=== PATIENT | male | born 1945 ===

== ENCOUNTER 2016-12-17 10:25 | Inpatient (IN) | payer MEDICARE, OTHER ==
[2016-12-17 11:08] VITALS: BMI 26.7
--- NOTE | 2016-12-17 11:17 | C.PDOC ---
History Of Present Illness 71 y/o male with PMH of HTN and COPD, presents to the ED with complains of SOB worsening over the past week despite usual treatments at home. Patient reports having cough and congestion for 10 days, and also reports subjective fever last night, and chest discomfort with coughing. Denies headache, vomiting, diarrhea, dizziness, or any other complaints. Time Seen by Provider: 12/17/16 10:51 History Per: Patient, Family History/Exam Limitations: no limitations Onset/Duration Of Symptoms: Days Current Symptoms Are (Timing): Worse Severity: Moderate Associated Symptoms: Fever. denies: Chest Pain Recent travel outside of the [place]: No Past Medical History Reviewed: Historical Data, Nursing Documentation, Vital Signs Vital Signs: Last Vital Signs Temp Pulse 87 12/17/16 12:25 Resp 20 12/17/16 12:31 BP 122/79 12/17/16 12:25 Pulse Ox 94 L 12/17/16 12:31 - Medical History PMH: COPD, HTN Family History: States: Unknown Family Hx Review Of Systems Except As Marked, All Systems Reviewed And Found Negative. Constitutional: Positive for: Fever Cardiovascular: Positive for: Other (chest discomfort) Respiratory: Positive for: Cough, Shortness of Breath Gastrointestinal: Negative for: Vomiting, Diarrhea Neurological: Negative for: Headache, Dizziness Physical Exam - Physical Exam Appears: Non-toxic Skin: Warm, Dry, No Rash Head: Atraumatic, Normacephalic Ear(s): Bilateral: Normal Nose: Normal Oral Mucosa: Moist Throat: Normal Chest: Symmetrical, No Tenderness Cardiovascular: Rhythm Regular (tachycardic), No Murmur Respiratory: No Rales, Rhonchi (at bilateral bases), Wheezing (diffuse wheezing bilaterally), Other (mild respiratory distress) Gastrointestinal/Abdominal: Soft Extremity: No Pedal Edema Extremity: Bilateral: Atraumatic Neurological/Psych: Oriented x3, Normal Speech ED Course And Treatment - Laboratory Results Result Diagrams: 12/17/16 11:31 12/17/16 11:31 Progress Note: Patient is resting comfortably with no wheezing, chest pain, or retractions. Oxygen saturation has improved. Patient is alert and oriented x 3. Patient was advised to follow up with physician in 1-2 days. Medical Decision Making Medical Decision Making: Plan: * EKG, CXR * labs, UA * Nebulizer treatment with duoneb and solumedrol * nasal cannula * peak flow Progress: EKG is NS at 84 bpm with normal axis and nonspecific ST-T changes. No prior available for comparison Labs reviewed and WNL CXR shows no infiltrate, effusion or consolidation as interpreted by me Upon reevaluation, patient resting and in no acute distress. He reports mild improvement of symptoms. Lung sounds minimally changed and patient desaturates to low 90% when off oxygen. Will call hospitalist for observation admission. Patient agrees with plan. Disposition - Disposition Disposition: HOSPITALIZED Disposition Time: 12:37 Condition: STABLE - POA Present On Arrival: None - Clinical Impression Clinical Impression: COPD exacerbation - PA / [employer] / Resident Statement MD/DO has reviewed & agrees with the documentation as recorded. - Scribe Statement The provider has reviewed the documentation as recorded by the Scribe Ric Russell All medical record entries made by the Scribe were at my direction and personally dictated by me. I have reviewed the chart and agree that the record accurately reflects my personal performance of the history, physical exam, medical decision making, and the department course for this patient. I have also personally directed, reviewed, and agree with the discharge instructions and disposition. Decision To Admit - Pt Status Changed To: Hospital Disposition Of: Observation - . Bed Request Type: Regular Admitting Physician: Tristan Arriaza Patient Diagnosis: COPD exacerbation
[2016-12-17] MEDS: Albuterol-Ipratrop 3 mg / 0.5 (3 ml) UD IH SCH ×2 (11:35→11:58)
[2016-12-17] MEDS ORDERED: Albuterol-Ipratrop 3 mg / 0.5 (3 ml) UD ONE ×2 (11:37→11:45)
[2016-12-17 11:43] LABS: BASO # 0.1 K/uL (0.0-0.2); EOS # 0.2 K/uL (0.0-0.7); MONO # 1.5 K/uL (0.0-0.8); WHITE BLOOD COUNT 11.1 K/uL (4.8-10.8)
[2016-12-17 11:48] LABS: BASO % 0.9 % (0.0-2.0); EOS % 1.6 % (0.0-4.0); HEMATOCRIT 45.1 % (35.0-51.0); LYMPH # 1.3 K/uL (1.0-4.3); LYMPH % 12.2 % (20.0-40.0); MEAN CELL VOLUME 88.7 fL (80.0-94.0); MEAN CORPUSCULAR HEMOGLOBIN 30.6 pg (27.0-31.0); MEAN CORPUSCULAR HGB CONC 34.5 g/dL (33.0-37.0); MEAN PLATELET VOLUME 9.6 fL (7.2-11.7); MONO % 13.5 % (0.0-10.0); NRBC % 0.1 % (0.0-2.0); RED CELL DISTRIBUTION WIDTH 13.2 % (11.5-14.5)
[2016-12-17 11:50] LABS: CHLORIDE 95 mmol/L (98-107)
[2016-12-17 11:51] LABS: POTASSIUM 3.6 mmol/L (3.6-5.2); SODIUM 134 mmol/L (132-148)
[2016-12-17 11:53] LABS: ALB/GLOB RATIO 1.2 (1.0-2.1); ALKALINE PHOSPHATASE 68 U/L (38-126); AST/SGOT 30 U/L (17-59); BILIRUBIN,TOTAL 0.5 mg/dL (0.2-1.3); CARBON DIOXIDE 27 mmol/L (22-30); GFR AFRICAN-AMERICAN > 60; TOTAL PROTEIN 7.7 g/dL (6.3-8.3)
[2016-12-17 11:54] LABS: ALT/SGPT 56 U/L (21-72); BLOOD UREA NITROGEN 11 mg/dL (9-20); CALCIUM 9.3 mg/dl (8.6-10.4); GLUCOSE,RANDOM 74 mg/dL (75-110)
[2016-12-17 12:34] LABS: RBC URINE < 1 /hpf (0-3); URINE BILIRUBIN NEGATIVE (NEGATIVE); URINE BLOOD NEGATIVE (NEGATIVE); URINE COLOR Yellow (YELLOW); URINE GLUCOSE (UA) NORMAL (Normal); URINE KETONE NEGATIVE (NEGATIVE); URINE LEUKOCYTE ESTERASE NEG Leu/uL (Negative); URINE PROTEIN NEGATIVE (NEGATIVE); URINE UROBILINOGEN NORMAL mg/dL (0.2-1.0); WBC URINE 1 /hpf (0-5)
--- NOTE | 2016-12-17 12:51 | CP.PCM.HP ---
<Denzel Vences - Last Filed: 12/17/16 19:44> History of Present Illness - History of Present Illness History of Present Illness: CC: SOB + cough x 2weeks HPI: 71 y/o male with PMH of COPD, HTN, and Arthritis - presents c/o SOB worsening and cough for the past 2 weeks. He reports being sick with bronchitis on 12/05/16, as diagnosed by his PMD, and completed his tx with promethazine/ codeine, Azithromycin 250mg, and prednisone taper. He reports completing his medication 3 days ago, but feels no resolution of his symptoms. His last Tmax was last week in the 's. Patient reports having cough and congestion for 10 days (non-productive), subjective fever last night, and chest discomfort with coughing. Denies dizziness, chills, headache, abdominal pain, n/v, d/c, LE swelling, or any additional acute complaints. ED course: Solumedrol 125mg IVP; Duoneb 3mL INH; Lung sounds minimally changed and patient desaturated to low 90% when off oxygen. PMHx: COPD, HTN, arthritis PSHx: Left foot injury (internal fixation) Meds: Allergies: NKDA FamHx: Mother - [place] SocHx: 1-3 PPD x 50yrs; recently 1-5 cigarets/day; Recently 1-5 cigarets/day; Denies Alcohol or illicit drug use. Lives in apt. 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 Matta Present on Admission - Present on Admission Any Indicators Present on Admission: No Review of Systems - Constitutional Constitutional: As Per HPI, Fever. absent: Chills, Weakness - EENT Eyes: absent: Blind Spots, Blurred Vision, Change in Vision Ears: absent: Decreased Hearing, Ear Discharge, Dizziness Nose/Mouth/Throat: absent: Epistaxis, Nasal Congestion, Nasal Discharge - Cardiovascular Cardiovascular: Dyspnea. absent: Chest Pain at Rest, Chest Pain with Activity, Edema, Leg Edema - Respiratory Respiratory: Cough, Dyspnea, Pain with Coughing (right sided chest pain with cough). absent: Hemoptysis, Chest Congestion - Gastrointestinal Gastrointestinal: absent: Abdominal Pain, Constipation, Diarrhea, Nausea, Vomiting - Genitourinary Genitourinary: absent: Change in Urinary Stream, Difficulty Urinating, Dysuria - Musculoskeletal Musculoskeletal: absent: Atrophy, Back Pain, Numbness, Tingling - Integumentary Integumentary: absent: Bleeding Lesions, Unusual Bruising - Neurological Neurological: absent: Abnormal Hearing, Dizziness, Tingling, Weakness - Psychiatric Psychiatric: absent: Abnormal Sleep Pattern, Anhedonia, Anxiety - Hematologic/Lymphatic Hematologic: absent: Easy Bleeding, Easy Bruising, Lymphadenopathy Past Patient History - Infectious Disease Hx of Infectious Diseases: None - Past Social History Smoking Status: Former Smoker - CARDIAC Hx Hypertension: Yes - PULMONARY Hx Chronic Obstructive Pulmonary Disease (COPD): Yes - PSYCHIATRIC Hx Substance Use: No - SURGICAL HISTORY Hx Surgeries: Yes Hx Orthopedic Surgery: Yes Meds Allergies/Adverse Reactions: Allergies Allergy/AdvReac Type Severity Reaction Status Date / Time No Known Allergies Allergy Verified 12/17/16 11:01 Physical Exam - Constitutional Appears: Non-toxic, No Acute Distress - Head Exam Head Exam: ATRAUMATIC, NORMAL INSPECTION - Eye Exam Eye Exam: EOMI, Normal appearance - ENT Exam ENT Exam: Mucous Membranes Moist - Neck Exam Neck exam: Negative for: Lymphadenopathy, Tenderness - Respiratory Exam Respiratory Exam: Wheezes (diffuse), NORMAL BREATHING PATTERN. absent: Rhonchi Additional comments: patient desaturates to low 90% without oxygen - Cardiovascular Exam Cardiovascular Exam: REGULAR RHYTHM, +S1, +S2. absent: RRR - GI/Abdominal Exam GI & Abdominal Exam: Normal Bowel Sounds, Soft. absent: Tenderness - Extremities Exam Extremities exam: Positive for: normal inspection. Negative for: pedal edema, tenderness - Back Exam Back exam: NORMAL INSPECTION. absent: tenderness - Neurological Exam Neurological exam: Alert, CN II-XII Intact, Oriented x3 - Psychiatric Exam Psychiatric exam: Normal Affect, Normal Mood - Skin Skin Exam: Dry, Intact, Normal Color, Warm Results - Vital Signs Recent Vital Signs: Last Vital Signs Temp Pulse 87 12/17/16 12:25 Resp 20 12/17/16 12:31 BP 122/79 12/17/16 12:25 Pulse Ox 94 L 12/17/16 12:31 - Labs Result Diagrams: 12/17/16 11:31 12/17/16 11:31 Labs: Laboratory Results - last 24 hr 12/17/16 12/17/16 11:31 12:27 WBC 11.1 H RBC 5.08 Hgb 15.5 Hct 45.1 MCV 88.7 MCH 30.6 MCHC 34.5 RDW 13.2 Plt Count 347 MPV 9.6 Neut % (Auto) 71.8 Lymph % (Auto) 12.2 L [place] % (Auto) 13.5 H Eos % (Auto) 1.6 Baso % (Auto) 0.9 Neut # 8.0 H Lymph # 1.3 [place] # 1.5 H Eos # 0.2 Baso # 0.1 Sodium 134 Potassium 3.6 Chloride 95 L Carbon Dioxide 27 Anion Gap 16 BUN 11 Creatinine 0.7 L Est GFR ( Amer) > 60 Est GFR (Non-Af Amer) > 60 Random Glucose 74 L Calcium 9.3 Total Bilirubin 0.5 AST 30 ALT 56 Alkaline Phosphatase 68 NT-Pro-B Natriuret Pep 22.3 Total Protein 7.7 Albumin 4.2 Globulin 3.4 Albumin/Globulin Ratio 1.2 Urine Color Yellow Urine Clarity Clear Urine pH 7.0 Ur Specific [place] 1.015 Urine Protein Negative Urine Glucose (UA) Normal Urine Ketones Negative Urine Blood Negative Urine Nitrate Negative Urine Bilirubin Negative Urine Urobilinogen Normal Ur Leukocyte Esterase Neg Urine WBC (Auto) 1 Urine RBC (Auto) < 1 Ur Squamous Epith Cells < 1 Assessment & Plan - Assessment and Plan (Free Text) Assessment: COPD exacerbation -EKG is NS at 84 bpm with normal axis and nonspecific ST-T changes. No prior available for comparison -CXR- minor atelectasis/scarring of left lung base; no infiltrate, effusion or consolidation. -Incentive spirometer -desaturated to low 90% when off oxygen. -O2 via NC -Duonebs 3mL INH RQ6 [facility] -Solumedrol 40mg IVP Q8H -Spiriva 18mcg INH RQ24 [facility] Leukocytosis, mild WBC 11.1 -> f/u am labs -f/u AM Labs -f/u Blood cult Hx Bronchitis -diagnosed 12/05; completed tx 12/14 -is not feeling better -completed his tx with promethazine/codeine, Azithromycin 250mg, and prednisone taper HTN BP 122/79 in ED Home med: Hydrochlorothiazide 25 mg PO DAILY Home med: Losartan 100 mg PO DAILY [facility] Arthritis Home med: Motrin 800mg PO BID PRN Prophylaxis Home med: ASA 81mg PO daily Protonix 40mg PO daily Hep 5k units SC Q8 Incentive spirometer Heart healthy diet - Date & Time Date: 12/17/16 Time: 12:55 <Tristan Arriaza - Last Filed: 12/17/16 21:08> Results - Vital Signs Recent Vital Signs: Last Vital Signs Temp 98.1 F 12/17/16 18:31 Pulse 95 H 12/17/16 18:31 Resp 21 12/17/16 18:31 BP 135/77 12/17/16 18:31 Pulse Ox 92 L 12/17/16 18:31 - Labs Result Diagrams: 12/17/16 11:31 12/17/16 11:31 Labs: Laboratory Results - last 24 hr 12/17/16 12/17/16 14:42 17:15 POC Glucose (mg/dL) 151 H 164 H Attending/Attestation - Attestation I have personally seen and examined this patient.: Yes I have fully participated in the care of the patient.: Yes I have reviewed all pertinent clinical information: Yes Notes (Text): 12/17/16 21:07 patient is seen and examined at bedside with the resident at the time of admission Patient is being admitted for COPD exacerbation I discussed the plan of care with the resident and agree with the above history and physical and assessment/plan but the resident
--- NOTE | 2016-12-17 13:30 | RAD ---
PROCEDURE: CHEST RADIOGRAPH, 1 VIEW HISTORY: SOB COMPARISON: None available. FINDINGS: LUNGS: Minor atelectasis or scarring left lung base PLEURA: No pneumothorax or pleural fluid seen. CARDIOVASCULAR: Normal. OSSEOUS STRUCTURES: Minor degenerative changes both shoulder girdles. . VISUALIZED UPPER ABDOMEN: Normal. OTHER FINDINGS: None. IMPRESSION: Minor atelectasis and or scarring left lung base.
[2016-12-17] MEDS ORDERED: Albuterol 0.083% Inhal Sol (2.5 mg/3 mL) UD INH PRN (13:47)
[2016-12-17] MEDS ORDERED: Albuterol 0.083% Inhal Sol (2.5 mg/3 mL) UD INH SCH (14:01)
[2016-12-17] MEDS: Pantoprazole 40 mg EC Tab PO SCH (14:59)
[2016-12-17] MEDS: MethylPREDNISolone 40 mg Vial IVP SCH (21:20)
[2016-12-18] MEDS: Albuterol-Ipratrop 3 mg / 0.5 (3 ml) UD INH SCH ×4 (01:02→19:24)
[2016-12-18] MEDS: MethylPREDNISolone 40 mg Vial IVP SCH ×3 (05:50→21:45)
[2016-12-18 07:10] LABS: CHLORIDE 92 mmol/L (98-107); POTASSIUM 3.8 mmol/L (3.6-5.2); SODIUM 135 mmol/L (132-148)
[2016-12-18 07:12] LABS: BILIRUBIN,TOTAL 0.4 mg/dL (0.2-1.3); CARBON DIOXIDE 27 mmol/L (22-30); GFR AFRICAN-AMERICAN > 60
[2016-12-18 07:13] LABS: ALB/GLOB RATIO 1.4 (1.0-2.1); ALKALINE PHOSPHATASE 69 U/L (38-126); ALT/SGPT 46 U/L (21-72); AST/SGOT 22 U/L (17-59); BLOOD UREA NITROGEN 18 mg/dL (9-20); CALCIUM 9.2 mg/dl (8.6-10.4); GLUCOSE,RANDOM 125 mg/dL (75-110); PHOSPHOROUS 3.8 mg/dL (2.5-4.5); TOTAL PROTEIN 7.2 g/dL (6.3-8.3)
[2016-12-18 07:15] LABS: BASO % 0.4 % (0.0-2.0); LYMPH # 0.7 K/uL (1.0-4.3); LYMPH % 6.5 % (20.0-40.0); MEAN CELL VOLUME 89.1 fL (80.0-94.0); MEAN CORPUSCULAR HEMOGLOBIN 30.2 pg (27.0-31.0); MEAN CORPUSCULAR HGB CONC 33.9 g/dL (33.0-37.0); MEAN PLATELET VOLUME 9.5 fL (7.2-11.7); MONO # 0.7 K/uL (0.0-0.8); MONO % 5.9 % (0.0-10.0); PLATELET COUNT 328 K/uL (130-400); RED CELL DISTRIBUTION WIDTH 13.2 % (11.5-14.5); WHITE BLOOD COUNT 11.5 K/uL (4.8-10.8)
[2016-12-18] MEDS: Tiotropium 18 mcg Cap For Inhalation INH SCH (08:30)
[2016-12-18] MEDS: Pantoprazole 40 mg EC Tab PO SCH (10:22)
[2016-12-18 10:52] LABS: LARGE PLATELETS PRESENT; NEUTROPHIL 80 % (50-75); REACTIVE LYMPHOCYTES 1 % (0-0); TOTAL CELLS COUNTED 100
--- NOTE | 2016-12-18 12:34 | CP.PCM.PN ---
<Yohana Soto - Last Filed: 12/18/16 12:49> Subjective - Date & Time of Evaluation Date of Evaluation: 12/18/16 Time of Evaluation: 07:15 - Subjective Subjective: PGY [address] Arriaza: Patient seen and examined at bedside this morning. He states that his breathing had improved from yesterday but that he is still SOB and needs the NC. He stated he is coughing a lot but without phlegm production. He denies fever/ chills or chest pain. He denies all other com[plaints such as abd pain, N/V, diarrhea constipation, swelling or weakness in the extremities, headache, changes in vision. Objective - Vital Signs/Intake and Output Vital Signs (last 24 hours): Temp Pulse Resp BP Pulse Ox 98.2 F 94 H 20 142/80 95 12/18/16 08:00 12/18/16 08:00 12/18/16 08:00 12/18/16 08:00 12/18/16 08:00 Intake and Output: 12/18/16 12/18/16 06:59 18:59 Intake Total 320 Balance 320 - Medications Medications: Current Medications Albuterol/Ipratropium (Duoneb 3 Mg/0.5 Mg (3 Ml) Ud) 3 ml INH RQ6 [facility] Last Admin: 12/18/16 08:30 Dose: 3 ml Aspirin (Ecotrin) 81 mg PO DAILY [facility] Last Admin: 12/18/16 10:22 Dose: 81 mg Heparin Sodium (Porcine) (Heparin) 5,000 units SC Q8 [facility] Last Admin: 12/18/16 05:50 Dose: 5,000 units Hydrochlorothiazide (Hydrodiuril) 25 mg PO DAILY [facility] Last Admin: 12/18/16 10:22 Dose: 25 mg Ibuprofen (Motrin Tab) 800 mg PO BID PRN PRN Reason: Pain, moderate (4-7) Influenza Virus Vaccine (Afluria) 45 mcg IM .ONCE ONE Stop: 12/20/16 10:01 Losartan Potassium (Cozaar) 100 mg PO DAILY [facility] Last Admin: 12/18/16 10:22 Dose: 100 mg Methylprednisolone (Solu-Medrol) 40 mg IVP Q8 [facility] Last Admin: 12/18/16 05:50 Dose: 40 mg Pantoprazole Sodium (Protonix Ec Tab) 40 mg PO DAILY [facility] Last Admin: 12/18/16 10:22 Dose: 40 mg Pneumococcal Polyvalent Vaccine (Pneumovax 23 Vaccine) 0.5 ml IM .ONCE ONE Stop: 12/20/16 10:01 Tiotropium [place] (Spiriva) 18 mcg INH RQ24 [facility] Last Admin: 12/18/16 08:30 Dose: 18 mcg - Labs Labs: 12/18/16 06:51 12/18/16 06:51 - Constitutional Appears: Non-toxic, No Acute Distress - Head Exam Head Exam: ATRAUMATIC, NORMAL INSPECTION - Eye Exam Eye Exam: EOMI, Normal appearance, PERRL Pupil Exam: NORMAL ACCOMODATION - ENT Exam ENT Exam: Mucous Membranes Moist - Respiratory Exam Respiratory Exam: Decreased Breath Sounds, Wheezes. absent: Accessory Muscle Use, Chest Wall Tenderness, Respiratory Distress - Cardiovascular Exam Cardiovascular Exam: REGULAR RHYTHM, +S1, +S2. absent: Murmur - GI/Abdominal Exam GI & Abdominal Exam: Soft, Normal Bowel Sounds. absent: Distended, Firm, Guarding, Tenderness - Extremities Exam Extremities Exam: Normal Inspection. absent: Calf Tenderness, Pedal Edema - Back Exam Back Exam: NORMAL INSPECTION. absent: CVA tenderness (L), CVA tenderness (R), paraspinal tenderness - Neurological Exam Neurological Exam: Alert, Awake, Oriented x3 Neuro motor strength exam: Left Upper Extremity: 5, Right Upper Extremity: 5, Left Lower Extremity: 5, Right Lower Extremity: 5 - Psychiatric Exam Psychiatric exam: Normal Affect, Normal Mood - Skin Skin Exam: Dry, Intact, Normal Color, Warm. absent: Cyanosis Assessment and Plan - Assessment and Plan (Free Text) Assessment: COPD exacerbation - Patient wheezing this AM - EKG is NS at 84 bpm with normal axis and nonspecific ST-T changes. No prior available for comparison -CXR- minor atelectasis/scarring of left lung base; no infiltrate, effusion or consolidation. -Incentive spirometer -desaturated to low 90% when off oxygen. -O2 via NC -Duonebs 3mL INH RQ6 [facility] -Solumedrol 40mg IVP Q8H - consider tapering tomorrow -Spiriva 18mcg INH RQ24 [facility] Leukocytosis, mild WBC 11.5 -> f/u am labs - Afebrile, denies f/c, no phelgm production - UA - negative Hx Bronchitis -diagnosed 12/05; completed tx 12/14 -is not feeling better -completed his tx with promethazine/codeine, Azithromycin 250mg, and prednisone taper HTN BP 122/79 in ED Home med: Hydrochlorothiazide 25 mg PO DAILY Home med: Losartan 100 mg PO DAILY [facility] Arthritis Home med: Motrin 800mg PO BID PRN Prophylaxis Home med: ASA 81mg PO daily Protonix 40mg PO daily Hep 5k units SC Q8 Incentive spirometer Heart healthy diet <Tristan Arriaza - Last Filed: 12/18/16 14:17> Objective - Vital Signs/Intake and Output Vital Signs (last 24 hours): Temp Pulse Resp BP Pulse Ox 98.2 F 94 H 20 142/80 95 12/18/16 08:00 12/18/16 08:00 12/18/16 08:00 12/18/16 08:00 12/18/16 08:00 Intake and Output: 12/18/16 12/18/16 06:59 18:59 Intake Total 320 Balance 320 - Medications Medications: Current Medications Albuterol/Ipratropium (Duoneb 3 Mg/0.5 Mg (3 Ml) Ud) 3 ml INH RQ6 [facility] Last Admin: 12/18/16 13:55 Dose: 3 ml Aspirin (Ecotrin) 81 mg PO DAILY [facility] Last Admin: 12/18/16 10:22 Dose: 81 mg Heparin Sodium (Porcine) (Heparin) 5,000 units SC Q8 [facility] Last Admin: 12/18/16 14:04 Dose: 5,000 units Hydrochlorothiazide (Hydrodiuril) 25 mg PO DAILY [facility] Last Admin: 12/18/16 10:22 Dose: 25 mg Ibuprofen (Motrin Tab) 800 mg PO BID PRN PRN Reason: Pain, moderate (4-7) Influenza Virus Vaccine (Afluria) 45 mcg IM .ONCE ONE Stop: 12/20/16 10:01 Losartan Potassium (Cozaar) 100 mg PO DAILY [facility] Last Admin: 12/18/16 10:22 Dose: 100 mg Methylprednisolone (Solu-Medrol) 40 mg IVP Q8 [facility] Last Admin: 12/18/16 14:04 Dose: 40 mg Pantoprazole Sodium (Protonix Ec Tab) 40 mg PO DAILY [facility] Last Admin: 12/18/16 10:22 Dose: 40 mg Pneumococcal Polyvalent Vaccine (Pneumovax 23 Vaccine) 0.5 ml IM .ONCE ONE Stop: 12/20/16 10:01 Tiotropium [place] (Spiriva) 18 mcg INH RQ24 [facility] Last Admin: 12/18/16 08:30 Dose: 18 mcg - Labs Labs: 12/18/16 06:51 12/18/16 06:51 Attending/Attestation - Attestation I have personally seen and examined this patient.: Yes I have fully participated in the care of the patient.: Yes I have reviewed all pertinent clinical information, including history, physical exam and plan: Yes Notes (Text): 12/18/16 14:16 Patient was seen and examined at bedside with the resident Patient reports mild improvement in breathing today We will continue nebulizing treatment and steroids Discussed with the patient and the family at bedside and answered all questions Discussed the plan of care with the resident and agree with the above assessment and plan by the resident
[2016-12-19] MEDS: Albuterol-Ipratrop 3 mg / 0.5 (3 ml) UD INH SCH ×4 (01:19→21:45)
[2016-12-19] MEDS: MethylPREDNISolone 40 mg Vial IVP SCH ×2 (05:20→12:45)
[2016-12-19 07:33] LABS: BASO # 0.1 K/uL (0.0-0.2); BASO % 0.5 % (0.0-2.0); HEMATOCRIT 42.1 % (35.0-51.0); LYMPH # 0.4 K/uL (1.0-4.3); LYMPH % 2.8 % (20.0-40.0); MEAN CELL VOLUME 90.4 fL (80.0-94.0); MEAN CORPUSCULAR HEMOGLOBIN 29.8 pg (27.0-31.0); MEAN PLATELET VOLUME 9.4 fL (7.2-11.7); MONO # 0.6 K/uL (0.0-0.8); MONO % 4.2 % (0.0-10.0); NRBC % 0.8 % (0.0-2.0); PLATELET COUNT 324 K/uL (130-400); RED CELL DISTRIBUTION WIDTH 13.4 % (11.5-14.5); WHITE BLOOD COUNT 15.2 K/uL (4.8-10.8)
[2016-12-19 07:52] LABS: CHLORIDE 90 mmol/L (98-107)
[2016-12-19 07:53] LABS: POTASSIUM 3.5 mmol/L (3.6-5.2); SODIUM 133 mmol/L (132-148)
[2016-12-19 07:56] LABS: ALB/GLOB RATIO 1.4 (1.0-2.1); ALKALINE PHOSPHATASE 63 U/L (38-126); ALT/SGPT 52 U/L (21-72); AST/SGOT 25 U/L (17-59); BILIRUBIN,TOTAL 0.5 mg/dL (0.2-1.3); BLOOD UREA NITROGEN 13 mg/dL (9-20); CARBON DIOXIDE 27 mmol/L (22-30); GFR AFRICAN-AMERICAN > 60; GLUCOSE,RANDOM 123 mg/dL (75-110); PHOSPHOROUS 3.9 mg/dL (2.5-4.5)
[2016-12-19 07:57] LABS: CALCIUM 8.5 mg/dl (8.6-10.4)
[2016-12-19] MEDS: Tiotropium 18 mcg Cap For Inhalation INH SCH (08:38)
[2016-12-19 09:48] LABS: LARGE PLATELETS PRESENT; NEUTROPHIL 90 % (50-75); TOTAL CELLS COUNTED 100
[2016-12-19 09:49] LABS: GIANT PLATELETS PRESENT
[2016-12-19] MEDS ORDERED: Potassium Chloride 20 mEq ER Tab PO ONE (10:00)
[2016-12-19] MEDS: Pantoprazole 40 mg EC Tab PO SCH (10:51)
--- NOTE | 2016-12-19 14:52 | CARD ---
APPROVED REPORT EKG Measurement Heart [id number] <Conclusion> Normal sinus rhythm Nonspecific ST and T wave abnormality Abnormal ECG
--- NOTE | 2016-12-19 17:45 | CP.PCM.PN ---
<Jean Pierre Drake - Last Filed: 12/19/16 17:39> Subjective - Date & Time of Evaluation Date of Evaluation: 12/19/16 Time of Evaluation: 17:39 - Subjective Subjective: PGY-1 note for medicine service Pt seen and examined at bedside. Pt reports feeling much better today. He says his breathing is almost back to normal. Has a cough, but non-productive. Denies fevers, chills, chest pain, palpitations, nausea or vomiting. Objective - Vital Signs/Intake and Output Vital Signs (last 24 hours): Temp Pulse Resp BP Pulse Ox 98.1 F 91 H 20 133/65 93 L 12/19/16 17:21 12/19/16 17:21 12/19/16 17:21 12/19/16 17:21 12/19/16 17:21 Intake and Output: 12/19/16 12/19/16 06:59 18:59 Intake Total 740 480 Balance 740 480 - Medications Medications: Current Medications Albuterol/Ipratropium (Duoneb 3 Mg/0.5 Mg (3 Ml) Ud) 3 ml INH RQ6 [facility] Last Admin: 12/19/16 13:37 Dose: 3 ml Aspirin (Ecotrin) 81 mg PO DAILY [facility] Last Admin: 12/19/16 10:51 Dose: 81 mg Heparin Sodium (Porcine) (Heparin) 5,000 units SC Q8 [facility] Last Admin: 12/19/16 15:00 Dose: 5,000 units Hydrochlorothiazide (Hydrodiuril) 25 mg PO DAILY [facility] Last Admin: 12/19/16 10:52 Dose: 25 mg Ibuprofen (Motrin Tab) 800 mg PO BID PRN PRN Reason: Pain, moderate (4-7) Influenza Virus Vaccine (Afluria) 45 mcg IM .ONCE ONE Stop: 12/20/16 10:01 Losartan Potassium (Cozaar) 100 mg PO DAILY [facility] Last Admin: 12/19/16 10:52 Dose: 100 mg Methylprednisolone (Solu-Medrol) 40 mg IVP Q12H [facility] Last Admin: 12/19/16 12:45 Dose: 40 mg Pantoprazole Sodium (Protonix Ec Tab) 40 mg PO DAILY [facility] Last Admin: 12/19/16 10:51 Dose: 40 mg Pneumococcal Polyvalent Vaccine (Pneumovax 23 Vaccine) 0.5 ml IM .ONCE ONE Stop: 12/20/16 10:01 Tiotropium [place] (Spiriva) 18 mcg INH RQ24 [facility] Last Admin: 12/19/16 08:38 Dose: 18 mcg - Labs Labs: 12/19/16 07:21 12/19/16 07:21 - Constitutional Appears: Non-toxic, No Acute Distress - Head Exam Head Exam: ATRAUMATIC, NORMOCEPHALIC - Eye Exam Eye Exam: Normal appearance Pupil Exam: PERRL - ENT Exam ENT Exam: Mucous Membranes Moist - Respiratory Exam Respiratory Exam: Decreased Breath Sounds, Wheezes (end of expiratory phase), NORMAL BREATHING PATTERN - Cardiovascular Exam Cardiovascular Exam: +S1, +S2 - GI/Abdominal Exam GI & Abdominal Exam: Soft, Normal Bowel Sounds - Neurological Exam Neurological Exam: Alert, Awake - Skin Skin Exam: Dry, Warm Assessment and Plan - Assessment and Plan (Free Text) Assessment: COPD exacerbation - Patient has decreased breath sounds with a mild end expiratory wheeze this morning. Reports feeling almost back to baseline - EKG is NS at 84 bpm with normal axis and nonspecific ST-T changes. No prior available for comparison - CXR- minor atelectasis/scarring of left lung base; no infiltrate, effusion or consolidation. -Incentive spirometer - desaturated to low 90% when off oxygen. -O2 via NC - Duonebs 3mL INH RQ6 [facility] - Solumedrol tapered to 40mg Q12 - Spiriva 18mcg INH RQ24 [facility] Leukocytosis, mild - WBC elevated - likely due to steroids. Continue to monitor - Afebrile - UA - negative Hx Bronchitis - diagnosed 12/05; completed tx 12/14 - completed his tx with promethazine/codeine, Azithromycin 250mg, and prednisone taper - feels better today HTN - Home med: Hydrochlorothiazide 25 mg PO DAILY - Home med: Losartan 100 mg PO DAILY [facility] - Monitor and adjust as needed Hx of Arthritis - Home med: Motrin 800mg PO BID PRN Prophylaxis - Home med: ASA 81mg PO daily - Protonix 40mg PO daily - Hep 5k units SC Q8 - Incentive spirometer - Heart healthy diet <Hero Pollard - Last Filed: 12/20/16 11:31> Objective - Vital Signs/Intake and Output Vital Signs (last 24 hours): Temp Pulse Resp BP Pulse Ox 98.4 F 89 20 151/84 H 96 12/20/16 00:00 12/20/16 00:00 12/20/16 00:00 12/20/16 00:00 12/20/16 00:00 - Medications Medications: Current Medications Albuterol/Ipratropium (Duoneb 3 Mg/0.5 Mg (3 Ml) Ud) 3 ml INH RQ6 [facility] Last Admin: 12/20/16 08:05 Dose: 3 ml Aspirin (Ecotrin) 81 mg PO DAILY [facility] Last Admin: 12/19/16 10:51 Dose: 81 mg Heparin Sodium (Porcine) (Heparin) 5,000 units SC Q8 [facility] Last Admin: 12/20/16 05:20 Dose: 5,000 units Hydrochlorothiazide (Hydrodiuril) 25 mg PO DAILY [facility] Last Admin: 12/19/16 10:52 Dose: 25 mg Ibuprofen (Motrin Tab) 800 mg PO BID PRN PRN Reason: Pain, moderate (4-7) Influenza Virus Vaccine (Afluria) 45 mcg IM .ONCE ONE Stop: 12/20/16 10:01 Losartan Potassium (Cozaar) 100 mg PO DAILY [facility] Last Admin: 12/19/16 10:52 Dose: 100 mg Methylprednisolone (Solu-Medrol) 40 mg IVP Q12H [facility] Last Admin: 12/20/16 00:10 Dose: 40 mg Pantoprazole Sodium (Protonix Ec Tab) 40 mg PO DAILY [facility] Last Admin: 12/19/16 10:51 Dose: 40 mg Pneumococcal Polyvalent Vaccine (Pneumovax 23 Vaccine) 0.5 ml IM .ONCE ONE Stop: 12/20/16 10:01 Tiotropium [place] (Spiriva) 18 mcg INH RQ24 [facility] Last Admin: 12/20/16 08:05 Dose: 18 mcg Attending/Attestation - Attestation I have personally seen and examined this patient.: Yes I have fully participated in the care of the patient.: Yes I have reviewed all pertinent clinical information, including history, physical exam and plan: Yes
[2016-12-20] MEDS: MethylPREDNISolone 40 mg Vial IVP SCH ×3 (00:10→23:59)
[2016-12-20] MEDS: Albuterol-Ipratrop 3 mg / 0.5 (3 ml) UD INH SCH ×4 (01:18→20:02)
[2016-12-20 06:20] LABS: BASO % 0.1 % (0.0-2.0); LYMPH # 0.4 K/uL (1.0-4.3)
[2016-12-20 06:29] LABS: CHLORIDE 87 mmol/L (98-107); SODIUM 134 mmol/L (132-148)
[2016-12-20 06:30] LABS: POTASSIUM 3.8 mmol/L (3.6-5.2)
[2016-12-20 06:31] LABS: GFR AFRICAN-AMERICAN > 60
[2016-12-20 06:32] LABS: ALB/GLOB RATIO 1.4 (1.0-2.1); ALKALINE PHOSPHATASE 63 U/L (38-126); ALT/SGPT 68 U/L (21-72); AST/SGOT 34 U/L (17-59); BILIRUBIN,TOTAL 0.6 mg/dL (0.2-1.3); BLOOD UREA NITROGEN 13 mg/dL (9-20); CARBON DIOXIDE 31 mmol/L (22-30); GLUCOSE,RANDOM 123 mg/dL (75-110); PHOSPHOROUS 3.9 mg/dL (2.5-4.5); TOTAL PROTEIN 7.3 g/dL (6.3-8.3)
[2016-12-20 06:33] LABS: CALCIUM 8.8 mg/dl (8.6-10.4); MAGNESIUM 2.2 mg/dL (1.6-2.3)
[2016-12-20 06:35] LABS: HEMATOCRIT 41.7 % (35.0-51.0); MEAN CELL VOLUME 90.1 fL (80.0-94.0); MEAN CORPUSCULAR HEMOGLOBIN 30.4 pg (27.0-31.0); MEAN CORPUSCULAR HGB CONC 33.7 g/dL (33.0-37.0); MEAN PLATELET VOLUME 9.5 fL (7.2-11.7); MONO # 0.5 K/uL (0.0-0.8); MONO % 4.1 % (0.0-10.0); PLATELET COUNT 322 K/uL (130-400); RED CELL DISTRIBUTION WIDTH 13.1 % (11.5-14.5); WHITE BLOOD COUNT 13.3 K/uL (4.8-10.8)
[2016-12-20] MEDS: Tiotropium 18 mcg Cap For Inhalation INH SCH (08:05)
[2016-12-20 08:40] LABS: NEUTROPHIL 93 % (50-75); REACTIVE LYMPHOCYTES 1 % (0-0); TOTAL CELLS COUNTED 100
[2016-12-20 08:41] LABS: GIANT PLATELETS PRESENT; LARGE PLATELETS PRESENT
[2016-12-20] MEDS ORDERED: Pneumococcal 23-Valent Vaccine IM ONE (10:00)
[2016-12-20] MEDS ORDERED: Influenza Virus Vaccine 45 mcg/0.5 ml Syr IM ONE (10:00)
[2016-12-20] MEDS: Pantoprazole 40 mg EC Tab PO SCH (11:00)
--- NOTE | 2016-12-20 16:59 | CP.PCM.PN ---
<Jean Pierre Drake - Last Filed: 12/20/16 16:55> Subjective - Date & Time of Evaluation Date of Evaluation: 12/20/16 Time of Evaluation: 16:55 - Subjective Subjective: PGY-1 note for medicine service Pt seen and examined at bedside. Reports feeling worse today than yesterday. He states that he gets sob with attempting to get up to go to the bathroom a few steps away. Denies fevers, chills, chest pain, palpitations, nausea, vomiting Objective - Vital Signs/Intake and Output Vital Signs (last 24 hours): Temp Pulse Resp BP Pulse Ox 98.6 F 102 H 20 165/99 H 94 L 12/20/16 08:00 12/20/16 08:00 12/20/16 08:00 12/20/16 08:00 12/20/16 08:00 - Medications Medications: Current Medications Albuterol/Ipratropium (Duoneb 3 Mg/0.5 Mg (3 Ml) Ud) 3 ml INH RQ6 [facility] Last Admin: 12/20/16 14:17 Dose: 3 ml Aspirin (Ecotrin) 81 mg PO DAILY [facility] Last Admin: 12/20/16 11:00 Dose: 81 mg Budesonide (Pulmicort Respules) 0.5 mg INH RQ12 [facility] Heparin Sodium (Porcine) (Heparin) 5,000 units SC Q8 [facility] Last Admin: 12/20/16 15:00 Dose: 5,000 units Hydrochlorothiazide (Hydrodiuril) 25 mg PO DAILY [facility] Last Admin: 12/20/16 11:00 Dose: 25 mg Ibuprofen (Motrin Tab) 800 mg PO BID PRN PRN Reason: Pain, moderate (4-7) Losartan Potassium (Cozaar) 100 mg PO DAILY [facility] Last Admin: 12/20/16 11:00 Dose: 100 mg Methylprednisolone (Solu-Medrol) 40 mg IVP Q12H [facility] Last Admin: 12/20/16 13:00 Dose: 40 mg Pantoprazole Sodium (Protonix Ec Tab) 40 mg PO DAILY [facility] Last Admin: 12/20/16 11:00 Dose: 40 mg Tiotropium [place] (Spiriva) 18 mcg INH RQ24 [facility] Last Admin: 12/20/16 08:05 Dose: 18 mcg - Constitutional Appears: Non-toxic, No Acute Distress - Head Exam Head Exam: ATRAUMATIC, NORMOCEPHALIC - Eye Exam Eye Exam: Normal appearance Pupil Exam: PERRL - ENT Exam ENT Exam: Mucous Membranes Moist - Respiratory Exam Respiratory Exam: Decreased Breath Sounds, Clear to Ausculation Bilateral, NORMAL BREATHING PATTERN - Cardiovascular Exam Cardiovascular Exam: +S1, +S2 - GI/Abdominal Exam GI & Abdominal Exam: Soft, Normal Bowel Sounds - Neurological Exam Neurological Exam: Alert, Awake - Skin Skin Exam: Dry, Warm Assessment and Plan - Assessment and Plan (Free Text) Assessment: COPD exacerbation - Patient has decreased breath sounds with a mild end expiratory wheeze this morning. Feels worse again today - EKG is NS at 84 bpm with normal axis and nonspecific ST-T changes. No prior available for comparison - CXR- minor atelectasis/scarring of left lung base; no infiltrate, effusion or consolidation. -Incentive spirometer - desaturated to low 90% when off oxygen. -f/u with nursing staff to get update - Duonebs 3mL INH RQ6 [facility] - Solumedrol tapered to 40mg Q12 - Spiriva 18mcg INH RQ24 [facility] - Started Pulmicort (12/20) Leukocytosis, mild - WBC elevated - likely due to steroids. Continue to monitor - Afebrile - UA - negative Hx Bronchitis - diagnosed 12/05; completed tx 12/14 - completed his tx with promethazine/codeine, Azithromycin 250mg, and prednisone taper - feels better today HTN - Home med: Hydrochlorothiazide 25 mg PO DAILY - Home med: Losartan 100 mg PO DAILY [facility] - Monitor and adjust as needed Hx of Arthritis - Home med: Motrin 800mg PO BID PRN Prophylaxis - Home med: ASA 81mg PO daily - Protonix 40mg PO daily - Hep 5k units SC Q8 - Incentive spirometer - Heart healthy diet <Hero Pollard - Last Filed: 12/21/16 10:18> Objective - Vital Signs/Intake and Output Vital Signs (last 24 hours): Temp Pulse Resp BP Pulse Ox 98.4 F 85 20 152/85 H 96 12/21/16 07:48 12/21/16 07:48 12/21/16 07:48 12/21/16 07:48 12/21/16 07:48 - Medications Medications: Current Medications Albuterol/Ipratropium (Duoneb 3 Mg/0.5 Mg (3 Ml) Ud) 3 ml INH RQ6 [facility] Last Admin: 12/21/16 08:53 Dose: 3 ml Aspirin (Ecotrin) 81 mg PO DAILY [facility] Last Admin: 12/20/16 11:00 Dose: 81 mg Budesonide (Pulmicort Respules) 0.5 mg INH RQ12 [facility] Last Admin: 12/21/16 08:53 Dose: 0.5 mg Heparin Sodium (Porcine) (Heparin) 5,000 units SC Q8 [facility] Last Admin: 12/21/16 05:30 Dose: 5,000 units Hydrochlorothiazide (Hydrodiuril) 25 mg PO DAILY [facility] Last Admin: 12/20/16 11:00 Dose: 25 mg Ibuprofen (Motrin Tab) 800 mg PO BID PRN PRN Reason: Pain, moderate (4-7) Losartan Potassium (Cozaar) 100 mg PO DAILY [facility] Last Admin: 12/20/16 11:00 Dose: 100 mg Methylprednisolone (Solu-Medrol) 40 mg IVP Q12H [facility] Last Admin: 12/20/16 23:59 Dose: 40 mg Pantoprazole Sodium (Protonix Ec Tab) 40 mg PO DAILY [facility] Last Admin: 12/20/16 11:00 Dose: 40 mg Tiotropium [place] (Spiriva) 18 mcg INH RQ24 [facility] Last Admin: 12/21/16 08:53 Dose: 18 mcg - Labs Labs: 12/21/16 06:56 12/21/16 06:56 Attending/Attestation - Attestation I have personally seen and examined this patient.: Yes I have fully participated in the care of the patient.: Yes I have reviewed all pertinent clinical information, including history, physical exam and plan: Yes Notes (Text): Patient admitted with COPD exacerbation; Shortness of breath worse today, particularly with exertion; solumedrol decreased yesterday from 40 mg q8h to q12h; O2 sat 90% on RA at rest, need to assess on exertion, may need home O2; starting inhaled steroids; HTN uncontrolled but likely worsened by steroids; continue hctz and losartan; Heparin subcu for DVT prophylaxis.
[2016-12-20] MEDS: Budesonide 0.5 mg/2 ml Inhal Susp UD INH SCH (20:02)
[2016-12-21] MEDS: Albuterol-Ipratrop 3 mg / 0.5 (3 ml) UD INH SCH ×4 (01:07→19:10)
[2016-12-21 07:12] LABS: CHLORIDE 86 mmol/L (98-107); POTASSIUM 4.3 mmol/L (3.6-5.2); SODIUM 130 mmol/L (132-148)
[2016-12-21 07:14] LABS: BILIRUBIN,TOTAL 0.4 mg/dL (0.2-1.3); GFR AFRICAN-AMERICAN > 60
[2016-12-21 07:15] LABS: ALB/GLOB RATIO 1.5 (1.0-2.1); ALKALINE PHOSPHATASE 57 U/L (38-126); ALT/SGPT 67 U/L (21-72); AST/SGOT 29 U/L (17-59); BLOOD UREA NITROGEN 15 mg/dL (9-20); CALCIUM 9.1 mg/dl (8.6-10.4); CARBON DIOXIDE 32 mmol/L (22-30); GLUCOSE,RANDOM 126 mg/dL (75-110); PHOSPHOROUS 3.9 mg/dL (2.5-4.5); TOTAL PROTEIN 6.7 g/dL (6.3-8.3)
[2016-12-21 07:16] LABS: MAGNESIUM 2.2 mg/dL (1.6-2.3)
[2016-12-21 07:21] LABS: BASO % 0.1 % (0.0-2.0); HEMATOCRIT 42.5 % (35.0-51.0); LYMPH # 0.4 K/uL (1.0-4.3); LYMPH % 4.4 % (20.0-40.0); MEAN CELL VOLUME 89.4 fL (80.0-94.0); MEAN CORPUSCULAR HEMOGLOBIN 30.7 pg (27.0-31.0); MEAN CORPUSCULAR HGB CONC 34.4 g/dL (33.0-37.0); MEAN PLATELET VOLUME 9.3 fL (7.2-11.7); MONO # 0.5 K/uL (0.0-0.8); MONO % 5.3 % (0.0-10.0); PLATELET COUNT 281 K/uL (130-400); RED CELL DISTRIBUTION WIDTH 13.1 % (11.5-14.5); WHITE BLOOD COUNT 10.1 K/uL (4.8-10.8)
[2016-12-21] MEDS: Tiotropium 18 mcg Cap For Inhalation INH SCH (08:53)
[2016-12-21] MEDS: Budesonide 0.5 mg/2 ml Inhal Susp UD INH SCH ×2 (08:53→19:09)
[2016-12-21 09:34] LABS: NEUTROPHIL 91 % (50-75); TOTAL CELLS COUNTED 100
--- NOTE | 2016-12-21 10:28 | CP.PCM.PN ---
<Yohana Soto - Last Filed: 12/21/16 10:23> Subjective - Date & Time of Evaluation Date of Evaluation: 12/21/16 Time of Evaluation: 07:40 - Subjective Subjective: PGY-[address] Arriaza: Patient seen and examined at bedside. Reports feeling slightly improved from yesterday. He states that he gets sob with attempting to get up to go to the bathroom a few steps away. Denies headache, changes in vision, fevers, chills, chest pain, palpitations, nausea, vomiting, diarrhea/constipation, swelling or pain in the extremities. Objective - Vital Signs/Intake and Output Vital Signs (last 24 hours): Temp Pulse Resp BP Pulse Ox 98.4 F 85 20 152/85 H 96 12/21/16 07:48 12/21/16 07:48 12/21/16 07:48 12/21/16 07:48 12/21/16 07:48 - Medications Medications: Current Medications Albuterol/Ipratropium (Duoneb 3 Mg/0.5 Mg (3 Ml) Ud) 3 ml INH RQ6 [facility] Last Admin: 12/21/16 08:53 Dose: 3 ml Aspirin (Ecotrin) 81 mg PO DAILY [facility] Last Admin: 12/20/16 11:00 Dose: 81 mg Budesonide (Pulmicort Respules) 0.5 mg INH RQ12 [facility] Last Admin: 12/21/16 08:53 Dose: 0.5 mg Heparin Sodium (Porcine) (Heparin) 5,000 units SC Q8 [facility] Last Admin: 12/21/16 05:30 Dose: 5,000 units Hydrochlorothiazide (Hydrodiuril) 25 mg PO DAILY [facility] Last Admin: 12/20/16 11:00 Dose: 25 mg Ibuprofen (Motrin Tab) 800 mg PO BID PRN PRN Reason: Pain, moderate (4-7) Losartan Potassium (Cozaar) 100 mg PO DAILY [facility] Last Admin: 12/20/16 11:00 Dose: 100 mg Methylprednisolone (Solu-Medrol) 40 mg IVP Q12H [facility] Last Admin: 12/20/16 23:59 Dose: 40 mg Pantoprazole Sodium (Protonix Ec Tab) 40 mg PO DAILY [facility] Last Admin: 12/20/16 11:00 Dose: 40 mg Tiotropium [place] (Spiriva) 18 mcg INH RQ24 [facility] Last Admin: 12/21/16 08:53 Dose: 18 mcg - Labs Labs: 12/21/16 06:56 12/21/16 06:56 - Constitutional Appears: Non-toxic, No Acute Distress - Head Exam Head Exam: ATRAUMATIC, NORMAL INSPECTION - Eye Exam Eye Exam: EOMI, Normal appearance, PERRL Pupil Exam: NORMAL ACCOMODATION - Respiratory Exam Respiratory Exam: Clear to Ausculation Bilateral, Wheezes, NORMAL BREATHING PATTERN. absent: Accessory Muscle Use, Chest Wall Tenderness, Respiratory Distress - Cardiovascular Exam Cardiovascular Exam: REGULAR RHYTHM, +S1, +S2 - GI/Abdominal Exam GI & Abdominal Exam: Soft, Normal Bowel Sounds. absent: Distended, Firm, Guarding, Tenderness - Extremities Exam Extremities Exam: Normal Inspection. absent: Calf Tenderness, Pedal Edema - Back Exam Back Exam: NORMAL INSPECTION. absent: CVA tenderness (L), CVA tenderness (R), paraspinal tenderness - Neurological Exam Neurological Exam: Alert, Awake, CN II-XII Intact, Oriented x3 Neuro motor strength exam: Left Upper Extremity: 5, Right Upper Extremity: 5, Left Lower Extremity: 5, Right Lower Extremity: 5 - Psychiatric Exam Psychiatric exam: Normal Affect, Normal Mood - Skin Skin Exam: Dry, Intact, Normal Color, Warm Assessment and Plan - Assessment and Plan (Free Text) Assessment: COPD exacerbation - Patient has decreased breath sounds with a mild end expiratory wheeze this morning. - Dr. Day, consulted, help appreciated - Will likely need home 02 - Duonebs 3mL INH RQ6 [facility] - Solumedrol tapered to 40mg Q12 hours IV - Spiriva 18mcg INH RQ24 [facility] - Pulmicort 0.5 INH R Q12 hours - EKG is NS at 84 bpm with normal axis and nonspecific ST-T changes. No prior available for comparison - CXR- minor atelectasis/scarring of left lung base; no infiltrate, effusion or consolidation. -Incentive spirometer - desaturated to low 90% when off oxygen. -f/u with nursing staff to get update Leukocytosis, mild - WBC elevated - likely due to steroids. Continue to monitor - Afebrile - UA - negative Hx Bronchitis - diagnosed 12/05; completed tx 12/14 - completed his tx with promethazine/codeine, Azithromycin 250mg, and prednisone taper - feels better today HTN - Home med: Hydrochlorothiazide 25 mg PO DAILY - Home med: Losartan 100 mg PO DAILY [facility] - Monitor and adjust as needed Hx of Arthritis - Home med: Motrin 800mg PO BID PRN Prophylaxis - Home med: ASA 81mg PO daily - Protonix 40mg PO daily - Hep 5k units SC Q8 - Incentive spirometer - Heart healthy diet <Tristan Arriaza - Last Filed: 12/22/16 13:46> Objective - Vital Signs/Intake and Output Vital Signs (last 24 hours): Temp Pulse Resp BP Pulse Ox 98.3 F 83 20 130/83 98 12/22/16 07:17 12/22/16 07:17 12/22/16 07:17 12/22/16 07:17 12/22/16 07:17 Intake and Output: 12/22/16 12/22/16 06:59 18:59 Intake Total 320 Balance 320 - Medications Medications: Current Medications Albuterol/Ipratropium (Duoneb 3 Mg/0.5 Mg (3 Ml) Ud) 3 ml INH RQ6 [facility] Last Admin: 12/22/16 08:32 Dose: 3 ml Aspirin (Ecotrin) 81 mg PO DAILY [facility] Last Admin: 12/22/16 10:59 Dose: 81 mg Budesonide (Pulmicort Respules) 0.5 mg INH RQ12 [facility] Last Admin: 12/22/16 08:32 Dose: 0.5 mg Heparin Sodium (Porcine) (Heparin) 5,000 units SC Q8 [facility] Last Admin: 12/22/16 13:26 Dose: 5,000 units Hydrochlorothiazide (Hydrodiuril) 25 mg PO DAILY [facility] Last Admin: 12/22/16 10:59 Dose: 25 mg Ibuprofen (Motrin Tab) 800 mg PO BID PRN PRN Reason: Pain, moderate (4-7) Losartan Potassium (Cozaar) 100 mg PO DAILY [facility] Last Admin: 12/22/16 10:59 Dose: 100 mg Methylprednisolone (Solu-Medrol) 40 mg IVP Q12H [facility] Last Admin: 12/22/16 13:00 Dose: 40 mg Pantoprazole Sodium (Protonix Ec Tab) 40 mg PO DAILY [facility] Last Admin: 12/22/16 10:59 Dose: 40 mg Tiotropium [place] (Spiriva) 18 mcg INH RQ24 [facility] Last Admin: 12/22/16 08:32 Dose: 18 mcg - Labs Labs: 12/22/16 06:56 12/22/16 06:56 Attending/Attestation - Attestation I have personally seen and examined this patient.: Yes I have fully participated in the care of the patient.: Yes I have reviewed all pertinent clinical information, including history, physical exam and plan: Yes Notes (Text): 12/22/16 13:46 Patient was seen and examined at bedside with the resident Patient still complaining of wheezing and shortness of breath We will request pulmonary evaluation for the patient Continue current management Agree with the above assessment and plan by the resident
[2016-12-21] MEDS: Pantoprazole 40 mg EC Tab PO SCH (10:56)
--- NOTE | 2016-12-21 11:25 | CP.PCM.CON ---
History of Present Illness - History of Present Illness History of Present Illness: 71 year old male with PMHx of COPD, HTN, and Arthritis who presented to [facility] with complaints of SOB and cough for 2 weeks, and congestion for 10 days. Pt states that he initially "got sick" 2 weeks ago and went to his primary care physician on 12/05/16. Pt was diagnosed with Bronchitis and was started on Promethazine/Codeine, Azithromycin 250mg, and Prednisone taper. Pt finished his medications 3 days prior to admission, but pt stated that his symptoms did not resolve. During ED admission, pt was found to desat to 90% when off oxygen. Pulmonary team was consulted for pt's respiratory symptoms. Pt seen and examined at bedside. Pt appeared to be resting comfortably, using his nasal cannula. Pt states that he is feeling better today with his nasal cannula as well as his nebulizer treatments. Pt however admits that he was using his nebulizer treatments at home at least 2-3 times a day prior to the past 2 weeks, After getting sick, his frequency of nebulizer use increased to 3- 4 times a day, in adjunct to the medications prescribed by his primary care physician. Pt continues that he did not have any boughts of cough last night. He does admit to some today, but states that it has decreased from yesterday. Pt describes the cough as a "dry cough" and denies any phlegm. Pt also denies SOB, subjective fever, chest pain, and states that his chest congestion has improved. Social History: 1-3 PPD for 5 years. Pt reported to pulmonary team that he has not smoked for the past 2 months. Review of Systems - Constitutional Constitutional: absent: Chills, Fever - Cardiovascular Cardiovascular: absent: Chest Pain, Chest Pain at Rest, Diaphoresis, Dyspnea, Edema - Respiratory Respiratory: Cough (dry, improving). absent: Dyspnea, Hemoptysis, Wheezing, Chest Congestion, Excessive Mucous Production, Change in Mucous Color, Pain with Coughing Past Patient History - Infectious Disease Hx of Infectious Diseases: None - Past Social History Smoking Status: Light Smoker < 10 Cigarettes Daily - CARDIAC Hx Cardiac Disorders: Yes Hx Hypertension: Yes - PULMONARY Hx Respiratory Disorders: Yes Hx Chronic Obstructive Pulmonary Disease (COPD): Yes - NEUROLOGICAL Hx Neurological Disorder: No - RENAL Hx Chronic Kidney Disease: No - ENDOCRINE/METABOLIC Hx Endocrine Disorders: Yes Hx Diabetes Mellitus Type 2: Yes - HEMATOLOGICAL/ONCOLOGICAL Hx Blood Disorders: No - INTEGUMENTARY Hx Dermatological Problems: No - MUSCULOSKELETAL/RHEUMATOLOGICAL Hx Musculoskeletal Disorders: No Hx Falls: No - GASTROINTESTINAL Hx Gastrointestinal Disorders: No - GENITOURINARY/GYNECOLOGICAL Hx Genitourinary Disorders: No - PSYCHIATRIC Hx Psychophysiologic Disorder: No Hx Substance Use: No - SURGICAL HISTORY Hx Surgeries: Yes Hx Orthopedic Surgery: Yes - ANESTHESIA Hx Anesthesia: Yes Hx Anesthesia Reactions: No Hx Malignant Hyperthermia: No Has any member of the family had a problem w/ anesthesia?: No Meds Allergies/Adverse Reactions: Allergies Allergy/AdvReac Type Severity Reaction Status Date / Time No Known Allergies Allergy Verified 12/17/16 11:01 - Medications Medications: Current Medications Albuterol/Ipratropium (Duoneb 3 Mg/0.5 Mg (3 Ml) Ud) 3 ml INH RQ6 [facility] Last Admin: 12/21/16 08:53 Dose: 3 ml Aspirin (Ecotrin) 81 mg PO DAILY [facility] Last Admin: 12/21/16 10:55 Dose: 81 mg Budesonide (Pulmicort Respules) 0.5 mg INH RQ12 [facility] Last Admin: 12/21/16 08:53 Dose: 0.5 mg Heparin Sodium (Porcine) (Heparin) 5,000 units SC Q8 [facility] Last Admin: 12/21/16 05:30 Dose: 5,000 units Hydrochlorothiazide (Hydrodiuril) 25 mg PO DAILY [facility] Last Admin: 12/21/16 10:55 Dose: 25 mg Ibuprofen (Motrin Tab) 800 mg PO BID PRN PRN Reason: Pain, moderate (4-7) Losartan Potassium (Cozaar) 100 mg PO DAILY [facility] Last Admin: 12/21/16 10:55 Dose: 100 mg Methylprednisolone (Solu-Medrol) 40 mg IVP Q12H [facility] Last Admin: 12/20/16 23:59 Dose: 40 mg Pantoprazole Sodium (Protonix Ec Tab) 40 mg PO DAILY [facility] Last Admin: 12/21/16 10:56 Dose: 40 mg Tiotropium [place] (Spiriva) 18 mcg INH RQ24 [facility] Last Admin: 12/21/16 08:53 Dose: 18 mcg Physical Exam - Constitutional Appears: Non-toxic, No Acute Distress - Head Exam Head Exam: ATRAUMATIC, NORMOCEPHALIC - Eye Exam Eye Exam: Normal appearance Pupil Exam: NORMAL ACCOMODATION - ENT Exam ENT Exam: Mucous Membranes Moist, Normal Exam - Respiratory Exam Respiratory Exam: Decreased Breath Sounds, Wheezes (Bilateral ). absent: Rales , Rhonchi - Cardiovascular Exam Cardiovascular Exam: REGULAR RHYTHM, +S1, +S2 - Neurological Exam Neurological exam: Alert, Oriented x3 - Psychiatric Exam Psychiatric exam: Normal Affect, Normal Mood - Skin Skin Exam: Dry, Intact, Normal Color, Warm Results - Vital Signs Recent Vital Signs: Last Vital Signs Temp 98.4 F 12/21/16 07:48 Pulse 85 12/21/16 07:48 Resp 20 12/21/16 07:48 BP 152/85 H 12/21/16 07:48 Pulse Ox 96 12/21/16 07:48 - Labs Result Diagrams: 12/21/16 06:56 12/21/16 06:56 Labs: Laboratory Results - last 24 hr 12/20/16 12/20/16 12/20/16 11:00 16:39 20:53 WBC RBC Hgb Hct MCV MCH MCHC RDW Plt Count MPV Neut % (Auto) Lymph % (Auto) [place] % (Auto) Eos % (Auto) Baso % (Auto) Neut # Lymph # [place] # Eos # Baso # Neutrophils % (Manual) Lymphocytes % (Manual) Monocytes % (Manual) Platelet Estimate RBC Morphology Sodium Potassium Chloride Carbon Dioxide Anion Gap BUN Creatinine Est GFR ( Amer) Est GFR (Non-Af Amer) POC Glucose (mg/dL) 143 H 119 H 173 H Random Glucose Calcium Phosphorus Magnesium Total Bilirubin AST ALT Alkaline Phosphatase Total Protein Albumin Globulin Albumin/Globulin Ratio 12/21/16 12/21/16 06:56 07:20 WBC 10.1 RBC 4.76 Hgb 14.6 Hct 42.5 MCV 89.4 MCH 30.7 MCHC 34.4 RDW 13.1 Plt Count 281 MPV 9.3 Neut % (Auto) 90.2 H Lymph % (Auto) 4.[address] [place] % (Auto) 5.3 Eos % (Auto) 0.0 Baso % (Auto) 0.1 Neut # 9.1 H Lymph # 0.[address] [place] # 0.5 Eos # 0.0 Baso # 0.0 Neutrophils % (Manual) 91 H Lymphocytes % (Manual) 5 L Monocytes % (Manual) 4 Platelet Estimate Normal RBC Morphology Normal Sodium 130 L Potassium 4.3 Chloride 86 L Carbon Dioxide 32 H Anion Gap 16 BUN 15 Creatinine 0.7 L Est GFR ( Amer) > 60 Est GFR (Non-Af Amer) > 60 POC Glucose (mg/dL) 125 H Random Glucose 126 H Calcium 9.1 Phosphorus 3.9 Magnesium 2.2 Total Bilirubin 0.4 AST 29 ALT 67 Alkaline Phosphatase 57 Total Protein 6.7 Albumin 4.0 Globulin 2.7 Albumin/Globulin Ratio 1.5 Assessment & Plan - Assessment and Plan (Free Text) Assessment: COPD Exacerbation Plan: COPD Exacerbation Chest X-ray on 12/17/16 showed minor atelectasis and some scarring in the left lung base, See report for full details. Pt may need home oxygen. ABG will be done later today to evaluate. Continue Duonebs, Pulmicort, Solu-Medrol, and Spiriva treatment. Continue Heparin. Monitor for SOB, dyspnea, productive cough, and fever
[2016-12-21] MEDS: MethylPREDNISolone 40 mg Vial IVP SCH (13:15)
[2016-12-22] MEDS: MethylPREDNISolone 40 mg Vial IVP SCH ×2 (00:40→13:00)
[2016-12-22] MEDS: Albuterol-Ipratrop 3 mg / 0.5 (3 ml) UD INH SCH ×4 (01:07→19:18)
[2016-12-22 07:19] VITALS: RESP 20
[2016-12-22 07:21] LABS: HEMATOCRIT 43.7 % (35.0-51.0); LYMPH # 0.5 K/uL (1.0-4.3); LYMPH % 4.3 % (20.0-40.0); MEAN CELL VOLUME 89.5 fL (80.0-94.0); MEAN CORPUSCULAR HEMOGLOBIN 30.3 pg (27.0-31.0); MEAN CORPUSCULAR HGB CONC 33.9 g/dL (33.0-37.0); MEAN PLATELET VOLUME 9.4 fL (7.2-11.7); MONO # 0.5 K/uL (0.0-0.8); MONO % 4.5 % (0.0-10.0); PLATELET COUNT 293 K/uL (130-400); RED CELL DISTRIBUTION WIDTH 12.9 % (11.5-14.5); WHITE BLOOD COUNT 11.3 K/uL (4.8-10.8)
[2016-12-22 07:39] LABS: CHLORIDE 85 mmol/L (98-107); POTASSIUM 4.4 mmol/L (3.6-5.2); SODIUM 129 mmol/L (132-148)
[2016-12-22 07:41] LABS: AST/SGOT 24 U/L (17-59); BILIRUBIN,TOTAL 0.4 mg/dL (0.2-1.3); CARBON DIOXIDE 31 mmol/L (22-30); GFR AFRICAN-AMERICAN > 60
[2016-12-22 07:42] LABS: ALB/GLOB RATIO 1.5 (1.0-2.1); ALKALINE PHOSPHATASE 61 U/L (38-126); ALT/SGPT 68 U/L (21-72); BLOOD UREA NITROGEN 18 mg/dL (9-20); CALCIUM 8.8 mg/dl (8.6-10.4); GLUCOSE,RANDOM 134 mg/dL (75-110); MAGNESIUM 2.4 mg/dL (1.6-2.3); PHOSPHOROUS 3.8 mg/dL (2.5-4.5); TOTAL PROTEIN 6.6 g/dL (6.3-8.3)
--- NOTE | 2016-12-22 07:52 | CP.PCM.PN ---
<Yohana Soto - Last Filed: 12/22/16 12:12> Subjective - Date & Time of Evaluation Date of Evaluation: 12/22/16 Time of Evaluation: 07:35 - Subjective Subjective: PGY-[address] Arriaza: Patient seen and examined at bedside. Reports feeling improved from yesterday. Denies headache, changes in vision, fevers, chills, chest pain, palpitations, nausea, vomiting, diarrhea/constipation, swelling or pain in the extremities. The patient thinks he needs to use the NC at all times Objective - Vital Signs/Intake and Output Vital Signs (last 24 hours): Temp Pulse Resp BP Pulse Ox 98.3 F 83 20 130/83 98 12/22/16 07:17 12/22/16 07:17 12/22/16 07:17 12/22/16 07:17 12/22/16 07:17 Intake and Output: 12/22/16 12/22/16 06:59 18:59 Intake Total 320 Balance 320 - Medications Medications: Current Medications Albuterol/Ipratropium (Duoneb 3 Mg/0.5 Mg (3 Ml) Ud) 3 ml INH RQ6 [facility] Last Admin: 12/22/16 01:07 Dose: 3 ml Aspirin (Ecotrin) 81 mg PO DAILY [facility] Last Admin: 12/21/16 10:55 Dose: 81 mg Budesonide (Pulmicort Respules) 0.5 mg INH RQ12 [facility] Last Admin: 12/21/16 19:09 Dose: Not Given Heparin Sodium (Porcine) (Heparin) 5,000 units SC Q8 [facility] Last Admin: 12/22/16 05:25 Dose: 5,000 units Hydrochlorothiazide (Hydrodiuril) 25 mg PO DAILY [facility] Last Admin: 12/21/16 10:55 Dose: 25 mg Ibuprofen (Motrin Tab) 800 mg PO BID PRN PRN Reason: Pain, moderate (4-7) Losartan Potassium (Cozaar) 100 mg PO DAILY [facility] Last Admin: 12/21/16 10:55 Dose: 100 mg Methylprednisolone (Solu-Medrol) 40 mg IVP Q12H [facility] Last Admin: 12/22/16 00:40 Dose: 40 mg Pantoprazole Sodium (Protonix Ec Tab) 40 mg PO DAILY [facility] Last Admin: 12/21/16 10:56 Dose: 40 mg Tiotropium [place] (Spiriva) 18 mcg INH RQ24 [facility] Last Admin: 12/21/16 08:53 Dose: 18 mcg - Labs Labs: 12/22/16 06:56 12/22/16 06:56 - Constitutional Appears: Non-toxic, No Acute Distress - Head Exam Head Exam: ATRAUMATIC, NORMAL INSPECTION - Eye Exam Eye Exam: EOMI, Normal appearance, PERRL Pupil Exam: NORMAL ACCOMODATION - ENT Exam ENT Exam: Mucous Membranes Moist - Respiratory Exam Respiratory Exam: Decreased Breath Sounds, Clear to Ausculation Bilateral, NORMAL BREATHING PATTERN. absent: Accessory Muscle Use, Chest Wall Tenderness, Wheezes, Respiratory Distress - Cardiovascular Exam Cardiovascular Exam: REGULAR RHYTHM. absent: +S1, +S2 - GI/Abdominal Exam GI & Abdominal Exam: Soft, Normal Bowel Sounds. absent: Distended, Firm, Guarding, Tenderness - Back Exam Back Exam: NORMAL INSPECTION. absent: CVA tenderness (L), CVA tenderness (R), paraspinal tenderness - Neurological Exam Neurological Exam: Alert, Awake, CN II-XII Intact, Oriented x3 Neuro motor strength exam: Left Upper Extremity: 5, Right Upper Extremity: 5, Left Lower Extremity: 5, Right Lower Extremity: 5 - Psychiatric Exam Psychiatric exam: Normal Affect, Normal Mood - Skin Skin Exam: Dry, Intact, Normal Color, Warm Assessment and Plan - Assessment and Plan (Free Text) Assessment: COPD exacerbation - Patient has decreased breath sounds with a mild end expiratory wheeze this morning. - f/u repeat chest Xray - ABG to asses need for home O2 - Dr. Day, consulted, help appreciated - Will likely need home 02 - Duonebs 3mL INH RQ6 [facility] - Solumedrol tapered to 40mg Q12 hours IV - Spiriva 18mcg INH RQ24 [facility] - Pulmicort 0.5 INH R Q12 hours - EKG is NS at 84 bpm with normal axis and nonspecific ST-T changes. No prior available for comparison - CXR- minor atelectasis/scarring of left lung base; no infiltrate, effusion or consolidation. -Incentive spirometer - desaturated to low 90% when off oxygen. -f/u with nursing staff to get update Leukocytosis, mild - WBC elevated - likely due to steroids. Continue to monitor - Afebrile - UA - negative Hx Bronchitis - diagnosed 12/05; completed tx 12/14 - completed his tx with promethazine/codeine, Azithromycin 250mg, and prednisone taper - feels better today HTN - Home med: Hydrochlorothiazide 25 mg PO DAILY - Home med: Losartan 100 mg PO DAILY [facility] - Monitor and adjust as needed Hx of Arthritis - Home med: Motrin 800mg PO BID PRN Prophylaxis - Home med: ASA 81mg PO daily - Protonix 40mg PO daily - Hep 5k units SC Q8 - Incentive spirometer - Heart healthy diet <ArsalanGerry kernreymundo Mccoy - Last Filed: 12/23/16 15:05> Objective - Vital Signs/Intake and Output Vital Signs (last 24 hours): Temp Pulse Resp BP Pulse Ox 97.8 F 83 20 133/87 98 12/23/16 07:42 12/23/16 13:25 12/23/16 07:42 12/23/16 13:25 12/23/16 13:25 Intake and Output: 12/23/16 12/23/16 06:59 18:59 Intake Total 580 Balance 580 - Medications Medications: Current Medications Albuterol/Ipratropium (Duoneb 3 Mg/0.5 Mg (3 Ml) Ud) 3 ml INH RQ6 [facility] Last Admin: 12/23/16 14:04 Dose: 3 ml Aspirin (Ecotrin) 81 mg PO DAILY [facility] Last Admin: 12/23/16 09:32 Dose: 81 mg Budesonide (Pulmicort Respules) 0.5 mg INH RQ12 [facility] Last Admin: 12/23/16 08:36 Dose: 0.5 mg Heparin Sodium (Porcine) (Heparin) 5,000 units SC Q8 [facility] Last Admin: 12/23/16 14:36 Dose: 5,000 units Hydrochlorothiazide (Hydrodiuril) 25 mg PO DAILY [facility] Last Admin: 12/23/16 09:33 Dose: 25 mg Ibuprofen (Motrin Tab) 800 mg PO BID PRN PRN Reason: Pain, moderate (4-7) Losartan Potassium (Cozaar) 100 mg PO DAILY [facility] Last Admin: 12/23/16 09:33 Dose: 100 mg Methylprednisolone (Solu-Medrol) 40 mg IVP Q12H [facility] Last Admin: 12/23/16 12:36 Dose: 40 mg Pantoprazole Sodium (Protonix Ec Tab) 40 mg PO DAILY [facility] Last Admin: 12/23/16 09:33 Dose: 40 mg Prednisone (Prednisone Tab) 40 mg PO DAILY [facility] Tiotropium [place] (Spiriva) 18 mcg INH RQ24 [facility] Last Admin: 12/23/16 08:36 Dose: 18 mcg - Labs Labs: 12/23/16 06:51 12/23/16 06:51 Attending/Attestation - Attestation I have personally seen and examined this patient.: Yes I have fully participated in the care of the patient.: Yes I have reviewed all pertinent clinical information, including history, physical exam and plan: Yes Notes (Text): 12/23/16 15:04 Patient was seen and examined at bedside Complains of mild shortness of breath We will continue oxygen by nasal cannula Pulmonary evaluation seen in appreciated We will evaluate for home oxygen. Continue current management
[2016-12-22] MEDS: Budesonide 0.5 mg/2 ml Inhal Susp UD INH SCH ×2 (08:32→19:18)
[2016-12-22] MEDS: Tiotropium 18 mcg Cap For Inhalation INH SCH (08:32)
[2016-12-22 08:58] LABS: NEUTROPHIL 93 % (50-75); TOTAL CELLS COUNTED 100
[2016-12-22] MEDS: Pantoprazole 40 mg EC Tab PO SCH (10:59)
--- NOTE | 2016-12-22 11:32 | CP.PCM.PN ---
Subjective - Date & Time of Evaluation Date of Evaluation: 12/22/16 Time of Evaluation: 10:20 - Subjective Subjective: Pt seen and examined at bedside. Pt resting comfortably, using his nasal cannula , no respiratory distress. Pt states that he is doing "good" today and continues to improve. Pt continues that he is feeling less SOB as compared to yesterday, has been coughing minimally, and denies CP, congestion, and subjective fever. Pt however does admit to pain at his bilateral ribs from excessive coughing the past 2 weeks. Pt also admits that he feels the need to be on his nasal cannula for respiratory support. Pt does state that he tried to breathe without the nassal cannula, but was only able to be off of it for 1 hour before coughing and having some trouble breathing. However, pt is stable once he is on the nasal cannula. Objective - Vital Signs/Intake and Output Vital Signs (last 24 hours): Temp Pulse Resp BP Pulse Ox 98.3 F 83 20 130/83 98 12/22/16 07:17 12/22/16 07:17 12/22/16 07:17 12/22/16 07:17 12/22/16 07:17 Intake and Output: 12/22/16 12/22/16 06:59 18:59 Intake Total 320 Balance 320 - Medications Medications: Current Medications Albuterol/Ipratropium (Duoneb 3 Mg/0.5 Mg (3 Ml) Ud) 3 ml INH RQ6 [facility] Last Admin: 12/22/16 08:32 Dose: 3 ml Aspirin (Ecotrin) 81 mg PO DAILY [facility] Last Admin: 12/22/16 10:59 Dose: 81 mg Budesonide (Pulmicort Respules) 0.5 mg INH RQ12 [facility] Last Admin: 12/22/16 08:32 Dose: 0.5 mg Heparin Sodium (Porcine) (Heparin) 5,000 units SC Q8 [facility] Last Admin: 12/22/16 05:25 Dose: 5,000 units Hydrochlorothiazide (Hydrodiuril) 25 mg PO DAILY [facility] Last Admin: 12/22/16 10:59 Dose: 25 mg Ibuprofen (Motrin Tab) 800 mg PO BID PRN PRN Reason: Pain, moderate (4-7) Losartan Potassium (Cozaar) 100 mg PO DAILY [facility] Last Admin: 12/22/16 10:59 Dose: 100 mg Methylprednisolone (Solu-Medrol) 40 mg IVP Q12H [facility] Last Admin: 12/22/16 00:40 Dose: 40 mg Pantoprazole Sodium (Protonix Ec Tab) 40 mg PO DAILY [facility] Last Admin: 12/22/16 10:59 Dose: 40 mg Tiotropium [place] (Spiriva) 18 mcg INH RQ24 [facility] Last Admin: 12/22/16 08:32 Dose: 18 mcg - Labs Labs: 12/22/16 06:56 12/22/16 06:56 - Constitutional Appears: Non-toxic, No Acute Distress - Head Exam Head Exam: ATRAUMATIC, NORMOCEPHALIC - Eye Exam Eye Exam: Normal appearance Pupil Exam: NORMAL ACCOMODATION - ENT Exam ENT Exam: Mucous Membranes Moist - Respiratory Exam Respiratory Exam: Decreased Breath Sounds, NORMAL BREATHING PATTERN. absent: Rales, Rhonchi, Wheezes, Respiratory Distress, Stridor - Cardiovascular Exam Cardiovascular Exam: REGULAR RHYTHM, +S1, +S2 - Neurological Exam Neurological Exam: Alert, Awake, Oriented x3 - Psychiatric Exam Psychiatric exam: Normal Affect, Normal Mood - Skin Skin Exam: Dry, Intact, Normal Color, Warm Assessment and Plan - Assessment and Plan (Free Text) Assessment: COPD exacerbation Plan: COPD exacerbation ABG will be done today to evaluate pt's need for home oxygen. Continue Nebulizer treatments, Solu-Medrol, and Spiriva treatment. Continue to monitor for SOB, dyspnea, productive cough, and fever Consider repeat x-ray
[2016-12-22 14:16] LABS: ABG ALLEN TEST POS; ARTERIAL BLOOD HGB O2 SAT 90.6 % (95.0-98.0); CARBOXYHEMOGLOBIN 2.1 % (0.5-1.5); DRAW SITE RR; HHB 5.8 % (0.0-5.0); METHEMOGLOBIN 1.5 % (0.0-3.0)
--- NOTE | 2016-12-22 14:26 | RAD ---
HISTORY: repeat for SOB COMPARISON: 12/17/2016 FINDINGS: LUNGS: Small nodular density at the lateral aspect of the right lung base likely represents confluence of shadows with ribs and vessels. No focal infiltrate or effusion. PLEURA: No significant pleural effusion identified, no pneumothorax apparent. CARDIOVASCULAR: Normal. OSSEOUS STRUCTURES: No significant abnormalities. VISUALIZED UPPER ABDOMEN: Normal. OTHER FINDINGS: None. IMPRESSION: No active disease.
[2016-12-23] MEDS: MethylPREDNISolone 40 mg Vial IVP SCH ×2 (00:32→12:36)
[2016-12-23 06:56] LABS: BASO % 0.1 % (0.0-2.0); LYMPH # 0.5 K/uL (1.0-4.3); LYMPH % 3.5 % (20.0-40.0); MEAN CELL VOLUME 89.5 fL (80.0-94.0); MEAN CORPUSCULAR HEMOGLOBIN 30.6 pg (27.0-31.0); MEAN CORPUSCULAR HGB CONC 34.2 g/dL (33.0-37.0); MEAN PLATELET VOLUME 9.2 fL (7.2-11.7); MONO # 0.7 K/uL (0.0-0.8); MONO % 4.8 % (0.0-10.0); PLATELET COUNT 283 K/uL (130-400); WHITE BLOOD COUNT 13.5 K/uL (4.8-10.8)
[2016-12-23 07:06] LABS: CHLORIDE 84 mmol/L (98-107); POTASSIUM 4.5 mmol/L (3.6-5.2); SODIUM 130 mmol/L (132-148)
[2016-12-23 07:08] LABS: ALB/GLOB RATIO 1.6 (1.0-2.1); ALKALINE PHOSPHATASE 57 U/L (38-126); AST/SGOT 21 U/L (17-59); BILIRUBIN,TOTAL 0.8 mg/dL (0.2-1.3); BLOOD UREA NITROGEN 17 mg/dL (9-20); CARBON DIOXIDE 32 mmol/L (22-30); GFR AFRICAN-AMERICAN > 60; TOTAL PROTEIN 6.5 g/dL (6.3-8.3)
[2016-12-23 07:09] LABS: ALT/SGPT 71 U/L (21-72); CALCIUM 8.6 mg/dl (8.6-10.4); GLUCOSE,RANDOM 128 mg/dL (75-110); MAGNESIUM 2.2 mg/dL (1.6-2.3)
[2016-12-23 08:20] LABS: NEUTROPHIL 92 % (50-75); TOTAL CELLS COUNTED 100
[2016-12-23] MEDS: Tiotropium 18 mcg Cap For Inhalation INH SCH (08:36)
[2016-12-23] MEDS: Budesonide 0.5 mg/2 ml Inhal Susp UD INH SCH ×2 (08:36→19:54)
[2016-12-23] MEDS: Pantoprazole 40 mg EC Tab PO SCH (09:33)
--- NOTE | 2016-12-23 10:02 | CP.PCM.PN ---
Subjective - Date & Time of Evaluation Date of Evaluation: 12/23/16 Time of Evaluation: 08:30 - Subjective Subjective: Pt seen and examined at bedside. Pt resting comfortably in bed, using his nasal cannula, no respiratory distress. Pt is pleasant. Pt states that he continues to "feel better day by day". Pt continues to deny SOB, coughing, subjective fever, congestion, and CP. Pt also states that he no longer feels the need to use his nasal cannula through the whole day, and is able to stay off of it for longer periods of time without experiencing an exacerbation of his respiratory symptoms. Objective - Vital Signs/Intake and Output Vital Signs (last 24 hours): Temp Pulse Resp BP Pulse Ox 97.8 F 84 20 131/81 96 12/23/16 07:42 12/23/16 08:18 12/23/16 07:42 12/23/16 07:42 12/23/16 07:42 Intake and Output: 12/23/16 12/23/16 06:59 18:59 Intake Total 580 Balance 580 - Medications Medications: Current Medications Albuterol/Ipratropium (Duoneb 3 Mg/0.5 Mg (3 Ml) Ud) 3 ml INH RQ6 [facility] Aspirin (Ecotrin) 81 mg PO DAILY [facility] Last Admin: 12/23/16 09:32 Dose: 81 mg Budesonide (Pulmicort Respules) 0.5 mg INH RQ12 [facility] Last Admin: 12/23/16 08:36 Dose: 0.5 mg Heparin Sodium (Porcine) (Heparin) 5,000 units SC Q8 [facility] Last Admin: 12/23/16 05:24 Dose: 5,000 units Hydrochlorothiazide (Hydrodiuril) 25 mg PO DAILY [facility] Last Admin: 12/23/16 09:33 Dose: 25 mg Ibuprofen (Motrin Tab) 800 mg PO BID PRN PRN Reason: Pain, moderate (4-7) Losartan Potassium (Cozaar) 100 mg PO DAILY [facility] Last Admin: 12/23/16 09:33 Dose: 100 mg Methylprednisolone (Solu-Medrol) 40 mg IVP Q12H [facility] Last Admin: 12/23/16 00:32 Dose: 40 mg Pantoprazole Sodium (Protonix Ec Tab) 40 mg PO DAILY [facility] Last Admin: 12/23/16 09:33 Dose: 40 mg Tiotropium [place] (Spiriva) 18 mcg INH RQ24 [facility] Last Admin: 12/23/16 08:36 Dose: 18 mcg - Labs Labs: 12/23/16 06:51 12/23/16 06:51 - Constitutional Appears: Non-toxic, No Acute Distress - Head Exam Head Exam: ATRAUMATIC, NORMOCEPHALIC - Eye Exam Eye Exam: Normal appearance Pupil Exam: NORMAL ACCOMODATION - ENT Exam ENT Exam: Mucous Membranes Moist - Respiratory Exam Respiratory Exam: Wheezes (Present but continue to decrease), NORMAL BREATHING PATTERN - Cardiovascular Exam Cardiovascular Exam: REGULAR RHYTHM, +S1, +S2 - Neurological Exam Neurological Exam: Alert, Awake, Oriented x3 - Psychiatric Exam Psychiatric exam: Normal Affect, Normal Mood - Skin Skin Exam: Dry, Intact, Normal Color Assessment and Plan - Assessment and Plan (Free Text) Assessment: COPD exacerbation Plan: COPD exacerbation Chest X-ray 12/22/16 showed no active disease. ABG on RA completed yesterday: pH 7.7, pCO3 48, pO2 59, HCO3 30.3. Results don' t meet guidelines for definitive home oxygen treatment. Consider 6 min walk test with pulse ox to assess for desaturation for possible mariela eoxygen. Continue Nebulizer treatments, Solu-Medrol, and Spiriva treatment. Continue to monitor for SOB, dyspnea, productive cough, and fever
[2016-12-23] MEDS: Albuterol-Ipratrop 3 mg / 0.5 (3 ml) UD INH SCH ×2 (14:04→19:54)
--- NOTE | 2016-12-23 14:58 | CP.PCM.PN ---
<Yohana Soto - Last Filed: 12/23/16 14:55> Subjective - Date & Time of Evaluation Date of Evaluation: 12/23/16 Time of Evaluation: 07:30 - Subjective Subjective: PGY-[address] Arriaza: Patient seen and examined at bedside. Reports feeling improved from yesterday. Denies headache, changes in vision, fevers, chills, chest pain, palpitations, nausea, vomiting, diarrhea/constipation, swelling or pain in the extremities. The patient thinks he needs to use the NC at all times. He was evaluated for home O2 today and while he was walking without the NC destaturated to 88%. Objective - Vital Signs/Intake and Output Vital Signs (last 24 hours): Temp Pulse Resp BP Pulse Ox 97.8 F 83 20 133/87 98 12/23/16 07:42 12/23/16 13:25 12/23/16 07:42 12/23/16 13:25 12/23/16 13:25 Intake and Output: 12/23/16 12/23/16 06:59 18:59 Intake Total 580 Balance 580 - Medications Medications: Current Medications Albuterol/Ipratropium (Duoneb 3 Mg/0.5 Mg (3 Ml) Ud) 3 ml INH RQ6 [facility] Last Admin: 12/23/16 14:04 Dose: 3 ml Aspirin (Ecotrin) 81 mg PO DAILY [facility] Last Admin: 12/23/16 09:32 Dose: 81 mg Budesonide (Pulmicort Respules) 0.5 mg INH RQ12 [facility] Last Admin: 12/23/16 08:36 Dose: 0.5 mg Heparin Sodium (Porcine) (Heparin) 5,000 units SC Q8 [facility] Last Admin: 12/23/16 14:36 Dose: 5,000 units Hydrochlorothiazide (Hydrodiuril) 25 mg PO DAILY [facility] Last Admin: 12/23/16 09:33 Dose: 25 mg Ibuprofen (Motrin Tab) 800 mg PO BID PRN PRN Reason: Pain, moderate (4-7) Losartan Potassium (Cozaar) 100 mg PO DAILY [facility] Last Admin: 12/23/16 09:33 Dose: 100 mg Methylprednisolone (Solu-Medrol) 40 mg IVP Q12H [facility] Last Admin: 12/23/16 12:36 Dose: 40 mg Pantoprazole Sodium (Protonix Ec Tab) 40 mg PO DAILY [facility] Last Admin: 12/23/16 09:33 Dose: 40 mg Tiotropium [place] (Spiriva) 18 mcg INH RQ24 [facility] Last Admin: 12/23/16 08:36 Dose: 18 mcg - Labs Labs: 12/23/16 06:51 12/23/16 06:51 - Constitutional Appears: Non-toxic, No Acute Distress - Head Exam Head Exam: ATRAUMATIC, NORMAL INSPECTION - Eye Exam Eye Exam: EOMI, Normal appearance, PERRL Pupil Exam: NORMAL ACCOMODATION - ENT Exam ENT Exam: Mucous Membranes Moist - Neck Exam Neck Exam: Full ROM, Normal Inspection - Respiratory Exam Respiratory Exam: Clear to Ausculation Bilateral, Wheezes, NORMAL BREATHING PATTERN. absent: Respiratory Distress Additional comments: mild on expiration - Cardiovascular Exam Cardiovascular Exam: REGULAR RHYTHM, +S1, +S2 - GI/Abdominal Exam GI & Abdominal Exam: Soft, Normal Bowel Sounds. absent: Distended, Firm, Guarding, Tenderness - Extremities Exam Extremities Exam: Normal Inspection, Pedal Edema. absent: Calf Tenderness - Back Exam Back Exam: NORMAL INSPECTION. absent: CVA tenderness (L), CVA tenderness (R), paraspinal tenderness - Neurological Exam Neurological Exam: Alert, Awake, CN II-XII Intact, Oriented x3 Neuro motor strength exam: Left Upper Extremity: 5, Right Upper Extremity: 5, Left Lower Extremity: 5, Right Lower Extremity: 5 - Psychiatric Exam Psychiatric exam: Normal Affect, Normal Mood - Skin Skin Exam: Dry, Intact, Normal Color, Warm Assessment and Plan - Assessment and Plan (Free Text) Assessment: COPD exacerbation - Patient has decreased breath sounds with a mild end expiratory wheeze this morning mildly b/l - O2 saturation at rest on room air: 98% - O2 saturation while ambulating on room air: 88% - O2 saturation ambulating with NC: 97% - Scripts given to case management for home O2 and home car/PT services at home - Dr. Day, consulted, help appreciated - Duonebs 3mL INH RQ6 [facility] - Solumedrol tapered to 40mg Q12 hours IV - will switch to oral prednisone tomorrow am - Spiriva 18mcg INH RQ24 [facility] - Pulmicort 0.5 INH R Q12 hours - EKG is NS at 84 bpm with normal axis and nonspecific ST-T changes. No prior available for comparison - CXR- minor atelectasis/scarring of left lung base; no infiltrate, effusion or consolidation. -Incentive spirometer - desaturated to low 90% when off oxygen. -f/u with nursing staff to get update Leukocytosis, mild - WBC elevated - likely due to steroids. Continue to monitor - Afebrile - UA - negative Hx Bronchitis - diagnosed 12/05; completed tx 12/14 - completed his tx with promethazine/codeine, Azithromycin 250mg, and prednisone taper - feels better today HTN - Home med: Hydrochlorothiazide 25 mg PO DAILY - Home med: Losartan 100 mg PO DAILY [facility] - Monitor and adjust as needed Hx of Arthritis - Home med: Motrin 800mg PO BID PRN Prophylaxis - Home med: ASA 81mg PO daily - Protonix 40mg PO daily - Hep 5k units SC Q8 - Incentive spirometer - Heart healthy diet Will discharge likely tomorrow when the patient gets approved for home Oxygen. Will DC with prednisone 40mg oral and taper. <Tristan Arriaza - Last Filed: 12/23/16 18:41> Objective - Vital Signs/Intake and Output Vital Signs (last 24 hours): Temp Pulse Resp BP Pulse Ox 97.8 F 83 20 133/85 95 12/23/16 15:00 12/23/16 16:34 12/23/16 15:00 12/23/16 15:00 12/23/16 15:00 Intake and Output: 12/23/16 12/23/16 06:59 18:59 Intake Total 580 Balance 580 - Medications Medications: Current Medications Albuterol/Ipratropium (Duoneb 3 Mg/0.5 Mg (3 Ml) Ud) 3 ml INH RQ6 [facility] Last Admin: 12/23/16 14:04 Dose: 3 ml Aspirin (Ecotrin) 81 mg PO DAILY [facility] Last Admin: 12/23/16 09:32 Dose: 81 mg Budesonide (Pulmicort Respules) 0.5 mg INH RQ12 [facility] Last Admin: 12/23/16 08:36 Dose: 0.5 mg Heparin Sodium (Porcine) (Heparin) 5,000 units SC Q8 [facility] Last Admin: 12/23/16 14:36 Dose: 5,000 units Hydrochlorothiazide (Hydrodiuril) 25 mg PO DAILY [facility] Last Admin: 12/23/16 09:33 Dose: 25 mg Ibuprofen (Motrin Tab) 800 mg PO BID PRN PRN Reason: Pain, moderate (4-7) Losartan Potassium (Cozaar) 100 mg PO DAILY [facility] Last Admin: 12/23/16 09:33 Dose: 100 mg Pantoprazole Sodium (Protonix Ec Tab) 40 mg PO DAILY [facility] Last Admin: 12/23/16 09:33 Dose: 40 mg Prednisone (Prednisone Tab) 40 mg PO DAILY [facility] Tiotropium [place] (Spiriva) 18 mcg INH RQ24 [facility] Last Admin: 12/23/16 08:36 Dose: 18 mcg - Labs Labs: 12/23/16 06:51 12/23/16 06:51 Attending/Attestation - Attestation Notes (Text): 12/23/16 18:40 Patient was seen and examined at bedside with the resident Patient states his breathing is improved slightly We will continue current treatment with steroids and nebulizing treatment Pulmonary follow-up seen and appreciated Patient will need home oxygen Charge planning when motion is available
[2016-12-24] MEDS: Albuterol-Ipratrop 3 mg / 0.5 (3 ml) UD INH SCH ×3 (01:22→13:50)
[2016-12-24 07:39] LABS: CHLORIDE 86 mmol/L (98-107); SODIUM 127 mmol/L (132-148)
[2016-12-24 07:41] LABS: GFR AFRICAN-AMERICAN > 60
[2016-12-24 07:42] LABS: ALB/GLOB RATIO 1.5 (1.0-2.1); ALKALINE PHOSPHATASE 58 U/L (38-126); ALT/SGPT 55 U/L (21-72); AST/SGOT 19 U/L (17-59); BILIRUBIN,TOTAL 0.4 mg/dL (0.2-1.3); BLOOD UREA NITROGEN 23 mg/dL (9-20); CARBON DIOXIDE 29 mmol/L (22-30); GLUCOSE,RANDOM 94 mg/dL (75-110); PHOSPHOROUS 3.8 mg/dL (2.5-4.5); TOTAL PROTEIN 6.1 g/dL (6.3-8.3)
[2016-12-24 07:43] LABS: BASO % 0.2 % (0.0-2.0); CALCIUM 8.6 mg/dl (8.6-10.4); EOS % 0.2 % (0.0-4.0); HEMATOCRIT 44.3 % (35.0-51.0); LYMPH # 1.3 K/uL (1.0-4.3); LYMPH % 8.6 % (20.0-40.0); MAGNESIUM 2.3 mg/dL (1.6-2.3); MEAN CELL VOLUME 90.4 fL (80.0-94.0); MEAN CORPUSCULAR HEMOGLOBIN 29.9 pg (27.0-31.0); MEAN CORPUSCULAR HGB CONC 33.1 g/dL (33.0-37.0); MEAN PLATELET VOLUME 9.3 fL (7.2-11.7); MONO # 1.4 K/uL (0.0-0.8); MONO % 9.4 % (0.0-10.0); PLATELET COUNT 291 K/uL (130-400); RED CELL DISTRIBUTION WIDTH 12.9 % (11.5-14.5); WHITE BLOOD COUNT 15.1 K/uL (4.8-10.8)
[2016-12-24] MEDS: Budesonide 0.5 mg/2 ml Inhal Susp UD INH SCH (08:13)
[2016-12-24] MEDS: Tiotropium 18 mcg Cap For Inhalation INH SCH (08:13)
--- NOTE | 2016-12-24 08:46 | CP.PCM.PN ---
Subjective - Date & Time of Evaluation Date of Evaluation: 12/24/16 Time of Evaluation: 08:40 - Subjective Subjective: patient seen and examined. Condition much improved. Desaturated on exertion to 88% Complaining of slight cough Objective - Vital Signs/Intake and Output Vital Signs (last 24 hours): Temp Pulse Resp BP Pulse Ox 97.9 F 89 20 148/89 97 12/24/16 07:27 12/24/16 07:27 12/24/16 07:27 12/24/16 07:27 12/24/16 07:27 Intake and Output: 12/24/16 12/24/16 06:59 18:59 Intake Total 240 Balance 240 - Medications Medications: Current Medications Albuterol/Ipratropium (Duoneb 3 Mg/0.5 Mg (3 Ml) Ud) 3 ml INH RQ6 [facility] Last Admin: 12/24/16 08:13 Dose: 3 ml Aspirin (Ecotrin) 81 mg PO DAILY [facility] Last Admin: 12/23/16 09:32 Dose: 81 mg Budesonide (Pulmicort Respules) 0.5 mg INH RQ12 [facility] Last Admin: 12/24/16 08:13 Dose: 0.5 mg Heparin Sodium (Porcine) (Heparin) 5,000 units SC Q8 [facility] Last Admin: 12/24/16 05:20 Dose: 5,000 units Hydrochlorothiazide (Hydrodiuril) 25 mg PO DAILY [facility] Last Admin: 12/23/16 09:33 Dose: 25 mg Ibuprofen (Motrin Tab) 800 mg PO BID PRN PRN Reason: Pain, moderate (4-7) Losartan Potassium (Cozaar) 100 mg PO DAILY [facility] Last Admin: 12/23/16 09:33 Dose: 100 mg Pantoprazole Sodium (Protonix Ec Tab) 40 mg PO DAILY [facility] Last Admin: 12/23/16 09:33 Dose: 40 mg Prednisone (Prednisone Tab) 40 mg PO DAILY [facility] Tiotropium [place] (Spiriva) 18 mcg INH RQ24 [facility] Last Admin: 12/24/16 08:13 Dose: 18 mcg - Labs Labs: 12/24/16 07:06 12/24/16 07:06 - Head Exam Head Exam: ATRAUMATIC, NORMOCEPHALIC - Eye Exam Eye Exam: Normal appearance - ENT Exam ENT Exam: Mucous Membranes Moist - Neck Exam Neck Exam: Normal Inspection - Respiratory Exam Respiratory Exam: Decreased Breath Sounds - Cardiovascular Exam Cardiovascular Exam: REGULAR RHYTHM - GI/Abdominal Exam GI & Abdominal Exam: Soft, Normal Bowel Sounds - Extremities Exam Extremities Exam: Normal Inspection - Neurological Exam Neurological Exam: Alert, Oriented x3 Assessment and Plan (1) COPD exacerbation Assessment & Plan: okay to discharge on home oxygen prednisone in tapering dose Continue bronchodilators and inhaled steroids Follow-up in the office for PFTs Status: Acute
[2016-12-24 09:01] LABS: NEUTROPHIL 79 % (50-75); TOTAL CELLS COUNTED 100
[2016-12-24] MEDS: Pantoprazole 40 mg EC Tab PO SCH (09:34)
[2016-12-24 16:44] VITALS: BP 132/86; PULSE 98; TEMP 97.8; O2SAT 94
--- NOTE | 2016-12-24 19:22 | CP.PCM.DIS ---
<Yoahna Soto - Last Filed: 12/24/16 19:39> Provider - Provider Date of Admission: 12/20/16 08:22 Attending physician: Tristan Arriaza MD Primary care physician: Dr. Matta Consults: Dr. Shay Delacruz pulbird Time Spent in preparation of Discharge (in minutes): 35 Diagnosis - Discharge Diagnosis (1) COPD (chronic obstructive pulmonary disease) Status: Acute Comment: f/u pulm and pcp. home oxygen. steroid taper. meds as prescribed Hospital Course - Lab Results Lab Results: Most Recent Lab Values WBC 15.1 K/uL (4.8-10.8) H 12/24/16 07:06 RBC 4.90 Mil/uL (4.40-5.90) 12/24/16 07:06 Hgb 14.7 g/dL (12.0-18.0) 12/24/16 07:06 Hct 44.3 % (35.0-51.0) 12/24/16 07:06 MCV 90.4 fL (80.0-94.0) 12/24/16 07:06 MCH 29.9 pg (27.0-31.0) 12/24/16 07:06 MCHC 33.1 g/dL (33.0-37.0) 12/24/16 07:06 RDW 12.9 % (11.5-14.5) 12/24/16 07:06 Plt Count 291 K/uL (130-400) 12/24/16 07:06 MPV 9.3 fL (7.2-11.7) 12/24/16 07:06 Neut % (Auto) 81.6 % (50.0-75.0) H 12/24/16 07:06 Lymph % (Auto) 8.6 % (20.0-40.0) L 12/24/16 07:06 Evans % (Auto) 9.4 % (0.0-10.0) 12/24/16 07:06 Eos % (Auto) 0.2 % (0.0-4.0) 12/24/16 07:06 Baso % (Auto) 0.2 % (0.0-2.0) 12/24/16 07:06 Neut # 12.3 K/uL (1.8-7.0) H 12/24/16 07:06 Lymph # 1.3 K/uL (1.0-4.3) 12/24/16 07:06 Evans # 1.4 K/uL (0.0-0.8) H 12/24/16 07:06 Eos # 0.0 K/uL (0.0-0.7) 12/24/16 07:06 Baso # 0.0 K/uL (0.0-0.2) 12/24/16 07:06 Neutrophils % (Manual) 79 % (50-75) H 12/24/16 07:06 Band Neutrophils % 2 % (0-2) 12/24/16 07:06 Lymphocytes % (Manual) 12 % (20-40) L 12/24/16 07:06 Reactive Lymphs % 1 % (0-0) H 12/20/16 06:08 Monocytes % (Manual) 7 % (0-10) 12/24/16 07:06 Toxic Granulation Present 12/20/16 06:08 Platelet Estimate Normal (NORMAL) 12/24/16 07:06 Large Platelets Present 12/20/16 06:08 Giant Platelets Present 12/20/16 06:08 RBC Morphology Normal 12/24/16 07:06 Poikilocytosis (manual Slight 12/20/16 06:08 Anisocytosis (manual) Slight 12/20/16 06:08 Ovalocytes Slight 12/20/16 06:08 Puncture Site Rr 12/22/16 14:13 pCO2 48 mm/Hg (35-45) H 12/22/16 14:13 pO2 59 mm/Hg (80-100) L 12/22/16 14:13 HCO3 30.3 mmol/L (21-28) H 12/22/16 14:13 ABG pH 7.44 (7.35-7.45) 12/22/16 14:13 ABG Total CO2 34.1 mmol/L (22-28) H 12/22/16 14:13 ABG O2 Saturation 94.0 % (95-98) L 12/22/16 14:13 ABG Base Excess 7.1 mmol/L (-2.0-3.0) H 12/22/16 14:13 ABG Hemoglobin 14.8 g/dL (11.7-17.4) 12/22/16 14:13 ABG Carboxyhemoglobin 2.1 % (0.5-1.5) H 12/22/16 14:13 POC ABG HHb (Measured) 5.8 % (0.0-5.0) H 12/22/16 14:13 ABG Methemoglobin 1.5 % (0.0-3.0) 12/22/16 14:13 Medardo Test Pos 12/22/16 14:13 A-a O2 Difference 31.0 mm/Hg 12/22/16 14:13 Respiratory Index 0.5 12/22/16 14:13 Hgb O2 Saturation 90.6 % (95.0-98.0) L 12/22/16 14:13 FiO2 21.0 % 12/22/16 14:13 Sodium 127 mmol/L (132-148) L 12/24/16 07:06 Potassium 4.0 mmol/L (3.6-5.2) 12/24/16 07:06 Chloride 86 mmol/L (98-107) L 12/24/16 07:06 Carbon Dioxide 29 mmol/L (22-30) 12/24/16 07:06 Anion Gap 16 (10-20) 12/24/16 07:06 BUN 23 mg/dL (9-20) H 12/24/16 07:06 Creatinine 0.8 MG/DL (0.8-1.5) 12/24/16 07:06 Est GFR ( Amer) > 60 12/24/16 07:06 Est GFR (Non-Af Amer) > 60 12/24/16 07:06 POC Glucose (mg/dL) 162 mg/dL (65-110) H 12/24/16 15:54 Random Glucose 94 mg/dL (75-110) 12/24/16 07:06 Calcium 8.6 mg/dl (8.6-10.4) 12/24/16 07:06 Phosphorus 3.8 mg/dL (2.5-4.5) 12/24/16 07:06 Magnesium 2.3 mg/dL (1.6-2.3) 12/24/16 07:06 Total Bilirubin 0.4 mg/dL (0.2-1.3) 12/24/16 07:06 AST 19 U/L (17-59) 12/24/16 07:06 ALT 55 U/L (21-72) 12/24/16 07:06 Alkaline Phosphatase 58 U/L (38-126) 12/24/16 07:06 NT-Pro-B Natriuret Pep 22.3 pg/mL (0-900) 12/17/16 11:31 Total Protein 6.1 g/dL (6.3-8.3) L 12/24/16 07:06 Albumin 3.6 g/dL (3.5-5.0) 12/24/16 07:06 Globulin 2.5 gm/dL (2.2-3.9) 12/24/16 07:06 Albumin/Globulin Ratio 1.5 (1.0-2.1) 12/24/16 07:06 Urine Color Yellow (YELLOW) 12/17/16 12:27 Urine Clarity Clear (Clear) 12/17/16 12:27 Urine pH 7.0 (5.0-8.0) 12/17/16 12:27 Ur Specific Crestline 1.015 (1.003-1.030) 12/17/16 12:27 Urine Protein Negative mg/dL (NEGATIVE) 12/17/16 12:27 Urine Glucose (UA) Normal mg/dL (Normal) 12/17/16 12:27 Urine Ketones Negative mg/dL (NEGATIVE) 12/17/16 12:27 Urine Blood Negative (NEGATIVE) 12/17/16 12:27 Urine Nitrate Negative (NEGATIVE) 12/17/16 12:27 Urine Bilirubin Negative (NEGATIVE) 12/17/16 12:27 Urine Urobilinogen Normal mg/dL (0.2-1.0) 12/17/16 12:27 Ur Leukocyte Esterase Neg Praveen/uL (Negative) 12/17/16 12:27 Urine WBC (Auto) 1 /hpf (0-5) 12/17/16 12:27 Urine RBC (Auto) < 1 /hpf (0-3) 12/17/16 12:27 Ur Squamous Epith Cells < 1 /hpf (0-5) 12/17/16 12:27 - Hospital Course Hospital Course: On admission: 71 y/o male with PMH of COPD, HTN, and Arthritis - presents c/o SOB worsening and cough for the past 2 weeks. He reports being sick with bronchitis on 3/11/17, as diagnosed by his PMD, and completed his tx with promethazine/codeine, Azithromycin 250mg, and prednisone taper. He reports completing his medication 3 days ago, but feels no resolution of his symptoms. His last Tmax was last week in the '. Patient reports having cough and congestion for 10 days (non-productive), subjective fever last night, and chest discomfort with coughing. Denies dizziness, chills, headache, abdominal pain, n/ v, d/c, LE swelling, or any additional acute complaints. During Hospital Stay: Patient has decreased breath sounds with a mild end expiratory wheezes. Pulm was consulted. Patient was noted to destauration while walking so home oxygen was ordered. - O2 saturation at rest on room air: 98% - O2 saturation while ambulating on room air: 88% - O2 saturation ambulating with NC: 97% Patient was given Duonebs 3mL INH RQ6 LUL, IV SoluMedrol, Spiriva 18mcg INH RQ24 LUL, and Pulmicort 0.5 INH R Q12 hours. EKG is NS at 84 bpm with normal axis and nonspecific ST-T changes. No prior available for comparison. CXR showed minor atelectasis/scarring of left lung base; no infiltrate, effusion or consolidation. Patient remained afebile and had a low white count likely due to the steroid use. Blood and urine were negative for infection. Patient was given medications for his blood pressure. Patient's HCTZ was discontinued due to lower sodium level. Patient was given losartan 100 mg PO daily and Amlodipine 5mg PO daily for BP control. Patient stable for discharge home today. Patient is to follow up with his primary car Dr. Matta within one week of discharge. Patient now has is home oxygen tank and is to use 1L of oxygen at all times. Patient is to follow up with Dr. Day, pulmonology within one week of discharge. Patient is to take the following medications: (starting 12/25/2016) 1. Aspirin 81 mg PO daily 2. Pulmicort 0.5mg inhaled every 12 hours (twice a day) 3. Amlodipine 5mg PO daily 4. Losartan 100 mg one by mouth daily 5. Sprirva 18mg inhaled once a day 6. Prednisone taper as instructed: 40 mg one by mouth daily for days #1 30 mg one by mouth for days #2 and #3 then, 20 mg one by mouth for day #4 and #5 then 10mg one by mouth for day #6 and #7 Patient is to discontinue his combo pill Losartan/HCTZ because of his decreased sodium levels. Patient is to have his bloodwork/ sodium level rechecked in one week by Dr. Matta. Patient is to return to the emergency room if symptoms worsen. All instructions explained to the patient and he agrees. Discharge Exam - Head Exam Head Exam: ATRAUMATIC, NORMOCEPHALIC - Eye Exam Eye Exam: EOMI, Normal appearance, PERRL Pupil Exam: NORMAL ACCOMODATION - ENT Exam ENT Exam: Mucous Membranes Moist - Respiratory Exam Respiratory Exam: Clear to PA & Lateral, NORMAL BREATHING PATTERN. absent: Accessory Muscle Use, Chest Wall Tenderness, Wheezes, Respiratory Distress - Cardiovascular Exam Cardiovascular Exam: REGULAR RHYTHM, +S1, +S2 - GI/Abdominal Exam GI & Abdominal Exam: Normal Bowel Sounds, Soft. absent: Distended, Firm, Guarding, Tenderness - Extremities Exam Extremities exam: normal inspection - Back Exam Back exam: NORMAL INSPECTION. absent: CVA tenderness (L), CVA tenderness (R), paraspinal tenderness - Neurological Exam Neurological exam: Alert, CN II-XII Intact, Normal Gait, Oriented x3 - Psychiatric Exam Psychiatric exam: Normal Affect, Normal Mood - Skin Skin Exam: Dry, Intact, Normal Color, Warm Discharge Plan - Discharge Medications Prescriptions: Losartan [Cozaar] 100 mg PO DAILY #30 tab Aspirin [Ecotrin] 81 mg PO DAILY #30 tablet. amLODIPine [Norvasc] 5 mg PO DAILY #30 tab Budesonide [Pulmicort Respules] 0.5 mg INH RQ12 #60 neb Tiotropium [Spiriva] 18 mcg INH RQ24 #30 cap predniSONE [Prednisone] 10 mg PO DAILY #16 tab - Follow Up Plan Condition: STABLE Disposition: HOME/ ROUTINE Instructions: Prednisone (By mouth), Aspirin (By mouth), Amlodipine (By mouth) , Losartan (By mouth), Budesonide (By breathing), Tiotropium (By breathing), Diabetic Foot Care (DC), COPD (Chronic Obstructive Pulmonary Disease) (DC), Meal Planning with Diabetes Exchanges (DC) Additional Instructions: Patient stable for discharge home. Patient is to follow up with his primary car Dr. Matta within one week of discharge. Patient now has is home oxygen tank and is to use 1L of oxygen at all times. Patient is to follow up with Dr. Day, pulmonology within one week of discharge. Patient is to take the following medications: (starting 12/25/2016) 1. Aspirin 81 mg PO daily 2. Pulmicort 0.5mg inhaled every 12 hours (twice a day) 3. Amlodipine 5mg PO daily 4. Losartan 100 mg one by mouth daily 5. Sprirva 18mg inhaled once a day 6. Prednisone taper as instructed: 40 mg one by mouth daily for days #1 30 mg one by mouth for days #2 and #3 then, 20 mg one by mouth for day #4 and #5 then 10mg one by mouth for day #6 and #7 Patient is to discontinue his combo pill Losartan/HCTZ because of his decreased sodium levels. Patient is to have his bloodwork/ sodium level rechecked in one week by Dr. Matta. Patient is to return to the emergency room if symptoms worsen. All instructions explained to the patient and he agrees. Referrals: Andre Day MD [Staff Provider] - Josué Matta MD [Staff Provider] - <Tristan Arriaza - Last Filed: 12/25/16 13:35> Provider - Provider Date of Admission: 12/20/16 08:22 Attending physician: Tristan Arriaza MD Hospital Course - Lab Results Lab Results: Most Recent Lab Values WBC 15.1 K/uL (4.8-10.8) H 12/24/16 07:06 RBC 4.90 Mil/uL (4.40-5.90) 12/24/16 07:06 Hgb 14.7 g/dL (12.0-18.0) 12/24/16 07:06 Hct 44.3 % (35.0-51.0) 12/24/16 07:06 MCV 90.4 fL (80.0-94.0) 12/24/16 07:06 MCH 29.9 pg (27.0-31.0) 12/24/16 07:06 MCHC 33.1 g/dL (33.0-37.0) 12/24/16 07:06 RDW 12.9 % (11.5-14.5) 12/24/16 07:06 Plt Count 291 K/uL (130-400) 12/24/16 07:06 MPV 9.3 fL (7.2-11.7) 12/24/16 07:06 Neut % (Auto) 81.6 % (50.0-75.0) H 12/24/16 07:06 Lymph % (Auto) 8.6 % (20.0-40.0) L 12/24/16 07:06 Evans % (Auto) 9.4 % (0.0-10.0) 12/24/16 07:06 Eos % (Auto) 0.2 % (0.0-4.0) 12/24/16 07:06 Baso % (Auto) 0.2 % (0.0-2.0) 12/24/16 07:06 Neut # 12.3 K/uL (1.8-7.0) H 12/24/16 07:06 Lymph # 1.3 K/uL (1.0-4.3) 12/24/16 07:06 Evans # 1.4 K/uL (0.0-0.8) H 12/24/16 07:06 Eos # 0.0 K/uL (0.0-0.7) 12/24/16 07:06 Baso # 0.0 K/uL (0.0-0.2) 12/24/16 07:06 Neutrophils % (Manual) 79 % (50-75) H 12/24/16 07:06 Band Neutrophils % 2 % (0-2) 12/24/16 07:06 Lymphocytes % (Manual) 12 % (20-40) L 12/24/16 07:06 Reactive Lymphs % 1 % (0-0) H 12/20/16 06:08 Monocytes % (Manual) 7 % (0-10) 12/24/16 07:06 Toxic Granulation Present 12/20/16 06:08 Platelet Estimate Normal (NORMAL) 12/24/16 07:06 Large Platelets Present 12/20/16 06:08 Giant Platelets Present 12/20/16 06:08 RBC Morphology Normal 12/24/16 07:06 Poikilocytosis (manual Slight 12/20/16 06:08 Anisocytosis (manual) Slight 12/20/16 06:08 Ovalocytes Slight 12/20/16 06:08 Puncture Site Rr 12/22/16 14:13 pCO2 48 mm/Hg (35-45) H 12/22/16 14:13 pO2 59 mm/Hg (80-100) L 12/22/16 14:13 HCO3 30.3 mmol/L (21-28) H 12/22/16 14:13 ABG pH 7.44 (7.35-7.45) 12/22/16 14:13 ABG Total CO2 34.1 mmol/L (22-28) H 12/22/16 14:13 ABG O2 Saturation 94.0 % (95-98) L 12/22/16 14:13 ABG Base Excess 7.1 mmol/L (-2.0-3.0) H 12/22/16 14:13 ABG Hemoglobin 14.8 g/dL (11.7-17.4) 12/22/16 14:13 ABG Carboxyhemoglobin 2.1 % (0.5-1.5) H 12/22/16 14:13 POC ABG HHb (Measured) 5.8 % (0.0-5.0) H 12/22/16 14:13 ABG Methemoglobin 1.5 % (0.0-3.0) 12/22/16 14:13 Medardo Test Pos 12/22/16 14:13 A-a O2 Difference 31.0 mm/Hg 12/22/16 14:13 Respiratory Index 0.5 12/22/16 14:13 Hgb O2 Saturation 90.6 % (95.0-98.0) L 12/22/16 14:13 FiO2 21.0 % 12/22/16 14:13 Sodium 127 mmol/L (132-148) L 12/24/16 07:06 Potassium 4.0 mmol/L (3.6-5.2) 12/24/16 07:06 Chloride 86 mmol/L (98-107) L 12/24/16 07:06 Carbon Dioxide 29 mmol/L (22-30) 12/24/16 07:06 Anion Gap 16 (10-20) 12/24/16 07:06 BUN 23 mg/dL (9-20) H 12/24/16 07:06 Creatinine 0.8 MG/DL (0.8-1.5) 12/24/16 07:06 Est GFR ( Amer) > 60 12/24/16 07:06 Est GFR (Non-Af Amer) > 60 12/24/16 07:06 POC Glucose (mg/dL) 162 mg/dL (65-110) H 12/24/16 15:54 Random Glucose 94 mg/dL (75-110) 12/24/16 07:06 Calcium 8.6 mg/dl (8.6-10.4) 12/24/16 07:06 Phosphorus 3.8 mg/dL (2.5-4.5) 12/24/16 07:06 Magnesium 2.3 mg/dL (1.6-2.3) 12/24/16 07:06 Total Bilirubin 0.4 mg/dL (0.2-1.3) 12/24/16 07:06 AST 19 U/L (17-59) 12/24/16 07:06 ALT 55 U/L (21-72) 12/24/16 07:06 Alkaline Phosphatase 58 U/L (38-126) 12/24/16 07:06 NT-Pro-B Natriuret Pep 22.3 pg/mL (0-900) 12/17/16 11:31 Total Protein 6.1 g/dL (6.3-8.3) L 12/24/16 07:06 Albumin 3.6 g/dL (3.5-5.0) 12/24/16 07:06 Globulin 2.5 gm/dL (2.2-3.9) 12/24/16 07:06 Albumin/Globulin Ratio 1.5 (1.0-2.1) 12/24/16 07:06 Urine Color Yellow (YELLOW) 12/17/16 12:27 Urine Clarity Clear (Clear) 12/17/16 12:27 Urine pH 7.0 (5.0-8.0) 12/17/16 12:27 Ur Specific Crestline 1.015 (1.003-1.030) 12/17/16 12:27 Urine Protein Negative mg/dL (NEGATIVE) 12/17/16 12:27 Urine Glucose (UA) Normal mg/dL (Normal) 12/17/16 12:27 Urine Ketones Negative mg/dL (NEGATIVE) 12/17/16 12:27 Urine Blood Negative (NEGATIVE) 12/17/16 12:27 Urine Nitrate Negative (NEGATIVE) 12/17/16 12:27 Urine Bilirubin Negative (NEGATIVE) 12/17/16 12:27 Urine Urobilinogen Normal mg/dL (0.2-1.0) 12/17/16 12:27 Ur Leukocyte Esterase Neg Praveen/uL (Negative) 12/17/16 12:27 Urine WBC (Auto) 1 /hpf (0-5) 12/17/16 12:27 Urine RBC (Auto) < 1 /hpf (0-3) 12/17/16 12:27 Ur Squamous Epith Cells < 1 /hpf (0-5) 12/17/16 12:27 Attending/Attestation - Attestation I have personally seen and examined this patient.: Yes I have fully participated in the care of the patient.: Yes I have reviewed all pertinent clinical information, including history, physical exam and plan: Yes Notes (Text): 12/25/16 13:35 Patient was seen and examined at bedside with the resident Shortness of breath is improving Arrangements made for home oxygen Patient clear for discharge by pulmonary We will discharge the patient to home on oral steroid taper I agree with the above discharge note by the resident
== END 2016-12-24 16:45 | disposition home or self-care (01) | DRG 192 ==
LOC: C.ER 10:25 → C.9E 12:45 → C.3T 17:06 → OBSVTOIN 12-20 08:22 → C.3T 12-23 00:41
PROVIDERS: ADMIT Internal Medicine; ATTEND Internal Medicine
DX: J44.1 Chronic obstructive pulmonary disease with (acute) exacerbation (principal); E11.9 Type 2 diabetes mellitus without complications; I10 Essential (primary) hypertension; T38.0X5A Adverse effect of glucocorticoids and synthetic analogues, initial encounter; M19.90 Unspecified osteoarthritis, unspecified site; F17.210 Nicotine dependence, cigarettes, uncomplicated; Z79.899 Other long term (current) drug therapy; Z79.82 Long term (current) use of aspirin; Z82.49 Family history of ischemic heart disease and other diseases of the circulatory system

== ENCOUNTER 2018-12-12 10:47 | Inpatient (IN) | payer OTHER, MEDICAID ==
[2018-12-12 10:58] VITALS: BMI 25.8
[2018-12-12] MEDS ORDERED: Albuterol-Ipratrop 3 mg / 0.5 (3 ml) UD ONE ×3 (10:58→16:20)
[2018-12-12] MEDS: Albuterol-Ipratrop 3 mg / 0.5 (3 ml) UD IH SCH ×3 (11:30→12:00)
[2018-12-12 12:10] LABS: BASO % 0.3 % (0.0-2.0); EOS % 0.5 % (0.0-4.0); HEMOGLOBIN 14.5 g/dL (12.0-18.0); LYMPH # 0.6 K/uL (1.0-4.3); LYMPH % 6.7 % (20.0-40.0); MEAN CORPUSCULAR HEMOGLOBIN 31.7 pg (27.0-31.0); MEAN CORPUSCULAR HGB CONC 34.2 g/dL (33.0-37.0); MEAN PLATELET VOLUME 9.9 fL (7.2-11.7); MONO # 0.9 K/uL (0.0-0.8); MONO % 11.2 % (0.0-10.0); NEUT # 6.9 K/uL (1.8-7.0); NEUT % 81.3 % (50.0-75.0); PLATELET COUNT 201 K/uL (130-400); RBC 4.58 Mil/uL (4.40-5.90); RED CELL DISTRIBUTION WIDTH 13.1 % (11.5-14.5); WHITE BLOOD COUNT 8.5 K/uL (4.8-10.8)
[2018-12-12 12:11] LABS: MEAN CELL VOLUME 92.8 fL (80.0-94.0)
[2018-12-12 12:14] LABS: BLOOD UREA NITROGEN 14 mg/dL (9-20); CALCIUM 9.4 mg/dl (8.6-10.4); GFR NON-AFRICAN AMERICAN > 60
[2018-12-12 12:15] LABS: ALB/GLOB RATIO 1.4 (1.0-2.1); ALBUMIN 4.8 g/dL (3.5-5.0); ALT/SGPT 30 U/L (21-72); AST/SGOT 51 U/L (17-59)
[2018-12-12 12:27] LABS: B-TYPE NATRIURETIC PEPTIDE 102 pg/mL (0-900)
[2018-12-12 12:30] LABS: BANDS 6 % (0-2); LARGE PLATELETS PRESENT; LYMPHOCYTE 6 % (20-40); MONOCYTE 9 % (0-10); NEUTROPHIL 78 % (50-75); PLATELET ESTIMATE NORMAL (NORMAL); REACTIVE LYMPHOCYTES 1 % (0-0); TOTAL CELLS COUNTED 100
--- NOTE | 2018-12-12 12:49 | C.PDOC ---
History Of Present Illness 73 y/o male,w/PMhx of COPD and asthma, presents to the ER complaining of shortness of breath and pain in "lungs" which has been present for the past 1 week. Patient states that he was not able to come to the hospital earlier because he did not have a ride. Patient reports that he has history of smoking and he stopped smoking 4 years ago. He notes that has some chest pain under his ribs. Denies having fever,chills, cough, nausea, and vomiting. Time Seen by Provider: 12/12/18 11:09 Chief Complaint (Nursing): Shortness Of Breath History Per: Patient History/Exam Limitations: no limitations Onset/Duration Of Symptoms: Days Current Symptoms Are (Timing): Still Present Severity: Moderate Past Medical History Reviewed: Historical Data, Nursing Documentation, Vital Signs Vital Signs: Last Vital Signs Temp Pulse 128 H 12/12/18 12:35 Resp 28 H 12/12/18 12:35 BP 162/83 H 12/12/18 12:35 Pulse Ox 92 L 12/12/18 12:35 - Medical History PMH: Bronchitis, COPD, Emphysema, HTN Denies: Chronic Kidney Disease Other Surgeries: Hx of surgeries Family History: States: No Known Family Hx - Social History Hx Alcohol Use: No Hx Substance Use: No Review Of Systems Except As Marked, All Systems Reviewed And Found Negative. Constitutional: Negative for: Fever, Chills Cardiovascular: Positive for: Chest Pain Respiratory: Positive for: Shortness of Breath. Negative for: Cough Gastrointestinal: Negative for: Nausea, Vomiting Physical Exam - Physical Exam Appears: Other (tripoid position) Skin: Normal Color, Warm, Dry Head: Atraumatic, Normacephalic Eye(s): bilateral: Normal Inspection Nose: Normal Oral Mucosa: Moist Neck: Supple Chest: Symmetrical Cardiovascular: Rhythm Regular Respiratory: No Rales, No Rhonchi, Wheezing (diffuse wheezing), Other (tachypneic) Gastrointestinal/Abdominal: Normal Exam, Soft, No Tenderness, No Guarding, No Rebound Extremity: Normal ROM, Other (no pitting edema) Neurological/Psych: Oriented x3, Normal Speech ED Course And Treatment - Laboratory Results Result Diagrams: 12/12/18 11:55 12/12/18 11:55 Lab Results: Troponin I < 0.0120 ng/mL (0.00-0.120) 12/12/18 11:55 NT-Pro-B Natriuret Pep 102 pg/mL (0-900) 12/12/18 11:55 Total Bilirubin 1.3 mg/dL (0.2-1.3) 12/12/18 11:55 AST 51 U/L (17-59) 12/12/18 11:55 ALT 30 U/L (21-72) 12/12/18 11:55 Alkaline Phosphatase 58 U/L (38-126) 12/12/18 11:55 Total Protein 8.3 g/dL (6.3-8.3) 12/12/18 11:55 Albumin 4.8 g/dL (3.5-5.0) 12/12/18 11:55 Globulin 3.5 gm/dL (2.2-3.9) 12/12/18 11:55 Albumin/Globulin Ratio 1.4 (1.0-2.1) 12/12/18 11:55 O2 Sat by Pulse Oximetry: 92 (RA) Pulse Ox Interpretation: Abnormal Medical Decision Making Medical Decision Making: Plan: --Labs --CXR --Duoneb IH --Solu-Medrol IV --Tamiflu PO --Rocephin IV Disposition Discussed With : Denzel Meeks - Disposition Disposition: HOSPITALIZED Disposition Time: 12:48 Condition: GUARDED Forms: [facility] (Guyanese) - POA Present On Arrival: None - Clinical Impression Clinical Impression: COPD exacerbation, Respiratory distress, Asthma attack, Influenza A - Scribe Statement The provider has reviewed the documentation as recorded by the Xavier Mackenzie Provider Attestation: All medical record entries made by the Xavier were at my direction and personally dictated by me. I have reviewed the chart and agree that the record a ccurately reflects my personal performance of the history, physical exam, medical decision making, and the department course for this patient. I have also personally directed, reviewed, and agree with the discharge instructions and disposition. Decision To Admit - Pt Status Changed To: Hospital Disposition Of: Inpatient - Admit Certification Admit to Inpatient:: After my assessment, the patient will require hospitalization for at least two midnights. This is because of the severity of symptoms shown, intensity of services needed, and/or the medical risk in this patient being treated as an outpatient. - InPatient: Physician Admission Certification: I certify that this patient requires 2 or more midnights of care for the following reason:: asthma, flu, COPD, respiratory distres - . Bed Request Type: Telemetry Admitting Physician: Denzel Meeks Patient Diagnosis: COPD exacerbation, Respiratory distress, Asthma attack, Influenza A
--- NOTE | 2018-12-12 13:23 | RAD ---
Chest x-ray single frontal view History: Shortness of breath. Comparison: 12/22/2016 Findings: Mild venous congestion. Patchy increased markings at the left lung base. Bilateral hilar prominence. Tortuous aorta. Heart size within normal limits. Degenerative changes in the spine and shoulders. Impression: Mild venous congestion. Patchy increased markings at the left lung base. Bilateral hilar prominence. Tortuous aorta.
[2018-12-12] MEDS ORDERED: cefTRIAXone IV 1 gm in Dextros 50 ML IVPB STA (14:18)
[2018-12-12] MEDS: Sodium Chloride 0.9% 1,000 ML IV SCH (16:00)
--- NOTE | 2018-12-12 16:02 | CP.PCM.HP ---
<Thao Jiménez - Last Filed: 12/12/18 17:06> History of Present Illness - History of Present Illness History of Present Illness: CC: "difficulty breathing" This is a 73 y/o male with a PMH of HTN, asthma, COPD, and arthritis that presents to the ED today with complaints of difficulty breathing. This started about two weeks ago but has been getting worse until this morning his girlfriend found him with severe shortness of breath. He tried using albuterol pump and nebulizer but didn't help him, and walking even two-three steps made the shortness of breath worse. He frequently travels from [place] to [facility] to visit family and has been in [place] for the past one month. He also states that he had a subjective fever a couple of days ago with night sweats and since his episodes of difficulty breathing started 2 weeks ago, he has been coughing frequently with yellow sputum production. He also complains of chest pain when he coughs which is described as a sharp pain. ED Course: Duonebs x5, Solumedrol 125 x1, CXR, EKG ROS: positive for SOB, cough with yellow sputum production, chest pain with cough, increased urinary frequency, weakness, sore throat, difficulty swal lowing, fever, night sweats Meds: Losartan 10mg PO daily, ASA 81mg PO daily, Amlodipine 5mg PO daily, Ventolin rescue pump, Albuterol neb PRN PMH: HTN, COPD, asthma, arthritis PSxH: L ankle ORIF FH: Asthma, CAD, COPD, HTN on both sides. 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 Has a 50 year 1-2 PPD smoking history, quit 3 years ago, drinks EtOH 2-3 beers socially on weekends, denies illicit drug use. PMD is Dr. Matta but hasn't seen him in years Full Code Present on Admission - Present on Admission Any Indicators Present on Admission: No History of Uncontrolled Diabetes: No Urinary Catheter: Yes Review of Systems - Constitutional Constitutional: Fever, Night Sweats, Weakness - EENT Eyes: absent: Blurred Vision, Change in Vision Ears: absent: Dizziness Nose/Mouth/Throat: Dysphagia. absent: Odynophagia - Cardiovascular Cardiovascular: absent: Palpitations, Syncope - Respiratory Respiratory: Dyspnea, Dyspnea on Exertion, Pain with Coughing - Gastrointestinal Gastrointestinal: absent: Abdominal Pain, Change in Bowel Habits, Constipation, Diarrhea, Hematochezia, Nausea, Vomiting - Genitourinary Genitourinary: Urinary Frequency. absent: Urinary Incontinence - Musculoskeletal Musculoskeletal: Muscle Weakness. absent: Myalgias, Numbness, Radiating Pain into Limb - Integumentary Integumentary: absent: Rash, Swelling - Neurological Neurological: absent: Confusion, Dizziness, Loss of Vision, Tingling Past Patient History - Infectious Disease Hx of Infectious Diseases: None - Past Social History Smoking Status: Former Smoker Alcohol: Social Drugs: Denies - CARDIAC Hx Hypertension: Yes - PULMONARY Hx Bronchitis: Yes Hx Chronic Obstructive Pulmonary Disease (COPD): Yes Hx Emphysema: Yes - NEUROLOGICAL Hx Neurological Disorder: No - RENAL Hx Chronic Kidney Disease: No - ENDOCRINE/METABOLIC Hx Endocrine Disorders: Yes Hx Diabetes Mellitus Type 2: Yes - HEMATOLOGICAL/ONCOLOGICAL Hx Blood Disorders: No - INTEGUMENTARY Hx Dermatological Problems: No - MUSCULOSKELETAL/RHEUMATOLOGICAL Hx Musculoskeletal Disorders: No Hx Falls: No - GASTROINTESTINAL Hx Gastrointestinal Disorders: No - GENITOURINARY/GYNECOLOGICAL Hx Genitourinary Disorders: No - PSYCHIATRIC Hx Substance Use: No - SURGICAL HISTORY Hx Surgeries: Yes Hx Orthopedic Surgery: Yes - ANESTHESIA Hx Anesthesia: Yes Hx Anesthesia Reactions: No Hx Malignant Hyperthermia: No Meds Allergies/Adverse Reactions: Allergies Allergy/AdvReac Type Severity Reaction Status Date / Time No Known Allergies Allergy Verified 12/12/18 10:58 Physical Exam - Constitutional Appears: Non-toxic - Head Exam Head Exam: ATRAUMATIC, NORMOCEPHALIC - Eye Exam Eye Exam: EOMI, Normal appearance, PERRL. absent: Scleral icterus - ENT Exam ENT Exam: Mucous Membranes Moist, TM's Normal Bilaterally - Neck Exam Neck exam: Positive for: Normal Inspection - Respiratory Exam Respiratory Exam: Decreased Breath Sounds, Wheezes (throughout). absent: Accessory Muscle Use Additional comments: 3L O2 via [place] - Cardiovascular Exam Cardiovascular Exam: REGULAR RHYTHM, +S1, +S2. absent: Systolic Murmur - GI/Abdominal Exam GI & Abdominal Exam: Distended, Firm, Normal Bowel Sounds. absent: Guarding, Tenderness - Extremities Exam Extremities exam: Positive for: normal inspection. Negative for: calf tenderness - Neurological Exam Neurological exam: Alert, CN II-XII Intact, Oriented x3, Reflexes Normal - Psychiatric Exam Psychiatric exam: Normal Affect, Normal Mood - Skin Skin Exam: Dry, Normal Color Results - Vital Signs Recent Vital Signs: Last Vital Signs Temp Pulse 116 H 12/12/18 14:59 Resp 28 H 12/12/18 14:59 BP 134/79 12/12/18 14:59 Pulse Ox 3 L 12/12/18 14:59 - Labs Result Diagrams: 12/12/18 11:55 12/12/18 11:55 Labs: Laboratory Results - last 24 hr 12/12/18 12/12/18 12/12/18 11:55 11:55 11:55 WBC 8.5 RBC 4.58 Hgb 14.5 Hct 42.5 MCV 92.8 D MCH 31.7 H MCHC 34.2 RDW 13.1 Plt Count 201 MPV 9.9 Neut % (Auto) 81.3 H Lymph % (Auto) 6.7 L [place] % (Auto) 11.2 H Eos % (Auto) 0.5 Baso % (Auto) 0.3 Neut # (Auto) 6.9 Lymph # (Auto) 0.6 L [place] # (Auto) 0.9 H Eos # (Auto) 0.0 Baso # (Auto) 0.0 Neutrophils % (Manual) 78 H Band Neutrophils % 6 H Lymphocytes % (Manual) 6 L Reactive Lymphs % 1 H Monocytes % (Manual) 9 Platelet Estimate Normal Large Platelets Present RBC Morphology Normal Sodium 137 Potassium 4.8 Chloride 93 L Carbon Dioxide 35 H Anion Gap 14 BUN 14 Creatinine 0.8 Est GFR ( Amer) > 60 Est GFR (Non-Af Amer) > 60 Random Glucose 193 H D Calcium 9.4 Total Bilirubin 1.3 AST 51 ALT 30 Alkaline Phosphatase 58 Troponin I < 0.0120 NT-Pro-B Natriuret Pep 102 Total Protein 8.3 Albumin 4.8 Globulin 3.5 Albumin/Globulin Ratio 1.4 Influenza Typ A,B (EIA) Pos for influenza a H - EKG Data EKG Interpreted by: ER Physician EKG shows normal: Sinus rhythm Rate: Tachycardia Assessment & Plan - Assessment and Plan (Free Text) Assessment: 73yo [place] Citizen M PMH emphysema, HTN, arthritis admitted for COPD exacerbation 2/2 influenza. Plan: COPD exacerbation 2/2 influenza - influenza +, droplet isolation - CXR: mild venous congestion. Patchy increased markings at L lung base. bilateral hilar prominence. - given Duoneb x5, Solumedrol 125 x1 in ED - Trop x1 neg, f/u x2 - f/u Blood Cx - f/u Sputum Cx - Duonebs 3mL INH rQ4 LUL - Pulmicort 0.5mg INH rQ12 - Solumedrol 40mg IVP q8 - Tamiflu 75 mg po BID - Azithro 500mg IVPB daily (started 12/12) - Ceftriaxone 1gm IVPB q12 Hypertension - ASA 81mg po daily - Losartan 100mg po daily PPx - DVT: Heparin 5000u SC q8, SCDs - Diet: HHD - IVF: NS@50 d/w Dr. Jeanna Jiménez PGY-1 - Date & Time Date: 12/12/18 Time: 15:30 <Denzel Meeks H - Last Filed: 12/12/18 19:17> Results - Vital Signs Recent Vital Signs: Last Vital Signs Temp Pulse 118 H 12/12/18 17:44 Resp 26 H 12/12/18 17:44 BP 158/84 H 12/12/18 17:44 Pulse Ox 92 L 12/12/18 19:03 - Labs Result Diagrams: 12/12/18 11:55 12/12/18 11:55 Labs: Laboratory Results - last 24 hr 12/12/18 12/12/18 12/12/18 11:55 11:55 11:55 WBC 8.5 RBC 4.58 Hgb 14.5 Hct 42.5 MCV 92.8 D MCH 31.7 H MCHC 34.2 RDW 13.1 Plt Count 201 MPV 9.9 Neut % (Auto) 81.3 H Lymph % (Auto) 6.7 L [place] % (Auto) 11.2 H Eos % (Auto) 0.5 Baso % (Auto) 0.3 Neut # (Auto) 6.9 Lymph # (Auto) 0.6 L [place] # (Auto) 0.9 H Eos # (Auto) 0.0 Baso # (Auto) 0.0 Neutrophils % (Manual) 78 H Band Neutrophils % 6 H Lymphocytes % (Manual) 6 L Reactive Lymphs % 1 H Monocytes % (Manual) 9 Platelet Estimate Normal Large Platelets Present RBC Morphology Normal Sodium 137 Potassium 4.8 Chloride 93 L Carbon Dioxide 35 H Anion Gap 14 BUN 14 Creatinine 0.8 Est GFR ( Amer) > 60 Est GFR (Non-Af Amer) > 60 Random Glucose 193 H D Calcium 9.4 Total Bilirubin 1.3 AST 51 ALT 30 Alkaline Phosphatase 58 Troponin I < 0.0120 NT-Pro-B Natriuret Pep 102 Total Protein 8.3 Albumin 4.8 Globulin 3.5 Albumin/Globulin Ratio 1.4 Influenza Typ A,B (EIA) Pos for influenza a H Attending/Attestation - Attestation I have personally seen and examined this patient.: Yes I have fully participated in the care of the patient.: Yes I have reviewed all pertinent clinical information: Yes Notes (Text): 12/12/18 19:07 Medical attending: Patient was seen and examined by me. Agree with the above note by the resident The patient was when we saw him in the Er reporting feeling somewhat better He tested positive for the Influenza For now cover with emperic antibiotics - also it has been several days since the start of the symptoms will add on also Tamiflu as well The patient will be on slow IVF, tyelnol as well. Patient will also need to be on medication for his COPD as well Denzel Meeks
[2018-12-12] MEDS: MethylPREDNISolone 40 mg Vial IVP SCH (16:15)
[2018-12-12] MEDS: Albuterol-Ipratrop 3 mg / 0.5 (3 ml) UD INH SCH ×2 (16:39→20:15)
[2018-12-12] MEDS: Azithromycin 500 MG in Sodium Chloride 0.9% 250 ML IVPB SCH (19:13)
[2018-12-12] MEDS: Budesonide 0.5 mg/2 ml Inhal Susp UD INH SCH (20:18)
[2018-12-12 20:33] LABS: CK-MB 10.8 ng/mL (0.0-3.38)
[2018-12-13] MEDS: Albuterol-Ipratrop 3 mg / 0.5 (3 ml) UD INH SCH ×7 (00:22→23:43)
[2018-12-13] MEDS: MethylPREDNISolone 40 mg Vial IVP SCH ×4 (01:00→23:52)
[2018-12-13 02:27] LABS: CK-MB 16.6 ng/mL (0.0-3.38); TROPONIN I 0.013 ng/mL (0.00-0.120)
[2018-12-13 07:15] LABS: BASO % 0.2 % (0.0-2.0); HEMOGLOBIN 13.2 g/dL (12.0-18.0); LYMPH # 0.6 K/uL (1.0-4.3); LYMPH % 8.5 % (20.0-40.0); MEAN CELL VOLUME 91.8 fL (80.0-94.0); MEAN CORPUSCULAR HEMOGLOBIN 31.6 pg (27.0-31.0); MEAN CORPUSCULAR HGB CONC 34.5 g/dL (33.0-37.0); MEAN PLATELET VOLUME 9.7 fL (7.2-11.7); MONO # 0.4 K/uL (0.0-0.8); NEUT # 6.3 K/uL (1.8-7.0); NEUT % 86.3 % (50.0-75.0); NRBC % 0.1 % (0.0-2.0); PLATELET COUNT 171 K/uL (130-400); RBC 4.18 Mil/uL (4.40-5.90); RED CELL DISTRIBUTION WIDTH 13.2 % (11.5-14.5); WHITE BLOOD COUNT 7.3 K/uL (4.8-10.8)
[2018-12-13 08:31] LABS: BLOOD UREA NITROGEN 13 mg/dL (9-20); CALCIUM 9.1 mg/dl (8.6-10.4); GFR NON-AFRICAN AMERICAN > 60
[2018-12-13] MEDS: Budesonide 0.5 mg/2 ml Inhal Susp UD INH SCH ×2 (09:46→19:30)
[2018-12-13 10:33] LABS: BANDS 7 % (0-2); LARGE PLATELETS PRESENT; LYMPHOCYTE 5 % (20-40); MONOCYTE 3 % (0-10); NEUTROPHIL 85 % (50-75); PLATELET ESTIMATE NORMAL (NORMAL); TOTAL CELLS COUNTED 100
--- NOTE | 2018-12-13 11:36 | CP.PCM.PN ---
<Thao Jiménez - Last Filed: 12/13/18 11:31> Subjective - Date & Time of Evaluation Date of Evaluation: 12/13/18 Time of Evaluation: 07:40 - Subjective Subjective: PGY-1 Medicine Progress note for Dr. Meeks Patient was seen and examined today at bedside in no acute distress. Nurse reports no overnight events. Patient has no new complaints. He still coughing, however his breathing and forcefulness of cough has greatly improved. He did not sleep well overnight because staff kept entering the room. He is eating fine and using the restroom his normal amount, without difficulty urinating or having BM. Denies chest pain, dysnpea at rest, abdominal pain, numbness, tingling, headache, nausea, vomiting. Objective - Vital Signs/Intake and Output Vital Signs (last 24 hours): Temp Pulse Resp BP Pulse Ox 98.1 F 89 18 152/82 H 93 L 12/13/18 07:00 12/13/18 07:00 12/13/18 07:00 12/13/18 07:00 12/13/18 07:00 Intake and Output: 12/13/18 12/13/18 06:59 18:59 Intake Total 450 Balance 450 - Medications Medications: Current Medications Albuterol/Ipratropium (Duoneb 3 Mg/0.5 Mg (3 Ml) Ud) 3 ml INH RQ4 [facility] Last Admin: 12/13/18 09:47 Dose: 3 ml Aspirin (Ecotrin) 81 mg PO DAILY [facility] Last Admin: 12/13/18 09:46 Dose: 81 mg Benzonatate (Tessalon Perles) 100 mg PO TID [facility] Budesonide (Pulmicort Respules) 0.5 mg INH RQ12 [facility] Last Admin: 12/13/18 09:46 Dose: 0.5 mg Guaifenesin (Mucinex La) 600 mg PO BID [facility] Heparin Sodium (Porcine) (Heparin) 5,000 units SC Q8 [facility] Last Admin: 12/13/18 05:40 Dose: 5,000 units Azithromycin 500 mg/ Sodium (Chloride) 250 mls @ 250 mls/hr IVPB DAILY@1800 [facility]; Protocol Last Admin: 12/12/18 19:13 Dose: 250 mls/hr Ceftriaxone Sodium 1 gm/ (Sodium Chloride) 100 mls @ 100 mls/hr IVPB Q12H [facility]; Protocol Last Admin: 12/13/18 01:20 Dose: 100 mls/hr Sodium Chloride (Sodium Chloride 0.9%) 1,000 mls @ 50 mls/hr IV .Q20H [facility] Last Admin: 12/12/18 16:00 Dose: 50 mls/hr Losartan Potassium (Cozaar) 100 mg PO DAILY [facility] Last Admin: 12/13/18 09:46 Dose: 100 mg Methylprednisolone (Solu-Medrol) 40 mg IVP Q8H [facility] Last Admin: 12/13/18 08:32 Dose: 40 mg Oseltamivir Phosphate (Tamiflu Cap) 75 mg PO BID [facility]; Protocol Stop: 12/16/18 18:01 Last Admin: 12/13/18 09:45 Dose: 75 mg - Labs Labs: 12/13/18 06:58 12/13/18 06:58 - Constitutional Appears: Non-toxic, No Acute Distress - Head Exam Head Exam: ATRAUMATIC, NORMOCEPHALIC - Eye Exam Eye Exam: EOMI, Normal appearance, PERRL Pupil Exam: NORMAL ACCOMODATION - ENT Exam ENT Exam: Mucous Membranes Moist - Respiratory Exam Respiratory Exam: Decreased Breath Sounds, Wheezes (generalized). absent: Accessory Muscle Use Additional comments: 3L O2 via [place] - Cardiovascular Exam Cardiovascular Exam: REGULAR RHYTHM, +S1, +S2. absent: Murmur - GI/Abdominal Exam GI & Abdominal Exam: Soft, Normal Bowel Sounds. absent: Guarding, Tenderness - Extremities Exam Extremities Exam: Normal Capillary Refill. absent: Calf Tenderness, Tenderness Additional comments: IV access in R UE - Neurological Exam Neurological Exam: Alert, Awake, Normal Gait, Oriented x3 - Psychiatric Exam Psychiatric exam: Normal Affect, Normal Mood - Skin Skin Exam: Normal Color, Warm Assessment and Plan - Assessment and Plan (Free Text) Assessment: 73yo [place] M PMH emphysema, HTN, arthritis admitted for COPD exacerbation 2/2 influenza. Plan: COPD exacerbation 2/2 influenza - influenza +, droplet isolation - CXR: mild venous congestion. Patchy increased markings at L lung base. bilateral hilar prominence. - given Duoneb x5, Solumedrol 125 x1 in ED - Trop x3 negative - f/u Blood Cx (12/13): received - f/u Sputum Cx - Duonebs 3mL INH rQ4 [facility] - Pulmicort 0.5mg INH rQ12 - Solumedrol 40mg IVP q8 - Tamiflu 75 mg po BID - Tessalon Perles 100mg po TID - Mucinex 600mg po BID - Azithro 500mg IVPB daily (started 12/12) - Ceftriaxone 1gm IVPB q12 (started 12/12) Hypertension - ASA 81mg po daily - Losartan 100mg po daily PPx - DVT: Heparin 5000u SC q8, SCDs - Diet: HHD - IVF: NS@50 d/w Dr. Jeanna Jiménez PGY-1 <Denzel Meeks H - Last Filed: 12/13/18 18:42> Objective - Vital Signs/Intake and Output Vital Signs (last 24 hours): Temp Pulse Resp BP Pulse Ox 98.5 F 97 H 22 143/83 96 12/13/18 16:04 12/13/18 16:04 12/13/18 16:04 12/13/18 16:04 12/13/18 16:04 Intake and Output: 12/13/18 12/13/18 06:59 18:59 Intake Total 450 700 Balance 450 700 - Medications Medications: Current Medications Albuterol/Ipratropium (Duoneb 3 Mg/0.5 Mg (3 Ml) Ud) 3 ml INH RQ4 [facility] Last Admin: 12/13/18 16:10 Dose: 3 ml Aspirin (Ecotrin) 81 mg PO DAILY [facility] Last Admin: 12/13/18 09:46 Dose: 81 mg Benzonatate (Tessalon Perles) 100 mg PO TID [facility] Last Admin: 12/13/18 18:22 Dose: 100 mg Budesonide (Pulmicort Respules) 0.5 mg INH RQ12 [facility] Last Admin: 12/13/18 09:46 Dose: 0.5 mg Guaifenesin (Mucinex La) 600 mg PO BID [facility] Last Admin: 12/13/18 18:22 Dose: 600 mg Heparin Sodium (Porcine) (Heparin) 5,000 units SC Q8 [facility] Last Admin: 12/13/18 13:46 Dose: 5,000 units Azithromycin 500 mg/ Sodium (Chloride) 250 mls @ 250 mls/hr IVPB DAILY@1800 [facility]; Protocol Last Admin: 12/13/18 18:22 Dose: 250 mls/hr Ceftriaxone Sodium 1 gm/ (Sodium Chloride) 100 mls @ 100 mls/hr IVPB Q12H [facility]; Protocol Last Admin: 12/13/18 13:47 Dose: 100 mls/hr Sodium Chloride (Sodium Chloride 0.9%) 1,000 mls @ 50 mls/hr IV .Q20H [facility] Last Admin: 12/13/18 13:47 Dose: Not Given Losartan Potassium (Cozaar) 100 mg PO DAILY [facility] Last Admin: 12/13/18 09:46 Dose: 100 mg Methylprednisolone (Solu-Medrol) 40 mg IVP Q8H [facility] Last Admin: 12/13/18 17:00 Dose: 40 mg Oseltamivir Phosphate (Tamiflu Cap) 75 mg PO BID [facility]; Protocol Stop: 12/16/18 18:01 Last Admin: 12/13/18 18:25 Dose: 75 mg - Labs Labs: 12/13/18 06:58 12/13/18 06:58 Attending/Attestation - Attestation I have personally seen and examined this patient.: Yes I have fully participated in the care of the patient.: Yes I have reviewed all pertinent clinical information, including history, physical exam and plan: Yes Notes (Text): 12/13/18 18:41 Medical attending: Patient was seen and examined by me. Reviewed the above note by the resident and agree with the above The patient was not in any acute distress when we came and saw him Remains on the IV rocephin and IV azithromycin There was ONE bottle of the cutlure showing some gram positive growth. The other was negative Denzel Meeks
[2018-12-13] MEDS: Sodium Chloride 0.9% 1,000 ML IV SCH ×2 (13:47→23:56)
[2018-12-13] MEDS: Azithromycin 500 MG in Sodium Chloride 0.9% 250 ML IVPB SCH (18:22)
[2018-12-13] MEDS: guaiFENesin 600 mg ER Tab PO SCH (18:22)
[2018-12-14] MEDS ORDERED: Labetalol 25mg/5ml Syringe IVP STA (01:08)
[2018-12-14] MEDS: Albuterol-Ipratrop 3 mg / 0.5 (3 ml) UD INH SCH ×6 (03:24→23:45)
--- NOTE | 2018-12-14 06:58 | CP.PCM.PN ---
<Thao Jiménez Y - Last Filed: 12/14/18 16:49> Subjective - Date & Time of Evaluation Date of Evaluation: 12/14/18 Time of Evaluation: 11:00 - Subjective Subjective: PGY-1 Medicine Progress note for Dr. Meeks Patient was seen and examined today at bedside in no acute distress. Nurse reports patient is confusing Duoneb treatments with being placed on supplemental oxygen with higher FiO2 (ie. NRB or Venturi mask) and taking it off before finishing the treatment. He also had an episode of hypertension overnight and was given Labetalol 20mg IVP which returned him to his baseline. He reported great improvement overnight. however, upon re-eval, he states that he has been coughing uncontrollably and having more dysnpea on exertion. Denies chest pain, dysnpea at rest, abdominal pain, numbness, tingling, headache, nausea, vomiting. Objective - Vital Signs/Intake and Output Vital Signs (last 24 hours): Temp Pulse Resp BP Pulse Ox 98 F 101 H 20 153/69 H 96 12/13/18 23:45 12/14/18 01:58 12/13/18 23:45 12/14/18 01:58 12/13/18 23:45 Intake and Output: 12/13/18 12/14/18 18:59 06:59 Intake Total 700 1410 Output Total 1050 Balance 700 360 - Medications Medications: Current Medications Albuterol/Ipratropium (Duoneb 3 Mg/0.5 Mg (3 Ml) Ud) 3 ml INH RQ4 [facility] Last Admin: 12/14/18 03:24 Dose: 3 ml Aspirin (Ecotrin) 81 mg PO DAILY [facility] Last Admin: 12/13/18 09:46 Dose: 81 mg Benzonatate (Tessalon Perles) 100 mg PO TID [facility] Last Admin: 12/13/18 18:22 Dose: 100 mg Budesonide (Pulmicort Respules) 0.5 mg INH RQ12 [facility] Last Admin: 12/13/18 19:30 Dose: 0.5 mg Guaifenesin (Mucinex La) 600 mg PO BID [facility] Last Admin: 12/13/18 18:22 Dose: 600 mg Heparin Sodium (Porcine) (Heparin) 5,000 units SC Q8 [facility] Last Admin: 12/14/18 05:45 Dose: 5,000 units Azithromycin 500 mg/ Sodium (Chloride) 250 mls @ 250 mls/hr IVPB DAILY@1800 [facility]; Protocol Last Admin: 12/13/18 18:22 Dose: 250 mls/hr Ceftriaxone Sodium 1 gm/ (Sodium Chloride) 100 mls @ 100 mls/hr IVPB Q12H [facility]; Protocol Last Admin: 12/14/18 01:44 Dose: 100 mls/hr Sodium Chloride (Sodium Chloride 0.9%) 1,000 mls @ 50 mls/hr IV .Q20H [facility] Last Admin: 12/13/18 23:56 Dose: 50 mls/hr Losartan Potassium (Cozaar) 100 mg PO DAILY [facility] Last Admin: 12/13/18 09:46 Dose: 100 mg Methylprednisolone (Solu-Medrol) 40 mg IVP Q8H [facility] Last Admin: 12/13/18 23:52 Dose: 40 mg Oseltamivir Phosphate (Tamiflu Cap) 75 mg PO BID [facility]; Protocol Stop: 12/16/18 18:01 Last Admin: 12/13/18 18:25 Dose: 75 mg - Labs Labs: 12/13/18 06:58 12/13/18 06:58 - Constitutional Appears: Non-toxic, No Acute Distress, Chronically Ill - Head Exam Head Exam: ATRAUMATIC, NORMAL INSPECTION, NORMOCEPHALIC - Eye Exam Eye Exam: EOMI, Normal appearance, PERRL Pupil Exam: NORMAL ACCOMODATION - ENT Exam ENT Exam: Mucous Membranes Moist - Respiratory Exam Respiratory Exam: Decreased Breath Sounds, Wheezes (generalized). absent: Accessory Muscle Use Additional comments: 3L O2 via [place] upgraded to BiPAP - Cardiovascular Exam Cardiovascular Exam: REGULAR RHYTHM, +S1, +S2. absent: Murmur - GI/Abdominal Exam GI & Abdominal Exam: Soft, Normal Bowel Sounds. absent: Tenderness - Extremities Exam Extremities Exam: Normal Capillary Refill. absent: Calf Tenderness, Tenderness - Neurological Exam Neurological Exam: Alert, Awake, CN II-XII Intact, Normal Gait, Oriented x3 - Psychiatric Exam Psychiatric exam: Normal Affect, Normal Mood - Skin Skin Exam: Normal Color, Warm Assessment and Plan - Assessment and Plan (Free Text) Assessment: 73yo [place] M PMH emphysema, HTN, arthritis admitted for COPD exacerbation 2/2 influenza. Plan: COPD exacerbation 2/2 influenza - influenza +, droplet isolation - CXR: mild venous congestion. Patchy increased markings at L lung base. bilateral hilar prominence. - given Duoneb x5, Solumedrol 125 x1 in ED - Trop x3 negative - f/u Blood Cx (12/13): negative at 48 hours x1, gram positive cocci x1 - pending sensitivities - f/u Sputum Cx - Duonebs 3mL INH rQ4 [facility] - Pulmicort 0.5mg INH rQ12 - Solumedrol 40mg IVP q8 - Tamiflu 75 mg po BID - Tessalon Perles 100mg po TID - Mucinex 600mg po BID - Azithro 500mg IVPB daily (started 12/12) - Ceftriaxone 1gm IVPB q12 (started 12/12) - 12/14: CXR showed no fluid overload. Lasix 40mg IVP given once. BiPAP prn Hypertension - ASA 81mg po daily - Losartan 100mg po daily - Norvasc 5mg po daily PPx - DVT: Heparin 5000u SC q8, SCDs - Diet: HHD - IVF: NS@50 d/w Dr. Jeanna Jiménez PGY-1 <Denzel Meeks H - Last Filed: 12/14/18 18:06> Objective - Vital Signs/Intake and Output Vital Signs (last 24 hours): Temp Pulse Resp BP Pulse Ox 98.4 F 92 H 20 149/93 H 96 12/14/18 15:30 12/14/18 17:23 12/14/18 17:23 12/14/18 17:23 12/14/18 17:23 Intake and Output: 12/14/18 12/14/18 06:59 18:59 Intake Total 1410 Output Total 1050 Balance 360 - Medications Medications: Current Medications Albuterol/Ipratropium (Duoneb 3 Mg/0.5 Mg (3 Ml) Ud) 3 ml INH RQ4 [facility] Last Admin: 12/14/18 15:55 Dose: 3 ml Amlodipine Besylate (Norvasc) 5 mg PO DAILY [facility] Last Admin: 12/14/18 11:23 Dose: 5 mg Aspirin (Ecotrin) 81 mg PO DAILY [facility] Last Admin: 12/14/18 09:22 Dose: 81 mg Benzonatate (Tessalon Perles) 100 mg PO TID [facility] Last Admin: 12/14/18 17:00 Dose: 100 mg Budesonide (Pulmicort Respules) 0.5 mg INH RQ12 [facility] Last Admin: 12/14/18 08:28 Dose: 0.5 mg Guaifenesin (Mucinex La) 600 mg PO BID [facility] Last Admin: 12/14/18 17:00 Dose: 600 mg Heparin Sodium (Porcine) (Heparin) 5,000 units SC Q8 [facility] Last Admin: 12/14/18 14:11 Dose: 5,000 units Azithromycin 500 mg/ Sodium (Chloride) 250 mls @ 250 mls/hr IVPB DAILY@1800 [facility]; Protocol Last Admin: 12/14/18 17:00 Dose: 250 mls/hr Ceftriaxone Sodium 1 gm/ (Sodium Chloride) 100 mls @ 100 mls/hr IVPB Q12H [facility]; Protocol Last Admin: 12/14/18 14:10 Dose: 100 mls/hr Losartan Potassium (Cozaar) 100 mg PO DAILY [facility] Last Admin: 12/14/18 09:22 Dose: 100 mg Methylprednisolone (Solu-Medrol) 40 mg IVP Q8H [facility] Last Admin: 12/14/18 17:00 Dose: 40 mg Oseltamivir Phosphate (Tamiflu Cap) 75 mg PO BID [facility]; Protocol Stop: 12/16/18 18:01 Last Admin: 12/14/18 17:00 Dose: 75 mg - Labs Labs: 12/14/18 08:05 12/14/18 08:05 Attending/Attestation - Attestation I have personally seen and examined this patient.: Yes I have fully participated in the care of the patient.: Yes I have reviewed all pertinent clinical information, including history, physical exam and plan: Yes Notes (Text): 12/14/18 18:04 Medical attending: Patient was seen and examined by me. Agree with the above note by the resident The patient earlier in the morning appeared very well - however by the time we rounded and saw the patient as a group he was then short of breath and reporting he was not feeling better. He still had wheezing. We got a CXRAY thinking he may have been fluid overload from the NSS but the CXRAY appears ok. We still gave lasix x 1 The patient remains on the Tamiflu as well as IV abx We started Bipap for the time being to see if this helps Denzel Meeks
[2018-12-14 08:16] LABS: BASO % 0.2 % (0.0-2.0); HEMOGLOBIN 13.4 g/dL (12.0-18.0); LYMPH # 0.8 K/uL (1.0-4.3); LYMPH % 7.2 % (20.0-40.0); MEAN CELL VOLUME 91.8 fL (80.0-94.0); MEAN CORPUSCULAR HEMOGLOBIN 31.7 pg (27.0-31.0); MEAN CORPUSCULAR HGB CONC 34.5 g/dL (33.0-37.0); MEAN PLATELET VOLUME 9.9 fL (7.2-11.7); MONO # 1.1 K/uL (0.0-0.8); MONO % 9.5 % (0.0-10.0); NEUT # 9.3 K/uL (1.8-7.0); NEUT % 83.1 % (50.0-75.0); NRBC % 0.1 % (0.0-2.0); PLATELET COUNT 229 K/uL (130-400); RBC 4.24 Mil/uL (4.40-5.90)
[2018-12-14 08:17] LABS: WHITE BLOOD COUNT 11.2 K/uL (4.8-10.8)
[2018-12-14 08:28] LABS: BLOOD UREA NITROGEN 16 mg/dL (9-20); CALCIUM 9.4 mg/dl (8.6-10.4); GFR NON-AFRICAN AMERICAN > 60
[2018-12-14] MEDS: Budesonide 0.5 mg/2 ml Inhal Susp UD INH SCH ×2 (08:28→19:32)
[2018-12-14] MEDS: MethylPREDNISolone 40 mg Vial IVP SCH ×2 (08:29→17:00)
[2018-12-14] MEDS: Sodium Chloride 0.9% 1,000 ML IV SCH (08:30)
[2018-12-14 09:04] LABS: LYMPHOCYTE 8 % (20-40); MONOCYTE 3 % (0-10); NEUTROPHIL 89 % (50-75); PLATELET ESTIMATE NORMAL (NORMAL); TOTAL CELLS COUNTED 100
[2018-12-14 09:08] LABS: GIANT PLATELETS PRESENT; LARGE PLATELETS PRESENT
[2018-12-14] MEDS: guaiFENesin 600 mg ER Tab PO SCH ×2 (09:22→17:00)
--- NOTE | 2018-12-14 14:16 | RAD ---
Date of service: 12/14/2018 HISTORY: SOB COMPARISON: 12/12/2018 FINDINGS: LUNGS: No active pulmonary disease. PLEURA: No significant pleural effusion identified, no pneumothorax apparent. CARDIOVASCULAR: No aortic atherosclerotic calcification present. Normal cardiac size. No pulmonary vascular congestion. OSSEOUS STRUCTURES: No significant abnormalities. VISUALIZED UPPER ABDOMEN: Normal. OTHER FINDINGS: None. IMPRESSION: No active disease. No interval pathology noted.
[2018-12-14] MEDS: Azithromycin 500 MG in Sodium Chloride 0.9% 250 ML IVPB SCH (17:00)
--- NOTE | 2018-12-14 19:04 | CARD ---
APPROVED REPORT Date of service: 12/13/2018 EKG Measurement Heart [id number] <Conclusion> Sinus tachycardia Otherwise normal ECG
--- NOTE | 2018-12-14 22:53 | CARD ---
APPROVED REPORT Date of service: 12/12/2018 EKG Measurement Heart [id number] <Conclusion> Sinus tachycardia Nonspecific ST abnormality Abnormal ECG
[2018-12-15] MEDS: MethylPREDNISolone 40 mg Vial IVP SCH ×4 (00:17→23:35)
[2018-12-15] MEDS: Albuterol-Ipratrop 3 mg / 0.5 (3 ml) UD INH SCH ×6 (03:15→23:55)
[2018-12-15] MEDS: Budesonide 0.5 mg/2 ml Inhal Susp UD INH SCH ×2 (07:55→19:55)
[2018-12-15 08:30] LABS: BASO % 0.1 % (0.0-2.0); HEMOGLOBIN 14.2 g/dL (12.0-18.0); LYMPH # 0.5 K/uL (1.0-4.3); LYMPH % 5.8 % (20.0-40.0); MEAN CELL VOLUME 92.7 fL (80.0-94.0); MEAN CORPUSCULAR HEMOGLOBIN 31.2 pg (27.0-31.0); MEAN CORPUSCULAR HGB CONC 33.7 g/dL (33.0-37.0); MEAN PLATELET VOLUME 9.8 fL (7.2-11.7); MONO # 0.8 K/uL (0.0-0.8); MONO % 8.3 % (0.0-10.0); NEUT # 8.1 K/uL (1.8-7.0); NEUT % 85.8 % (50.0-75.0); PLATELET COUNT 274 K/uL (130-400); RBC 4.56 Mil/uL (4.40-5.90); RED CELL DISTRIBUTION WIDTH 13.2 % (11.5-14.5); WHITE BLOOD COUNT 9.4 K/uL (4.8-10.8)
[2018-12-15 09:27] LABS: BLOOD UREA NITROGEN 23 mg/dL (9-20); CALCIUM 8.5 mg/dl (8.6-10.4); GFR NON-AFRICAN AMERICAN > 60
[2018-12-15 10:16] LABS: BANDS 2 % (0-2); LYMPHOCYTE 5 % (20-40); MONOCYTE 9 % (0-10); NEUTROPHIL 84 % (50-75); PLATELET ESTIMATE NORMAL (NORMAL); TOTAL CELLS COUNTED 100
[2018-12-15] MEDS: guaiFENesin 600 mg ER Tab PO SCH ×2 (10:32→17:51)
--- NOTE | 2018-12-15 10:50 | CP.PCM.PN ---
<Elias Mcallister - Last Filed: 12/15/18 16:27> Subjective - Date & Time of Evaluation Date of Evaluation: 12/15/18 Time of Evaluation: 08:00 - Subjective Subjective: PGY-[address] Denzel Meeks service Patient is seen and examined at bedside. Patient reports his shortness of breath has improved, but states he still experiences it. Patient is currently on BIPAP. State his cough has improved, but continues to have productive cough, notes that sob is not allowing him to eat well, and states he experiences it when walking. Denies fever, chills, chest pain, palpitations, headaches, weakness, dizziness, abd pain, n/v/d/c or urinary complaints. Objective - Vital Signs/Intake and Output Vital Signs (last 24 hours): Temp Pulse Resp BP Pulse Ox 98.1 F 100 H 20 160/82 H 97 12/15/18 08:26 12/15/18 09:00 12/15/18 08:26 12/15/18 08:26 12/15/18 08:26 Intake and Output: 12/15/18 12/15/18 06:59 18:59 Output Total 250 Balance -250 - Medications Medications: Current Medications Albuterol/Ipratropium (Duoneb 3 Mg/0.5 Mg (3 Ml) Ud) 3 ml INH RQ4 LUL Last Admin: 12/15/18 07:55 Dose: 3 ml Amlodipine Besylate (Norvasc) 5 mg PO DAILY [facility] Last Admin: 12/15/18 10:16 Dose: 5 mg Aspirin (Ecotrin) 81 mg PO DAILY [facility] Last Admin: 12/15/18 10:15 Dose: 81 mg Benzonatate (Tessalon Perles) 100 mg PO TID LUL Last Admin: 12/15/18 10:16 Dose: 100 mg Budesonide (Pulmicort Respules) 0.5 mg INH RQ12 [facility] Last Admin: 12/15/18 07:55 Dose: 0.5 mg Guaifenesin (Mucinex La) 600 mg PO BID [facility] Last Admin: 12/15/18 10:32 Dose: 600 mg Heparin Sodium (Porcine) (Heparin) 5,000 units SC Q8 [facility] Last Admin: 12/15/18 05:27 Dose: 5,000 units Azithromycin 500 mg/ Sodium (Chloride) 250 mls @ 250 mls/hr IVPB DAILY@1800 LUL; Protocol Last Admin: 12/14/18 17:00 Dose: 250 mls/hr Ceftriaxone Sodium 1 gm/ (Sodium Chloride) 100 mls @ 100 mls/hr IVPB Q12H [facility]; Protocol Last Admin: 12/15/18 02:00 Dose: 100 mls/hr Losartan Potassium (Cozaar) 100 mg PO DAILY [facility] Last Admin: 12/15/18 10:15 Dose: 100 mg Methylprednisolone (Solu-Medrol) 40 mg IVP Q8H [facility] Last Admin: 12/15/18 10:00 Dose: 40 mg Oseltamivir Phosphate (Tamiflu Cap) 75 mg PO BID LUL; Protocol Stop: 12/16/18 18:01 Last Admin: 12/15/18 10:15 Dose: 75 mg - Labs Labs: 12/15/18 08:20 12/15/18 08:20 - Constitutional Appears: Non-toxic, No Acute Distress - Head Exam Head Exam: ATRAUMATIC, NORMAL INSPECTION, NORMOCEPHALIC - Eye Exam Eye Exam: EOMI, Normal appearance - ENT Exam ENT Exam: Mucous Membranes Moist, Normal Exam - Neck Exam Neck Exam: Full ROM, Normal Inspection - Respiratory Exam Respiratory Exam: Accessory Muscle Use, Clear to Ausculation Bilateral, Wheezes (diffuse bilateral expiratory wheezing ), NORMAL BREATHING PATTERN. absent: Chest Wall Tenderness, Rales, Rhonchi - Cardiovascular Exam Cardiovascular Exam: REGULAR RHYTHM, +S1, +S2 - GI/Abdominal Exam GI & Abdominal Exam: Soft, Normal Bowel Sounds. absent: Distended, Tenderness - Extremities Exam Extremities Exam: Full ROM, Normal Inspection. absent: Tenderness - Back Exam Back Exam: Full ROM, NORMAL INSPECTION - Neurological Exam Neurological Exam: Alert, Awake, Oriented x3 - Psychiatric Exam Psychiatric exam: Normal Affect, Normal Mood - Skin Skin Exam: Dry, Intact, Warm Assessment and Plan - Assessment and Plan (Free Text) Assessment: 73yo [place] M PMH emphysema, HTN, arthritis admitted for COPD exacerbation 2/2 influenza. Plan: COPD exacerbation 2/2 influenza - influenza +, droplet isolation - CXR: mild venous congestion. Patchy increased markings at L lung base. bilateral hilar prominence. - given Duoneb x5, Solumedrol 125 x1 in ED - Trop x3 negative - f/u Blood Cx (12/13): negative at3 days x1, gram positive cocci x1 - resistant to penicillin,clinda, erythromycin, sensitive to ciprofloxacin - Duonebs 3mL INH rQ4 LUL - Pulmicort 0.5mg INH rQ12 - Solumedrol 40mg IVP q8 - Tamiflu 75 mg po BID - Tessalon Perles 100mg po TID - Mucinex 600mg po BID - Azithro 500mg IVPB daily (started 12/12) - discontinued 12/15 - Ceftriaxone 1gm IVPB q12 (started 12/12) - discontinued 12/15 - start Moxifloxacin 400mg IV QD started 12/15 - 12/14: CXR showed no fluid overload. Lasix 40mg IVP given once yesterday - Patient to continue Bipap 09/01/60 - sputum culture ordered - f/u results Hypertension - ASA 81mg po daily - Losartan 100mg po daily - Norvasc 5mg po daily PPx - DVT: Heparin 5000u SC q8, SCDs - Diet: HHD Plan discussed with Dr Jeanna Mcallister, PGY-1 <Denzel Meeks H - Last Filed: 12/15/18 17:49> Objective - Vital Signs/Intake and Output Vital Signs (last 24 hours): Temp Pulse Resp BP Pulse Ox 98.2 F 87 20 137/80 96 12/15/18 15:13 12/15/18 16:44 12/15/18 15:13 12/15/18 15:13 12/15/18 15:13 Intake and Output: 12/15/18 12/15/18 06:59 18:59 Output Total 250 Balance -250 - Medications Medications: Current Medications Acetylcysteine (Acetylcysteine 20%) 4 ml INH RQ6 PRN PRN Reason: to induce sputum Albuterol/Ipratropium (Duoneb 3 Mg/0.5 Mg (3 Ml) Ud) 3 ml INH RQ4 LUL Last Admin: 12/15/18 15:54 Dose: 3 ml Amlodipine Besylate (Norvasc) 5 mg PO DAILY [facility] Last Admin: 12/15/18 10:16 Dose: 5 mg Aspirin (Ecotrin) 81 mg PO DAILY [facility] Last Admin: 12/15/18 10:15 Dose: 81 mg Benzonatate (Tessalon Perles) 100 mg PO TID [facility] Last Admin: 12/15/18 14:56 Dose: 100 mg Budesonide (Pulmicort Respules) 0.5 mg INH RQ12 [facility] Last Admin: 12/15/18 07:55 Dose: 0.5 mg Guaifenesin (Mucinex La) 600 mg PO BID [facility] Last Admin: 12/15/18 10:32 Dose: 600 mg Heparin Sodium (Porcine) (Heparin) 5,000 units SC Q8 [facility] Last Admin: 12/15/18 13:04 Dose: 5,000 units Moxifloxacin HCl (Avelox Iv 400mg/250ml Ns) 400 mg in 250 mls @ 167 mls/hr IVPB Q24H [facility]; Protocol Last Admin: 12/15/18 13:04 Dose: 167 mls/hr Losartan Potassium (Cozaar) 100 mg PO DAILY [facility] Last Admin: 12/15/18 10:15 Dose: 100 mg Methylprednisolone (Solu-Medrol) 40 mg IVP Q8H [facility] Last Admin: 12/15/18 10:00 Dose: 40 mg Oseltamivir Phosphate (Tamiflu Cap) 75 mg PO BID [facility]; Protocol Stop: 12/16/18 18:01 Last Admin: 12/15/18 10:15 Dose: 75 mg - Labs Labs: 12/15/18 08:20 12/15/18 08:20 Attending/Attestation - Attestation I have personally seen and examined this patient.: Yes I have fully participated in the care of the patient.: Yes I have reviewed all pertinent clinical information, including history, physical exam and plan: Yes Notes (Text): 12/15/18 17:47 Medical attending: Patient was seen and examined by me. Agree with the above note by the resident The patient reported feeling better today while on the Bipap As mentioned previously he is being continued on the Tamiflu as well as changed his IV abx to IV Avelox He had only ONE bottle become positive culture for staph auerus sensistive to many things. We will evaluate him chante hawthorne and hopefully transition over to a nasal cannula Denzel Meeks
[2018-12-15] MEDS: Moxifloxacin IV 400mg/250ml NS 400 MG/250 ML BAG IVPB SCH (13:04)
[2018-12-15] MEDS ORDERED: Acetylcysteine 20% Inhal Soln (4ml) INH PRN (16:26)
[2018-12-16] MEDS: Albuterol-Ipratrop 3 mg / 0.5 (3 ml) UD INH SCH ×5 (03:20→21:03)
[2018-12-16 07:43] LABS: BASO % 0.1 % (0.0-2.0); HEMOGLOBIN 13.6 g/dL (12.0-18.0); LYMPH # 0.5 K/uL (1.0-4.3); LYMPH % 4.9 % (20.0-40.0); MEAN CORPUSCULAR HEMOGLOBIN 31.6 pg (27.0-31.0); MEAN CORPUSCULAR HGB CONC 34.3 g/dL (33.0-37.0); MEAN PLATELET VOLUME 9.5 fL (7.2-11.7); MONO # 0.8 K/uL (0.0-0.8); MONO % 7.6 % (0.0-10.0); NEUT # 8.9 K/uL (1.8-7.0); NEUT % 87.4 % (50.0-75.0); PLATELET COUNT 279 K/uL (130-400); RBC 4.32 Mil/uL (4.40-5.90); RED CELL DISTRIBUTION WIDTH 13.2 % (11.5-14.5); WHITE BLOOD COUNT 10.2 K/uL (4.8-10.8)
[2018-12-16] MEDS: Budesonide 0.5 mg/2 ml Inhal Susp UD INH SCH ×2 (07:43→21:03)
[2018-12-16 08:18] LABS: BLOOD UREA NITROGEN 24 mg/dL (9-20); CALCIUM 9.1 mg/dl (8.6-10.4); GFR NON-AFRICAN AMERICAN > 60
[2018-12-16] MEDS: MethylPREDNISolone 40 mg Vial IVP SCH ×3 (08:33→23:46)
[2018-12-16 09:05] LABS: BANDS 1 % (0-2); LYMPHOCYTE 5 % (20-40); MONOCYTE 6 % (0-10); NEUTROPHIL 88 % (50-75); PLATELET ESTIMATE NORMAL (NORMAL); TOTAL CELLS COUNTED 100
[2018-12-16] MEDS: guaiFENesin 600 mg ER Tab PO SCH ×2 (09:11→17:13)
--- NOTE | 2018-12-16 09:25 | CP.PCM.PN ---
<Elias Mcallister - Last Filed: 12/16/18 16:37> Subjective - Date & Time of Evaluation Date of Evaluation: 12/16/18 Time of Evaluation: 07:00 - Subjective Subjective: PGY-[address] Denzel Meeks service Patient is seen and examined at bedside. Patient reports no acute events overnight. Patient is currently wearing bipap machine, states he gets SOB when off the bipap machine. Patient states not able to eat well as he's not wearing bipap when eating. Patient otherwise reports feeling well as long as he is on bipap. Denies fever, chills, chest pain, palpitations, n/v/d/c or urinary complaints. Objective - Vital Signs/Intake and Output Vital Signs (last 24 hours): Temp Pulse Resp BP Pulse Ox 97.2 F L 97 H 18 165/88 H 96 12/16/18 07:10 12/16/18 07:10 12/16/18 07:10 12/16/18 07:10 12/16/18 07:10 - Medications Medications: Current Medications Acetylcysteine (Acetylcysteine 20%) 4 ml INH RQ6 PRN PRN Reason: to induce sputum Albuterol/Ipratropium (Duoneb 3 Mg/0.5 Mg (3 Ml) Ud) 3 ml INH RQ4 [facility] Last Admin: 12/16/18 03:20 Dose: 3 ml Amlodipine Besylate (Norvasc) 5 mg PO DAILY [facility] Last Admin: 12/16/18 09:11 Dose: 5 mg Aspirin (Ecotrin) 81 mg PO DAILY [facility] Last Admin: 12/16/18 09:11 Dose: 81 mg Benzonatate (Tessalon Perles) 100 mg PO TID [facility] Last Admin: 12/16/18 09:11 Dose: 100 mg Budesonide (Pulmicort Respules) 0.5 mg INH RQ12 [facility] Last Admin: 12/15/18 19:55 Dose: Not Given Guaifenesin (Mucinex La) 600 mg PO BID [facility] Last Admin: 12/16/18 09:11 Dose: 600 mg Heparin Sodium (Porcine) (Heparin) 5,000 units SC Q8 [facility] Last Admin: 12/16/18 06:10 Dose: 5,000 units Moxifloxacin HCl (Avelox Iv 400mg/250ml Ns) 400 mg in 250 mls @ 167 mls/hr IVPB Q24H [facility]; Protocol Last Admin: 12/15/18 13:04 Dose: 167 mls/hr Losartan Potassium (Cozaar) 100 mg PO DAILY [facility] Last Admin: 12/16/18 09:11 Dose: 100 mg Methylprednisolone (Solu-Medrol) 40 mg IVP Q8H [facility] Last Admin: 12/16/18 08:33 Dose: 40 mg Oseltamivir Phosphate (Tamiflu Cap) 75 mg PO BID LUL; Protocol Stop: 12/16/18 18:01 Last Admin: 12/16/18 09:11 Dose: 75 mg - Labs Labs: 12/16/18 07:20 12/16/18 07:20 - Constitutional Appears: Non-toxic, No Acute Distress - Head Exam Head Exam: ATRAUMATIC, NORMAL INSPECTION, NORMOCEPHALIC - Eye Exam Eye Exam: EOMI - ENT Exam ENT Exam: Mucous Membranes Moist - Neck Exam Neck Exam: Full ROM, Normal Inspection - Respiratory Exam Respiratory Exam: Decreased Breath Sounds, Wheezes (diffuse wheezing) Additional comments: on BiPAP - Cardiovascular Exam Cardiovascular Exam: REGULAR RHYTHM, +S1, +S2 - GI/Abdominal Exam GI & Abdominal Exam: Soft, Normal Bowel Sounds. absent: Distended, Guarding, Tenderness - Extremities Exam Extremities Exam: Full ROM - Back Exam Back Exam: Full ROM, NORMAL INSPECTION. absent: paraspinal tenderness, tenderness - Neurological Exam Neurological Exam: Alert, Awake, Oriented x3 - Psychiatric Exam Psychiatric exam: Normal Affect, Normal Mood - Skin Skin Exam: Dry, Normal Color, Warm Assessment and Plan - Assessment and Plan (Free Text) Assessment: 73yo [place]ine[place] M PMH emphysema, HTN, arthritis admitted for COPD exacerbation 2/2 influenza. Plan: COPD exacerbation 2/2 influenza - influenza +, droplet isolation - CXR: mild venous congestion. Patchy increased markings at L lung base. bilateral hilar prominence. - 12/14: CXR showed no fluid overload - given Duoneb x5, Solumedrol 125 x1 in ED - Trop x3 negative - f/u Blood Cx (12/13): negative at 4 days x1 , gram positive cocci x1 - r esistant to penicillin,clinda, erythromycin, sensitive to ciprofloxacin - will continue current medical treatment - Duonebs 3mL INH rQ4 LUL - Pulmicort 0.5mg INH rQ12 - Solumedrol 40mg IVP q8 - Tamiflu 75 mg po BID 8/ doses given - Tessalon Perles 100mg po TID - Mucinex 600mg po BID - Moxifloxacin 400mg IV QD started 12/15 - Patient to continue Bipap, no transition to NC at this time as patient continue to be SOB without bipap - sputum culture ordered - pending results Hypertension - ASA 81mg po daily - Losartan 100mg po daily - Norvasc 5mg po daily PPx - DVT: Heparin 5000u SC q8, SCDs - Diet: HHD Dispo: assess patient for possible transition from bipap to Nasal Cannula tomorrow if patient is stable. Plan discussed with Dr Jeanna Mcallister, PGY-1 <Denzel Meeks H - Last Filed: 12/16/18 17:30> Objective - Vital Signs/Intake and Output Vital Signs (last 24 hours): Temp Pulse Resp BP Pulse Ox 97.2 F L 86 18 165/88 H 96 12/16/18 07:10 12/16/18 16:44 12/16/18 07:10 12/16/18 07:10 12/16/18 07:10 - Medications Medications: Current Medications Acetylcysteine (Acetylcysteine 20%) 4 ml INH RQ6 PRN PRN Reason: to induce sputum Albuterol/Ipratropium (Duoneb 3 Mg/0.5 Mg (3 Ml) Ud) 3 ml INH RQ4 [facility] Last Admin: 12/16/18 16:43 Dose: 3 ml Amlodipine Besylate (Norvasc) 5 mg PO DAILY [facility] Last Admin: 12/16/18 09:11 Dose: 5 mg Aspirin (Ecotrin) 81 mg PO DAILY [facility] Last Admin: 12/16/18 09:11 Dose: 81 mg Benzonatate (Tessalon Perles) 100 mg PO TID [facility] Last Admin: 12/16/18 17:14 Dose: 100 mg Budesonide (Pulmicort Respules) 0.5 mg INH RQ12 [facility] Last Admin: 12/16/18 07:43 Dose: 0.5 mg Guaifenesin (Mucinex La) 600 mg PO BID [facility] Last Admin: 12/16/18 17:13 Dose: 600 mg Heparin Sodium (Porcine) (Heparin) 5,000 units SC Q8 [facility] Last Admin: 12/16/18 13:05 Dose: 5,000 units Moxifloxacin HCl (Avelox Iv 400mg/250ml Ns) 400 mg in 250 mls @ 167 mls/hr IVPB Q24H [facility]; Protocol Last Admin: 12/16/18 11:00 Dose: 167 mls/hr Losartan Potassium (Cozaar) 100 mg PO DAILY [facility] Last Admin: 12/16/18 09:11 Dose: 100 mg Methylprednisolone (Solu-Medrol) 40 mg IVP Q8H [facility] Last Admin: 12/16/18 17:00 Dose: 40 mg Oseltamivir Phosphate (Tamiflu Cap) 75 mg PO BID LUL; Protocol Stop: 12/16/18 18:01 Last Admin: 12/16/18 17:14 Dose: 75 mg - Labs Labs: 12/16/18 07:20 12/16/18 07:20 Attending/Attestation - Attestation I have personally seen and examined this patient.: Yes I have fully participated in the care of the patient.: Yes I have reviewed all pertinent clinical information, including history, physical exam and plan: Yes Notes (Text): 12/16/18 17:27 Medical attending: Patient was seen and examined by me. Reviewed the above note by the resident and agree with the above He was able to stand and walk around in the room however still with the shortness of breath as before He remains on the the vaportherm oxygen at this time Denzel Meeks
[2018-12-16] MEDS: Moxifloxacin IV 400mg/250ml NS 400 MG/250 ML BAG IVPB SCH (11:00)
--- NOTE | 2018-12-17 00:06 | CP.PCM.PN ---
<Thao Jiménez - Last Filed: 12/17/18 00:03> Subjective - Date & Time of Evaluation Date of Evaluation: 12/17/18 Time of Evaluation: 04:00 - Subjective Subjective: PGY-1 Medicine Progress Note for Dr. Meeks Patient was seen and examined at bedside in no acute distress before breathing treatment. Patient has no new complaints. He is still having trouble breathing, although states BiPAP is a great help. He doesn't like being on NC while eating since he becomes quickly short of breath. Otherwise fine. Denies chest pain, palpitations, fever, chills, n/v/c/d, or urinary complaints. Objective - Vital Signs/Intake and Output Vital Signs (last 24 hours): Temp Pulse Resp BP Pulse Ox 97.2 F L 80 18 165/88 H 96 12/16/18 07:10 12/16/18 21:04 12/16/18 07:10 12/16/18 07:10 12/16/18 07:10 - Medications Medications: Current Medications Acetylcysteine (Acetylcysteine 20%) 4 ml INH RQ6 PRN PRN Reason: to induce sputum Albuterol/Ipratropium (Duoneb 3 Mg/0.5 Mg (3 Ml) Ud) 3 ml INH RQ4 LUL Last Admin: 12/16/18 21:03 Dose: 3 ml Amlodipine Besylate (Norvasc) 5 mg PO DAILY [facility] Last Admin: 12/16/18 09:11 Dose: 5 mg Aspirin (Ecotrin) 81 mg PO DAILY [facility] Last Admin: 12/16/18 09:11 Dose: 81 mg Benzonatate (Tessalon Perles) 100 mg PO TID [facility] Last Admin: 12/16/18 17:14 Dose: 100 mg Budesonide (Pulmicort Respules) 0.5 mg INH RQ12 [facility] Last Admin: 12/16/18 21:03 Dose: 0.5 mg Guaifenesin (Mucinex La) 600 mg PO BID [facility] Last Admin: 12/16/18 17:13 Dose: 600 mg Heparin Sodium (Porcine) (Heparin) 5,000 units SC Q8 [facility] Last Admin: 12/16/18 21:55 Dose: 5,000 units Moxifloxacin HCl (Avelox Iv 400mg/250ml Ns) 400 mg in 250 mls @ 167 mls/hr IVPB Q24H [facility]; Protocol Last Admin: 12/16/18 11:00 Dose: 167 mls/hr Losartan Potassium (Cozaar) 100 mg PO DAILY [facility] Last Admin: 12/16/18 09:11 Dose: 100 mg Methylprednisolone (Solu-Medrol) 40 mg IVP Q8H [facility] Last Admin: 12/16/18 23:46 Dose: 40 mg - Labs Labs: 12/16/18 07:20 12/16/18 07:20 - Constitutional Appears: Non-toxic, No Acute Distress, Chronically Ill - Head Exam Head Exam: ATRAUMATIC, NORMOCEPHALIC - Eye Exam Eye Exam: EOMI, PERRL Pupil Exam: NORMAL ACCOMODATION - ENT Exam ENT Exam: Mucous Membranes Moist - Respiratory Exam Respiratory Exam: Decreased Breath Sounds, Wheezes. absent: Rales, Rhonchi Additional comments: diffuse wheezes on BiPAP - Cardiovascular Exam Cardiovascular Exam: REGULAR RHYTHM, +S1, +S2 - GI/Abdominal Exam GI & Abdominal Exam: Soft, Normal Bowel Sounds. absent: Tenderness - Extremities Exam Extremities Exam: Full ROM Additional comments: IV access in L UE - Neurological Exam Neurological Exam: Alert, Awake, Oriented x3 - Psychiatric Exam Psychiatric exam: Normal Affect, Normal Mood - Skin Skin Exam: Dry, Intact, Normal Color, Warm Assessment and Plan - Assessment and Plan (Free Text) Assessment: 73yo [place] M PMH emphysema, HTN, arthritis admitted for COPD exacerbation 2/2 influenza. Plan: COPD exacerbation 2/2 influenza - influenza +, droplet isolation - CXR: mild venous congestion. Patchy increased markings at L lung base. bilateral hilar prominence. - 12/14: CXR showed no fluid overload - given Duoneb x5, Solumedrol 125 x1 in ED - Trop x3 negative - Blood Cx (12/13): negative x1, coagulase neg Staph x1 - sensitive to Moxifloxacin - f/u Sputum Cx (12/16): pending results - will continue current medical treatment - Duonebs 3mL INH rQ4 LUL - Pulmicort 0.5mg INH rQ12 - Solumedrol 40mg IVP q8 - Tamiflu 75 mg po BID x5 days completed - Tessalon Perles 100mg po TID - Mucinex 600mg po BID - Moxifloxacin 400mg IV QD started 12/15 - Patient to continue Bipap, no transition to NC at this time as patient continue to be SOB without bipap Hypertension - ASA 81mg po daily - Losartan 100mg po daily - Norvasc 5mg po daily PPx - DVT: Heparin 5000u SC q8, SCDs - Diet: HHD Dispo: Will transition from BiPAP to NC tomorrow if patient is stable. <Denzel Meeks H - Last Filed: 12/17/18 10:32> Objective - Vital Signs/Intake and Output Vital Signs (last 24 hours): Temp Pulse Resp BP Pulse Ox 97.5 F L 76 18 153/92 H 100 12/17/18 07:27 12/17/18 07:27 12/17/18 07:27 12/17/18 07:27 12/17/18 07:27 - Medications Medications: Current Medications Acetylcysteine (Acetylcysteine 20%) 4 ml INH RQ6 PRN PRN Reason: to induce sputum Albuterol/Ipratropium (Duoneb 3 Mg/0.5 Mg (3 Ml) Ud) 3 ml INH RQ4 [facility] Last Admin: 12/17/18 05:06 Dose: Not Given Amlodipine Besylate (Norvasc) 5 mg PO DAILY [facility] Last Admin: 12/17/18 09:16 Dose: 5 mg Aspirin (Ecotrin) 81 mg PO DAILY [facility] Last Admin: 12/17/18 09:16 Dose: 81 mg Benzonatate (Tessalon Perles) 100 mg PO TID [facility] Last Admin: 12/17/18 09:16 Dose: 100 mg Budesonide (Pulmicort Respules) 0.5 mg INH RQ12 [facility] Last Admin: 12/16/18 21:03 Dose: 0.5 mg Guaifenesin (Mucinex La) 600 mg PO BID [facility] Last Admin: 12/17/18 09:16 Dose: 600 mg Heparin Sodium (Porcine) (Heparin) 5,000 units SC Q8 [facility] Last Admin: 12/17/18 06:12 Dose: 5,000 units Moxifloxacin HCl (Avelox Iv 400mg/250ml Ns) 400 mg in 250 mls @ 167 mls/hr IVPB Q24H [facility]; Protocol Last Admin: 12/16/18 11:00 Dose: 167 mls/hr Losartan Potassium (Cozaar) 100 mg PO DAILY [facility] Last Admin: 12/17/18 09:16 Dose: 100 mg Methylprednisolone (Solu-Medrol) 40 mg IVP Q8H [facility] Last Admin: 12/17/18 08:08 Dose: 40 mg - Labs Labs: 12/17/18 07:03 12/17/18 07:03 Attending/Attestation - Attestation I have personally seen and examined this patient.: Yes I have fully participated in the care of the patient.: Yes I have reviewed all pertinent clinical information, including history, physical exam and plan: Yes Notes (Text): 12/17/18 10:27 Medical attending: Patient was seen and examined by me. Agree with the above n ote by the resident The patient was not in any acute distress. He was able to tell me that he really needs the Bipap and feels good on it - however without it on nasal cannula he's just not tolerating this. As mentioned previously he + influenza and he's required a lot of supplmental oxygen and supportive care Denzel Meeks
[2018-12-17] MEDS: Albuterol-Ipratrop 3 mg / 0.5 (3 ml) UD INH SCH ×6 (00:29→21:16)
[2018-12-17 07:14] LABS: BASO % 0.1 % (0.0-2.0); HEMOGLOBIN 13.8 g/dL (12.0-18.0); LYMPH # 0.4 K/uL (1.0-4.3); LYMPH % 3.4 % (20.0-40.0); MEAN CELL VOLUME 91.3 fL (80.0-94.0); MEAN CORPUSCULAR HEMOGLOBIN 31.3 pg (27.0-31.0); MEAN CORPUSCULAR HGB CONC 34.3 g/dL (33.0-37.0); MEAN PLATELET VOLUME 9.8 fL (7.2-11.7); MONO # 0.6 K/uL (0.0-0.8); MONO % 5.5 % (0.0-10.0); NEUT # 9.7 K/uL (1.8-7.0); PLATELET COUNT 273 K/uL (130-400); RBC 4.42 Mil/uL (4.40-5.90); RED CELL DISTRIBUTION WIDTH 12.8 % (11.5-14.5); WHITE BLOOD COUNT 10.6 K/uL (4.8-10.8)
[2018-12-17] MEDS: MethylPREDNISolone 40 mg Vial IVP SCH ×2 (08:08→17:00)
[2018-12-17 08:25] LABS: BLOOD UREA NITROGEN 22 mg/dL (9-20); CALCIUM 8.9 mg/dl (8.6-10.4); GFR NON-AFRICAN AMERICAN > 60
[2018-12-17] MEDS: Budesonide 0.5 mg/2 ml Inhal Susp UD INH SCH ×2 (08:44→21:16)
[2018-12-17] MEDS: guaiFENesin 600 mg ER Tab PO SCH ×2 (09:16→18:01)
[2018-12-17 11:14] LABS: LYMPHOCYTE 5 % (20-40); MONOCYTE 5 % (0-10); NEUTROPHIL 90 % (50-75); PLATELET ESTIMATE NORMAL (NORMAL); TOTAL CELLS COUNTED 100
[2018-12-17 11:15] LABS: ANISOCYTOSIS SLIGHT; POLYCHROMIC SLIGHT
[2018-12-17] MEDS: Moxifloxacin IV 400mg/250ml NS 400 MG/250 ML BAG IVPB SCH (11:42)
[2018-12-18] MEDS: Albuterol-Ipratrop 3 mg / 0.5 (3 ml) UD INH SCH ×7 (00:12→23:43)
[2018-12-18] MEDS: MethylPREDNISolone 40 mg Vial IVP SCH ×4 (00:33→23:41)
--- NOTE | 2018-12-18 00:34 | CP.PCM.PN ---
<Thao Jiménez - Last Filed: 12/18/18 00:30> Subjective - Date & Time of Evaluation Date of Evaluation: 12/18/18 Time of Evaluation: 04:00 - Subjective Subjective: PGY-1 Medicine Progress Note for Dr. Meeks Patient was seen and examined at bedside with BiPAP in no acute distress. He did refuse two of six Duoneb treatments yesterday and states that he can tell the difference without them. Patient has no new complaints but states that he still prefers BiPAP over NC. He states that he is short of breath while being on NC about senior care through is meals, and hasn't been able to take a lap of the room without becoming short of breath. Denies chest pain, palpitations, fever, chills, n/v/c/d, or urinary complaints. Objective - Vital Signs/Intake and Output Vital Signs (last 24 hours): Temp Pulse Resp BP Pulse Ox 97.5 F L 80 18 153/92 H 93 L 12/17/18 07:27 12/18/18 00:13 12/17/18 07:27 12/17/18 07:27 12/17/18 14:16 - Medications Medications: Current Medications Acetylcysteine (Acetylcysteine 20%) 4 ml INH RQ6 PRN PRN Reason: to induce sputum Albuterol/Ipratropium (Duoneb 3 Mg/0.5 Mg (3 Ml) Ud) 3 ml INH RQ4 [facility] Last Admin: 12/18/18 00:12 Dose: 3 ml Amlodipine Besylate (Norvasc) 5 mg PO DAILY [facility] Last Admin: 12/17/18 09:16 Dose: 5 mg Aspirin (Ecotrin) 81 mg PO DAILY [facility] Last Admin: 12/17/18 09:16 Dose: 81 mg Benzonatate (Tessalon Perles) 100 mg PO TID [facility] Last Admin: 12/17/18 18:00 Dose: 100 mg Budesonide (Pulmicort Respules) 0.5 mg INH RQ12 [facility] Last Admin: 12/17/18 21:16 Dose: 0.5 mg Guaifenesin (Mucinex La) 600 mg PO BID [facility] Last Admin: 12/17/18 18:01 Dose: 600 mg Heparin Sodium (Porcine) (Heparin) 5,000 units SC Q8 [facility] Last Admin: 12/17/18 22:07 Dose: 5,000 units Moxifloxacin HCl (Avelox Iv 400mg/250ml Ns) 400 mg in 250 mls @ 167 mls/hr IVPB Q24H [facility]; Protocol Last Admin: 12/17/18 11:42 Dose: 167 mls/hr Losartan Potassium (Cozaar) 100 mg PO DAILY [facility] Last Admin: 12/17/18 09:16 Dose: 100 mg Methylprednisolone (Solu-Medrol) 40 mg IVP Q8H [facility] Last Admin: 12/17/18 17:00 Dose: 40 mg - Labs Labs: 12/17/18 07:03 12/17/18 07:03 - Constitutional Appears: Non-toxic, No Acute Distress, Chronically Ill - Head Exam Head Exam: ATRAUMATIC, NORMOCEPHALIC - Eye Exam Eye Exam: EOMI, Normal appearance, PERRL - ENT Exam ENT Exam: Mucous Membranes Moist - Respiratory Exam Respiratory Exam: Decreased Breath Sounds, Wheezes. absent: Rales, Rhonchi Additional comments: diffuse wheezes on BiPAP - Cardiovascular Exam Cardiovascular Exam: REGULAR RHYTHM, +S1, +S2 - GI/Abdominal Exam GI & Abdominal Exam: Soft, Normal Bowel Sounds. absent: Tenderness - Extremities Exam Extremities Exam: Full ROM Additional comments: IV access in L UE - Neurological Exam Neurological Exam: Alert, Awake, Oriented x3 - Psychiatric Exam Psychiatric exam: Normal Affect, Normal Mood - Skin Skin Exam: Dry, Intact, Normal Color, Warm Assessment and Plan - Assessment and Plan (Free Text) Assessment: 73yo [place] M PMH emphysema, HTN, arthritis admitted for COPD exacerbation 2/2 influenza. Plan: COPD exacerbation 2/2 influenza - influenza +, droplet isolation - CXR: mild venous congestion. Patchy increased markings at L lung base. bilateral hilar prominence. - 12/14: CXR showed no fluid overload - given Duoneb x5, Solumedrol 125 x1 in ED - Trop x3 negative - Blood Cx (12/13): negative x1, coagulase neg Staph x1 - sensitive to Moxifloxacin - f/u Sputum Cx (12/16): pending results - will continue current medical treatment - Duonebs 3mL INH rQ4 [facility] - Pulmicort 0.5mg INH rQ12 - Solumedrol 40mg IVP q8 - Tamiflu 75 mg po BID x5 days completed - Tessalon Perles 100mg po TID - Mucinex 600mg po BID - Moxifloxacin 400mg IV QD started 12/15 - Patient to continue Bipap, no transition to NC at this time as patient continue to be SOB without bipap Hypertension - ASA 81mg po daily - Losartan 100mg po daily - Norvasc 5mg po daily PPx - DVT: Heparin 5000u SC q8, SCDs - Diet: HHD Dispo: Will transition from BiPAP to NC tomorrow if patient is stable. <Denzel Meeks H - Last Filed: 12/18/18 08:26> Objective - Vital Signs/Intake and Output Vital Signs (last 24 hours): Temp Pulse Resp BP Pulse Ox 97.8 F 87 20 141/91 H 98 12/18/18 07:00 12/18/18 07:00 12/18/18 07:00 12/18/18 07:00 12/18/18 07:00 - Medications Medications: Current Medications Acetylcysteine (Acetylcysteine 20%) 4 ml INH RQ6 PRN PRN Reason: to induce sputum Albuterol/Ipratropium (Duoneb 3 Mg/0.5 Mg (3 Ml) Ud) 3 ml INH RQ4 [facility] Last Admin: 12/18/18 03:21 Dose: 3 ml Amlodipine Besylate (Norvasc) 5 mg PO DAILY [facility] Last Admin: 12/17/18 09:16 Dose: 5 mg Aspirin (Ecotrin) 81 mg PO DAILY [facility] Last Admin: 12/17/18 09:16 Dose: 81 mg Benzonatate (Tessalon Perles) 100 mg PO TID [facility] Last Admin: 12/17/18 18:00 Dose: 100 mg Budesonide (Pulmicort Respules) 0.5 mg INH RQ12 [facility] Last Admin: 12/17/18 21:16 Dose: 0.5 mg Guaifenesin (Mucinex La) 600 mg PO BID [facility] Last Admin: 12/17/18 18:01 Dose: 600 mg Heparin Sodium (Porcine) (Heparin) 5,000 units SC Q8 [facility] Last Admin: 12/18/18 05:54 Dose: 5,000 units Moxifloxacin HCl (Avelox Iv 400mg/250ml Ns) 400 mg in 250 mls @ 167 mls/hr IVPB Q24H [facility]; Protocol Last Admin: 12/17/18 11:42 Dose: 167 mls/hr Losartan Potassium (Cozaar) 100 mg PO DAILY [facility] Last Admin: 12/17/18 09:16 Dose: 100 mg Methylprednisolone (Solu-Medrol) 40 mg IVP Q8H [facility] Last Admin: 12/18/18 08:13 Dose: 40 mg - Labs Labs: 12/17/18 07:03 12/17/18 07:03 Attending/Attestation - Attestation I have personally seen and examined this patient.: Yes I have fully participated in the care of the patient.: Yes I have reviewed all pertinent clinical information, including history, physical exam and plan: Yes Notes (Text): 12/18/18 08:24 Medical attending: Patient was seen and examined by me. Agree with the above note by the resident The patient was not in any acute distress at rest. He was wearing the Bipap He tried taking it off he says and wearing the nasal cannula and he says he does not do well and shortly therafter has a lot of coughing and shortness of breath So at this time continue supportive care for the + influenza Tamiflu, Emperical abx, IV solumedrol, no IVF as he is tolerating diet, thank you Denzel Meeks
[2018-12-18 08:17] LABS: BASO % 0.2 % (0.0-2.0); HEMOGLOBIN 14.1 g/dL (12.0-18.0); LYMPH # 0.2 K/uL (1.0-4.3); LYMPH % 1.8 % (20.0-40.0); MEAN CELL VOLUME 91.4 fL (80.0-94.0); MEAN CORPUSCULAR HEMOGLOBIN 31.2 pg (27.0-31.0); MEAN CORPUSCULAR HGB CONC 34.2 g/dL (33.0-37.0); MEAN PLATELET VOLUME 9.6 fL (7.2-11.7); MONO # 0.7 K/uL (0.0-0.8); MONO % 5.6 % (0.0-10.0); NEUT # 10.8 K/uL (1.8-7.0); NEUT % 92.4 % (50.0-75.0); NRBC % 0.1 % (0.0-2.0); PLATELET COUNT 282 K/uL (130-400); RED CELL DISTRIBUTION WIDTH 12.6 % (11.5-14.5); WHITE BLOOD COUNT 11.7 K/uL (4.8-10.8)
[2018-12-18 08:28] LABS: BLOOD UREA NITROGEN 23 mg/dL (9-20); GFR NON-AFRICAN AMERICAN > 60
[2018-12-18] MEDS: Budesonide 0.5 mg/2 ml Inhal Susp UD INH SCH (09:05)
[2018-12-18] MEDS: guaiFENesin 600 mg ER Tab PO SCH ×2 (09:29→17:04)
[2018-12-18] MEDS: Moxifloxacin IV 400mg/250ml NS 400 MG/250 ML BAG IVPB SCH (12:04)
--- NOTE | 2018-12-18 12:55 | RAD ---
Date of service: 12/18/2018 HISTORY: + Influenza, shortness of breath COMPARISON: 12/14/2018 TECHNIQUE: 1 view obtained. FINDINGS: LUNGS: No active pulmonary disease. PLEURA: No significant pleural effusion identified, no pneumothorax apparent. CARDIOVASCULAR: No aortic atherosclerotic calcification present. Normal cardiac size. No pulmonary vascular congestion. OSSEOUS STRUCTURES: No significant abnormalities. VISUALIZED UPPER ABDOMEN: Normal. OTHER FINDINGS: None. IMPRESSION: No active disease.
[2018-12-18 12:57] LABS: BANDS 1 % (0-2); LYMPHOCYTE 1 % (20-40); MONOCYTE 8 % (0-10); NEUTROPHIL 90 % (50-75); PLATELET ESTIMATE NORMAL (NORMAL); TOTAL CELLS COUNTED 100
[2018-12-18 12:58] LABS: ANISOCYTOSIS SLIGHT; LARGE PLATELETS PRESENT; TOXIC GRANULATION PRESENT
[2018-12-19] MEDS: Albuterol-Ipratrop 3 mg / 0.5 (3 ml) UD INH SCH ×6 (03:15→23:42)
--- NOTE | 2018-12-19 07:16 | CP.PCM.PN ---
<Shaun Gusman - Last Filed: 12/19/18 12:48> Subjective - Date & Time of Evaluation Date of Evaluation: 12/19/18 Time of Evaluation: 07:16 - Subjective Subjective: PGY-1 Medicine Progress Note for Dr. Spears Patient seen and examined at bedside this AM using Bipap machine. No acute overnight events reported. Patient was resting comfortably on bipap, continues to prefer it over NC especially when eating. No fevers/chills, headaches, dizziness, chest pain, palpitations, n/v/d/c, urinary complaints. Will try to wean off bipap and continue to evaluate, which patient was amenable to. Objective - Vital Signs/Intake and Output Vital Signs (last 24 hours): Temp Pulse Resp BP Pulse Ox 97.7 F 93 H 20 155/85 H 96 12/19/18 00:34 12/19/18 05:08 12/19/18 00:34 12/19/18 00:34 12/19/18 00:34 - Medications Medications: Current Medications Acetylcysteine (Acetylcysteine 20%) 4 ml INH RQ6 PRN PRN Reason: to induce sputum Albuterol/Ipratropium (Duoneb 3 Mg/0.5 Mg (3 Ml) Ud) 3 ml INH RQ4 [facility] Last Admin: 12/19/18 03:15 Dose: 3 ml Amlodipine Besylate (Norvasc) 5 mg PO DAILY [facility] Last Admin: 12/18/18 09:29 Dose: 5 mg Aspirin (Ecotrin) 81 mg PO DAILY [facility] Last Admin: 12/18/18 09:29 Dose: 81 mg Benzonatate (Tessalon Perles) 100 mg PO TID [facility] Last Admin: 12/18/18 17:04 Dose: 100 mg Budesonide (Pulmicort Respules) 0.5 mg INH RQ12 [facility] Last Admin: 12/18/18 09:05 Dose: 0.5 mg Guaifenesin (Mucinex La) 600 mg PO BID [facility] Last Admin: 12/18/18 17:04 Dose: 600 mg Heparin Sodium (Porcine) (Heparin) 5,000 units SC Q8 [facility] Last Admin: 12/19/18 05:53 Dose: 5,000 units Moxifloxacin HCl (Avelox Iv 400mg/250ml Ns) 400 mg in 250 mls @ 167 mls/hr IVPB Q24H [facility]; Protocol Last Admin: 12/18/18 12:04 Dose: 167 mls/hr Losartan Potassium (Cozaar) 100 mg PO DAILY [facility] Last Admin: 12/18/18 09:29 Dose: 100 mg Methylprednisolone (Solu-Medrol) 40 mg IVP Q8H [facility] Last Admin: 12/18/18 23:41 Dose: 40 mg - Labs Labs: 12/18/18 07:01 12/18/18 07:01 - Constitutional Appears: Non-toxic, No Acute Distress - Head Exam Head Exam: ATRAUMATIC, NORMAL INSPECTION, NORMOCEPHALIC - Eye Exam Eye Exam: EOMI, Normal appearance, PERRL Pupil Exam: NORMAL ACCOMODATION - ENT Exam ENT Exam: Mucous Membranes Moist, Normal Exam - Neck Exam Neck Exam: Full ROM, Normal Inspection - Respiratory Exam Respiratory Exam: Wheezes (diffuse expiratory wheezing, predominately in b/l upper lobes), NORMAL BREATHING PATTERN Additional comments: on Bipap - Cardiovascular Exam Cardiovascular Exam: REGULAR RHYTHM, +S1, +S2 - GI/Abdominal Exam GI & Abdominal Exam: Soft, Normal Bowel Sounds. absent: Distended, Firm, Guarding, Rigid, Tenderness, Rebound - Extremities Exam Extremities Exam: Full ROM, Normal Capillary Refill, Normal Inspection. absent: Calf Tenderness, Pedal Edema - Neurological Exam Neurological Exam: Alert, Awake, Oriented x3 - Skin Skin Exam: Dry, Intact, Normal Color, Warm Assessment and Plan - Assessment and Plan (Free Text) Assessment: 73 yo [place] male with past medical history of emphysema, HTN, arthritis admitted for COPD exacerbation 2/2 influenza. Plan: COPD exacerbation 2/2 influenza -influenza positive on admission (12/12) -5 day course of tamiflu completed; droplet isolation discontinued -CXR (12/18): no acute findings -sputum cx (12/16): yeast spp -Blood Cx (12/13): negative x 1, coag negative staph x 1 -Pulmonology (Dr. Day) consulted -pt seen by Dr. Day in past, was supposed to f/u outpatient on last admission -will try to wean off Bipap, recommends ABG on 2L NC -f/u further recs -duonebs 3q4 [facility] -pulmicort 0.5 mg q12 -solumedrol 40 mg IVP q8 -tessalon Perles 100 mg PO TID -mucinex 600mg po BID -Avelox 400 mg q12 Hypertension -currently normotensive, continue to monitor -ASA 81mg po daily -Losartan 100mg po daily -Norvasc 5mg po daily PPx, Diet Disposition -DVT ppx: Heparin 5000u SC q8, SCDs -GI ppx: not indicated at this time -Diet: HHD -PT on board -Dispo: Attempting to wean off Bipap. Will f/u ABG on 2L NC, per Pulm recs. F/U further recs, per Dr. Day Case discussed with Dr. Regan Gusman DO, PGY-1 <Christiano Spears - Last Filed: 12/24/18 14:16> Objective - Vital Signs/Intake and Output Vital Signs (last 24 hours): Temp Pulse Resp BP Pulse Ox 97.7 F 92 H 20 124/83 99 12/24/18 07:00 12/24/18 07:00 12/24/18 07:00 12/24/18 07:00 12/24/18 07:00 - Medications Medications: Current Medications Acetylcysteine (Acetylcysteine 20%) 4 ml INH RQ6 PRN PRN Reason: to induce sputum Last Admin: 12/23/18 19:31 Dose: 4 ml Albuterol/Ipratropium (Duoneb 3 Mg/0.5 Mg (3 Ml) Ud) 3 ml INH RQ4 [facility] Last Admin: 12/24/18 11:18 Dose: 3 ml Amlodipine Besylate (Norvasc) 5 mg PO DAILY [facility] Last Admin: 12/24/18 10:20 Dose: 5 mg Aspirin (Ecotrin) 81 mg PO DAILY [facility] Last Admin: 12/24/18 10:20 Dose: 81 mg Benzonatate (Tessalon Perles) 100 mg PO TID [facility] Last Admin: 12/24/18 13:34 Dose: 100 mg Dextrose (Dextrose 50% Inj) 0 ml IV STAT PRN; Protocol PRN Reason: Hypoglycemia Protocol Dextrose (Glutose 15) 0 gm PO ONCE PRN; Protocol PRN Reason: Hypoglycemia Protocol Fluticasone/Vilanterol (Breo Ellipta 200-25 Mcg Inh) 1 puff INH RQD [facility] Last Admin: 12/24/18 11:17 Dose: Not Given Glucagon (Glucagen Diagnostic Kit) 0 mg IM STAT PRN; Protocol PRN Reason: Hypoglycemia Protocol Guaifenesin (Mucinex La) 600 mg PO BID [facility] Last Admin: 12/24/18 10:20 Dose: 600 mg Heparin Sodium (Porcine) (Heparin) 5,000 units SC Q8 [facility] Last Admin: 12/24/18 13:34 Dose: 5,000 units Dextrose (Dextrose 5% In Water 1000 Ml) 1,000 mls @ 0 mls/hr IV .Q0M PRN; Protocol PRN Reason: Hypoglycemia Protocol Insulin Human Regular (Novolin R) 0 unit SC ACHS [facility]; Protocol Last Admin: 12/24/18 12:31 Dose: Not Given Losartan Potassium (Cozaar) 100 mg PO DAILY [facility] Last Admin: 12/24/18 10:20 Dose: 100 mg Prednisone (Prednisone Tab) 40 mg PO DAILY [facility] Last Admin: 12/24/18 10:20 Dose: 40 mg - Labs Labs: 12/24/18 09:21 12/24/18 09:21 Attending/Attestation - Attestation I have personally seen and examined this patient.: Yes I have fully participated in the care of the patient.: Yes I have reviewed all pertinent clinical information, including history, physical exam and plan: Yes Notes (Text): seen and examined COPD exacerbation on BIPAP,continue BIPAP,solumedrol follow pulmonary
[2018-12-19 08:12] LABS: BASO % 0.1 % (0.0-2.0); HEMOGLOBIN 13.7 g/dL (12.0-18.0); LYMPH # 0.2 K/uL (1.0-4.3); LYMPH % 1.5 % (20.0-40.0); MEAN CELL VOLUME 92.6 fL (80.0-94.0); MEAN CORPUSCULAR HEMOGLOBIN 30.9 pg (27.0-31.0); MEAN CORPUSCULAR HGB CONC 33.3 g/dL (33.0-37.0); MEAN PLATELET VOLUME 9.4 fL (7.2-11.7); MONO # 0.9 K/uL (0.0-0.8); MONO % 6.1 % (0.0-10.0); NEUT # 13.1 K/uL (1.8-7.0); NEUT % 92.3 % (50.0-75.0); PLATELET COUNT 271 K/uL (130-400); RBC 4.44 Mil/uL (4.40-5.90); RED CELL DISTRIBUTION WIDTH 12.9 % (11.5-14.5); WHITE BLOOD COUNT 14.2 K/uL (4.8-10.8)
[2018-12-19] MEDS: MethylPREDNISolone 40 mg Vial IVP SCH ×2 (08:20→17:00)
[2018-12-19 08:24] LABS: BLOOD UREA NITROGEN 24 mg/dL (9-20); CALCIUM 8.9 mg/dl (8.6-10.4); GFR NON-AFRICAN AMERICAN > 60
[2018-12-19] MEDS: Budesonide 0.5 mg/2 ml Inhal Susp UD INH SCH ×2 (08:50→20:23)
[2018-12-19] MEDS: guaiFENesin 600 mg ER Tab PO SCH ×2 (09:24→17:35)
[2018-12-19 10:41] LABS: BANDS 1 % (0-2); LYMPHOCYTE 2 % (20-40); MONOCYTE 5 % (0-10); NEUTROPHIL 92 % (50-75); OVALOCYTES SLIGHT; PLATELET ESTIMATE NORMAL (NORMAL); TOTAL CELLS COUNTED 100
[2018-12-19] MEDS: Moxifloxacin IV 400mg/250ml NS 400 MG/250 ML BAG IVPB SCH (11:29)
[2018-12-19 13:41] LABS: ABG ALLEN TEST POS; ARTERIAL BLOOD GAS HCO3 34.3 mmol/L (21-28); ARTERIAL BLOOD GAS HEMOGLOBIN 13.9 g/dL (11.7-17.4); ARTERIAL BLOOD GAS O2 SAT 93.2 % (95-98); ARTERIAL BLOOD GAS PCO2 59 mm/Hg (35-45); ARTERIAL BLOOD GAS PH 7.43 (7.35-7.45); ARTERIAL BLOOD GAS PO2 59 mm/Hg (80-100)
--- NOTE | 2018-12-19 18:14 | CP.PCM.CON ---
History of Present Illness - History of Present Illness History of Present Illness: Patient is a 73 years old male with PMHX of HTN, Asthma, COPD, Depression that presented to the ED complaining of difficulty breathing x 2 weeks. IT has progressively worsened until this morning it became unbearable. He states that he used an albuterol pump with no relief. It is worsened with excertion. He admits to prior productive cough of yellow sputum. However today he is admitting to dry cough and SOB. He denies fevers, chills, chest pain. Patient is resting comfortably on BiPAP. PMHX: HTN, Asthma, COPD, Depression PSHX: noncontributory Family HX: Asthma, COPD on both mother's and father's side ALL: NKDA MEDS: As per chart SOCIAL: Former smoker. Quit 3 years ago. Physical Exam Oxygen Saturation 95% BiPAP General: NAD Cardio: S1, S2 Resp: Wheezing Abd: Soft, Nontender Chest X Ray 12/18- No active disease A/P 1) COPD - Taper steroids -Continue Duonebs -D/C BiPAP if patient can tolerate -O2 Therapy via NC -F/u ABG 2) Depression -Psychiatry Consult Past Patient History - Infectious Disease Hx of Infectious Diseases: None - Past Social History Smoking Status: Former Smoker - CARDIAC Hx Hypertension: Yes - PULMONARY Hx Chronic Obstructive Pulmonary Disease (COPD): Yes - NEUROLOGICAL Hx Neurological Disorder: No - RENAL Hx Chronic Kidney Disease: No - ENDOCRINE/METABOLIC Hx Diabetes Mellitus Type 2: Yes - HEMATOLOGICAL/ONCOLOGICAL Hx Blood Disorders: No - INTEGUMENTARY Hx Dermatological Problems: No - MUSCULOSKELETAL/RHEUMATOLOGICAL Hx Falls: No - GASTROINTESTINAL Hx Gastrointestinal Disorders: No - GENITOURINARY/GYNECOLOGICAL Hx Genitourinary Disorders: No - PSYCHIATRIC Hx Substance Use: No - SURGICAL HISTORY Hx Surgeries: Yes Hx Orthopedic Surgery: Yes - ANESTHESIA Hx Anesthesia: Yes Hx Anesthesia Reactions: No Hx Malignant Hyperthermia: No Meds Allergies/Adverse Reactions: Allergies Allergy/AdvReac Type Severity Reaction Status Date / Time No Known Allergies Allergy Verified 12/12/18 10:58 - Medications Medications: Current Medications Acetylcysteine (Acetylcysteine 20%) 4 ml INH RQ6 PRN PRN Reason: to induce sputum Albuterol/Ipratropium (Duoneb 3 Mg/0.5 Mg (3 Ml) Ud) 3 ml INH RQ4 [facility] Last Admin: 12/19/18 12:39 Dose: 3 ml Amlodipine Besylate (Norvasc) 5 mg PO DAILY [facility] Last Admin: 12/19/18 09:24 Dose: 5 mg Aspirin (Ecotrin) 81 mg PO DAILY [facility] Last Admin: 12/19/18 09:23 Dose: 81 mg Benzonatate (Tessalon Perles) 100 mg PO TID [facility] Last Admin: 12/19/18 17:35 Dose: 100 mg Budesonide (Pulmicort Respules) 0.5 mg INH RQ12 [facility] Last Admin: 12/19/18 08:50 Dose: 0.5 mg Guaifenesin (Mucinex La) 600 mg PO BID [facility] Last Admin: 12/19/18 17:35 Dose: 600 mg Heparin Sodium (Porcine) (Heparin) 5,000 units SC Q8 [facility] Last Admin: 12/19/18 14:04 Dose: 5,000 units Moxifloxacin HCl (Avelox Iv 400mg/250ml Ns) 400 mg in 250 mls @ 167 mls/hr IVPB Q24H [facility]; Protocol Last Admin: 12/19/18 11:29 Dose: 167 mls/hr Losartan Potassium (Cozaar) 100 mg PO DAILY [facility] Last Admin: 12/19/18 09:24 Dose: 100 mg Methylprednisolone (Solu-Medrol) 40 mg IVP Q8H [facility] Last Admin: 12/19/18 17:00 Dose: 40 mg Results - Vital Signs Recent Vital Signs: Last Vital Signs Temp 98.7 F 12/19/18 15:25 Pulse 88 12/19/18 15:25 Resp 20 12/19/18 15:25 BP 149/83 12/19/18 15:25 Pulse Ox 94 L 12/19/18 15:25 - Labs Result Diagrams: 12/19/18 07:55 12/19/18 07:55 Labs: Laboratory Results - last 24 hr 12/16/18 12/16/18 12/17/18 16:59 21:20 11:43 WBC RBC Hgb Hct MCV MCH MCHC RDW Plt Count MPV Neut % (Auto) Lymph % (Auto) Collin % (Auto) Eos % (Auto) Baso % (Auto) Neut # (Auto) Lymph # (Auto) Collin # (Auto) Eos # (Auto) Baso # (Auto) Neutrophils % (Manual) Band Neutrophils % Lymphocytes % (Manual) Monocytes % (Manual) Platelet Estimate Ovalocytes Puncture Site pCO2 pO2 HCO3 ABG pH ABG Total CO2 ABG O2 Saturation ABG Base Excess ABG Hemoglobin ABG Carboxyhemoglobin POC ABG HHb (Measured) ABG Methemoglobin Medardo Test A-a O2 Difference Respiratory Index Hgb O2 Saturation Liter Flow FiO2 Sodium Potassium Chloride Carbon Dioxide Anion Gap BUN Creatinine Est GFR ( Amer) Est GFR (Non-Af Amer) POC Glucose (mg/dL) 148 H 154 H 150 H Random Glucose Calcium 12/18/18 12/18/18 12/19/18 06:13 21:07 06:52 WBC RBC Hgb Hct MCV MCH MCHC RDW Plt Count MPV Neut % (Auto) Lymph % (Auto) Collin % (Auto) Eos % (Auto) Baso % (Auto) Neut # (Auto) Lymph # (Auto) Collin # (Auto) Eos # (Auto) Baso # (Auto) Neutrophils % (Manual) Band Neutrophils % Lymphocytes % (Manual) Monocytes % (Manual) Platelet Estimate Ovalocytes Puncture Site pCO2 pO2 HCO3 ABG pH ABG Total CO2 ABG O2 Saturation ABG Base Excess ABG Hemoglobin ABG Carboxyhemoglobin POC ABG HHb (Measured) ABG Methemoglobin Medardo Test A-a O2 Difference Respiratory Index Hgb O2 Saturation Liter Flow FiO2 Sodium Potassium Chloride Carbon Dioxide Anion Gap BUN Creatinine Est GFR ( Amer) Est GFR (Non-Af Amer) POC Glucose (mg/dL) 153 H 202 H 167 H Random Glucose Calcium 12/19/18 12/19/18 12/19/18 07:55 07:55 11:13 WBC 14.2 H RBC 4.44 Hgb 13.7 Hct 41.1 MCV 92.6 MCH 30.9 MCHC 33.3 RDW 12.9 Plt Count 271 MPV 9.4 Neut % (Auto) 92.3 H Lymph % (Auto) 1.5 L Collin % (Auto) 6.1 Eos % (Auto) 0.0 Baso % (Auto) 0.1 Neut # (Auto) 13.1 H Lymph # (Auto) 0.2 L Collin # (Auto) 0.9 H Eos # (Auto) 0.0 Baso # (Auto) 0.0 Neutrophils % (Manual) 92 H Band Neutrophils % 1 Lymphocytes % (Manual) 2 L Monocytes % (Manual) 5 Platelet Estimate Normal Ovalocytes Slight Puncture Site pCO2 pO2 HCO3 ABG pH ABG Total CO2 ABG O2 Saturation ABG Base Excess ABG Hemoglobin ABG Carboxyhemoglobin POC ABG HHb (Measured) ABG Methemoglobin Medardo Test A-a O2 Difference Respiratory Index Hgb O2 Saturation Liter Flow FiO2 Sodium 136 Potassium 4.3 Chloride 96 L Carbon Dioxide 39 H Anion Gap 6 L BUN 24 H Creatinine 0.7 L Est GFR ( Amer) > 60 Est GFR (Non-Af Amer) > 60 POC Glucose (mg/dL) 291 H Random Glucose 150 H Calcium 8.9 12/19/18 13:35 WBC RBC Hgb Hct MCV MCH MCHC RDW Plt Count MPV Neut % (Auto) Lymph % (Auto) Collin % (Auto) Eos % (Auto) Baso % (Auto) Neut # (Auto) Lymph # (Auto) Collin # (Auto) Eos # (Auto) Baso # (Auto) Neutrophils % (Manual) Band Neutrophils % Lymphocytes % (Manual) Monocytes % (Manual) Platelet Estimate Ovalocytes Puncture Site Rr pCO2 59 H pO2 59 L HCO3 34.3 H ABG pH 7.43 ABG Total CO2 41.0 H ABG O2 Saturation 93.2 L ABG Base Excess 12.3 H ABG Hemoglobin 13.9 ABG Carboxyhemoglobin 1.5 POC ABG HHb (Measured) 6.6 H ABG Methemoglobin 0.9 Medardo Test Pos A-a O2 Difference 67.0 Respiratory Index 1.1 Hgb O2 Saturation 91.0 L Liter Flow 2.0 FiO2 28.0 Sodium Potassium Chloride Carbon Dioxide Anion Gap BUN Creatinine Est GFR ( Amer) Est GFR (Non-Af Amer) POC Glucose (mg/dL) Random Glucose Calcium
[2018-12-20] MEDS: MethylPREDNISolone 40 mg Vial IVP SCH ×2 (00:09→09:00)
[2018-12-20] MEDS: Albuterol-Ipratrop 3 mg / 0.5 (3 ml) UD INH SCH ×5 (03:10→20:01)
--- NOTE | 2018-12-20 06:54 | CP.PCM.PN ---
<Shaun Gusman - Last Filed: 12/20/18 16:34> Subjective - Date & Time of Evaluation Date of Evaluation: 12/20/18 Time of Evaluation: 06:53 - Subjective Subjective: PGY-1 Medicine Progress Note for Dr. Spears Patient seen and examined at bedside this AM, resting comfortably with NC and in no acute distress. No active sob, pt state he did not use Bipap machine overnight. Patient states he has home O2 and nebulizer setup at home. No other acute somatic complaints at this time. Objective - Vital Signs/Intake and Output Vital Signs (last 24 hours): Temp Pulse Resp BP Pulse Ox 97.4 F L 102 H 20 158/87 H 95 12/19/18 23:05 12/20/18 03:08 12/19/18 23:05 12/19/18 23:05 12/19/18 23:05 Intake and Output: 12/19/18 12/20/18 18:59 06:59 Output Total 100 Balance -100 - Medications Medications: Current Medications Acetylcysteine (Acetylcysteine 20%) 4 ml INH RQ6 PRN PRN Reason: to induce sputum Albuterol/Ipratropium (Duoneb 3 Mg/0.5 Mg (3 Ml) Ud) [address] [facility] Last Admin: 12/20/18 03:10 Dose: 3 ml Amlodipine Besylate (Norvasc) [address] [facility] Last Admin: 12/19/18 09:24 Dose: 5 mg Aspirin (Ecotrin) [address] [facility] Last Admin: 12/19/18 09:23 Dose: 81 mg Benzonatate (Tessalon Perles) 100 mg PO TID [facility] Last Admin: 12/19/18 17:35 Dose: 100 mg Budesonide (Pulmicort Respules) 0.5 mg INH RQ12 [facility] Last Admin: 12/19/18 20:23 Dose: 0.5 mg Guaifenesin (Mucinex La) [address] [facility] Last Admin: 12/19/18 17:35 Dose: 600 mg Heparin Sodium (Porcine) (Heparin) 5,[address] [facility] Last Admin: 12/20/18 05:31 Dose: 5,000 units Moxifloxacin HCl (Avelox Iv 400mg/250ml Ns) 400 mg in 250 mls @ 167 mls/hr IVPB Q24H [facility]; Protocol Last Admin: 12/19/18 11:29 Dose: 167 mls/hr Losartan Potassium (Cozaar) [address] [facility] Last Admin: 12/19/18 09:24 Dose: 100 mg Methylprednisolone (Solu-Medrol) [address] [facility] Last Admin: 12/20/18 00:09 Dose: 40 mg - Labs Labs: 12/19/18 07:55 12/19/18 07:55 - Constitutional Appears: Non-toxic, No Acute Distress - Head Exam Head Exam: ATRAUMATIC, NORMAL INSPECTION, NORMOCEPHALIC - Eye Exam Eye Exam: EOMI, Normal appearance Pupil Exam: NORMAL ACCOMODATION - ENT Exam ENT Exam: Mucous Membranes Moist, Normal Exam - Neck Exam Neck Exam: Full ROM, Normal Inspection - Respiratory Exam Respiratory Exam: Wheezes, NORMAL BREATHING PATTERN. absent: Accessory Muscle Use, Respiratory Distress - Cardiovascular Exam Cardiovascular Exam: REGULAR RHYTHM, +S1, +S2 - GI/Abdominal Exam GI & Abdominal Exam: Soft, Normal Bowel Sounds. absent: Distended, Firm, Guarding, Rigid, Tenderness, Rebound - Extremities Exam Extremities Exam: Full ROM, Normal Capillary Refill, Normal Inspection. absent: Calf Tenderness, Pedal Edema - Back Exam Back Exam: NORMAL INSPECTION - Neurological Exam Neurological Exam: Alert, Awake, Oriented x3 - Psychiatric Exam Psychiatric exam: Normal Affect, Normal Mood - Skin Skin Exam: Dry, Intact, Normal Color, Warm Assessment and Plan - Assessment and Plan (Free Text) Assessment: 73 yo [place] male with past medical history of emphysema, HTN, arthritis admitted for COPD exacerbation 2/2 influenza. Plan: COPD exacerbation 2/2 influenza -influenza positive on admission (12/12) -5 day course of tamiflu completed; droplet isolation discontinued -CXR (12/18): no acute findings -sputum cx (12/16): yeast spp -Blood Cx (12/13): negative x 1, coag negative staph x 1 -Pulmonology (Dr. Day) consulted -taper steroids -continue Duonebs -D/C BiPAP if patient can tolerate -O2 Therapy via NC -duonebs 3q4 [facility] -pulmicort 0.5 mg q12 -d/c solumedrol, switch to oral prednisone 40 mg PO daily -tessalon Perles 100 mg PO TID -mucinex 600mg po BID -Avelox 400 mg q12 Hypertension -currently normotensive, continue to monitor -ASA 81mg po daily -Losartan 100mg PO daily -Norvasc 5mg PO daily PPx, Diet Disposition -DVT ppx: Heparin 5000u SC q8, SCDs -GI ppx: not indicated at this time -Diet: HHD -PT on board -Dispo: Attempting to wean off Bipap. F/U further recs per Dr. Day. Patient may benefit from [facility]. Case discussed with Dr. Regan Gusman DO, PGY-1 <Christiano Spears - Last Filed: 12/24/18 14:14> Objective - Vital Signs/Intake and Output Vital Signs (last 24 hours): Temp Pulse Resp BP Pulse Ox 97.7 F 92 H 20 124/83 99 12/24/18 07:00 12/24/18 07:00 12/24/18 07:00 12/24/18 07:00 12/24/18 07:00 - Medications Medications: Current Medications Acetylcysteine (Acetylcysteine 20%) 4 ml INH RQ6 PRN PRN Reason: to induce sputum Last Admin: 12/23/18 19:31 Dose: 4 ml Albuterol/Ipratropium (Duoneb 3 Mg/0.5 Mg (3 Ml) Ud) 3 ml INH RQ4 [facility] Last Admin: 12/24/18 11:18 Dose: 3 ml Amlodipine Besylate (Norvasc) [address] [facility] Last Admin: 12/24/18 10:20 Dose: 5 mg Aspirin (Ecotrin) [address] [facility] Last Admin: 12/24/18 10:20 Dose: 81 mg Benzonatate (Tessalon Perles) [address] [facility] Last Admin: 12/24/18 13:34 Dose: 100 mg Dextrose (Dextrose 50% Inj) 0 ml IV STAT PRN; Protocol PRN Reason: Hypoglycemia Protocol Dextrose (Glutose 15) 0 gm PO ONCE PRN; Protocol PRN Reason: Hypoglycemia Protocol Fluticasone/Vilanterol (Breo Ellipta 200-25 Mcg Inh) [address] [facility] Last Admin: 12/24/18 11:17 Dose: Not Given Glucagon (Glucagen Diagnostic Kit) 0 mg IM STAT PRN; Protocol PRN Reason: Hypoglycemia Protocol Guaifenesin (Mucinex La) [address] [facility] Last Admin: 12/24/18 10:20 Dose: 600 mg Heparin Sodium (Porcine) (Heparin) 5,[address] [facility] Last Admin: 12/24/18 13:34 Dose: 5,000 units Dextrose (Dextrose 5% In Water 1000 Ml) 1,000 mls @ 0 mls/hr IV .Q0M PRN; Protocol PRN Reason: Hypoglycemia Protocol Insulin Human Regular (Novolin R) 0 unit SC ACHS [facility]; Protocol Last Admin: 12/24/18 12:31 Dose: Not Given Losartan Potassium (Cozaar) [address] [facility] Last Admin: 12/24/18 10:20 Dose: 100 mg Prednisone (Prednisone Tab) [address] [facility] Last Admin: 12/24/18 10:20 Dose: 40 mg - Labs Labs: 12/24/18 09:21 12/24/18 09:21 Attending/Attestation - Attestation I have personally seen and examined this patient.: Yes I have fully participated in the care of the patient.: Yes I have reviewed all pertinent clinical information, including history, physical exam and plan: Yes Notes (Text): seen and examined,patient felling littele better COPD exacerbation,Influenza,On BIPAP,improving On solumedrol, switch to oral prednisone
[2018-12-20 08:02] LABS: BASO % 0.1 % (0.0-2.0); EOS # 0.1 K/uL (0.0-0.7); EOS % 0.6 % (0.0-4.0); HEMOGLOBIN 13.8 g/dL (12.0-18.0); LYMPH # 0.3 K/uL (1.0-4.3); MEAN CELL VOLUME 92.5 fL (80.0-94.0); MEAN CORPUSCULAR HEMOGLOBIN 31.4 pg (27.0-31.0); MEAN CORPUSCULAR HGB CONC 33.9 g/dL (33.0-37.0); MEAN PLATELET VOLUME 9.7 fL (7.2-11.7); MONO # 0.6 K/uL (0.0-0.8); MONO % 4.4 % (0.0-10.0); NEUT # 13.3 K/uL (1.8-7.0); NEUT % 92.9 % (50.0-75.0); PLATELET COUNT 231 K/uL (130-400); RBC 4.38 Mil/uL (4.40-5.90); RED CELL DISTRIBUTION WIDTH 13.2 % (11.5-14.5); WHITE BLOOD COUNT 14.3 K/uL (4.8-10.8)
[2018-12-20 08:08] LABS: BLOOD UREA NITROGEN 22 mg/dL (9-20); CALCIUM 8.9 mg/dl (8.6-10.4); GFR NON-AFRICAN AMERICAN > 60
[2018-12-20 08:30] LABS: BANDS 3 % (0-2); LYMPHOCYTE 1 % (20-40); MONOCYTE 4 % (0-10); NEUTROPHIL 91 % (50-75); REACTIVE LYMPHOCYTES 1 % (0-0); TOTAL CELLS COUNTED 100
[2018-12-20 08:31] LABS: LARGE PLATELETS PRESENT; PLATELET ESTIMATE NORMAL (NORMAL)
[2018-12-20] MEDS: Budesonide 0.5 mg/2 ml Inhal Susp UD INH SCH ×2 (08:35→20:01)
[2018-12-20] MEDS: guaiFENesin 600 mg ER Tab PO SCH ×2 (10:40→17:34)
[2018-12-20] MEDS: Moxifloxacin IV 400mg/250ml NS 400 MG/250 ML BAG IVPB SCH (12:00)
--- NOTE | 2018-12-20 16:34 | CP.PCM.DIS ---
<Shaun Gusman - Last Filed: 12/27/18 13:17> Provider - Provider Date of Admission: 12/12/18 14:22 Attending physician: Christiano Spears MD Consults: 12/19/18 12:01 Pulmonology Consult Routine Comment: physician made aware Consulting Provider: Andre Day Consulting Physician: Andre Day Reason for Consult: copd, on bipap Time Spent in preparation of Discharge (in minutes): 40 Diagnosis - Discharge Diagnosis (1) COPD exacerbation Status: Acute (2) Influenza A Status: Resolved Hospital Course - Lab Results Lab Results: Micro Results 12/19/18 22:50 Sputum Gram Stain - Final 12/16/18 07:33 Sputum Gram Stain - Final 12/16/18 07:33 Sputum Sputum Culture - Final Yeast Species 12/12/18 14:01 Blood Blood Culture - Final NO GROWTH AFTER 5 DAYS 12/12/18 14:01 Blood Gram Stain - Final TEST NOT PERFORMED 12/12/18 14:01 Blood S.aureus & Coag-Neg Staph PNA FISH - Final 12/12/18 14:01 Blood Blood Culture - Final Coagulase Neg Staphylococcus 12/12/18 14:01 Blood Gram Stain - Final Most Recent Lab Values WBC 14.3 K/uL (4.8-10.8) H 12/20/18 07:44 RBC 4.38 Mil/uL (4.40-5.90) L 12/20/18 07:44 Hgb 13.8 g/dL (12.0-18.0) 12/20/18 07:44 Hct 40.5 % (35.0-51.0) 12/20/18 07:44 MCV 92.5 fL (80.0-94.0) 12/20/18 07:44 MCH 31.4 pg (27.0-31.0) H 12/20/18 07:44 MCHC 33.9 g/dL (33.0-37.0) 12/20/18 07:44 RDW 13.2 % (11.5-14.5) 12/20/18 07:44 Plt Count 231 K/uL (130-400) 12/20/18 07:44 MPV 9.7 fL (7.2-11.7) 12/20/18 07:44 Neut % (Auto) 92.9 % (50.0-75.0) H 12/20/18 07:44 Lymph % (Auto) 2.0 % (20.0-40.0) L 12/20/18 07:44 [place] % (Auto) 4.4 % (0.0-10.0) 12/20/18 07:44 Eos % (Auto) 0.6 % (0.0-4.0) 12/20/18 07:44 Baso % (Auto) 0.1 % (0.0-2.0) 12/20/18 07:44 Neut # (Auto) 13.3 K/uL (1.8-7.0) H 12/20/18 07:44 Lymph # (Auto) 0.3 K/uL (1.0-4.3) L 12/20/18 07:44 [place] # (Auto) 0.6 K/uL (0.0-0.8) 12/20/18 07:44 Eos # (Auto) 0.1 K/uL (0.0-0.7) 12/20/18 07:44 Baso # (Auto) 0.0 K/uL (0.0-0.2) 12/20/18 07:44 Neutrophils % (Manual) 91 % (50-75) H 12/20/18 07:44 Band Neutrophils % 3 % (0-2) H 12/20/18 07:44 Lymphocytes % (Manual) 1 % (20-40) L 12/20/18 07:44 Reactive Lymphs % 1 % (0-0) H 12/20/18 07:44 Monocytes % (Manual) 4 % (0-10) 12/20/18 07:44 Toxic Granulation Present 12/18/18 07:01 Platelet Estimate Normal (NORMAL) 12/20/18 07:44 Large Platelets Present 12/20/18 07:44 Giant Platelets Present 12/14/18 08:05 RBC Morphology Normal 12/20/18 07:44 Polychromasia Slight 12/17/18 07:03 Basophilic Stippling Slight 12/17/18 07:03 Anisocytosis (manual) Slight 12/18/18 07:01 Ovalocytes Slight 12/19/18 07:55 Puncture Site Rr 12/19/18 13:35 pCO2 59 mm/Hg (35-45) H 12/19/18 13:35 pO2 59 mm/Hg (80-100) L 12/19/18 13:35 HCO3 34.3 mmol/L (21-28) H 12/19/18 13:35 ABG pH 7.43 (7.35-7.45) 12/19/18 13:35 ABG Total CO2 41.0 mmol/L (22-28) H 12/19/18 13:35 ABG O2 Saturation 93.2 % (95-98) L 12/19/18 13:35 ABG Base Excess 12.3 mmol/L (-2.0-3.0) H 12/19/18 13:35 ABG Hemoglobin 13.9 g/dL (11.7-17.4) 12/19/18 13:35 ABG Carboxyhemoglobin 1.5 % (0.5-1.5) 12/19/18 13:35 POC ABG HHb (Measured) 6.6 % (0.0-5.0) H 12/19/18 13:35 ABG Methemoglobin 0.9 % (0.0-3.0) 12/19/18 13:35 Medardo Test Pos 12/19/18 13:35 A-a O2 Difference 67.0 mm/Hg 12/19/18 13:35 Respiratory Index 1.1 12/19/18 13:35 Hgb O2 Saturation 91.0 % (95.0-98.0) L 12/19/18 13:35 Liter Flow 2.0 12/19/18 13:35 FiO2 28.0 % 12/19/18 13:35 Sodium 135 mmol/L (132-148) 12/20/18 07:44 Potassium 3.9 mmol/L (3.6-5.2) 12/20/18 07:44 Chloride 95 mmol/L (98-107) L 12/20/18 07:44 Carbon Dioxide 36 mmol/L (22-30) H 12/20/18 07:44 Anion Gap 8 (10-20) L 12/20/18 07:44 BUN 22 mg/dL (9-20) H 12/20/18 07:44 Creatinine 0.7 mg/dL (0.8-1.5) L 12/20/18 07:44 Est GFR ( Amer) > 60 12/20/18 07:44 Est GFR (Non-Af Amer) > 60 12/20/18 07:44 POC Glucose (mg/dL) 389 mg/dL (65-110) H 12/20/18 11:20 Random Glucose 170 mg/dL (75-110) H 12/20/18 07:44 Calcium 8.9 mg/dl (8.6-10.4) 12/20/18 07:44 Total Bilirubin 1.3 mg/dL (0.2-1.3) 12/12/18 11:55 AST 51 U/L (17-59) 12/12/18 11:55 ALT 30 U/L (21-72) 12/12/18 11:55 Alkaline Phosphatase 58 U/L (38-126) 12/12/18 11:55 Total Creatine Kinase 966 U/L (55-170) H 12/13/18 01:08 CK-MB (Mass) 16.6 ng/mL (0.0-3.38) H 12/13/18 01:08 Troponin I 0.0130 ng/mL (0.00-0.120) 12/13/18 01:08 NT-Pro-B Natriuret Pep 102 pg/mL (0-900) 12/12/18 11:55 Total Protein 8.3 g/dL (6.3-8.3) 12/12/18 11:55 Albumin 4.8 g/dL (3.5-5.0) 12/12/18 11:55 Globulin 3.5 gm/dL (2.2-3.9) 12/12/18 11:55 Albumin/Globulin Ratio 1.4 (1.0-2.1) 12/12/18 11:55 Influenza Typ A,B (EIA) Pos for influenza a (NEGATIVE) H 12/12/18 11:55 - Hospital Course Hospital Course: HPI: This is a 73 y/o male with a PMH of HTN, asthma, COPD, and arthritis that presents to the ED today with complaints of difficulty breathing. This started about two weeks ago but has been getting worse until this morning his girlfriend found him with severe shortness of breath. He tried using albuterol pump and nebulizer but didn't help him, and walking even two-three steps made the shortness of breath worse. He frequently travels from [place] to [place] to visit family and has been in [place] for the past one month. He also states that he had a subjective fever a couple of days ago with night sweats and since his episodes of difficulty breathing started 2 weeks ago, he has been coughing frequently with yellow sputum production. He also complains of chest pain when he coughs which is described as a sharp pain. During course of admission: Influenza testing returned positive. Patient was placed on droplet isolation precaution, completed 5 day course of Tamiflu successfully. Chest Xray obtained demonstrated no acute findings. Patient was empirically started on azithromycin and rocephin. Blood culture returned positive for coagulase negative staph and initial sputum culture returned positive for yeast species. Patient was then switched over to Avelox for antibiotic course. Patient was also started on duonebulizer and steroid course, mucinex, and tessalon perles for cough. Patient was placed on BiPAP machine, as blood gas showed retention of CO2. Pulmonology (Dr. Day) was consulted for COPD exacerbation in setting of influenza. Patient was weaned off Bipap and placed on O2 via NC as tolerated. Steroids were tapered and patient was kept on nebulizer treatment. Patient's shortness of breath improved during hospital course. He remained afebrile with no leukocytosis or hemodynamic instability. Patient saturated adequately on room air with ambulation, measuring at 90%. He is medically stable for discharge to home, as per Dr. Meeks. Patient reports to be independent, has a cane at home for walking, has home O2 and nebulizer machine at home set up to be used as needed. Daughter (Jenny) is very involved in patient's care. Per Pulmonary recs (Dr. Day), patient does not require Trilogy home system as initially suggested. Patient is instructed to continue medications as prescribed. Scripts have been provided. Please follow up with Pulmonology (Dr. Day) within 3-5 days of discharge for further monitoring and care. Please follow up with your primary care provider (Dr. Matta) within 3-5 days of discharge for continued management of all chronic medical conditions. If symptoms worsen or recur, please return to ED immediately. The following is a summary of hospital course. For further detail, please refer to EMR. - Date & Time of H&P Date of H&P: 12/27/18 Time of H&P: 13:17 Discharge Exam - Head Exam Head Exam: ATRAUMATIC, NORMAL INSPECTION, NORMOCEPHALIC Discharge Plan - Discharge Medications Prescriptions: Albuterol 0.083% [Albuterol 0.083% Inhal Marleny (2.5 mg/3 ml) UD] 3 ml IH Q4H PRN #1 neb PRN Reason: Shortness Of Breath amLODIPine [Norvasc] 5 mg PO DAILY #30 tab Aspirin [Ecotrin] 81 mg PO DAILY #30 tablet. Fluticasone/Vilanterol 200/25 [Breo Ellipta 200-25 Mcg INH] 1 puff INH RQD #1 puff Losartan [Cozaar] 100 mg PO DAILY #30 tab Methylprednisolone [Medrol Dose Pack (21 tabs)] 4 mg PO DAILY #21 mg - Follow Up Plan Condition: GUARDED Disposition: HOME/ ROUTINE Instructions: COPD Including Emphysema (DC), Exacerbation of COPD (DC), Amlodipine, Aspirin, Ipratropium and Albuterol, Losartan, Methylprednisolone Additional Instructions: Patient saturated adequately on room air with ambulation, measuring at 90%. He is medically stable for discharge to home, as per Dr. Meeks. Patient reports to be independent, has a cane at home for walking, has home O2 and nebulizer machine at home set up to be used as needed. Daughter (Jenny) is very involved in patient's care. Per Pulmonary recs (Dr. Day), patient does not require Trilogy home system as initially suggested. Patient is instructed to continue medications as prescribed. Scripts have been provided. Please follow up with Pulmonology (Dr. Day) within 3-5 days of discharge for further monitoring and care. Please follow up with your primary care provider (Dr. Matta) within 3-5 days of discharge for continued management of all chronic medical conditions. If symptoms worsen or recur, please return to ED immediately. Paciente saturado adecuadamente en aire ambiente con deambulacin, con jose medicin del 90%. Es mdicamente estable para el vik hospitalaria, segn el Dr. Meeks. Los informes de los pacientes son independientes, tienen un bastn en garrison casa para caminar, tienen jose mquina de nebulizacin y O2 en el hogar configurados para usarlos segn sea necesario. La hija (Jenny) est muy involucrada en el cuidado del paciente. Segn las recomendaciones pulmonares (Dr. Day), el paciente no requiere el sistema de triloga para el hogar amada se sugiri inicialmente. Se instruye al paciente para que contine los medicamentos segn lo prescrito. Se keane proporcionado scripts. Por favor, deepa un seguimiento con Pulmonology (Dr. Day) dentro de los 3-5 campos posteriores al vik para un seguimiento y cuidado adicionales. Por favor, deepa un seguimiento con garrison proveedor de atencin primaria (Dr. Matta) dentro de los 3-5 campos posteriores al vik para continuar con el tratamiento de todas las afecciones mdicas crnicas. Si los sntomas empeoran o reaparecen, regrese a la DE inmediatamente. Referrals: Andre Day MD [Staff Provider] - <Denzel Meeks - Last Filed: 12/27/18 13:55> Provider - Provider Date of Admission: 12/12/18 14:22 Attending physician: Denzel Meeks DO Consults: 12/19/18 12:01 Pulmonology Consult Routine Comment: physician made aware Consulting Provider: Andre Day Consulting Physician: Andre Day Reason for Consult: copd, on bipap 12/20/18 17:30 Physician Consult Routine Comment: Consulting Provider: Chasidy Ace Consulting Physician: Chasidy Ace Reason for Consult: PLEASE EVAL FO DEPRESSION Hospital Course - Lab Results Lab Results: Micro Results 12/21/18 12:14 Blood-Venous Blood Culture - Final NO GROWTH AFTER 5 DAYS 12/21/18 12:14 Blood-Venous Gram Stain - Final TEST NOT PERFORMED 12/21/18 11:33 Blood-Venous Blood Culture - Final NO GROWTH AFTER 5 DAYS 12/21/18 11:33 Blood-Venous Gram Stain - Final TEST NOT PERFORMED 12/19/18 22:50 Sputum Gram Stain - Final 12/19/18 22:50 Sputum Sputum Culture - Final Yeast Species 12/16/18 07:33 Sputum Gram Stain - Final 12/16/18 07:33 Sputum Sputum Culture - Final Yeast Species 12/12/18 14:01 Blood Blood Culture - Final NO GROWTH AFTER 5 DAYS 12/12/18 14:01 Blood Gram Stain - Final TEST NOT PERFORMED 12/12/18 14:01 Blood S.aureus & Coag-Neg Staph PNA FISH - Final 12/12/18 14:01 Blood Blood Culture - Final Coagulase Neg Staphylococcus 12/12/18 14:01 Blood Gram Stain - Final Most Recent Lab Values WBC 18.3 K/uL (4.8-10.8) H 12/27/18 06:41 RBC 4.62 Mil/uL (4.40-5.90) 12/27/18 06:41 Hgb 14.2 g/dL (12.0-18.0) 12/27/18 06:41 Hct 42.6 % (35.0-51.0) 12/27/18 06:41 MCV 92.2 fL (80.0-94.0) 12/27/18 06:41 MCH 30.6 pg (27.0-31.0) 12/27/18 06:41 MCHC 33.2 g/dL (33.0-37.0) 12/27/18 06:41 RDW 13.5 % (11.5-14.5) 12/27/18 06:41 Plt Count 196 K/uL (130-400) 12/27/18 06:41 MPV 9.5 fL (7.2-11.7) 12/27/18 06:41 Neut % (Auto) 80.1 % (50.0-75.0) H 12/27/18 06:41 Lymph % (Auto) 11.8 % (20.0-40.0) L 12/27/18 06:41 [place] % (Auto) 7.7 % (0.0-10.0) 12/27/18 06:41 Eos % (Auto) 0.2 % (0.0-4.0) 12/27/18 06:41 Baso % (Auto) 0.2 % (0.0-2.0) 12/27/18 06:41 Neut # (Auto) 14.7 K/uL (1.8-7.0) H 12/27/18 06:41 Lymph # (Auto) 2.2 K/uL (1.0-4.3) 12/27/18 06:41 [place] # (Auto) 1.4 K/uL (0.0-0.8) H 12/27/18 06:41 Eos # (Auto) 0.0 K/uL (0.0-0.7) 12/27/18 06:41 Baso # (Auto) 0.0 K/uL (0.0-0.2) 12/27/18 06:41 Neutrophils % (Manual) 85 % (50-75) H 12/25/18 07:57 Band Neutrophils % 2 % (0-2) 12/23/18 08:37 Lymphocytes % (Manual) 7 % (20-40) L 12/25/18 07:57 Reactive Lymphs % 1 % (0-0) H 12/25/18 07:57 Monocytes % (Manual) 7 % (0-10) 12/25/18 07:57 Eosinophils % (Manual) 1 % (0-4) 12/23/18 08:37 Toxic Granulation Present 12/18/18 07:01 Platelet Estimate Normal (NORMAL) 12/25/18 07:57 Large Platelets Present 12/25/18 07:57 Giant Platelets Present 12/14/18 08:05 RBC Morphology Normal 12/25/18 07:57 Polychromasia Slight 12/17/18 07:03 Basophilic Stippling Slight 12/17/18 07:03 Anisocytosis (manual) Slight 12/18/18 07:01 Ovalocytes Slight 12/19/18 07:55 Stomatocytes Slight 12/23/18 08:37 Puncture Site Rra 12/27/18 10:56 pCO2 45 mm/Hg (35-45) 12/27/18 10:56 pO2 54 mm/Hg (80-100) L 12/27/18 10:56 HCO3 28.4 mmol/L (21-28) H 12/27/18 10:56 ABG pH 7.43 (7.35-7.45) 12/27/18 10:56 ABG Total CO2 31.3 mmol/L (22-28) H 12/27/18 10:56 ABG O2 Saturation 91.2 % (95-98) L 12/27/18 10:56 ABG Base Excess 4.8 mmol/L (-2.0-3.0) H 12/27/18 10:56 ABG Hemoglobin 13.8 g/dL (11.7-17.4) 12/27/18 10:56 ABG Carboxyhemoglobin 1.3 % (0.5-1.5) 12/27/18 10:56 POC ABG HHb (Measured) 8.6 % (0.0-5.0) H 12/27/18 10:56 ABG Methemoglobin 1.0 % (0.0-3.0) 12/27/18 10:56 Medardo Test Po 12/27/18 10:56 A-a O2 Difference 39.0 mm/Hg 12/27/18 10:56 Respiratory Index 0.7 12/27/18 10:56 Hgb O2 Saturation 89.1 % (95.0-98.0) L 12/27/18 10:56 Liter Flow 3.0 12/22/18 11:52 FiO2 21.0 % 12/27/18 10:56 Sodium 131 mmol/L (132-148) L 12/27/18 06:41 Potassium 4.1 mmol/L (3.6-5.2) 12/27/18 06:41 Chloride 94 mmol/L (98-107) L 12/27/18 06:41 Carbon Dioxide 32 mmol/L (22-30) H 12/27/18 06:41 Anion Gap 9 (10-20) L 12/27/18 06:41 BUN 16 mg/dL (9-20) 12/27/18 06:41 Creatinine 0.8 mg/dL (0.8-1.5) 12/27/18 06:41 Est GFR ( Amer) > 60 12/27/18 06:41 Est GFR (Non-Af Amer) > 60 12/27/18 06:41 POC Glucose (mg/dL) 136 mg/dL (65-110) H 12/27/18 11:28 Random Glucose 103 mg/dL (75-110) 12/27/18 06:41 Hemoglobin A1c 6.8 % (4.2-6.5) H 12/23/18 13:15 Calcium 8.9 mg/dl (8.6-10.4) 12/27/18 06:41 Phosphorus 4.0 mg/dL (2.5-4.5) 12/27/18 06:41 Magnesium 2.1 mg/dL (1.6-2.3) 12/27/18 06:41 Total Bilirubin 0.6 mg/dL (0.2-1.3) 12/27/18 06:41 AST 42 U/L (17-59) 12/27/18 06:41 ALT 106 U/L (21-72) H 12/27/18 06:41 Alkaline Phosphatase 66 U/L (38-126) 12/27/18 06:41 Total Creatine Kinase 966 U/L (55-170) H 12/13/18 01:08 CK-MB (Mass) 16.6 ng/mL (0.0-3.38) H 12/13/18 01:08 Troponin I 0.0130 ng/mL (0.00-0.120) 12/13/18 01:08 NT-Pro-B Natriuret Pep 102 pg/mL (0-900) 12/12/18 11:55 Total Protein 5.7 g/dL (6.3-8.3) L 12/27/18 06:41 Albumin 3.4 g/dL (3.5-5.0) L 12/27/18 06:41 Globulin 2.2 gm/dL (2.2-3.9) 12/27/18 06:41 Albumin/Globulin Ratio 1.5 (1.0-2.1) 12/27/18 06:41 Influenza Typ A,B (EIA) Pos for influenza a (NEGATIVE) H 12/12/18 11:55 Attending/Attestation - Attestation I have personally seen and examined this patient.: Yes I have fully participated in the care of the patient.: Yes I have reviewed all pertinent clinical information, including history, physical exam and plan: Yes Notes (Text): 12/27/18 13:46 Medical attending: Patient was seen and examined by me. Agree with the above note by the resident The patient was not in any acute distress when we walked him around. He denied shortness of breath, denied chest pain, denied palpitations when walking around in the hallway with us. We had him wear a portable pulse ox walking around and it was 90% to 91% consistently. He already has home O2 and we explained to him that he will need to continue with that He will need to go home with medications including the prednisone which we explained would be very important for him Denzel Meeks
--- NOTE | 2018-12-20 17:02 | CP.PCM.PN ---
Subjective - Date & Time of Evaluation Date of Evaluation: 12/20/18 Time of Evaluation: 16:00 - Subjective Subjective: Patient was seen and examined Patient is improving clinically Admits to dry cough Denies fevers, chest pain, SOB Physical Exam Oxygen Saturation 97% NC General: NAD Cardio: S1, S2 Resp: Wheezing Abd: Soft, Nontender Chest X Ray 12/18- No active disease A/P 1) COPD - Taper steroids -Continue Duonebs -Recommend BiPAP at night -F/u ABG 2) Depression -Psychiatry Consult Objective - Vital Signs/Intake and Output Vital Signs (last 24 hours): Temp Pulse Resp BP Pulse Ox 98.4 F 98 H 20 163/68 H 95 12/20/18 15:40 12/20/18 15:40 12/20/18 15:40 12/20/18 15:40 12/20/18 15:40 Intake and Output: 12/20/18 12/20/18 06:59 18:59 Intake Total 940 Balance 940 - Medications Medications: Current Medications Acetylcysteine (Acetylcysteine 20%) 4 ml INH RQ6 PRN PRN Reason: to induce sputum Albuterol/Ipratropium (Duoneb 3 Mg/0.5 Mg (3 Ml) Ud) 3 ml INH RQ4 [facility] Last Admin: 12/20/18 16:13 Dose: 3 ml Amlodipine Besylate (Norvasc) 5 mg PO DAILY [facility] Last Admin: 12/20/18 10:40 Dose: 5 mg Aspirin (Ecotrin) 81 mg PO DAILY [facility] Last Admin: 12/20/18 10:40 Dose: 81 mg Benzonatate (Tessalon Perles) 100 mg PO TID [facility] Last Admin: 12/20/18 13:35 Dose: 100 mg Budesonide (Pulmicort Respules) 0.5 mg INH RQ12 [facility] Last Admin: 12/20/18 08:35 Dose: 0.5 mg Guaifenesin (Mucinex La) 600 mg PO BID [facility] Last Admin: 12/20/18 10:40 Dose: 600 mg Heparin Sodium (Porcine) (Heparin) 5,000 units SC Q8 [facility] Last Admin: 12/20/18 13:35 Dose: 5,000 units Moxifloxacin HCl (Avelox Iv 400mg/250ml Ns) 400 mg in 250 mls @ 167 mls/hr IVPB Q24H [facility]; Protocol Last Admin: 12/20/18 12:00 Dose: 167 mls/hr Losartan Potassium (Cozaar) 100 mg PO DAILY [facility] Last Admin: 12/20/18 10:40 Dose: 100 mg Prednisone (Prednisone Tab) 40 mg PO DAILY [facility] - Labs Labs: 12/20/18 07:44 12/20/18 07:44
[2018-12-21] MEDS: Albuterol-Ipratrop 3 mg / 0.5 (3 ml) UD INH SCH ×6 (00:10→19:43)
[2018-12-21 06:29] LABS: BASO % 0.2 % (0.0-2.0); HEMOGLOBIN 13.7 g/dL (12.0-18.0); LYMPH # 0.4 K/uL (1.0-4.3); LYMPH % 2.5 % (20.0-40.0); MEAN CELL VOLUME 92.4 fL (80.0-94.0); MEAN CORPUSCULAR HGB CONC 33.5 g/dL (33.0-37.0); MEAN PLATELET VOLUME 9.7 fL (7.2-11.7); MONO # 1.3 K/uL (0.0-0.8); MONO % 8.2 % (0.0-10.0); NEUT # 14.2 K/uL (1.8-7.0); NEUT % 89.1 % (50.0-75.0); NRBC % 0.1 % (0.0-2.0); PLATELET COUNT 218 K/uL (130-400); RBC 4.42 Mil/uL (4.40-5.90); RED CELL DISTRIBUTION WIDTH 13.3 % (11.5-14.5); WHITE BLOOD COUNT 15.9 K/uL (4.8-10.8)
[2018-12-21 06:48] LABS: BLOOD UREA NITROGEN 20 mg/dL (9-20); CALCIUM 9.1 mg/dl (8.6-10.4); GFR NON-AFRICAN AMERICAN > 60
[2018-12-21] MEDS: Budesonide 0.5 mg/2 ml Inhal Susp UD INH SCH ×2 (07:16→19:42)
[2018-12-21 08:39] LABS: BANDS 1 % (0-2); LYMPHOCYTE 3 % (20-40); MONOCYTE 1 % (0-10); NEUTROPHIL 95 % (50-75); PLATELET ESTIMATE NORMAL (NORMAL); TOTAL CELLS COUNTED 100
--- NOTE | 2018-12-21 09:12 | CP.PCM.PN ---
<Shaun Gusman - Last Filed: 12/21/18 14:22> Subjective - Date & Time of Evaluation Date of Evaluation: 12/21/18 Time of Evaluation: 09:11 - Subjective Subjective: PGY-1 Medicine Progress Note for Dr. Spears Patient seen and examined at bedside this AM, using Bipap machine. Attempts were made to wean patient off machine during day but pt preferred to NC this AM. It is unclear what his home oxygen setup is exactly, to be discussed/coordinated with SW. Will continue to wean off BIPAP, as tolerated, and repeat blood cul tures. 12 pt ROS reviewed and otherwise negative at this time. Objective - Vital Signs/Intake and Output Vital Signs (last 24 hours): Temp Pulse Resp BP Pulse Ox 97.3 F L 88 20 150/88 96 12/21/18 07:00 12/21/18 07:00 12/21/18 07:00 12/21/18 07:00 12/21/18 07:00 Intake and Output: 12/21/18 12/21/18 06:59 18:59 Intake Total 480 Balance 480 - Medications Medications: Current Medications Acetylcysteine (Acetylcysteine 20%) 4 ml INH RQ6 PRN PRN Reason: to induce sputum Albuterol/Ipratropium (Duoneb 3 Mg/0.5 Mg (3 Ml) Ud) 3 ml INH RQ4 [facility] Last Admin: 12/21/18 03:15 Dose: 3 ml Amlodipine Besylate (Norvasc) 5 mg PO DAILY [facility] Last Admin: 12/20/18 10:40 Dose: 5 mg Aspirin (Ecotrin) 81 mg PO DAILY [facility] Last Admin: 12/20/18 10:40 Dose: 81 mg Benzonatate (Tessalon Perles) 100 mg PO TID [facility] Last Admin: 12/20/18 17:36 Dose: 100 mg Budesonide (Pulmicort Respules) 0.5 mg INH RQ12 [facility] Last Admin: 12/20/18 20:01 Dose: 0.5 mg Guaifenesin (Mucinex La) 600 mg PO BID [facility] Last Admin: 12/20/18 17:34 Dose: 600 mg Heparin Sodium (Porcine) (Heparin) 5,000 units SC Q8 [facility] Last Admin: 12/21/18 05:38 Dose: 5,000 units Moxifloxacin HCl (Avelox Iv 400mg/250ml Ns) 400 mg in 250 mls @ 167 mls/hr IVPB Q24H [facility]; Protocol Last Admin: 12/20/18 12:00 Dose: 167 mls/hr Losartan Potassium (Cozaar) 100 mg PO DAILY [facility] Last Admin: 12/20/18 10:40 Dose: 100 mg Prednisone (Prednisone Tab) 40 mg PO DAILY [facility] Last Admin: 12/20/18 17:26 Dose: 40 mg - Labs Labs: 12/21/18 06:19 12/21/18 06:19 - Constitutional Appears: Non-toxic, No Acute Distress - Head Exam Head Exam: ATRAUMATIC, NORMAL INSPECTION, NORMOCEPHALIC - Eye Exam Eye Exam: EOMI, Normal appearance, PERRL Pupil Exam: NORMAL ACCOMODATION - ENT Exam ENT Exam: Mucous Membranes Moist, Normal Exam - Neck Exam Neck Exam: Full ROM, Normal Inspection - Respiratory Exam Respiratory Exam: Wheezes, NORMAL BREATHING PATTERN. absent: Accessory Muscle Use, Respiratory Distress - Cardiovascular Exam Cardiovascular Exam: REGULAR RHYTHM, +S1, +S2 - GI/Abdominal Exam GI & Abdominal Exam: Soft, Normal Bowel Sounds. absent: Distended, Firm, Guarding, Rigid, Tenderness, Rebound - Extremities Exam Extremities Exam: Full ROM, Normal Capillary Refill, Normal Inspection. absent: Calf Tenderness, Pedal Edema - Neurological Exam Neurological Exam: Alert, Awake, Oriented x3 - Skin Skin Exam: Dry, Intact, Normal Color, Warm Assessment and Plan - Assessment and Plan (Free Text) Assessment: 73 yo [place] male with past medical history of emphysema, HTN, arthritis admitted for COPD exacerbation 2/2 influenza. Plan: COPD exacerbation 2/2 influenza -influenza positive on admission (12/12) -5 day course of tamiflu completed; droplet isolation discontinued -CXR (12/18): no acute findings -sputum cx (12/16): yeast spp -Blood Cx (12/13): negative x 1, coag negative staph x 1 -Pulmonology (Dr. Day) consulted -taper steroids -continue Duonebs -D/C BiPAP if patient can tolerate -O2 Therapy via NC -duonebs 3q4 is[facility] -pulmicort 0.5 mg q12 -prednisone 40 mg PO daily -tessalon perles 100 mg PO TID -mucinex 600mg po BID -Avelox 400 mg IV q12h Hypertension -ASA 81mg po daily -Losartan 100mg PO daily -Norvasc 5mg PO daily PPx, Diet Disposition -DVT ppx: Heparin 5000u SC q8, SCDs -GI ppx: not indicated at this time -Diet: HHD -PT on board -Dispo: Attempting to wean off Bipap. F/U further recs per Dr. Day. Patient may benefit from Trilogy vent system. Case discussed with Dr. Regan Gusman DO, PGY-1 <Christiano Spears - Last Filed: 12/24/18 14:10> Objective - Vital Signs/Intake and Output Vital Signs (last 24 hours): Temp Pulse Resp BP Pulse Ox 97.7 F 92 H 20 124/83 99 12/24/18 07:00 12/24/18 07:00 12/24/18 07:00 12/24/18 07:00 12/24/18 07:00 - Medications Medications: Current Medications Acetylcysteine (Acetylcysteine 20%) 4 ml INH RQ6 PRN PRN Reason: to induce sputum Last Admin: 12/23/18 19:31 Dose: 4 ml Albuterol/Ipratropium (Duoneb 3 Mg/0.5 Mg (3 Ml) Ud) 3 ml INH RQ4 [facility] Last Admin: 12/24/18 11:18 Dose: 3 ml Amlodipine Besylate (Norvasc) 5 mg PO DAILY [facility] Last Admin: 12/24/18 10:20 Dose: 5 mg Aspirin (Ecotrin) 81 mg PO DAILY [facility] Last Admin: 12/24/18 10:20 Dose: 81 mg Benzonatate (Tessalon Perles) 100 mg PO TID [facility] Last Admin: 12/24/18 13:34 Dose: 100 mg Dextrose (Dextrose 50% Inj) 0 ml IV STAT PRN; Protocol PRN Reason: Hypoglycemia Protocol Dextrose (Glutose 15) 0 gm PO ONCE PRN; Protocol PRN Reason: Hypoglycemia Protocol Fluticasone/Vilanterol (Breo Ellipta 200-25 Mcg Inh) 1 puff INH RQD [facility] Last Admin: 12/24/18 11:17 Dose: Not Given Glucagon (Glucagen Diagnostic Kit) 0 mg IM STAT PRN; Protocol PRN Reason: Hypoglycemia Protocol Guaifenesin (Mucinex La) 600 mg PO BID [facility] Last Admin: 12/24/18 10:20 Dose: 600 mg Heparin Sodium (Porcine) (Heparin) 5,000 units SC Q8 [facility] Last Admin: 12/24/18 13:34 Dose: 5,000 units Dextrose (Dextrose 5% In Water 1000 Ml) 1,000 mls @ 0 mls/hr IV .Q0M PRN; Protocol PRN Reason: Hypoglycemia Protocol Insulin Human Regular (Novolin R) 0 unit SC ACHS [facility]; Protocol Last Admin: 12/24/18 12:31 Dose: Not Given Losartan Potassium (Cozaar) 100 mg PO DAILY [facility] Last Admin: 12/24/18 10:20 Dose: 100 mg Prednisone (Prednisone Tab) 40 mg PO DAILY [facility] Last Admin: 12/24/18 10:20 Dose: 40 mg - Labs Labs: 12/24/18 09:21 12/24/18 09:21 Attending/Attestation - Attestation I have personally seen and examined this patient.: Yes I have fully participated in the care of the patient.: Yes I have reviewed all pertinent clinical information, including history, physical exam and plan: Yes Notes (Text): seen and examined by me,no complain,continue prednisone,aspirin,amlodipine and lorsatan we will discuss with Dr Day
[2018-12-21] MEDS: guaiFENesin 600 mg ER Tab PO SCH ×2 (09:20→17:17)
[2018-12-21] MEDS: Moxifloxacin IV 400mg/250ml NS 400 MG/250 ML BAG IVPB SCH (11:34)
--- NOTE | 2018-12-21 16:17 | CP.PCM.PN ---
Subjective - Date & Time of Evaluation Date of Evaluation: 12/21/18 Time of Evaluation: 15:00 - Subjective Subjective: Patient was seen and examined Patient is improving clinically Admits to minimal SOB that is much improved Denies fevers, chest pain, cough, sputum Patient has insurance issues regarding Trilogy Patient was advised to continue BiPAP at night Physical Exam Oxygen Saturation 96% NC General: NAD Cardio: S1, S2 Resp: Wheezing Abd: Soft, Nontender Chest X Ray 12/18- No active disease A/P 1) COPD - Taper steroids -Continue Duonebs -Recommend BiPAP at night Objective - Vital Signs/Intake and Output Vital Signs (last 24 hours): Temp Pulse Resp BP Pulse Ox 98.2 F 98 H 20 161/84 H 92 L 12/21/18 16:00 12/21/18 16:00 12/21/18 16:00 12/21/18 16:00 12/21/18 16:00 Intake and Output: 12/21/18 12/21/18 06:59 18:59 Intake Total 480 600 Balance 480 600 - Medications Medications: Current Medications Acetylcysteine (Acetylcysteine 20%) 4 ml INH RQ6 PRN PRN Reason: to induce sputum Albuterol/Ipratropium (Duoneb 3 Mg/0.5 Mg (3 Ml) Ud) 3 ml INH RQ4 [facility] Last Admin: 12/21/18 15:42 Dose: 3 ml Amlodipine Besylate (Norvasc) 5 mg PO DAILY [facility] Last Admin: 12/21/18 09:20 Dose: 5 mg Aspirin (Ecotrin) 81 mg PO DAILY [facility] Last Admin: 12/21/18 09:19 Dose: 81 mg Benzonatate (Tessalon Perles) 100 mg PO TID [facility] Last Admin: 12/21/18 13:20 Dose: 100 mg Budesonide (Pulmicort Respules) 0.5 mg INH RQ12 [facility] Last Admin: 12/21/18 07:16 Dose: 0.5 mg Guaifenesin (Mucinex La) 600 mg PO BID [facility] Last Admin: 12/21/18 09:20 Dose: 600 mg Heparin Sodium (Porcine) (Heparin) 5,000 units SC Q8 [facility] Last Admin: 12/21/18 13:20 Dose: 5,000 units Moxifloxacin HCl (Avelox Iv 400mg/250ml Ns) 400 mg in 250 mls @ 167 mls/hr IVPB Q24H [facility]; Protocol Last Admin: 12/21/18 11:34 Dose: 167 mls/hr Losartan Potassium (Cozaar) 100 mg PO DAILY [facility] Last Admin: 12/21/18 09:20 Dose: 100 mg Prednisone (Prednisone Tab) 40 mg PO DAILY [facility] Last Admin: 12/21/18 09:20 Dose: 40 mg - Labs Labs: 12/21/18 06:19 12/21/18 06:19
[2018-12-21] MEDS ORDERED: Glucagon Recombinant 1 mg Inj IM PRN (21:58)
[2018-12-21] MEDS ORDERED: (Novolin R) Insulin Human Regular 100 units/ml vial SC ONE (21:58)
[2018-12-21] MEDS ORDERED: Dextrose 50% SYRINGE Inj (50 ml) IV PRN (21:58)
[2018-12-22] MEDS: Albuterol-Ipratrop 3 mg / 0.5 (3 ml) UD INH SCH ×7 (00:12→23:48)
--- NOTE | 2018-12-22 06:48 | CP.PCM.PN ---
<Shaun Gusman - Last Filed: 12/22/18 13:41> Subjective - Date & Time of Evaluation Date of Evaluation: 12/22/18 Time of Evaluation: 06:48 - Subjective Subjective: PGY-1 Medicine Progress Note for Dr. Pierre Patient seen and examined at bedside this AM, resting comfortably on 2L NC. Using BIPAP at night, as instructed. No acute somatic complaints at this time. Patient would benefit from Trilogy system upon discharge, awaiting insurance authorization. Objective - Vital Signs/Intake and Output Vital Signs (last 24 hours): Temp Pulse Resp BP Pulse Ox 98 F 86 20 158/87 H 94 L 12/21/18 23:10 12/22/18 06:10 12/21/18 23:10 12/21/18 23:10 12/21/18 23:10 Intake and Output: 12/21/18 12/22/18 18:59 06:59 Intake Total 600 Balance 600 - Medications Medications: Current Medications Acetylcysteine (Acetylcysteine 20%) 4 ml INH RQ6 PRN PRN Reason: to induce sputum Albuterol/Ipratropium (Duoneb 3 Mg/0.5 Mg (3 Ml) Ud) 3 ml INH RQ4 [facility] Last Admin: 12/22/18 03:03 Dose: 3 ml Amlodipine Besylate (Norvasc) 5 mg PO DAILY [facility] Last Admin: 12/21/18 09:20 Dose: 5 mg Aspirin (Ecotrin) 81 mg PO DAILY [facility] Last Admin: 12/21/18 09:19 Dose: 81 mg Benzonatate (Tessalon Perles) 100 mg PO TID [facility] Last Admin: 12/21/18 17:17 Dose: 100 mg Budesonide (Pulmicort Respules) 0.5 mg INH RQ12 [facility] Last Admin: 12/21/18 19:42 Dose: 0.5 mg Dextrose (Dextrose 50% Inj) 0 ml IV STAT PRN; Protocol PRN Reason: Hypoglycemia Protocol Dextrose (Glutose 15) 0 gm PO ONCE PRN; Protocol PRN Reason: Hypoglycemia Protocol Glucagon (Glucagen Diagnostic Kit) 0 mg IM STAT PRN; Protocol PRN Reason: Hypoglycemia Protocol Guaifenesin (Mucinex La) 600 mg PO BID [facility] Last Admin: 12/21/18 17:17 Dose: 600 mg Heparin Sodium (Porcine) (Heparin) 5,000 units SC Q8 [facility] Last Admin: 12/22/18 05:06 Dose: 5,000 units Moxifloxacin HCl (Avelox Iv 400mg/250ml Ns) 400 mg in 250 mls @ 167 mls/hr IVPB Q24H [facility]; Protocol Last Admin: 12/21/18 11:34 Dose: 167 mls/hr Dextrose (Dextrose 5% In Water 1000 Ml) 1,000 mls @ 0 mls/hr IV .Q0M PRN; Protocol PRN Reason: Hypoglycemia Protocol Losartan Potassium (Cozaar) 100 mg PO DAILY [facility] Last Admin: 12/21/18 09:20 Dose: 100 mg Prednisone (Prednisone Tab) 40 mg PO DAILY [facility] Last Admin: 12/21/18 09:20 Dose: 40 mg - Labs Labs: 12/21/18 06:19 12/21/18 06:19 - Constitutional Appears: Non-toxic, No Acute Distress - Head Exam Head Exam: ATRAUMATIC, NORMAL INSPECTION, NORMOCEPHALIC - Eye Exam Eye Exam: EOMI, Normal appearance Pupil Exam: NORMAL ACCOMODATION - ENT Exam ENT Exam: Mucous Membranes Moist, Normal Exam - Neck Exam Neck Exam: Full ROM, Normal Inspection - Respiratory Exam Respiratory Exam: Wheezes, NORMAL BREATHING PATTERN. absent: Accessory Muscle Use, Rales, Respiratory Distress, Stridor - Cardiovascular Exam Cardiovascular Exam: REGULAR RHYTHM, +S1, +S2 - GI/Abdominal Exam GI & Abdominal Exam: Soft, Normal Bowel Sounds. absent: Distended, Firm, Guarding, Rigid, Tenderness, Rebound - Extremities Exam Extremities Exam: Full ROM, Normal Capillary Refill, Normal Inspection - Back Exam Back Exam: NORMAL INSPECTION - Neurological Exam Neurological Exam: Alert, Awake, Oriented x3 - Skin Skin Exam: Dry, Intact, Normal Color, Warm Assessment and Plan - Assessment and Plan (Free Text) Assessment: 73 yo [place] male with past medical history of emphysema, HTN, arthritis admitted for COPD exacerbation 2/2 influenza. Plan: COPD exacerbation 2/2 influenza -influenza positive on admission (12/12) -5 day course of tamiflu completed; droplet isolation discontinued -CXR (12/18): no acute findings -sputum cx (12/16): yeast spp -Blood Cx (12/13): negative x 1, coag negative staph x 1 -Repeat Blood cultures: negative -Pulmonology (Dr. Day) consulted -taper steroids -continue Duonebs -D/C BiPAP if patient can tolerate -O2 Therapy via NC -Duonebs 3q4 [facility] -Pulmicort 0.5 mg q12 -Prednisone 40 mg PO daily -Tessalon perles 100 mg PO TID -Mucinex 600mg po BID -Avelox 400 mg IV q12h d/c'd Hypertension -ASA 81mg po daily -Losartan 100mg PO daily -Norvasc 5mg PO daily PPx, Diet Disposition -DVT ppx: Heparin 5000u SC q8, SCDs -GI ppx: not indicated at this time -Diet: HHD -PT on board -Dispo: Patient instructed to use BIPAP at night. Patient needs Trilogy system prior to discharge, per Dr. Day. Awaiting insurance authorization Case discussed with Dr. Gabby Gusman DO, PGY-1 <Chalo Pierre - Last Filed: 12/22/18 15:17> Objective - Vital Signs/Intake and Output Vital Signs (last 24 hours): Temp Pulse Resp BP Pulse Ox 97.9 F 89 20 145/78 95 12/22/18 07:30 12/22/18 07:30 12/22/18 07:30 12/22/18 07:30 12/22/18 07:30 Intake and Output: 12/22/18 12/22/18 06:59 18:59 Intake Total 600 Balance 600 - Medications Medications: Current Medications Acetylcysteine (Acetylcysteine 20%) 4 ml INH RQ6 PRN PRN Reason: to induce sputum Albuterol/Ipratropium (Duoneb 3 Mg/0.5 Mg (3 Ml) Ud) 3 ml INH RQ4 [facility] Last Admin: 12/22/18 11:35 Dose: 3 ml Amlodipine Besylate (Norvasc) 5 mg PO DAILY [facility] Last Admin: 12/22/18 10:33 Dose: 5 mg Aspirin (Ecotrin) 81 mg PO DAILY [facility] Last Admin: 12/22/18 10:34 Dose: 81 mg Benzonatate (Tessalon Perles) 100 mg PO TID [facility] Last Admin: 12/22/18 13:23 Dose: 100 mg Budesonide (Pulmicort Respules) 0.5 mg INH RQ12 [facility] Last Admin: 12/22/18 08:02 Dose: 0.5 mg Dextrose (Dextrose 50% Inj) 0 ml IV STAT PRN; Protocol PRN Reason: Hypoglycemia Protocol Dextrose (Glutose 15) 0 gm PO ONCE PRN; Protocol PRN Reason: Hypoglycemia Protocol Glucagon (Glucagen Diagnostic Kit) 0 mg IM STAT PRN; Protocol PRN Reason: Hypoglycemia Protocol Guaifenesin (Mucinex La) 600 mg PO BID [facility] Last Admin: 12/22/18 10:33 Dose: 600 mg Guaifenesin (Robitussin) 100 mg PO Q4H PRN PRN Reason: Cough Heparin Sodium (Porcine) (Heparin) 5,000 units SC Q8 [facility] Last Admin: 12/22/18 13:23 Dose: 5,000 units Dextrose (Dextrose 5% In Water 1000 Ml) 1,000 mls @ 0 mls/hr IV .Q0M PRN; Protocol PRN Reason: Hypoglycemia Protocol Losartan Potassium (Cozaar) 100 mg PO DAILY [facility] Last Admin: 12/22/18 10:34 Dose: 100 mg Prednisone (Prednisone Tab) 40 mg PO DAILY [facility] Last Admin: 12/22/18 10:33 Dose: 40 mg - Labs Labs: 12/22/18 08:24 12/22/18 08:24 Attending/Attestation - Attestation I have personally seen and examined this patient.: Yes I have fully participated in the care of the patient.: Yes I have reviewed all pertinent clinical information, including history, physical exam and plan: Yes
[2018-12-22] MEDS: Budesonide 0.5 mg/2 ml Inhal Susp UD INH SCH ×2 (08:02→20:02)
[2018-12-22 08:30] LABS: BASO % 0.1 % (0.0-2.0); EOS % 0.4 % (0.0-4.0); HEMOGLOBIN 13.8 g/dL (12.0-18.0); LYMPH # 1.4 K/uL (1.0-4.3); LYMPH % 10.9 % (20.0-40.0); MEAN CELL VOLUME 91.8 fL (80.0-94.0); MEAN CORPUSCULAR HEMOGLOBIN 31.7 pg (27.0-31.0); MEAN CORPUSCULAR HGB CONC 34.5 g/dL (33.0-37.0); MEAN PLATELET VOLUME 9.7 fL (7.2-11.7); MONO # 1.2 K/uL (0.0-0.8); MONO % 9.3 % (0.0-10.0); NEUT # 10.1 K/uL (1.8-7.0); NEUT % 79.3 % (50.0-75.0); RBC 4.35 Mil/uL (4.40-5.90); RED CELL DISTRIBUTION WIDTH 12.9 % (11.5-14.5); WHITE BLOOD COUNT 12.8 K/uL (4.8-10.8)
[2018-12-22 08:44] LABS: BLOOD UREA NITROGEN 17 mg/dL (9-20); CALCIUM 8.7 mg/dl (8.6-10.4); GFR NON-AFRICAN AMERICAN > 60
[2018-12-22] MEDS: guaiFENesin 600 mg ER Tab PO SCH ×2 (10:33→18:07)
[2018-12-22] MEDS: Moxifloxacin IV 400mg/250ml NS 400 MG/250 ML BAG IVPB SCH (11:02)
--- NOTE | 2018-12-22 11:47 | PCM.PSYCH ---
Initial Psychiatric Evaluation - Initial Psychiatric Evaluation Type of Admission: Voluntary Legal Status: Capacity History of Present Illness and Precipitating Events: Psych consult note for Dr Middleton Consult for psych: evaluation for depression Patient is a 73 year old [place]an male with pmhx of COPD, HTN, asthma, arthritis, depression. Patient seen for evaluation of depression. Patient states feeling well at this time, often worries about when he will be better from his COPD condition, but otherwise states not feeling depressed. Patient has never taken any antidepressant or psych medications, or follows a psychiatry doctor outpatient. Admits to having a good mood. States having difficulty initiating sleep and staying asleep, but patient said he always had that since younger age, does not have any persistent thoughts that prevents him from sleep. Patient has interest to do his daily activities, denies any guilt, lack of energy, concentration. Denies any loss of appetite, no psychomotor issues. Denies any suicidal or homicidal ideation or plan. Has never attempted suicide in the past. Denies any other psych issues. Pmhx: HTN, COPD, asthma, arthritis, depression social hx: former smoker of 1 pack per day for 50 years, quitted 3 years ago, social drinker, denies illicit drug use. fam psych hx: denies Current Medications: Active Medications Generic Name Dose Route Start Last Admin Trade Name Freq PRN Reason Stop Dose Admin Acetylcysteine 4 ml 12/15/18 16:26 Acetylcysteine 20% INH RQ6 PRN to induce sputum Albuterol/Ipratropium 3 ml 12/12/18 16:00 12/22/18 08:01 Duoneb 3 Mg/0.5 Mg (3 Ml) Ud INH 3 ml RQ4 [facility] Administration Amlodipine Besylate 5 mg 12/14/18 10:45 12/22/18 10:33 Norvasc PO 5 mg DAILY [facility] Administration Aspirin 81 mg 12/12/18 15:45 12/22/18 10:34 Ecotrin PO 81 mg DAILY [facility] Administration Benzonatate 100 mg 12/13/18 14:00 12/22/18 10:34 Tessalon Perles PO 100 mg TID [facility] Administration Budesonide 0.5 mg 12/12/18 20:00 12/22/18 08:02 Pulmicort Respules INH 0.5 mg RQ12 [facility] Administration Dextrose 0 ml 12/21/18 21:58 Dextrose 50% Inj IV STAT PRN Hypoglycemia Protocol Protocol Dextrose 0 gm 12/21/18 21:58 Glutose 15 PO ONCE PRN Hypoglycemia Protocol Protocol Glucagon 0 mg 12/21/18 21:58 Glucagen Diagnostic Kit IM STAT PRN Hypoglycemia Protocol Protocol Guaifenesin 600 mg 12/13/18 18:00 12/22/18 10:33 Mucinex La PO 600 mg BID [facility] Administration Heparin Sodium (Porcine) 5,000 units 12/12/18 22:00 12/22/18 05:06 Heparin SC 5,000 units Q8 [facility] Administration Moxifloxacin HCl 400 mg in 250 mls @ 167 mls/hr 12/15/18 12:00 12/22/18 11:02 Avelox Iv 400mg/250ml Ns IVPB 167 mls/hr Q24H [facility] Administration Protocol Dextrose 1,000 mls @ 0 mls/hr 12/21/18 21:58 Dextrose 5% In Water 1000 Ml IV .Q0M PRN Hypoglycemia Protocol Protocol Per Protocol Losartan Potassium 100 mg 12/12/18 16:00 12/22/18 10:34 Cozaar PO 100 mg DAILY [facility] Administration Prednisone 40 mg 12/20/18 17:00 12/22/18 10:33 Prednisone Tab PO 40 mg DAILY [facility] Administration Past Psychiatric History - Past Psychiatric History Pertinent Medical Hx (Current Medical&Sleep Prob, Allergies): Allergies Allergy/AdvReac Type Severity Reaction Status Date / Time No Known Allergies Allergy Verified 12/12/18 10:58 Albuterol 0.083% [Albuterol 0.083% Inhal Marleny (2.5 mg/3 ml) UD] 3 ml IH Q4H PRN #1 neb 12/20/18 Aspirin [Ecotrin] 81 mg PO DAILY #30 tablet. 12/20/18 Losartan [Cozaar] 100 mg PO DAILY #30 tab 12/20/18 Methylprednisolone [Medrol Dose Pack (21 tabs)] 4 mg PO DAILY #21 mg 12/20/18 amLODIPine [Norvasc] 5 mg PO DAILY #30 tab 12/20/18 Review of Systems - Psychiatric Psychiatric: Abnormal Sleep Pattern. absent: Anxiety, Change in Appetite, Depression, Difficulty Concentrating, Homicidal Ideation, Hopelessness, Irritability, Suicidal Ideation Mental Status Examination - Personal Presentation Personal Presentation: Looks stated age - Affect Affect: Broad - Motor Activity Motor Activity: Calm - Reliability in Providing Information Reliability in Providing Information: Good - Speech Speech: Organized - Mood Mood: Neutral - Formal Thought Process Formal Thought Process: No Impairment - Cognitive Functions Orientation: Person, Place, Situation, Time Sensorium: Alert Attention/Concentration: Attentive Abstract Thinking: Rembrandt Estimate of Intelligence: Average Judgement: Intact, as evidence by: Insight regarding need for hospitalization Memory: Remote intact, as evidenced by: Abilit to recall sig. life events - Strength & Assets Inventory Strength & Assets Inventory: Cooperative DSM 5 DX - DSM 5 DSM 5 Diagnosis: Depressive disorder, mild - Recommended/Plan of Treatment Treatment Recommendations and Plan of Treatment: Continue medical management, pending home trilogy set up Support given, psycho-education provided. After care discussed. Will continue to follow patient in house Plan d/w Dr Kane Mcallister, PGY-1
[2018-12-22 11:55] LABS: ABG ALLEN TEST POS; ARTERIAL BLOOD GAS HCO3 34.3 mmol/L (21-28); ARTERIAL BLOOD GAS HEMOGLOBIN 13.9 g/dL (11.7-17.4); ARTERIAL BLOOD GAS O2 SAT 93.6 % (95-98); ARTERIAL BLOOD GAS PCO2 54 mm/Hg (35-45); ARTERIAL BLOOD GAS PH 7.46 (7.35-7.45); ARTERIAL BLOOD GAS PO2 55 mm/Hg (80-100); ARTERIAL BLOOD GAS TCO2 40.1 mmol/L (22-28)
[2018-12-22] MEDS ORDERED: guaiFENesin 100 mg/5 ml Syrup UD PO PRN (13:52)
[2018-12-22] MEDS ORDERED: (Novolin R) Insulin Human Regular 100 units/ml vial SC ONE (21:23)
[2018-12-23] MEDS: Albuterol-Ipratrop 3 mg / 0.5 (3 ml) UD INH SCH ×6 (03:22→23:54)
[2018-12-23] MEDS: Budesonide 0.5 mg/2 ml Inhal Susp UD INH SCH (08:17)
[2018-12-23 08:44] LABS: BASO % 0.2 % (0.0-2.0); EOS # 0.1 K/uL (0.0-0.7); EOS % 0.6 % (0.0-4.0); HEMOGLOBIN 13.9 g/dL (12.0-18.0); LYMPH # 1.4 K/uL (1.0-4.3); LYMPH % 9.2 % (20.0-40.0); MEAN CELL VOLUME 92.2 fL (80.0-94.0); MEAN CORPUSCULAR HEMOGLOBIN 30.6 pg (27.0-31.0); MEAN CORPUSCULAR HGB CONC 33.2 g/dL (33.0-37.0); MEAN PLATELET VOLUME 9.6 fL (7.2-11.7); MONO # 1.2 K/uL (0.0-0.8); MONO % 7.8 % (0.0-10.0); NEUT # 12.5 K/uL (1.8-7.0); NEUT % 82.2 % (50.0-75.0); PLATELET COUNT 202 K/uL (130-400); RBC 4.54 Mil/uL (4.40-5.90); RED CELL DISTRIBUTION WIDTH 13.5 % (11.5-14.5); WHITE BLOOD COUNT 15.2 K/uL (4.8-10.8)
[2018-12-23 08:56] LABS: BLOOD UREA NITROGEN 17 mg/dL (9-20); CALCIUM 8.6 mg/dl (8.6-10.4); GFR NON-AFRICAN AMERICAN > 60
--- NOTE | 2018-12-23 09:12 | CP.PCM.PN ---
<Lauren Ortega - Last Filed: 12/23/18 14:41> Subjective - Date & Time of Evaluation Date of Evaluation: 12/23/18 Time of Evaluation: 09:11 - Subjective Subjective: PGY-1 Lauren Ortega D.O. Medicine progress note for Dr. Pierre's service: Patient was seen and examined this morning. He says he continues to feel better. He is using NC 2 L during the day and BiPAP at night. He says he still has a mild cough. Denies chest pain, palpitations. He is ambulating without difficulty. Objective - Vital Signs/Intake and Output Vital Signs (last 24 hours): Temp Pulse Resp BP Pulse Ox 98.0 F 94 H 20 127/79 94 L 12/23/18 07:00 12/23/18 07:00 12/23/18 07:00 12/23/18 07:00 12/23/18 07:00 - Medications Medications: Current Medications Acetylcysteine (Acetylcysteine 20%) 4 ml INH RQ6 PRN PRN Reason: to induce sputum Albuterol/Ipratropium (Duoneb 3 Mg/0.5 Mg (3 Ml) Ud) 3 ml INH RQ4 [facility] Last Admin: 12/23/18 08:15 Dose: 3 ml Amlodipine Besylate (Norvasc) 5 mg PO DAILY [facility] Last Admin: 12/22/18 10:33 Dose: 5 mg Aspirin (Ecotrin) 81 mg PO DAILY [facility] Last Admin: 12/22/18 10:34 Dose: 81 mg Benzonatate (Tessalon Perles) 100 mg PO TID [facility] Last Admin: 12/22/18 18:07 Dose: 100 mg Budesonide (Pulmicort Respules) 0.5 mg INH RQ12 [facility] Last Admin: 12/23/18 08:17 Dose: 0.5 mg Dextrose (Dextrose 50% Inj) 0 ml IV STAT PRN; Protocol PRN Reason: Hypoglycemia Protocol Dextrose (Glutose 15) 0 gm PO ONCE PRN; Protocol PRN Reason: Hypoglycemia Protocol Glucagon (Glucagen Diagnostic Kit) 0 mg IM STAT PRN; Protocol PRN Reason: Hypoglycemia Protocol Guaifenesin (Mucinex La) 600 mg PO BID [facility] Last Admin: 12/22/18 18:07 Dose: 600 mg Guaifenesin (Robitussin) 100 mg PO Q4H PRN PRN Reason: Cough Heparin Sodium (Porcine) (Heparin) 5,000 units SC Q8 [facility] Last Admin: 12/23/18 06:21 Dose: 5,000 units Dextrose (Dextrose 5% In Water 1000 Ml) 1,000 mls @ 0 mls/hr IV .Q0M PRN; Protocol PRN Reason: Hypoglycemia Protocol Losartan Potassium (Cozaar) 100 mg PO DAILY [facility] Last Admin: 12/22/18 10:34 Dose: 100 mg Prednisone (Prednisone Tab) 40 mg PO DAILY [facility] Last Admin: 12/22/18 10:33 Dose: 40 mg - Labs Labs: 12/23/18 08:37 12/23/18 08:37 - Constitutional Appears: Non-toxic, No Acute Distress - Head Exam Head Exam: ATRAUMATIC, NORMAL INSPECTION - Eye Exam Eye Exam: EOMI, Normal appearance - ENT Exam ENT Exam: Mucous Membranes Moist - Neck Exam Neck Exam: Normal Inspection. absent: Lymphadenopathy - Respiratory Exam Respiratory Exam: Wheezes, NORMAL BREATHING PATTERN. absent: Respiratory Distress - Cardiovascular Exam Cardiovascular Exam: RRR, +S1, +S2 - GI/Abdominal Exam GI & Abdominal Exam: Soft. absent: Distended, Tenderness - Extremities Exam Extremities Exam: Normal Inspection. absent: Pedal Edema - Neurological Exam Neurological Exam: Alert, Awake, CN II-XII Intact, Normal Gait, Oriented x3 - Psychiatric Exam Psychiatric exam: Normal Affect, Normal Mood - Skin Skin Exam: Dry, Normal Color, Warm Assessment and Plan - Assessment and Plan (Free Text) Assessment: 73 yo [place]ian male with past medical history of emphysema, HTN, arthritis admitted for COPD exacerbation 2/2 influenza. Plan: COPD exacerbation 2/2 influenza, acute, improving - Influenza A positive on admission (12/12) - CXR (12/18): no acute findings - Afebrile - No leukocytosis on admission- now mild 2/2 steroids - 5-day course of Tamiflu completed - Sputum Cx (12/16): yeast spp - Blood Cx (12/13): negative x 1, coag negative staph x 1 - Repeat Blood cultures: no growth >48 hrs - Completed course of Avelox - Duonebs Q4H [facility] - Start Breo Ellipta daily - Mucomyst Q6H PRN - Prednisone 40 mg PO daily- taper - Tessalon perles 100 mg PO TID - Mucinex 600 mg PO BID - Pending Trilogy set-up at home - Pulmonology consulted (Shay) - PT- rec home Hypertension, chronic - Vitals Q6H - Losartan 100 mg PO daily - Norvasc 5 mg PO daily Type 2 diabetes mellitus, chronic - A1c 6.8 - Accuchecks ACHS - Hypoglycemic protocol - ISS low - ASA 81 mg PO daily Depression, chronic - Psychiatry consulted (Db) Ppx: VTE: SCDs, Heparin 5000 units SC Q8H GI: not indicated at this time Diet: Heart healthy Case discussed with attending, Dr. Pierre. <Chalo Pierre - Last Filed: 12/23/18 17:37> Objective - Vital Signs/Intake and Output Vital Signs (last 24 hours): Temp Pulse Resp BP Pulse Ox 98.9 F 99 H 20 146/83 96 12/23/18 15:30 12/23/18 15:30 12/23/18 15:30 12/23/18 15:30 12/23/18 15:30 Intake and Output: 12/23/18 12/23/18 06:59 18:59 Intake Total 400 Balance 400 - Medications Medications: Current Medications Acetylcysteine (Acetylcysteine 20%) 4 ml INH RQ6 PRN PRN Reason: to induce sputum Albuterol/Ipratropium (Duoneb 3 Mg/0.5 Mg (3 Ml) Ud) 3 ml INH RQ4 [facility] Last Admin: 12/23/18 15:51 Dose: 3 ml Amlodipine Besylate (Norvasc) 5 mg PO DAILY [facility] Last Admin: 12/23/18 09:52 Dose: 5 mg Aspirin (Ecotrin) 81 mg PO DAILY [facility] Last Admin: 12/23/18 09:52 Dose: 81 mg Benzonatate (Tessalon Perles) 100 mg PO TID [facility] Last Admin: 12/23/18 13:21 Dose: 100 mg Dextrose (Dextrose 50% Inj) 0 ml IV STAT PRN; Protocol PRN Reason: Hypoglycemia Protocol Dextrose (Glutose 15) 0 gm PO ONCE PRN; Protocol PRN Reason: Hypoglycemia Protocol Fluticasone/Vilanterol (Breo Ellipta 200-25 Mcg Inh) 1 puff INH RQD [facility] Glucagon (Glucagen Diagnostic Kit) 0 mg IM STAT PRN; Protocol PRN Reason: Hypoglycemia Protocol Guaifenesin (Mucinex La) 600 mg PO BID [facility] Last Admin: 12/23/18 09:52 Dose: 600 mg Heparin Sodium (Porcine) (Heparin) 5,000 units SC Q8 [facility] Last Admin: 12/23/18 13:21 Dose: 5,000 units Dextrose (Dextrose 5% In Water 1000 Ml) 1,000 mls @ 0 mls/hr IV .Q0M PRN; Protocol PRN Reason: Hypoglycemia Protocol Insulin Human Regular (Novolin R) 0 unit SC ACHS [facility]; Protocol Losartan Potassium (Cozaar) 100 mg PO DAILY [facility] Last Admin: 12/23/18 09:53 Dose: 100 mg Prednisone (Prednisone Tab) 40 mg PO DAILY [facility] Last Admin: 12/23/18 09:52 Dose: 40 mg - Labs Labs: 12/23/18 08:37 12/23/18 08:37 Attending/Attestation - Attestation I have personally seen and examined this patient.: Yes I have fully participated in the care of the patient.: Yes I have reviewed all pertinent clinical information, including history, physical exam and plan: Yes
[2018-12-23] MEDS: guaiFENesin 600 mg ER Tab PO SCH ×2 (09:52→19:41)
[2018-12-23 09:53] LABS: NEUTROPHIL 79 % (50-75); TOTAL CELLS COUNTED 100
[2018-12-23 09:56] LABS: BANDS 2 % (0-2); EOSINOPHIL 1 % (0-4); LYMPHOCYTE 11 % (20-40); MONOCYTE 7 % (0-10); PLATELET ESTIMATE NORMAL (NORMAL)
[2018-12-23 09:57] LABS: STOMATOCYTES SLIGHT
[2018-12-23] MEDS: (Novolin R) Insulin Human Regular 100 units/ml vial SC SCH ×2 (19:41→22:28)
[2018-12-24] MEDS: Albuterol-Ipratrop 3 mg / 0.5 (3 ml) UD INH SCH ×5 (03:23→19:38)
--- NOTE | 2018-12-24 03:44 | CP.PCM.PN ---
<Shaun Gusman - Last Filed: 12/24/18 03:42> Subjective - Date & Time of Evaluation Date of Evaluation: 12/24/18 Time of Evaluation: 03:42 - Subjective Subjective: PGY-1 Medicine Progress Note for Hospitalist service Patient seen and examined at bedside, resting comfortably and in no acute distress. No overnight events reported. Continues to use BIPAP at night, switches to NC during day. No acute somatic complaints. 12 pt ROS reviewed and negative. Objective - Vital Signs/Intake and Output Vital Signs (last 24 hours): Temp Pulse Resp BP Pulse Ox 97.5 F L 100 H 20 140/89 95 12/23/18 23:10 12/23/18 23:55 12/23/18 23:10 12/23/18 23:10 12/23/18 23:10 Intake and Output: 12/23/18 12/24/18 18:59 06:59 Intake Total 400 Balance 400 - Medications Medications: Current Medications Acetylcysteine (Acetylcysteine 20%) 4 ml INH RQ6 PRN PRN Reason: to induce sputum Last Admin: 12/23/18 19:31 Dose: 4 ml Albuterol/Ipratropium (Duoneb 3 Mg/0.5 Mg (3 Ml) Ud) 3 ml INH RQ4 [facility] Last Admin: 12/24/18 03:23 Dose: 3 ml Amlodipine Besylate (Norvasc) 5 mg PO DAILY [facility] Last Admin: 12/23/18 09:52 Dose: 5 mg Aspirin (Ecotrin) 81 mg PO DAILY [facility] Last Admin: 12/23/18 09:52 Dose: 81 mg Benzonatate (Tessalon Perles) 100 mg PO TID [facility] Last Admin: 12/23/18 19:41 Dose: 100 mg Dextrose (Dextrose 50% Inj) 0 ml IV STAT PRN; Protocol PRN Reason: Hypoglycemia Protocol Dextrose (Glutose 15) 0 gm PO ONCE PRN; Protocol PRN Reason: Hypoglycemia Protocol Fluticasone/Vilanterol (Breo Ellipta 200-25 Mcg Inh) 1 puff INH RQD [facility] Glucagon (Glucagen Diagnostic Kit) 0 mg IM STAT PRN; Protocol PRN Reason: Hypoglycemia Protocol Guaifenesin (Mucinex La) 600 mg PO BID [facility] Last Admin: 12/23/18 19:41 Dose: 600 mg Heparin Sodium (Porcine) (Heparin) 5,000 units SC Q8 [facility] Last Admin: 12/23/18 22:27 Dose: 5,000 units Dextrose (Dextrose 5% In Water 1000 Ml) 1,000 mls @ 0 mls/hr IV .Q0M PRN; Protocol PRN Reason: Hypoglycemia Protocol Insulin Human Regular (Novolin R) 0 unit SC ACHS [facility]; Protocol Last Admin: 12/23/18 22:28 Dose: Not Given Losartan Potassium (Cozaar) 100 mg PO DAILY [facility] Last Admin: 12/23/18 09:53 Dose: 100 mg Prednisone (Prednisone Tab) 40 mg PO DAILY [facility] Last Admin: 12/23/18 09:52 Dose: 40 mg - Labs Labs: 12/23/18 08:37 12/23/18 08:37 - Constitutional Appears: Non-toxic, No Acute Distress - Head Exam Head Exam: ATRAUMATIC, NORMAL INSPECTION, NORMOCEPHALIC - Eye Exam Eye Exam: EOMI, Normal appearance, PERRL Pupil Exam: NORMAL ACCOMODATION - ENT Exam ENT Exam: Mucous Membranes Moist, Normal Exam - Neck Exam Neck Exam: Full ROM, Normal Inspection - Respiratory Exam Respiratory Exam: Wheezes, NORMAL BREATHING PATTERN - Cardiovascular Exam Cardiovascular Exam: REGULAR RHYTHM, +S1, +S2 - GI/Abdominal Exam GI & Abdominal Exam: Soft, Normal Bowel Sounds. absent: Distended, Firm, Guarding, Rigid, Rebound - Extremities Exam Extremities Exam: Full ROM, Normal Capillary Refill, Normal Inspection - Back Exam Back Exam: NORMAL INSPECTION - Neurological Exam Neurological Exam: Alert, Awake, Oriented x3 - Skin Skin Exam: Dry, Intact, Normal Color, Warm Assessment and Plan - Assessment and Plan (Free Text) Assessment: 73 yo [place]ian male with past medical history of emphysema, HTN, arthritis admitted for COPD exacerbation 2/2 influenza. Plan: COPD exacerbation 2/2 influenza -influenza positive on admission (12/12) -5 day course of tamiflu completed; droplet isolation discontinued -CXR (12/18): no acute findings -sputum cx (12/16): yeast spp -Blood Cx (12/13): negative x 1, coag negative staph x 1 -Repeat Blood cultures: negative -Pulmonology (Dr. Day) consulted -taper steroids -continue Duonebs -D/C BiPAP if patient can tolerate -O2 Therapy via NC -Duonebs 3q4 [facility] -Breo Ellipta 1 puff qD -Prednisone 40 mg PO daily -Tessalon perles 100 mg PO TID -Mucinex 600mg po BID Hypertension -ASA 81mg po daily -Losartan 100mg PO daily -Norvasc 5mg PO daily PPx, Diet Disposition -DVT ppx: Heparin 5000u SC q8, SCDs -GI ppx: not indicated at this time -Diet: HHD -PT on board -Dispo: Patient instructed to use BIPAP at night. Patient needs Trilogy system prior to discharge, per Dr. Day. Awaiting insurance authorization Case discussed with medical attending Shaun Gusman DO, PGY-1 <Christiano Spears - Last Filed: 12/24/18 13:46> Objective - Vital Signs/Intake and Output Vital Signs (last 24 hours): Temp Pulse Resp BP Pulse Ox 97.7 F 92 H 20 124/83 99 12/24/18 07:00 12/24/18 07:00 12/24/18 07:00 12/24/18 07:00 12/24/18 07:00 - Medications Medications: Current Medications Acetylcysteine (Acetylcysteine 20%) 4 ml INH RQ6 PRN PRN Reason: to induce sputum Last Admin: 12/23/18 19:31 Dose: 4 ml Albuterol/Ipratropium (Duoneb 3 Mg/0.5 Mg (3 Ml) Ud) 3 ml INH RQ4 [facility] Last Admin: 12/24/18 11:18 Dose: 3 ml Amlodipine Besylate (Norvasc) 5 mg PO DAILY [facility] Last Admin: 12/24/18 10:20 Dose: 5 mg Aspirin (Ecotrin) 81 mg PO DAILY [facility] Last Admin: 12/24/18 10:20 Dose: 81 mg Benzonatate (Tessalon Perles) 100 mg PO TID [facility] Last Admin: 12/24/18 13:34 Dose: 100 mg Dextrose (Dextrose 50% Inj) 0 ml IV STAT PRN; Protocol PRN Reason: Hypoglycemia Protocol Dextrose (Glutose 15) 0 gm PO ONCE PRN; Protocol PRN Reason: Hypoglycemia Protocol Fluticasone/Vilanterol (Breo Ellipta 200-25 Mcg Inh) 1 puff INH RQD [facility] Last Admin: 12/24/18 11:17 Dose: Not Given Glucagon (Glucagen Diagnostic Kit) 0 mg IM STAT PRN; Protocol PRN Reason: Hypoglycemia Protocol Guaifenesin (Mucinex La) 600 mg PO BID [facility] Last Admin: 12/24/18 10:20 Dose: 600 mg Heparin Sodium (Porcine) (Heparin) 5,000 units SC Q8 [facility] Last Admin: 12/24/18 13:34 Dose: 5,000 units Dextrose (Dextrose 5% In Water 1000 Ml) 1,000 mls @ 0 mls/hr IV .Q0M PRN; Protocol PRN Reason: Hypoglycemia Protocol Insulin Human Regular (Novolin R) 0 unit SC ACHS [facility]; Protocol Last Admin: 12/24/18 12:31 Dose: Not Given Losartan Potassium (Cozaar) 100 mg PO DAILY [facility] Last Admin: 12/24/18 10:20 Dose: 100 mg Prednisone (Prednisone Tab) 40 mg PO DAILY [facility] Last Admin: 12/24/18 10:20 Dose: 40 mg - Labs Labs: 12/24/18 09:21 12/24/18 09:21 Attending/Attestation - Attestation I have personally seen and examined this patient.: Yes I have fully participated in the care of the patient.: Yes I have reviewed all pertinent clinical information, including history, physical exam and plan: Yes Notes (Text): seen and examined by me. Patient has no complain,sitting comfortable,using BIPAP at night continue asprin,amlodipine,losartan and prednisone
[2018-12-24] MEDS: (Novolin R) Insulin Human Regular 100 units/ml vial SC SCH ×4 (07:51→22:00)
[2018-12-24 09:32] LABS: BASO % 0.1 % (0.0-2.0); EOS # 0.1 K/uL (0.0-0.7); EOS % 0.3 % (0.0-4.0); HEMOGLOBIN 13.9 g/dL (12.0-18.0); LYMPH # 1.6 K/uL (1.0-4.3); LYMPH % 9.2 % (20.0-40.0); MEAN CELL VOLUME 92.7 fL (80.0-94.0); MEAN CORPUSCULAR HEMOGLOBIN 30.2 pg (27.0-31.0); MEAN CORPUSCULAR HGB CONC 32.6 g/dL (33.0-37.0); MEAN PLATELET VOLUME 9.9 fL (7.2-11.7); MONO # 1.3 K/uL (0.0-0.8); MONO % 7.4 % (0.0-10.0); NEUT # 14.3 K/uL (1.8-7.0); PLATELET COUNT 197 K/uL (130-400); RBC 4.59 Mil/uL (4.40-5.90); RED CELL DISTRIBUTION WIDTH 13.5 % (11.5-14.5); WHITE BLOOD COUNT 17.2 K/uL (4.8-10.8)
[2018-12-24] MEDS: guaiFENesin 600 mg ER Tab PO SCH ×2 (10:20→18:12)
[2018-12-24 10:21] LABS: ALB/GLOB RATIO 1.5 (1.0-2.1); ALBUMIN 3.2 g/dL (3.5-5.0); ALT/SGPT 92 U/L (21-72); AST/SGOT 37 U/L (17-59); BLOOD UREA NITROGEN 19 mg/dL (9-20); CALCIUM 8.8 mg/dl (8.6-10.4); GFR NON-AFRICAN AMERICAN > 60
[2018-12-24] MEDS: Fluticasone-Vilanterol 200/25mcg Diskus INH SCH (11:17)
[2018-12-24 11:21] LABS: LYMPHOCYTE 8 % (20-40); MONOCYTE 6 % (0-10); NEUTROPHIL 86 % (50-75); PLATELET ESTIMATE NORMAL (NORMAL); TOTAL CELLS COUNTED 100
--- NOTE | 2018-12-25 00:07 | CP.PCM.PN ---
<Shaun Gusman - Last Filed: 12/25/18 00:04> Subjective - Date & Time of Evaluation Date of Evaluation: 12/25/18 Time of Evaluation: 00:04 - Subjective Subjective: PGY-1 Medicine Progress Note for Dr. Spears Patient seen and examined at bedside, resting comfortably. No acute overnight events reported. No acute sob, cough, chest pain, palpitations, n/v/d/c. Continuing to use BIPAP at night, awaiting Trilogy approval for home use. Objective - Vital Signs/Intake and Output Vital Signs (last 24 hours): Temp Pulse Resp BP Pulse Ox 98.2 F 102 H 20 122/76 95 12/24/18 15:00 12/24/18 15:00 12/24/18 15:00 12/24/18 15:00 12/24/18 15:00 - Medications Medications: Current Medications Acetylcysteine (Acetylcysteine 20%) 4 ml INH RQ6 PRN PRN Reason: to induce sputum Last Admin: 12/23/18 19:31 Dose: 4 ml Albuterol/Ipratropium (Duoneb 3 Mg/0.5 Mg (3 Ml) Ud) 3 ml INH RQ4 [facility] Last Admin: 12/24/18 19:38 Dose: 3 ml Amlodipine Besylate (Norvasc) 5 mg PO DAILY [facility] Last Admin: 12/24/18 10:20 Dose: 5 mg Aspirin (Ecotrin) 81 mg PO DAILY [facility] Last Admin: 12/24/18 10:20 Dose: 81 mg Benzonatate (Tessalon Perles) 100 mg PO TID [facility] Last Admin: 12/24/18 18:12 Dose: 100 mg Dextrose (Dextrose 50% Inj) 0 ml IV STAT PRN; Protocol PRN Reason: Hypoglycemia Protocol Dextrose (Glutose 15) 0 gm PO ONCE PRN; Protocol PRN Reason: Hypoglycemia Protocol Fluticasone/Vilanterol (Breo Ellipta 200-25 Mcg Inh) 1 puff INH RQD [facility] Last Admin: 12/24/18 11:17 Dose: Not Given Glucagon (Glucagen Diagnostic Kit) 0 mg IM STAT PRN; Protocol PRN Reason: Hypoglycemia Protocol Guaifenesin (Mucinex La) 600 mg PO BID [facility] Last Admin: 12/24/18 18:12 Dose: 600 mg Heparin Sodium (Porcine) (Heparin) 5,000 units SC Q8 [facility] Last Admin: 12/24/18 22:00 Dose: Not Given Dextrose (Dextrose 5% In Water 1000 Ml) 1,000 mls @ 0 mls/hr IV .Q0M PRN; Protocol PRN Reason: Hypoglycemia Protocol Insulin Human Regular (Novolin R) 0 unit SC ACHS [facility]; Protocol Last Admin: 12/24/18 22:00 Dose: Not Given Losartan Potassium (Cozaar) 100 mg PO DAILY [facility] Last Admin: 12/24/18 10:20 Dose: 100 mg Prednisone (Prednisone Tab) 40 mg PO DAILY [facility] Last Admin: 12/24/18 10:20 Dose: 40 mg - Labs Labs: 12/24/18 09:21 12/24/18 09:21 - Constitutional Appears: Non-toxic, No Acute Distress - Head Exam Head Exam: ATRAUMATIC, NORMAL INSPECTION, NORMOCEPHALIC - Eye Exam Eye Exam: EOMI, Normal appearance, PERRL Pupil Exam: NORMAL ACCOMODATION - ENT Exam ENT Exam: Mucous Membranes Moist, Normal Exam - Neck Exam Neck Exam: Full ROM, Normal Inspection - Respiratory Exam Respiratory Exam: Wheezes, NORMAL BREATHING PATTERN. absent: Accessory Muscle Use, Respiratory Distress - Cardiovascular Exam Cardiovascular Exam: REGULAR RHYTHM, +S1, +S2 - GI/Abdominal Exam GI & Abdominal Exam: Soft, Normal Bowel Sounds. absent: Distended, Firm, Guarding, Rigid, Tenderness, Rebound - Extremities Exam Extremities Exam: Full ROM, Normal Capillary Refill, Normal Inspection. absent: Calf Tenderness, Pedal Edema - Back Exam Back Exam: NORMAL INSPECTION - Neurological Exam Neurological Exam: Alert, Awake, Oriented x3 - Skin Skin Exam: Dry, Intact, Normal Color, Warm Assessment and Plan - Assessment and Plan (Free Text) Assessment: 73 yo [place] male with past medical history of emphysema, HTN, arthritis admitted for COPD exacerbation 2/2 influenza. Plan: COPD exacerbation 2/2 influenza -influenza positive on admission (12/12) -5 day course of tamiflu completed; droplet isolation discontinued -CXR (12/18): no acute findings -sputum cx (12/16): yeast spp -Blood Cx (12/13): negative x 1, coag negative staph x 1 -Repeat Blood cultures: negative -Pulmonology (Dr. Day) consulted -taper steroids -continue Duonebs -D/C BiPAP if patient can tolerate -O2 Therapy via NC -Duonebs 3q4 [facility] -Breo Ellipta 1 puff qD -Prednisone 40 mg PO daily -Tessalon perles 100 mg PO TID -Mucinex 600mg po BID Hypertension -ASA 81mg po daily -Losartan 100mg PO daily -Norvasc 5mg PO daily PPx, Diet Disposition -DVT ppx: Heparin 5000u SC q8, SCDs -GI ppx: not indicated at this time -Diet: HHD -PT on board -Dispo: Patient instructed to use BIPAP at night. Patient needs Trilogy system prior to discharge, per Dr. Day. Awaiting insurance authorization Further recs as per Dr. Regan Gusamn DO, PGY-1 <Christiano Spears - Last Filed: 12/25/18 17:05> Objective - Vital Signs/Intake and Output Vital Signs (last 24 hours): Temp Pulse Resp BP Pulse Ox 98.4 F 98 H 24 117/71 96 12/25/18 15:40 12/25/18 15:40 12/25/18 15:40 12/25/18 15:40 12/25/18 15:40 Intake and Output: 12/25/18 12/25/18 06:59 18:59 Intake Total 300 Balance 300 - Medications Medications: Current Medications Acetylcysteine (Acetylcysteine 20%) 4 ml INH RQ6 PRN PRN Reason: to induce sputum Last Admin: 12/23/18 19:31 Dose: 4 ml Albuterol/Ipratropium (Duoneb 3 Mg/0.5 Mg (3 Ml) Ud) 3 ml INH RQ4 [facility] Last Admin: 12/25/18 11:23 Dose: 3 ml Amlodipine Besylate (Norvasc) 5 mg PO DAILY [facility] Last Admin: 12/25/18 09:40 Dose: 5 mg Aspirin (Ecotrin) 81 mg PO DAILY [facility] Last Admin: 12/25/18 09:40 Dose: 81 mg Benzonatate (Tessalon Perles) 100 mg PO TID [facility] Last Admin: 12/25/18 14:11 Dose: 100 mg Dextrose (Dextrose 50% Inj) 0 ml IV STAT PRN; Protocol PRN Reason: Hypoglycemia Protocol Dextrose (Glutose 15) 0 gm PO ONCE PRN; Protocol PRN Reason: Hypoglycemia Protocol Fluticasone/Vilanterol (Breo Ellipta 200-25 Mcg Inh) 1 puff INH RQD [facility] Last Admin: 12/25/18 07:50 Dose: Not Given Glucagon (Glucagen Diagnostic Kit) 0 mg IM STAT PRN; Protocol PRN Reason: Hypoglycemia Protocol Guaifenesin (Mucinex La) 600 mg PO BID [facility] Last Admin: 12/25/18 09:40 Dose: 600 mg Heparin Sodium (Porcine) (Heparin) 5,000 units SC Q8 [facility] Last Admin: 12/25/18 14:11 Dose: 5,000 units Dextrose (Dextrose 5% In Water 1000 Ml) 1,000 mls @ 0 mls/hr IV .Q0M PRN; Protocol PRN Reason: Hypoglycemia Protocol Insulin Human Regular (Novolin R) 0 unit SC ACHS [facility]; Protocol Last Admin: 12/25/18 12:30 Dose: Not Given Losartan Potassium (Cozaar) 100 mg PO DAILY [facility] Last Admin: 12/25/18 09:40 Dose: 100 mg Prednisone (Prednisone Tab) 40 mg PO DAILY [facility] Last Admin: 12/25/18 09:40 Dose: 40 mg - Labs Labs: 12/25/18 07:57 12/25/18 07:57 Attending/Attestation - Attestation I have personally seen and examined this patient.: Yes I have fully participated in the care of the patient.: Yes I have reviewed all pertinent clinical information, including history, physical exam and plan: Yes Notes (Text): seen and examined this morning. patient was comfortable on BIPAP No complain. pending discharge after insurance approval for [facility] [place]
[2018-12-25] MEDS: Albuterol-Ipratrop 3 mg / 0.5 (3 ml) UD INH SCH ×6 (00:31→19:44)
[2018-12-25] MEDS: Fluticasone-Vilanterol 200/25mcg Diskus INH SCH (07:50)
[2018-12-25] MEDS: (Novolin R) Insulin Human Regular 100 units/ml vial SC SCH ×4 (08:09→21:26)
[2018-12-25 08:28] LABS: BASO % 0.1 % (0.0-2.0); EOS % 0.2 % (0.0-4.0); HEMOGLOBIN 13.7 g/dL (12.0-18.0); LYMPH # 1.5 K/uL (1.0-4.3); LYMPH % 8.4 % (20.0-40.0); MEAN CELL VOLUME 92.4 fL (80.0-94.0); MEAN CORPUSCULAR HEMOGLOBIN 31.3 pg (27.0-31.0); MEAN CORPUSCULAR HGB CONC 33.8 g/dL (33.0-37.0); MEAN PLATELET VOLUME 9.9 fL (7.2-11.7); MONO # 1.3 K/uL (0.0-0.8); MONO % 7.7 % (0.0-10.0); NEUT # 14.6 K/uL (1.8-7.0); NEUT % 83.6 % (50.0-75.0); NRBC % 0.1 % (0.0-2.0); PLATELET COUNT 195 K/uL (130-400); RBC 4.37 Mil/uL (4.40-5.90); RED CELL DISTRIBUTION WIDTH 13.4 % (11.5-14.5); WHITE BLOOD COUNT 17.4 K/uL (4.8-10.8)
[2018-12-25 08:34] LABS: ALB/GLOB RATIO 1.4 (1.0-2.1); ALBUMIN 3.1 g/dL (3.5-5.0); ALT/SGPT 102 U/L (21-72); AST/SGOT 27 U/L (17-59); BLOOD UREA NITROGEN 20 mg/dL (9-20); CALCIUM 8.9 mg/dl (8.6-10.4); GFR NON-AFRICAN AMERICAN > 60
[2018-12-25] MEDS: guaiFENesin 600 mg ER Tab PO SCH ×2 (09:40→17:55)
[2018-12-25 10:27] LABS: LARGE PLATELETS PRESENT; LYMPHOCYTE 7 % (20-40); MONOCYTE 7 % (0-10); NEUTROPHIL 85 % (50-75); PLATELET ESTIMATE NORMAL (NORMAL); REACTIVE LYMPHOCYTES 1 % (0-0); TOTAL CELLS COUNTED 100
[2018-12-26] MEDS: Albuterol-Ipratrop 3 mg / 0.5 (3 ml) UD INH SCH ×7 (00:30→23:53)
[2018-12-26 01:52] VITALS: RESP 20
[2018-12-26 06:41] LABS: ALB/GLOB RATIO 2.3 (1.0-2.1); ALBUMIN 3.9 g/dL (3.5-5.0); ALT/SGPT 104 U/L (21-72); AST/SGOT 26 U/L (17-59); BLOOD UREA NITROGEN 20 mg/dL (9-20); CALCIUM 8.5 mg/dl (8.6-10.4); GFR NON-AFRICAN AMERICAN > 60
[2018-12-26 06:46] LABS: BASO % 0.2 % (0.0-2.0); EOS # 0.1 K/uL (0.0-0.7); EOS % 0.3 % (0.0-4.0); HEMOGLOBIN 13.8 g/dL (12.0-18.0); LYMPH # 1.9 K/uL (1.0-4.3); LYMPH % 11.1 % (20.0-40.0); MEAN CELL VOLUME 92.5 fL (80.0-94.0); MEAN CORPUSCULAR HEMOGLOBIN 31.3 pg (27.0-31.0); MEAN CORPUSCULAR HGB CONC 33.8 g/dL (33.0-37.0); MEAN PLATELET VOLUME 9.7 fL (7.2-11.7); MONO # 1.5 K/uL (0.0-0.8); MONO % 8.4 % (0.0-10.0); RBC 4.41 Mil/uL (4.40-5.90); RED CELL DISTRIBUTION WIDTH 13.5 % (11.5-14.5); WHITE BLOOD COUNT 17.6 K/uL (4.8-10.8)
--- NOTE | 2018-12-26 06:53 | CP.PCM.PN ---
<Shaun Gusman - Last Filed: 12/26/18 07:10> Subjective - Date & Time of Evaluation Date of Evaluation: 12/26/18 Time of Evaluation: 06:52 - Subjective Subjective: PGY-1 Medicine Progress Note for Dr. Meeks Patient seen and examined at bedside, resting comfortably. No acute overnight events reported. Saturating well on NC, tolerating PO diet well, tapering steroid use. Pending insurance approval for home Trilogy use. Objective - Vital Signs/Intake and Output Vital Signs (last 24 hours): Temp Pulse Resp BP Pulse Ox 97.8 F 96 H 20 125/71 93 L 12/26/18 01:00 12/26/18 01:00 12/26/18 01:00 12/26/18 01:00 12/26/18 01:00 Intake and Output: 12/25/18 12/26/18 18:59 06:59 Intake Total 300 Balance 300 - Medications Medications: Current Medications Acetylcysteine (Acetylcysteine 20%) 4 ml INH RQ6 PRN PRN Reason: to induce sputum Last Admin: 12/23/18 19:31 Dose: 4 ml Albuterol/Ipratropium (Duoneb 3 Mg/0.5 Mg (3 Ml) Ud) 3 ml INH RQ4 [facility] Last Admin: 12/26/18 03:23 Dose: Not Given Amlodipine Besylate (Norvasc) 5 mg PO DAILY [facility] Last Admin: 12/25/18 09:40 Dose: 5 mg Aspirin (Ecotrin) 81 mg PO DAILY [facility] Last Admin: 12/25/18 09:40 Dose: 81 mg Benzonatate (Tessalon Perles) 100 mg PO TID [facility] Last Admin: 12/25/18 17:55 Dose: 100 mg Dextrose (Dextrose 50% Inj) 0 ml IV STAT PRN; Protocol PRN Reason: Hypoglycemia Protocol Dextrose (Glutose 15) 0 gm PO ONCE PRN; Protocol PRN Reason: Hypoglycemia Protocol Fluticasone/Vilanterol (Breo Ellipta 200-25 Mcg Inh) 1 puff INH RQD [facility] Last Admin: 12/25/18 07:50 Dose: Not Given Glucagon (Glucagen Diagnostic Kit) 0 mg IM STAT PRN; Protocol PRN Reason: Hypoglycemia Protocol Guaifenesin (Mucinex La) 600 mg PO BID [facility] Last Admin: 12/25/18 17:55 Dose: 600 mg Heparin Sodium (Porcine) (Heparin) 5,000 units SC Q8 [facility] Last Admin: 12/26/18 05:27 Dose: 5,000 units Dextrose (Dextrose 5% In Water 1000 Ml) 1,000 mls @ 0 mls/hr IV .Q0M PRN; Protocol PRN Reason: Hypoglycemia Protocol Insulin Human Regular (Novolin R) 0 unit SC ACHS [facility]; Protocol Last Admin: 12/25/18 21:26 Dose: Not Given Losartan Potassium (Cozaar) 100 mg PO DAILY [facility] Last Admin: 12/25/18 09:40 Dose: 100 mg Prednisone (Prednisone Tab) 40 mg PO DAILY [facility] Last Admin: 12/25/18 09:40 Dose: 40 mg - Labs Labs: 12/26/18 06:22 12/26/18 06:22 - Constitutional Appears: Non-toxic, No Acute Distress - Head Exam Head Exam: ATRAUMATIC, NORMAL INSPECTION, NORMOCEPHALIC - Eye Exam Eye Exam: EOMI, Normal appearance Pupil Exam: NORMAL ACCOMODATION - ENT Exam ENT Exam: Mucous Membranes Moist, Normal Exam - Neck Exam Neck Exam: Full ROM, Normal Inspection. absent: Tenderness - Respiratory Exam Respiratory Exam: Wheezes, NORMAL BREATHING PATTERN. absent: Accessory Muscle Use, Respiratory Distress - Cardiovascular Exam Cardiovascular Exam: REGULAR RHYTHM, +S1, +S2 - GI/Abdominal Exam GI & Abdominal Exam: Soft, Normal Bowel Sounds. absent: Distended, Firm, Guarding, Rigid, Tenderness, Rebound - Extremities Exam Extremities Exam: Full ROM, Normal Capillary Refill, Normal Inspection. absent: Calf Tenderness, Pedal Edema - Back Exam Back Exam: NORMAL INSPECTION - Neurological Exam Neurological Exam: Alert, Awake, Oriented x3 - Skin Skin Exam: Dry, Intact, Normal Color, Warm Assessment and Plan - Assessment and Plan (Free Text) Assessment: 73 yo [place] male with past medical history of emphysema, HTN, arthritis admitted for COPD exacerbation 2/2 influenza. Plan: COPD exacerbation 2/2 influenza -influenza positive on admission (12/12) -5 day course of tamiflu completed; droplet isolation discontinued -CXR (12/18): no acute findings -sputum cx (12/16): yeast spp -Blood Cx (12/13): negative x 1, coag negative staph x 1 -Repeat Blood cultures: negative -Pulmonology (Dr. Day) consulted -taper steroids -continue Duonebs -D/C BiPAP if patient can tolerate -O2 Therapy via NC -Duonebs 3q4 ishmael -Breo Ellipta 1 puff qD -Prednisone 40 mg PO daily -Tessalon perles 100 mg PO TID -Mucinex 600mg po BID Hypertension -ASA 81mg po daily -Losartan 100mg PO daily -Norvasc 5mg PO daily PPx, Diet Disposition -DVT ppx: Heparin 5000u SC q8, SCDs -GI ppx: not indicated at this time -Diet: HHD -PT on board -Dispo: Patient instructed to use BIPAP at night. Patient needs Trilogy system prior to discharge, per Dr. Day. Awaiting insurance authorization Further recs as per Dr. Jeanna Gusman DO, PGY-1 <Denzel Meeks - Last Filed: 12/26/18 11:36> Objective - Vital Signs/Intake and Output Vital Signs (last 24 hours): Temp Pulse Resp BP Pulse Ox 97 F L 94 H 20 124/87 96 12/26/18 07:00 12/26/18 07:00 12/26/18 07:00 12/26/18 07:00 12/26/18 07:00 - Medications Medications: Current Medications Acetylcysteine (Acetylcysteine 20%) 4 ml INH RQ6 PRN PRN Reason: to induce sputum Last Admin: 12/23/18 19:31 Dose: 4 ml Albuterol/Ipratropium (Duoneb 3 Mg/0.5 Mg (3 Ml) Ud) 3 ml INH RQ4 [facility] Last Admin: 12/26/18 03:23 Dose: Not Given Amlodipine Besylate (Norvasc) 5 mg PO DAILY [facility] Last Admin: 12/26/18 09:00 Dose: 5 mg Aspirin (Ecotrin) 81 mg PO DAILY [facility] Last Admin: 12/26/18 09:00 Dose: 81 mg Benzonatate (Tessalon Perles) 100 mg PO TID [facility] Last Admin: 12/26/18 09:00 Dose: 100 mg Dextrose (Dextrose 50% Inj) 0 ml IV STAT PRN; Protocol PRN Reason: Hypoglycemia Protocol Dextrose (Glutose 15) 0 gm PO ONCE PRN; Protocol PRN Reason: Hypoglycemia Protocol Fluticasone/Vilanterol (Breo Ellipta 200-25 Mcg Inh) 1 puff INH RQD [facility] Last Admin: 12/25/18 07:50 Dose: Not Given Glucagon (Glucagen Diagnostic Kit) 0 mg IM STAT PRN; Protocol PRN Reason: Hypoglycemia Protocol Guaifenesin (Mucinex La) 600 mg PO BID [facility] Last Admin: 12/26/18 09:00 Dose: 600 mg Heparin Sodium (Porcine) (Heparin) 5,000 units SC Q8 [facility] Last Admin: 12/26/18 05:27 Dose: 5,000 units Dextrose (Dextrose 5% In Water 1000 Ml) 1,000 mls @ 0 mls/hr IV .Q0M PRN; Protocol PRN Reason: Hypoglycemia Protocol Insulin Human Regular (Novolin R) 0 unit SC ACHS [facility]; Protocol Last Admin: 12/26/18 07:55 Dose: Not Given Losartan Potassium (Cozaar) 100 mg PO DAILY [facility] Last Admin: 12/26/18 08:59 Dose: 100 mg Prednisone (Prednisone Tab) 40 mg PO DAILY [facility] Last Admin: 12/26/18 09:00 Dose: 40 mg - Labs Labs: 12/26/18 06:22 12/26/18 06:22 Attending/Attestation - Attestation I have personally seen and examined this patient.: Yes I have fully participated in the care of the patient.: Yes I have reviewed all pertinent clinical information, including history, physical exam and plan: Yes Notes (Text): 12/26/18 11:36 Medical attending: Patient was seen and examined by me. Agree with the above note by the resident The patient was not in any acute distress At this time [facility] before the patient will be discharged Denzel Meeks
[2018-12-26] MEDS: Fluticasone-Vilanterol 200/25mcg Diskus INH SCH (07:44)
[2018-12-26] MEDS: (Novolin R) Insulin Human Regular 100 units/ml vial SC SCH ×4 (07:55→21:51)
[2018-12-26] MEDS: guaiFENesin 600 mg ER Tab PO SCH ×2 (09:00→17:38)
[2018-12-27] MEDS: Albuterol-Ipratrop 3 mg / 0.5 (3 ml) UD INH SCH ×3 (03:13→11:16)
[2018-12-27 06:53] LABS: BASO % 0.2 % (0.0-2.0); EOS % 0.2 % (0.0-4.0); HEMOGLOBIN 14.2 g/dL (12.0-18.0); LYMPH # 2.2 K/uL (1.0-4.3); LYMPH % 11.8 % (20.0-40.0); MEAN CELL VOLUME 92.2 fL (80.0-94.0); MEAN CORPUSCULAR HEMOGLOBIN 30.6 pg (27.0-31.0); MEAN CORPUSCULAR HGB CONC 33.2 g/dL (33.0-37.0); MEAN PLATELET VOLUME 9.5 fL (7.2-11.7); MONO # 1.4 K/uL (0.0-0.8); MONO % 7.7 % (0.0-10.0); NEUT # 14.7 K/uL (1.8-7.0); NEUT % 80.1 % (50.0-75.0); RBC 4.62 Mil/uL (4.40-5.90); RED CELL DISTRIBUTION WIDTH 13.5 % (11.5-14.5); WHITE BLOOD COUNT 18.3 K/uL (4.8-10.8)
--- NOTE | 2018-12-27 06:54 | CP.PCM.PN ---
Subjective - Date & Time of Evaluation Date of Evaluation: 12/27/18 Time of Evaluation: 06:53 - Subjective Subjective: PGY-[address] Meeks Objective - Vital Signs/Intake and Output Vital Signs (last 24 hours): Temp Pulse Resp BP Pulse Ox 97.6 F 97 H 20 144/84 98 12/26/18 23:35 12/27/18 05:09 12/26/18 23:35 12/26/18 23:35 12/26/18 23:35 Intake and Output: 12/26/18 12/27/18 18:59 06:59 Intake Total 400 120 Output Total 275 Balance 400 -155 - Medications Medications: Current Medications Acetylcysteine (Acetylcysteine 20%) 4 ml INH RQ6 PRN PRN Reason: to induce sputum Last Admin: 12/23/18 19:31 Dose: 4 ml Albuterol/Ipratropium (Duoneb 3 Mg/0.5 Mg (3 Ml) Ud) 3 ml INH RQ4 [facility] Last Admin: 12/27/18 03:13 Dose: 3 ml Amlodipine Besylate (Norvasc) 5 mg PO DAILY [facility] Last Admin: 12/26/18 09:00 Dose: 5 mg Aspirin (Ecotrin) 81 mg PO DAILY [facility] Last Admin: 12/26/18 09:00 Dose: 81 mg Benzonatate (Tessalon Perles) 100 mg PO TID [facility] Last Admin: 12/26/18 17:38 Dose: 100 mg Dextrose (Dextrose 50% Inj) 0 ml IV STAT PRN; Protocol PRN Reason: Hypoglycemia Protocol Dextrose (Glutose 15) 0 gm PO ONCE PRN; Protocol PRN Reason: Hypoglycemia Protocol Fluticasone/Vilanterol (Breo Ellipta 200-25 Mcg Inh) 1 puff INH RQD [facility] Last Admin: 12/26/18 07:44 Dose: Not Given Glucagon (Glucagen Diagnostic Kit) 0 mg IM STAT PRN; Protocol PRN Reason: Hypoglycemia Protocol Guaifenesin (Mucinex La) 600 mg PO BID [facility] Last Admin: 12/26/18 17:38 Dose: 600 mg Heparin Sodium (Porcine) (Heparin) 5,000 units SC Q8 [facility] Last Admin: 12/27/18 05:30 Dose: 5,000 units Dextrose (Dextrose 5% In Water 1000 Ml) 1,000 mls @ 0 mls/hr IV .Q0M PRN; Protocol PRN Reason: Hypoglycemia Protocol Insulin Human Regular (Novolin R) 0 unit SC ACHS [facility]; Protocol Last Admin: 12/26/18 21:51 Dose: Not Given Losartan Potassium (Cozaar) 100 mg PO DAILY [facility] Last Admin: 12/26/18 08:59 Dose: 100 mg Prednisone (Prednisone Tab) 40 mg PO DAILY [facility] Last Admin: 12/26/18 09:00 Dose: 40 mg - Labs Labs: 12/26/18 06:22 12/26/18 06:22
[2018-12-27 08:03] LABS: ALB/GLOB RATIO 1.5 (1.0-2.1); ALBUMIN 3.4 g/dL (3.5-5.0); ALT/SGPT 106 U/L (21-72); AST/SGOT 42 U/L (17-59); BLOOD UREA NITROGEN 16 mg/dL (9-20); CALCIUM 8.9 mg/dl (8.6-10.4); GFR NON-AFRICAN AMERICAN > 60
[2018-12-27] MEDS: Fluticasone-Vilanterol 200/25mcg Diskus INH SCH (08:04)
[2018-12-27] MEDS: (Novolin R) Insulin Human Regular 100 units/ml vial SC SCH ×2 (08:18→11:59)
[2018-12-27 08:21] VITALS: BP 127/80; PULSE 93; TEMP 99; O2SAT 94
[2018-12-27] MEDS: guaiFENesin 600 mg ER Tab PO SCH (09:46)
[2018-12-27 11:00] LABS: ABG ALLEN TEST PO; ARTERIAL BLOOD GAS HCO3 28.4 mmol/L (21-28); ARTERIAL BLOOD GAS HEMOGLOBIN 13.8 g/dL (11.7-17.4); ARTERIAL BLOOD GAS O2 SAT 91.2 % (95-98); ARTERIAL BLOOD GAS PCO2 45 mm/Hg (35-45); ARTERIAL BLOOD GAS PH 7.43 (7.35-7.45); ARTERIAL BLOOD GAS PO2 54 mm/Hg (80-100); ARTERIAL BLOOD GAS TCO2 31.3 mmol/L (22-28)
== END 2018-12-27 14:30 | disposition home or self-care (01) | DRG 191 ==
LOC: C.ER 10:47 → C.9E 14:22 → C.6T 14:22 → UNDOADMIN 14:22 → C.9E 16:54 → C.6T 16:54
PROVIDERS: ADMIT Hospitalist; ATTEND Hospitalist
PROC: 5A09557 Assistance with Respiratory Ventilation, Greater than 96 Consecutive Hours, Continuous Positive Airway Pressure (ICD-10-PCS; principal; 2018-12-14)
DX: J44.1 Chronic obstructive pulmonary disease with (acute) exacerbation (principal); J45.901 Unspecified asthma with (acute) exacerbation; J44.0 Chronic obstructive pulmonary disease with (acute) lower respiratory infection; J10.1 Influenza due to other identified influenza virus with other respiratory manifestations; M19.90 Unspecified osteoarthritis, unspecified site; Z87.891 Personal history of nicotine dependence; I10 Essential (primary) hypertension; E11.9 Type 2 diabetes mellitus without complications; F32.9 Major depressive disorder, single episode, unspecified

== ENCOUNTER 2019-01-12 11:41 | Inpatient (IN) | payer MEDICAID, MEDICARE, OTHER ==
[2019-01-12 11:42] VITALS: BMI 25.8
[2019-01-12] MEDS ORDERED: Albuterol-Ipratrop 3 mg / 0.5 (3 ml) UD INH STA (12:14)
[2019-01-12] MEDS ORDERED: Dexamethasone 10 MG in Dextrose 5% In Water 50 ML IV ONE (12:15)
--- NOTE | 2019-01-12 12:18 | C.PDOC ---
History Of Present Illness 74 y/o male with a PMHx of COPD and HTN presents to the ED for evaluation of a productive cough with yellow sputum for 1 week. Today patient developed SOB. He tried using his pump without relief, so daughter called EMS. Patient denies any chest pain, dizziness, headaches, fever, or chills. On arrival to the ED, patient placed on BiPAP. Per EMS, he was given 20 mg IV Lasix and NTG spray en route. Of note, patient was recently admitted here for flu and discharge home last month. Time Seen by Provider: 01/12/19 11:55 Chief Complaint (Nursing): Shortness Of Breath History Per: Patient History/Exam Limitations: no limitations Onset/Duration Of Symptoms: Days Current Symptoms Are (Timing): Worse Exacerbating Factor(s): Coughing Current Respiratory Medications: See Home Med List Past Medical History Reviewed: Historical Data, Nursing Documentation, Vital Signs Vital Signs: Last Vital Signs Temp 97.4 F L 01/12/19 11:47 Pulse 112 H 01/12/19 12:14 Resp 35 H 01/12/19 12:14 BP 123/82 01/12/19 12:14 Pulse Ox 98 01/12/19 12:14 - Medical History PMH: Asthma, Bronchitis, COPD, Emphysema, HTN Denies: Chronic Kidney Disease - [facility] Procedures ASSISTANCE WITH RESPIRATORY VENTILATION, >96 HRS, CPAP (12/12/18) Family History: States: Unknown Family Hx - Social History Hx Alcohol Use: No Hx Substance Use: No Review Of Systems Except As Marked, All Systems Reviewed And Found Negative. Constitutional: Negative for: Fever, Chills Eyes: Negative for: Vision Change Cardiovascular: Negative for: Chest Pain, Palpitations Respiratory: Positive for: Cough, Shortness of Breath, Sputum Gastrointestinal: Negative for: Vomiting, Abdominal Pain, Diarrhea Musculoskeletal: Negative for: Back Pain Neurological: Negative for: Weakness, Headache, Dizziness Physical Exam - Physical Exam Appears: Non-toxic, No Acute Distress Skin: Normal Color, Warm, Dry Head: Atraumatic, Normacephalic Eye(s): bilateral: Normal Inspection, PERRL, EOMI Neck: Normal ROM, Supple Chest: Symmetrical Cardiovascular: Rhythm Regular, No Murmur, No JVD Respiratory: No Accessory Muscle Use, No Rales, No Rhonchi, Wheezing (bilaterally) Gastrointestinal/Abdominal: Soft, No Tenderness, No Distention Extremity: Bilateral: Atraumatic, Normal Color And Temperature, Other (No pitting edema) Neurological/Psych: Oriented x3, Normal Speech ED Course And Treatment - Laboratory Results Result Diagrams: 01/13/19 07:33 01/13/19 07:33 ECG: Interpreted By Me, Viewed By Me ECG Rhythm: Sinus Tachycardia Interpretation Of ECG: Right axis deviation Rate From EC O2 Sat by Pulse Oximetry: 98 (RA) Pulse Ox Interpretation: Normal - Other Rad CXR X-Ray: Read By Radiologist Interpretation: Accession No. : [id number]. Patient Name / ID : JULIANA GREEN / [id number]. Exam Date : 01/12/2019 12:31:35 ( Approved ). Study Comment : Sex / Age : M / 74Y. Creator : Zahira Salazar V. Dictator : Zahira Salazar V. Location Analyst : Pig Caster : Zahira Salazar V. Approver2 : Report Date : 01/12/2019 14:14:42. My Comment : . Date of service: 01/12/2019. PROCEDURE: CHEST RADIOGRAPH, 1 VIEW. HISTORY: SOB. COMPARISON: 12/18/2018. FINDINGS: LUNGS: Clear. PLEURA: No pneumothorax or pleural fluid seen. CARDIOVASCULAR: No aortic atherosclerotic calcification present. Normal. OSSEOUS STRUCTURES: Thoracic spondylosis. Bilateral shoulder arthrosis. VISUALIZED UPPER ABDOMEN: Normal. OTHER FINDINGS: None. IMPRESSION: No active disease.No significant pneumothorax following venous access intervention Medical Decision Making Medical Decision Making: Impression: SOB, Cough, r/o pneumonia Plan: - Labs - EKG - Chest x-ray - 10 mg IV Decadron in D50 - Duoneb x1 - Reassess Labs reviewed. Trop negative. Flu negative. 14:[address] Meeks, will admit patient for COPD exacerbation. Disposition - Disposition Disposition: HOSPITALIZED Disposition Time: 14:22 Condition: GUARDED - Clinical Impression Clinical Impression: COPD exacerbation - Scribe Statement The provider has reviewed the documentation as recorded by the Shawibravinder Renee Provider Attestation: All medical record entries made by the Shawibravinder were at my direction and personal ly dictated by me. I have reviewed the chart and agree that the record accurately reflects my personal performance of the history, physical exam, medical decision making, and the department course for this patient. I have also personally directed, reviewed, and agree with the discharge instructions and disposition.
[2019-01-12] MEDS ORDERED: Albuterol-Ipratrop 3 mg / 0.5 (3 ml) UD ONE (12:29)
[2019-01-12 12:32] LABS: BASO % 0.5 % (0.0-2.0); EOS # 0.1 K/uL (0.0-0.7); EOS % 1.8 % (0.0-4.0); HEMOGLOBIN 14.3 g/dL (12.0-18.0); LYMPH % 12.9 % (20.0-40.0); MEAN CELL VOLUME 90.2 fL (80.0-94.0); MEAN CORPUSCULAR HEMOGLOBIN 31.6 pg (27.0-31.0); MEAN PLATELET VOLUME 8.3 fL (7.2-11.7); MONO % 13.3 % (0.0-10.0); NEUT # 5.6 K/uL (1.8-7.0); NEUT % 71.5 % (50.0-75.0); NRBC % 0.1 % (0.0-2.0); RBC 4.51 Mil/uL (4.40-5.90); RED CELL DISTRIBUTION WIDTH 13.7 % (11.5-14.5); WHITE BLOOD COUNT 7.8 K/uL (4.8-10.8)
[2019-01-12 12:49] LABS: ALB/GLOB RATIO 1.5 (1.0-2.1); ALBUMIN 4.5 g/dL (3.5-5.0); ALT/SGPT 34 U/L (21-72); AST/SGOT 27 U/L (17-59); BLOOD UREA NITROGEN 9 mg/dL (9-20); CALCIUM 9.9 mg/dl (8.6-10.4); GFR NON-AFRICAN AMERICAN > 60
[2019-01-12 13:42] LABS: ABG ALLEN TEST POS; ARTERIAL BLOOD GAS O2 SAT 97.1 % (95-98); ARTERIAL BLOOD GAS PCO2 59 mm/Hg (35-45); ARTERIAL BLOOD GAS PH 7.41 (7.35-7.45); ARTERIAL BLOOD GAS PO2 82 mm/Hg (80-100); ARTERIAL BLOOD GAS TCO2 39.2 mmol/L (22-28)
--- NOTE | 2019-01-12 14:18 | RAD ---
Date of service: 01/12/2019 PROCEDURE: CHEST RADIOGRAPH, 1 VIEW HISTORY: SOB COMPARISON: 12/18/2018 FINDINGS: LUNGS: Clear. PLEURA: No pneumothorax or pleural fluid seen. CARDIOVASCULAR: No aortic atherosclerotic calcification present. Normal. OSSEOUS STRUCTURES: Thoracic spondylosis. Bilateral shoulder arthrosis VISUALIZED UPPER ABDOMEN: Normal. OTHER FINDINGS: None. IMPRESSION: No active disease.No significant pneumothorax following venous access intervention
--- NOTE | 2019-01-12 14:46 | CP.PCM.HP ---
<Josh Yung - Last Filed: 01/12/19 16:15> History of Present Illness - History of Present Illness History of Present Illness: Patient is a 74 year old male with past medical history of COPD/emphysema, asthma, bronchitis who presented to the ED due to shortness of breath for the last 7 days with productive cough and yellow sputum which is worse at night. He was accompanied at bedside by his daughter. He decided to come to the hospital today because he could not breathe. He states that he feels this way when required to get up and walk around. Patient uses home oxygen but states that the tank is not small enough for him to bring with him anywhere and his condition improves with oxygen use. He additionally complains of pain in his lateral rib cage bilaterally when he breathes deeply. Patient admits shortness of breath, cough with productive yellow sputum, orthopnea (uses 2 pillows at night to sleep), dizziness, easy bruising, . He denies fever, chills, weight loss, headache, abdominal pain, N/V/D/C, dysuria, hematuria, recent travel, sick contacts or any other associated symptoms. Meds: Losartan 10mg PO daily, ASA 81mg PO daily, Amlodipine 5mg PO daily, Ventolin rescue pump, Albuterol neb PRN PMH: HTN, COPD, asthma, arthritis PSxH: L ankle ORIF FH: Asthma, CAD, COPD, HTN on both sides. 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 Has a 50 year 2-3 PPD smoking history, quit 3 years ago, drinks EtOH 2-3 beers socially on weekends, denies illicit drug use. PMD is Dr. Matta but hasn't seen him in years Full Code status Present on Admission - Present on Admission Any Indicators Present on Admission: No History of DVT/PE: No History of Uncontrolled Diabetes: No Urinary Catheter: No Decubitus Ulcer Present: No History Surgical Site Infection Following: None Review of Systems - Review of Systems All systems: reviewed and no additional remarkable complaints except (as per HPI) Past Patient History - Infectious Disease Hx of Infectious Diseases: None - Past Social History Smoking Status: Former Smoker - CARDIAC Hx Hypertension: Yes - PULMONARY Hx Asthma: Yes Hx Bronchitis: Yes Hx Chronic Obstructive Pulmonary Disease (COPD): Yes Hx Emphysema: Yes - NEUROLOGICAL Hx Neurological Disorder: No - RENAL Hx Chronic Kidney Disease: No - ENDOCRINE/METABOLIC Hx Diabetes Mellitus Type 2: Yes - HEMATOLOGICAL/ONCOLOGICAL Hx Blood Disorders: No - INTEGUMENTARY Hx Dermatological Problems: No - MUSCULOSKELETAL/RHEUMATOLOGICAL Hx Falls: No - GASTROINTESTINAL Hx Gastrointestinal Disorders: No - GENITOURINARY/GYNECOLOGICAL Hx Genitourinary Disorders: No - PSYCHIATRIC Hx Substance Use: No - SURGICAL HISTORY Hx Surgeries: Yes Hx Orthopedic Surgery: Yes - ANESTHESIA Hx Anesthesia: Yes Hx Anesthesia Reactions: No Hx Malignant Hyperthermia: No Meds Allergies/Adverse Reactions: Allergies Allergy/AdvReac Type Severity Reaction Status Date / Time No Known Allergies Allergy Verified 01/12/19 11:51 Physical Exam - Constitutional Appears: In Acute Distress - Head Exam Head Exam: NORMAL INSPECTION - Eye Exam Eye Exam: EOMI, PERRL - ENT Exam ENT Exam: Mucous Membranes Moist - Respiratory Exam Respiratory Exam: Accessory Muscle Use, Chest Wall Tenderness, Decreased Breath Sounds, Clear to Auscultation Bilateral - Cardiovascular Exam Cardiovascular Exam: REGULAR RHYTHM, +S1, +S2. absent: JVD, RRR Additional comments: Heart sounds distant - GI/Abdominal Exam GI & Abdominal Exam: Normal Bowel Sounds, Soft. absent: Diminished Bowel Sounds, Guarding, Organomegaly, Tenderness - Extremities Exam Extremities exam: Positive for: normal capillary refill. Negative for: calf tenderness, pedal edema, tenderness - Back Exam Back exam: NORMAL INSPECTION - Neurological Exam Neurological exam: Oriented x3 - Skin Skin Exam: Normal Color Results - Vital Signs Recent Vital Signs: Last Vital Signs Temp 97.4 F L 01/12/19 11:47 Pulse 98 H 01/12/19 14:10 Resp 27 H 01/12/19 14:14 BP 155/94 H 01/12/19 14:10 Pulse Ox 97 01/12/19 14:14 - Labs Result Diagrams: 01/12/19 12:27 01/12/19 12:27 Labs: Laboratory Results - last 24 hr 01/12/19 01/12/19 01/12/19 12:27 12:27 13:35 WBC 7.8 D RBC 4.51 Hgb 14.3 Hct 40.7 MCV 90.2 D MCH 31.6 H MCHC 35.0 RDW 13.7 Plt Count 295 MPV 8.3 Neut % (Auto) 71.5 Lymph % (Auto) 12.9 L [place] % (Auto) 13.3 H Eos % (Auto) 1.8 Baso % (Auto) 0.5 Neut # (Auto) 5.6 Lymph # (Auto) 1.0 [place] # (Auto) 1.0 H Eos # (Auto) 0.1 Baso # (Auto) 0.0 Puncture Site Rra pCO2 59 H pO2 82 HCO3 33.0 H ABG pH 7.41 ABG Total CO2 39.2 H ABG O2 Saturation 97.1 ABG Base Excess 10.4 H Medardo Test Pos ABG Potassium 3.4 L A-a O2 Difference 94.0 Respiratory Index 1.1 Glucose 108 Lactate 0.7 Vent Mode Bipap FiO2 35.0 Inspiratory BiPAP 14 Expiratory BiPAP 6 Sodium 134 134.0 Potassium 3.8 Chloride 91 L 99.0 Carbon Dioxide 34 H Anion Gap 13 BUN 9 Creatinine 0.8 Est GFR ( Amer) > 60 Est GFR (Non-Af Amer) > 60 Random Glucose 118 H Calcium 9.9 Total Bilirubin 0.6 AST 27 ALT 34 Alkaline Phosphatase 85 Troponin I < 0.0120 NT-Pro-B Natriuret Pep 98.0 Total Protein 7.6 Albumin 4.5 Globulin 3.1 Albumin/Globulin Ratio 1.5 Arterial Blood Potassium 3.4 L Influenza Typ A,B (EIA) 01/12/19 14:13 WBC RBC Hgb Hct MCV MCH MCHC RDW Plt Count MPV Neut % (Auto) Lymph % (Auto) [place] % (Auto) Eos % (Auto) Baso % (Auto) Neut # (Auto) Lymph # (Auto) [place] # (Auto) Eos # (Auto) Baso # (Auto) Puncture Site pCO2 pO2 HCO3 ABG pH ABG Total CO2 ABG O2 Saturation ABG Base Excess Medardo Test ABG Potassium A-a O2 Difference Respiratory Index Glucose Lactate Vent Mode FiO2 Inspiratory BiPAP Expiratory BiPAP Sodium Potassium Chloride Carbon Dioxide Anion Gap BUN Creatinine Est GFR ( Amer) Est GFR (Non-Af Amer) Random Glucose Calcium Total Bilirubin AST ALT Alkaline Phosphatase Troponin I NT-Pro-B Natriuret Pep Total Protein Albumin Globulin Albumin/Globulin Ratio Arterial Blood Potassium Influenza Typ A,B (EIA) Negative for flu a/b Assessment & Plan - Assessment and Plan (Free Text) Assessment: 74M pmhx of emphysema, HTN, Osteoarthritis admitted for shortness of breath Hypercapnic Respiratory Distress- COPD exacerbation - CXR: - pH on ABG 7.41 - CO2 elevated, HCO3 elevated: pt is compensating - given Duoneb x5, Decadron 10mg x1 in ED - Duonebs 3mL INH rQ4 LUL - Brovana inh Daily - Solumedrol 40mg IVP q8 - Azithro 500mg IVPB daily - Rocephin 1g q12 IVPB - Pulmonology Consulted: Dr Day f/u recs - f/u cultures and serologies Hypertension - ASA 81mg po daily - Losartan 100mg po daily PPx - DVT: Heparin 5000u SC q8, SCDs - Diet: HHD CK PGY1 d/w Dr. Meeks <Denzel Meeks H - Last Filed: 01/12/19 17:34> Results - Vital Signs Recent Vital Signs: Last Vital Signs Temp 97.4 F L 01/12/19 11:47 Pulse 102 H 01/12/19 15:44 Resp 28 H 01/12/19 15:44 BP 146/92 H 01/12/19 15:44 Pulse Ox 96 01/12/19 15:44 - Labs Result Diagrams: 01/12/19 12:27 01/12/19 12:27 Labs: Laboratory Results - last 24 hr 01/12/19 01/12/19 01/12/19 12:27 12:27 13:35 WBC 7.8 D RBC 4.51 Hgb 14.3 Hct 40.7 MCV 90.2 D MCH 31.6 H MCHC 35.0 RDW 13.7 Plt Count 295 MPV 8.3 Neut % (Auto) 71.5 Lymph % (Auto) 12.9 L [place] % (Auto) 13.3 H Eos % (Auto) 1.8 Baso % (Auto) 0.5 Neut # (Auto) 5.6 Lymph # (Auto) 1.0 [place] # (Auto) 1.0 H Eos # (Auto) 0.1 Baso # (Auto) 0.0 Puncture Site Rra pCO2 59 H pO2 82 HCO3 33.0 H ABG pH 7.41 ABG Total CO2 39.2 H ABG O2 Saturation 97.1 ABG Base Excess 10.4 H Medardo Test Pos ABG Potassium 3.4 L A-a O2 Difference 94.0 Respiratory Index 1.1 Glucose 108 Lactate 0.7 Vent Mode Bipap FiO2 35.0 Inspiratory BiPAP 14 Expiratory BiPAP 6 Sodium 134 134.0 Potassium 3.8 Chloride 91 L 99.0 Carbon Dioxide 34 H Anion Gap 13 BUN 9 Creatinine 0.8 Est GFR ( Amer) > 60 Est GFR (Non-Af Amer) > 60 Random Glucose 118 H Calcium 9.9 Total Bilirubin 0.6 AST 27 ALT 34 Alkaline Phosphatase 85 Troponin I < 0.0120 NT-Pro-B Natriuret Pep 98.0 Total Protein 7.6 Albumin 4.5 Globulin 3.1 Albumin/Globulin Ratio 1.5 Arterial Blood Potassium 3.4 L Influenza Typ A,B (EIA) 01/12/19 01/12/19 14:13 16:23 WBC RBC Hgb Hct MCV MCH MCHC RDW Plt Count MPV Neut % (Auto) Lymph % (Auto) [place] % (Auto) Eos % (Auto) Baso % (Auto) Neut # (Auto) Lymph # (Auto) [place] # (Auto) Eos # (Auto) Baso # (Auto) Puncture Site pCO2 pO2 HCO3 ABG pH ABG Total CO2 ABG O2 Saturation ABG Base Excess Medardo Test ABG Potassium A-a O2 Difference Respiratory Index Glucose Lactate Vent Mode FiO2 Inspiratory BiPAP Expiratory BiPAP Sodium Potassium Chloride Carbon Dioxide Anion Gap BUN Creatinine Est GFR ( Amer) Est GFR (Non-Af Amer) Random Glucose Calcium Total Bilirubin AST ALT Alkaline Phosphatase Troponin I < 0.0120 NT-Pro-B Natriuret Pep Total Protein Albumin Globulin Albumin/Globulin Ratio Arterial Blood Potassium Influenza Typ A,B (EIA) Negative for flu a/b Attending/Attestation - Attestation I have personally seen and examined this patient.: Yes I have fully participated in the care of the patient.: Yes I have reviewed all pertinent clinical information: Yes Notes (Text): 01/12/19 17:23 Medical attending: Patient was seen and examined by me. Agree with the above note by the resident The patient was with family member at bedside In the ER he was intailly seen having a lot of dyspnea and placed on bipap and given medications - he felt well enought to try nasal cannula by the time I saw him - however given his history tonight will go back to Bipap. Patient has hypercapneia, CO2 retention and maybe could benefit from a home [employer] system. The family explains they do have home oxygen via nasal cannula - however they have two systems and the smaller system is not working and the comapny that services them have not responded to their request to fix it. Reviewed the CXRAY and he does not have fluid congestion (the last time he had the flu and the CXRAYs were very congested) BNP was 90. We will add solumedrol IV and also continue with his breathing medications. We will also get pulmonary evaluation Denzel Meeks
[2019-01-12] MEDS ORDERED: Albuterol-Ipratrop 3 mg / 0.5 (3 ml) UD INH SCH (16:00)
[2019-01-12] MEDS: Azithromycin 500 MG in Sodium Chloride 0.9% 250 ML IVPB SCH (17:29)
[2019-01-12] MEDS ORDERED: Arformoterol 15 mcg/2 ml Inh Sol INH SCH (20:00)
[2019-01-13] MEDS: Albuterol-Ipratrop 3 mg / 0.5 (3 ml) UD INH SCH ×4 (02:59→20:31)
[2019-01-13] MEDS ORDERED: MethylPREDNISolone 40 mg Vial IVP SCH (06:00)
--- NOTE | 2019-01-13 07:06 | CP.PCM.PN ---
<Aminah Chavez P - Last Filed: 01/13/19 12:00> Subjective - Date & Time of Evaluation Date of Evaluation: 01/13/19 Time of Evaluation: 07:06 - Subjective Subjective: Progress note for Dr. Meeks. Patient seen and examined. Patient states he feels much better than yesterday. He states he still has a cough and lateral rib pain with coughing. Denies fever, chills, dizziness, lightheadedness, nausea, vomiting and headache. Objective - Vital Signs/Intake and Output Vital Signs (last 24 hours): Temp Pulse Resp BP Pulse Ox 98.4 F 93 H 20 131/81 95 01/13/19 00:43 01/13/19 01:00 01/13/19 00:43 01/13/19 04:00 01/13/19 00:43 - Medications Medications: Current Medications Albuterol/Ipratropium (Duoneb 3 Mg/0.5 Mg (3 Ml) Ud) 3 ml INH RQ6 LUL Last Admin: 01/13/19 02:59 Dose: 3 ml Amlodipine Besylate (Norvasc) 5 mg PO DAILY LUL Arformoterol Tartrate (Brovana) 15 mcg INH RQ12 LUL Aspirin (Ecotrin) 81 mg PO DAILY LUL Budesonide (Pulmicort Respules) 0.5 mg INH RQ12 LUL Heparin Sodium (Porcine) (Heparin) 5,000 units SC Q8 LUL Last Admin: 01/13/19 06:18 Dose: 5,000 units Azithromycin 500 mg/ Sodium (Chloride) 250 mls @ 250 mls/hr IVPB Q24H LUL; Protocol Last Admin: 01/12/19 17:29 Dose: 250 mls/hr Ceftriaxone Sodium 1 gm/ (Sodium Chloride) 100 mls @ 100 mls/hr IVPB Q12H LUL; Protocol Last Admin: 01/13/19 04:59 Dose: 100 mls/hr Losartan Potassium (Cozaar) 100 mg PO DAILY [facility] Methylprednisolone (Solu-Medrol) 40 mg IVP Q8 LUL Last Admin: 01/13/19 06:18 Dose: 40 mg Pneumococcal Polyvalent Vaccine (Pneumovax 23 Vaccine) 0.5 ml IM .ONCE ONE Stop: 01/15/19 14:01 - Labs Labs: 01/12/19 12:27 01/12/19 12:27 - Constitutional Appears: Non-toxic, No Acute Distress - Head Exam Head Exam: ATRAUMATIC, NORMOCEPHALIC - Eye Exam Eye Exam: EOMI, Normal appearance, PERRL - ENT Exam ENT Exam: Mucous Membranes Moist, Normal Exam - Neck Exam Neck Exam: Full ROM, Normal Inspection - Respiratory Exam Respiratory Exam: Decreased Breath Sounds, Wheezes. absent: Rales, Rhonchi - Cardiovascular Exam Cardiovascular Exam: REGULAR RHYTHM, +S1, +S2 - GI/Abdominal Exam GI & Abdominal Exam: Soft. absent: Distended, Firm, Guarding, Tenderness, Rebound - Extremities Exam Extremities Exam: Full ROM, Normal Capillary Refill, Normal Inspection. absent: Calf Tenderness, Pedal Edema - Neurological Exam Neurological Exam: Alert, Awake, CN II-XII Intact (grossly), Oriented x3 Neuro motor strength exam: Left Upper Extremity: 5, Right Upper Extremity: 5, Left Lower Extremity: 5, Right Lower Extremity: 5 - Psychiatric Exam Psychiatric exam: Normal Affect, Normal Mood - Skin Skin Exam: Dry, Intact, Normal Color, Warm Assessment and Plan - Assessment and Plan (Free Text) Plan: 74M pmhx of emphysema, HTN, Osteoarthritis admitted for shortness of breath Hypercapnic Respiratory Distress- COPD exacerbation Acute on chronic - CXR: No active dz - pH on ABG 7.41 - CO2 elevated, HCO3 elevated: pt is compensating - given Duoneb x5, Decadron 10mg x1 in ED - Duonebs 3mL INH rQ4 LUL - Brovana inh Daily - Solumedrol 40mg IVP q12H - Azithro 500mg IVPB daily - Rocephin 1g q12 IVPB - Pulmonology Consulted: Dr Day * recommend home oxygen and cpap at night - f/u cultures and serologies Hypertension chronic - ASA 81mg po daily - Losartan 100mg po daily PPx - DVT: Heparin 5000u SC q8, SCDs - Diet: HHD Dispo: Case managment to contact patient's home oxygen company to replace patient's malfunctioning oxygen machine. Case discussed with Dr. Jeanna Chavez, PGY-1 <Denzel Meeks H - Last Filed: 01/13/19 18:43> Objective - Vital Signs/Intake and Output Vital Signs (last 24 hours): Temp Pulse Resp BP Pulse Ox 98.2 F 111 H 20 122/72 95 01/13/19 15:00 01/13/19 17:00 01/13/19 15:00 01/13/19 15:00 01/13/19 15:00 Intake and Output: 01/13/19 01/13/19 06:59 18:59 Intake Total 100 Balance 100 - Medications Medications: Current Medications Albuterol/Ipratropium (Duoneb 3 Mg/0.5 Mg (3 Ml) Ud) 3 ml INH RQ6 LUL Last Admin: 01/13/19 13:57 Dose: 3 ml Amlodipine Besylate (Norvasc) 5 mg PO DAILY LUL Last Admin: 01/13/19 09:24 Dose: 5 mg Arformoterol Tartrate (Brovana) 15 mcg INH RQ12 LUL Aspirin (Ecotrin) 81 mg PO DAILY LUL Last Admin: 01/13/19 09:24 Dose: 81 mg Budesonide (Pulmicort Respules) 0.5 mg INH RQ12 LUL Last Admin: 01/13/19 08:51 Dose: 0.5 mg Heparin Sodium (Porcine) (Heparin) 5,000 units SC Q8 LUL Last Admin: 01/13/19 14:16 Dose: 5,000 units Azithromycin 500 mg/ Sodium (Chloride) 250 mls @ 250 mls/hr IVPB Q24H LUL; Protocol Last Admin: 01/13/19 16:39 Dose: 250 mls/hr Ceftriaxone Sodium 1 gm/ (Sodium Chloride) 100 mls @ 100 mls/hr IVPB Q12H LUL; Protocol Last Admin: 01/13/19 16:39 Dose: 100 mls/hr Losartan Potassium (Cozaar) 100 mg PO DAILY LUL Last Admin: 01/13/19 09:24 Dose: 100 mg Methylprednisolone (Solu-Medrol) 40 mg IVP Q12H LUL Last Admin: 01/13/19 13:51 Dose: 40 mg Pneumococcal Polyvalent Vaccine (Pneumovax 23 Vaccine) 0.5 ml IM .ONCE ONE Stop: 01/15/19 14:01 - Labs Labs: 01/13/19 07:33 01/13/19 07:33 Attending/Attestation - Attestation I have personally seen and examined this patient.: Yes I have fully participated in the care of the patient.: Yes I have reviewed all pertinent clinical information, including history, physical exam and plan: Yes Notes (Text): 01/13/19 18:40 Medical attending: Patient was seen and examined by me. Reviewed the above note by the resident We are trying to see if the patient's home oxygen situation can be resolved. As mentioned previously the family explains there is home oxygen at home that he wears - however the company that services this oxygen is not helping the family replace it because it is broken. The patient appeared well today, he was speaking in full sentences, we will decrease the solumedrol to BID Denzel Meeks
[2019-01-13 07:41] LABS: BASO % 0.1 % (0.0-2.0); LYMPH % 13.5 % (20.0-40.0); MEAN CELL VOLUME 90.4 fL (80.0-94.0); MEAN CORPUSCULAR HEMOGLOBIN 31.6 pg (27.0-31.0); MEAN CORPUSCULAR HGB CONC 34.9 g/dL (33.0-37.0); MEAN PLATELET VOLUME 8.4 fL (7.2-11.7); MONO # 0.6 K/uL (0.0-0.8); MONO % 8.8 % (0.0-10.0); NEUT # 5.6 K/uL (1.8-7.0); NEUT % 77.6 % (50.0-75.0); NRBC % 0.1 % (0.0-2.0); RBC 4.12 Mil/uL (4.40-5.90); RED CELL DISTRIBUTION WIDTH 13.9 % (11.5-14.5); WHITE BLOOD COUNT 7.2 K/uL (4.8-10.8)
[2019-01-13 08:31] LABS: ALB/GLOB RATIO 1.5 (1.0-2.1); ALBUMIN 4.1 g/dL (3.5-5.0); ALT/SGPT 42 U/L (21-72); AST/SGOT 28 U/L (17-59); BLOOD UREA NITROGEN 13 mg/dL (9-20); CALCIUM 9.5 mg/dl (8.6-10.4); GFR NON-AFRICAN AMERICAN > 60
[2019-01-13] MEDS: Budesonide 0.5 mg/2 ml Inhal Susp UD INH SCH ×2 (08:51→20:31)
--- NOTE | 2019-01-13 09:07 | CP.PCM.CON ---
<Sharla Justice - Last Filed: 01/13/19 10:40> History of Present Illness - History of Present Illness History of Present Illness: Pulm Consult Note for Dr. Day's service 74 yo male w/ PMH of HTN, DM2, and COPD on home oxygen (for multiple years) is admitted for COPD exacerbation. Of note patient was recently admitted for COPD exacerbation about 2-3 weeks ago. Patient has had difficulty attaining home oxygen and a trilogy machine due to his insurance issues. Patient states he takes an inhaler at home but is unable to recall which one. Patient states he began to get sob to the point where it was difficult to breathe and his chest hurt. At that moment with the medications not offering relief, he decided to come to hospital. Was placed on bipap overnight with improvement of his ABG nu mbers. Admits to shortness of breath, cough with productive yellow sputum. Denies fevers, chills, chest pain, n/v, constipation or diarrhea, and dysuria. Meds: Losartan 10mg PO daily, ASA 81mg PO daily, Amlodipine 5mg PO daily, Ventolin rescue pump, Albuterol neb PRN PMH: HTN, COPD, asthma, arthritis PSxH: L ankle ORIF FH: Asthma, CAD, COPD, HTN on both sides. 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 Has a 50 year 2-3 PPD smoking history, quit 3 years ago, drinks EtOH 2-3 beers socially on weekends, denies illicit drug use. Review of Systems - Review of Systems All systems: reviewed and no additional remarkable complaints except Review of Systems: see hpi Past Patient History - Infectious Disease Hx of Infectious Diseases: None - Past Medical History & Family History Past Medical History?: Yes - Past Social History Smoking Status: Former Smoker - CARDIAC Hx Cardiac Disorders: Yes Hx Hypertension: Yes - PULMONARY Hx Respiratory Disorders: Yes Hx Asthma: Yes Hx Bronchitis: Yes Hx Chronic Obstructive Pulmonary Disease (COPD): Yes Hx Emphysema: Yes - NEUROLOGICAL Hx Neurological Disorder: No - HEENT Hx HEENT Problems: No - RENAL Hx Chronic Kidney Disease: No - ENDOCRINE/METABOLIC Hx Endocrine Disorders: No Hx Diabetes Mellitus Type 2: No - HEMATOLOGICAL/ONCOLOGICAL Hx Blood Disorders: No - INTEGUMENTARY Hx Dermatological Problems: No - MUSCULOSKELETAL/RHEUMATOLOGICAL Hx Musculoskeletal Disorders: No Hx Falls: No - GASTROINTESTINAL Hx Gastrointestinal Disorders: No - GENITOURINARY/GYNECOLOGICAL Hx Genitourinary Disorders: No - PSYCHIATRIC Hx Psychophysiologic Disorder: No Hx Substance Use: No - SURGICAL HISTORY Hx Surgeries: Yes Hx Orthopedic Surgery: Yes Other/Comment: ORIF left ankle - ANESTHESIA Hx Anesthesia: Yes Hx Anesthesia Reactions: No Hx Malignant Hyperthermia: No Has any member of the family had a problem w/ anesthesia?: No Meds Allergies/Adverse Reactions: Allergies Allergy/AdvReac Type Severity Reaction Status Date / Time No Known Allergies Allergy Verified 01/12/19 11:51 - Medications Medications: Current Medications Albuterol/Ipratropium (Duoneb 3 Mg/0.5 Mg (3 Ml) Ud) 3 ml INH RQ6 LUL Last Admin: 01/13/19 08:51 Dose: 3 ml Amlodipine Besylate (Norvasc) 5 mg PO DAILY [facility] Arformoterol Tartrate (Brovana) 15 mcg INH RQ12 LUL Last Admin: 01/13/19 08:52 Dose: Not Given Aspirin (Ecotrin) 81 mg PO DAILY LUL Budesonide (Pulmicort Respules) 0.5 mg INH RQ12 LUL Last Admin: 01/13/19 08:51 Dose: 0.5 mg Heparin Sodium (Porcine) (Heparin) 5,000 units SC Q8 LUL Last Admin: 01/13/19 06:18 Dose: 5,000 units Azithromycin 500 mg/ Sodium (Chloride) 250 mls @ 250 mls/hr IVPB Q24H LUL; Protocol Last Admin: 01/12/19 17:29 Dose: 250 mls/hr Ceftriaxone Sodium 1 gm/ (Sodium Chloride) 100 mls @ 100 mls/hr IVPB Q12H LUL; Protocol Last Admin: 01/13/19 04:59 Dose: 100 mls/hr Losartan Potassium (Cozaar) 100 mg PO DAILY [facility] Methylprednisolone (Solu-Medrol) 40 mg IVP Q8 LUL Last Admin: 01/13/19 06:18 Dose: 40 mg Pneumococcal Polyvalent Vaccine (Pneumovax 23 Vaccine) 0.5 ml IM .ONCE ONE Stop: 01/15/19 14:01 Physical Exam - Constitutional Appears: Non-toxic, No Acute Distress - Head Exam Head Exam: NORMAL INSPECTION, NORMOCEPHALIC - Eye Exam Eye Exam: EOMI, Normal appearance - ENT Exam ENT Exam: Mucous Membranes Moist - Respiratory Exam Respiratory Exam: Decreased Breath Sounds, Wheezes, NORMAL BREATHING PATTERN. absent: Rhonchi, Respiratory Distress - Cardiovascular Exam Cardiovascular Exam: REGULAR RHYTHM, +S1, +S2 - GI/Abdominal Exam GI & Abdominal Exam: Normal Bowel Sounds, Soft. absent: Diminished Bowel Sounds, Tenderness - Extremities Exam Extremities exam: Positive for: normal inspection. Negative for: calf tenderness, pedal edema - Neurological Exam Neurological exam: Alert, Oriented x3 - Skin Skin Exam: Dry, Intact, Normal Color Results - Vital Signs Recent Vital Signs: Last Vital Signs Temp 98.2 F 01/13/19 07:00 Pulse 114 H 01/13/19 07:05 Resp 20 01/13/19 07:00 BP 151/89 H 01/13/19 07:00 Pulse Ox 96 01/13/19 07:00 - Labs Result Diagrams: 01/13/19 07:33 01/13/19 07:33 Labs: Laboratory Results - last 24 hr 01/12/19 01/12/19 01/12/19 12:27 12:27 13:35 WBC 7.8 D RBC 4.51 Hgb 14.3 Hct 40.7 MCV 90.2 D MCH 31.6 H MCHC 35.0 RDW 13.7 Plt Count 295 MPV 8.3 Neut % (Auto) 71.5 Lymph % (Auto) 12.9 L [place] % (Auto) 13.3 H Eos % (Auto) 1.8 Baso % (Auto) 0.5 Neut # (Auto) 5.6 Lymph # (Auto) 1.0 [place] # (Auto) 1.0 H Eos # (Auto) 0.1 Baso # (Auto) 0.0 Puncture Site Rra pCO2 59 H pO2 82 HCO3 33.0 H ABG pH 7.41 ABG Total CO2 39.2 H ABG O2 Saturation 97.1 ABG Base Excess 10.4 H Medardo Test Pos ABG Potassium 3.4 L A-a O2 Difference 94.0 Respiratory Index 1.1 Glucose 108 Lactate 0.7 Vent Mode Bipap FiO2 35.0 Inspiratory BiPAP 14 Expiratory BiPAP 6 Sodium 134 134.0 Potassium 3.8 Chloride 91 L 99.0 Carbon Dioxide 34 H Anion Gap 13 BUN 9 Creatinine 0.8 Est GFR ( Amer) > 60 Est GFR (Non-Af Amer) > 60 Random Glucose 118 H Calcium 9.9 Phosphorus Magnesium Total Bilirubin 0.6 AST 27 ALT 34 Alkaline Phosphatase 85 Troponin I < 0.0120 NT-Pro-B Natriuret Pep 98.0 Total Protein 7.6 Albumin 4.5 Globulin 3.1 Albumin/Globulin Ratio 1.5 Arterial Blood Potassium 3.4 L Influenza Typ A,B (EIA) Ur L.pneumophila Ag Mycoplasma pneumon IgM S. pneumoniae Antigen 01/12/19 01/12/19 01/12/19 14:13 16:23 16:23 WBC RBC Hgb Hct MCV MCH MCHC RDW Plt Count MPV Neut % (Auto) Lymph % (Auto) [place] % (Auto) Eos % (Auto) Baso % (Auto) Neut # (Auto) Lymph # (Auto) [place] # (Auto) Eos # (Auto) Baso # (Auto) Puncture Site pCO2 pO2 HCO3 ABG pH ABG Total CO2 ABG O2 Saturation ABG Base Excess Medardo Test ABG Potassium A-a O2 Difference Respiratory Index Glucose Lactate Vent Mode FiO2 Inspiratory BiPAP Expiratory BiPAP Sodium Potassium Chloride Carbon Dioxide Anion Gap BUN Creatinine Est GFR ( Amer) Est GFR (Non-Af Amer) Random Glucose Calcium Phosphorus Magnesium Total Bilirubin AST ALT Alkaline Phosphatase Troponin I NT-Pro-B Natriuret Pep Total Protein Albumin Globulin Albumin/Globulin Ratio Arterial Blood Potassium Influenza Typ A,B (EIA) Negative for flu a/b Ur L.pneumophila Ag Negative Mycoplasma pneumon IgM S. pneumoniae Antigen Negative 01/12/19 01/12/19 01/13/19 16:23 16:23 07:33 WBC 7.2 RBC 4.12 L Hgb 13.0 Hct 37.3 MCV 90.4 MCH 31.6 H MCHC 34.9 RDW 13.9 Plt Count 331 MPV 8.4 Neut % (Auto) 77.6 H Lymph % (Auto) 13.5 L [place] % (Auto) 8.8 Eos % (Auto) 0.0 Baso % (Auto) 0.1 Neut # (Auto) 5.6 Lymph # (Auto) 1.0 [place] # (Auto) 0.6 Eos # (Auto) 0.0 Baso # (Auto) 0.0 Puncture Site pCO2 pO2 HCO3 ABG pH ABG Total CO2 ABG O2 Saturation ABG Base Excess Medardo Test ABG Potassium A-a O2 Difference Respiratory Index Glucose Lactate Vent Mode FiO2 Inspiratory BiPAP Expiratory BiPAP Sodium Potassium Chloride Carbon Dioxide Anion Gap BUN Creatinine Est GFR ( Amer) Est GFR (Non-Af Amer) Random Glucose Calcium Phosphorus Magnesium Total Bilirubin AST ALT Alkaline Phosphatase Troponin I < 0.0120 NT-Pro-B Natriuret Pep Total Protein Albumin Globulin Albumin/Globulin Ratio Arterial Blood Potassium Influenza Typ A,B (EIA) Ur L.pneumophila Ag Mycoplasma pneumon IgM Negative S. pneumoniae Antigen 01/13/19 07:33 WBC RBC Hgb Hct MCV MCH MCHC RDW Plt Count MPV Neut % (Auto) Lymph % (Auto) [place] % (Auto) Eos % (Auto) Baso % (Auto) Neut # (Auto) Lymph # (Auto) [place] # (Auto) Eos # (Auto) Baso # (Auto) Puncture Site pCO2 pO2 HCO3 ABG pH ABG Total CO2 ABG O2 Saturation ABG Base Excess Medardo Test ABG Potassium A-a O2 Difference Respiratory Index Glucose Lactate Vent Mode FiO2 Inspiratory BiPAP Expiratory BiPAP Sodium 134 Potassium 4.5 Chloride 94 L Carbon Dioxide 33 H Anion Gap 12 BUN 13 Creatinine 0.7 L Est GFR ( Amer) > 60 Est GFR (Non-Af Amer) > 60 Random Glucose 124 H Calcium 9.5 Phosphorus 3.1 Magnesium 2.1 Total Bilirubin 0.4 AST 28 ALT 42 Alkaline Phosphatase 81 Troponin I NT-Pro-B Natriuret Pep Total Protein 6.8 Albumin 4.1 Globulin 2.7 Albumin/Globulin Ratio 1.5 Arterial Blood Potassium Influenza Typ A,B (EIA) Ur L.pneumophila Ag Mycoplasma pneumon IgM S. pneumoniae Antigen Assessment & Plan - Assessment and Plan (Free Text) Assessment: 74 yo male w/ PMH of COPD/emphysema, asthma, HTN, arthritis admitted for copd exacerbation Plan: A: COPD Exacerbation HTN P: Duoneb 3ml inh rq6 Brovana 15mcg inh rq12 Pulmicort 0.5mg inh rq12 IV azith and ceftriaxone IV solumedrol 40mg ivp q8 use bipap prn as patient preference on home oxygen needs oxygen support at all times Recommend case managmenet consult for discharge planning for home oxygen and cpap at night Agree with current management <Andre Day - Last Filed: 01/13/19 14:34> Meds - Medications Medications: Current Medications Albuterol/Ipratropium (Duoneb 3 Mg/0.5 Mg (3 Ml) Ud) 3 ml INH RQ6 LUL Last Admin: 01/13/19 13:57 Dose: 3 ml Amlodipine Besylate (Norvasc) 5 mg PO DAILY [facility] Last Admin: 01/13/19 09:24 Dose: 5 mg Arformoterol Tartrate (Brovana) 15 mcg INH RQ12 LUL Last Admin: 01/13/19 08:52 Dose: Not Given Aspirin (Ecotrin) 81 mg PO DAILY [facility] Last Admin: 01/13/19 09:24 Dose: 81 mg Budesonide (Pulmicort Respules) 0.5 mg INH RQ12 LUL Last Admin: 01/13/19 08:51 Dose: 0.5 mg Heparin Sodium (Porcine) (Heparin) 5,000 units SC Q8 LUL Last Admin: 01/13/19 14:16 Dose: 5,000 units Azithromycin 500 mg/ Sodium (Chloride) 250 mls @ 250 mls/hr IVPB Q24H LUL; Protocol Last Admin: 01/12/19 17:29 Dose: 250 mls/hr Ceftriaxone Sodium 1 gm/ (Sodium Chloride) 100 mls @ 100 mls/hr IVPB Q12H LUL; Protocol Last Admin: 01/13/19 04:59 Dose: 100 mls/hr Losartan Potassium (Cozaar) 100 mg PO DAILY [facility] Last Admin: 01/13/19 09:24 Dose: 100 mg Methylprednisolone (Solu-Medrol) 40 mg IVP Q12H [facility] Last Admin: 01/13/19 13:51 Dose: 40 mg Pneumococcal Polyvalent Vaccine (Pneumovax 23 Vaccine) 0.5 ml IM .ONCE ONE Stop: 01/15/19 14:01 Results - Vital Signs Recent Vital Signs: Last Vital Signs Temp 98.2 F 01/13/19 07:00 Pulse 114 H 01/13/19 07:05 Resp 20 01/13/19 07:00 BP 151/89 H 01/13/19 07:00 Pulse Ox 98 01/13/19 11:57 - Labs Result Diagrams: 01/13/19 07:33 01/13/19 07:33 Labs: Laboratory Results - last 24 hr 01/12/19 01/12/19 01/12/19 16:23 16:23 16:23 WBC RBC Hgb Hct MCV MCH MCHC RDW Plt Count MPV Neut % (Auto) Lymph % (Auto) [place] % (Auto) Eos % (Auto) Baso % (Auto) Neut # (Auto) Lymph # (Auto) [place] # (Auto) Eos # (Auto) Baso # (Auto) Sodium Potassium Chloride Carbon Dioxide Anion Gap BUN Creatinine Est GFR ( Amer) Est GFR (Non-Af Amer) Random Glucose Calcium Phosphorus Magnesium Total Bilirubin AST ALT Alkaline Phosphatase Troponin I < 0.0120 Total Protein Albumin Globulin Albumin/Globulin Ratio Ur L.pneumophila Ag Negative Mycoplasma pneumon IgM S. pneumoniae Antigen Negative 01/12/19 01/13/19 01/13/19 16:23 07:33 07:33 WBC 7.2 RBC 4.12 L Hgb 13.0 Hct 37.3 MCV 90.4 MCH 31.6 H MCHC 34.9 RDW 13.9 Plt Count 331 MPV 8.4 Neut % (Auto) 77.6 H Lymph % (Auto) 13.5 L [place] % (Auto) 8.8 Eos % (Auto) 0.0 Baso % (Auto) 0.1 Neut # (Auto) 5.6 Lymph # (Auto) 1.0 [place] # (Auto) 0.6 Eos # (Auto) 0.0 Baso # (Auto) 0.0 Sodium 134 Potassium 4.5 Chloride 94 L Carbon Dioxide 33 H Anion Gap 12 BUN 13 Creatinine 0.7 L Est GFR ( Amer) > 60 Est GFR (Non-Af Amer) > 60 Random Glucose 124 H Calcium 9.5 Phosphorus 3.1 Magnesium 2.1 Total Bilirubin 0.4 AST 28 ALT 42 Alkaline Phosphatase 81 Troponin I Total Protein 6.8 Albumin 4.1 Globulin 2.7 Albumin/Globulin Ratio 1.5 Ur L.pneumophila Ag Mycoplasma pneumon IgM Negative S. pneumoniae Antigen Attending/Attestation - Attestation I have personally seen and examined this patient.: Yes I have fully participated in the care of the patient.: Yes I have reviewed all pertinent clinical information: Yes Notes (Text): 01/13/19 14:34 Patient seen and examined Assessment and plan as per resident note Continue antibiotics, IV steroids and nebulizer treatment BiPAP and follow-up ABG
[2019-01-13] MEDS: MethylPREDNISolone 40 mg Vial IVP SCH (13:51)
[2019-01-13] MEDS: Azithromycin 500 MG in Sodium Chloride 0.9% 250 ML IVPB SCH (16:39)
[2019-01-13] MEDS: Arformoterol 15 mcg/2 ml Inh Sol INH SCH (20:31)
--- NOTE | 2019-01-13 23:39 | CARD ---
APPROVED REPORT Date of service: 01/12/2019 EKG Measurement Heart [id number] <Conclusion> Sinus tachycardia Possible Left atrial enlargement Borderline ECG
[2019-01-14] MEDS: MethylPREDNISolone 40 mg Vial IVP SCH ×2 (00:13→13:42)
[2019-01-14] MEDS: Albuterol-Ipratrop 3 mg / 0.5 (3 ml) UD INH SCH ×4 (01:23→19:39)
--- NOTE | 2019-01-14 06:52 | CP.PCM.PN ---
<Zack Martínez - Last Filed: 01/14/19 07:42> Subjective - Date & Time of Evaluation Date of Evaluation: 01/14/19 Time of Evaluation: 06:00 - Subjective Subjective: Medicine progress note for Dr. Meeks. Patient seen and examined at bedside. Patient complaints of intermittent productive cough, with white sputum. Denies fevers chills, SOB, abdominal pain, chest pain, nausea, vomiting. Objective - Vital Signs/Intake and Output Vital Signs (last 24 hours): Temp Pulse Resp BP Pulse Ox 97.6 F 79 20 122/76 94 L 01/13/19 23:00 01/14/19 01:07 01/13/19 23:00 01/13/19 23:00 01/13/19 23:00 Intake and Output: 01/13/19 01/14/19 18:59 06:59 Intake Total 100 Balance 100 - Medications Medications: Current Medications Albuterol/Ipratropium (Duoneb 3 Mg/0.5 Mg (3 Ml) Ud) 3 ml INH RQ6 LUL Last Admin: 01/14/19 01:23 Dose: 3 ml Amlodipine Besylate (Norvasc) 5 mg PO DAILY LUL Last Admin: 01/13/19 09:24 Dose: 5 mg Arformoterol Tartrate (Brovana) 15 mcg INH RQ12 LUL Last Admin: 01/13/19 20:31 Dose: 15 mcg Aspirin (Ecotrin) 81 mg PO DAILY LUL Last Admin: 01/13/19 09:24 Dose: 81 mg Budesonide (Pulmicort Respules) 0.5 mg INH RQ12 LUL Last Admin: 01/13/19 20:31 Dose: 0.5 mg Heparin Sodium (Porcine) (Heparin) 5,000 units SC Q8 LUL Last Admin: 01/14/19 05:37 Dose: 5,000 units Azithromycin 500 mg/ Sodium (Chloride) 250 mls @ 250 mls/hr IVPB Q24H LUL; Protocol Last Admin: 01/13/19 16:39 Dose: 250 mls/hr Ceftriaxone Sodium 1 gm/ (Sodium Chloride) 100 mls @ 100 mls/hr IVPB Q12H LUL; Protocol Last Admin: 01/14/19 03:53 Dose: 100 mls/hr Losartan Potassium (Cozaar) 100 mg PO DAILY LUL Last Admin: 01/13/19 09:24 Dose: 100 mg Methylprednisolone (Solu-Medrol) 40 mg IVP Q12H [facility] Last Admin: 01/14/19 00:13 Dose: 40 mg Pneumococcal Polyvalent Vaccine (Pneumovax 23 Vaccine) 0.5 ml IM .ONCE ONE Stop: 01/15/19 14:01 - Labs Labs: 01/13/19 07:33 01/13/19 07:33 - Constitutional Appears: Non-toxic, No Acute Distress - Head Exam Head Exam: NORMAL INSPECTION - Eye Exam Eye Exam: EOMI, Normal appearance - ENT Exam ENT Exam: Mucous Membranes Moist - Respiratory Exam Respiratory Exam: Decreased Breath Sounds, Rales, Wheezes, NORMAL BREATHING PATTERN Additional comments: on NC @ 3 LPM - Cardiovascular Exam Cardiovascular Exam: +S1, +S2. absent: Murmur - GI/Abdominal Exam GI & Abdominal Exam: Soft, Normal Bowel Sounds - Extremities Exam Extremities Exam: Full ROM, Normal Inspection. absent: Pedal Edema - Back Exam Back Exam: absent: CVA tenderness (L), CVA tenderness (R) - Neurological Exam Neurological Exam: Alert, Awake, Oriented x3 - Psychiatric Exam Psychiatric exam: Normal Affect, Normal Mood - Skin Skin Exam: Dry, Intact, Normal Color, Warm Assessment and Plan - Assessment and Plan (Free Text) Assessment: 74M pmhx of emphysema, HTN, Osteoarthritis admitted for shortness of breath Plan: Hypercapnic Respiratory Distress- COPD exacerbation Acute on chronic - CXR: No active dz - pH on ABG 7.41 - CO2 elevated, HCO3 elevated: pt is compensating - given Duoneb x5, Decadron 10mg x1 in ED - Duonebs 3mL INH rQ4 LUL - Brovana inh Daily - Solumedrol 40mg IVP q12H - Azithro 500mg IVPB daily - Rocephin 1g q12 IVPB - mucinex 600 mg BID total 6 doses - Pulmonology Consulted: Dr Day * recommend home oxygen and cpap at night - f/u cultures and serologies Hypertension chronic - ASA 81mg po daily - Losartan 100mg po daily PPx - DVT: Heparin 5000u SC q8, SCDs - Diet: HHD Dispo: Case managment to contact patient's home oxygen company to replace patient's malfunctioning oxygen machine. Will d/c with Dr. Meeks. <Denzel Meeks H - Last Filed: 01/14/19 10:47> Objective - Vital Signs/Intake and Output Vital Signs (last 24 hours): Temp Pulse Resp BP Pulse Ox 98.6 F 102 H 20 120/73 95 01/14/19 07:00 01/14/19 07:00 01/14/19 07:00 01/14/19 07:00 01/14/19 07:00 - Medications Medications: Current Medications Albuterol/Ipratropium (Duoneb 3 Mg/0.5 Mg (3 Ml) Ud) 3 ml INH RQ6 LUL Last Admin: 01/14/19 08:50 Dose: 3 ml Amlodipine Besylate (Norvasc) 5 mg PO DAILY [facility] Last Admin: 01/14/19 09:59 Dose: 5 mg Arformoterol Tartrate (Brovana) 15 mcg INH RQ12 LUL Last Admin: 01/14/19 08:49 Dose: 15 mcg Aspirin (Ecotrin) 81 mg PO DAILY [facility] Last Admin: 01/14/19 10:00 Dose: 81 mg Budesonide (Pulmicort Respules) 0.5 mg INH RQ12 LUL Last Admin: 01/14/19 08:50 Dose: Not Given Guaifenesin (Mucinex La) 600 mg PO BID LUL Stop: 01/16/19 18:01 Last Admin: 01/14/19 09:59 Dose: 600 mg Heparin Sodium (Porcine) (Heparin) 5,000 units SC Q8 LUL Last Admin: 01/14/19 05:37 Dose: 5,000 units Azithromycin 500 mg/ Sodium (Chloride) 250 mls @ 250 mls/hr IVPB Q24H LUL; Protocol Last Admin: 01/13/19 16:39 Dose: 250 mls/hr Ceftriaxone Sodium 1 gm/ (Sodium Chloride) 100 mls @ 100 mls/hr IVPB Q12H LUL; Protocol Last Admin: 01/14/19 03:53 Dose: 100 mls/hr Losartan Potassium (Cozaar) 100 mg PO DAILY [facility] Last Admin: 01/14/19 10:00 Dose: 100 mg Methylprednisolone (Solu-Medrol) 40 mg IVP Q12H LUL Last Admin: 01/14/19 00:13 Dose: 40 mg Pneumococcal Polyvalent Vaccine (Pneumovax 23 Vaccine) 0.5 ml IM .ONCE ONE Stop: 01/15/19 14:01 - Labs Labs: 01/14/19 07:02 01/14/19 07:02 Attending/Attestation - Attestation I have personally seen and examined this patient.: Yes I have fully participated in the care of the patient.: Yes I have reviewed all pertinent clinical information, including history, physical exam and plan: Yes Notes (Text): 01/14/19 10:45 Medical attending: Patient was seen and examined by me. Agree with the above note by the resident Overnight the patient wore the Bipap and felt much better. The patient is currently on nasal cannula. As mentioned previously the patient's home oxygen device is not working properly and him and his family explain to us that the company that is supposed to service this device is not comming to the home Today will try tapering the solumedrol further Denzel Meeks
[2019-01-14 07:16] LABS: BASO % 0.1 % (0.0-2.0); HEMOGLOBIN 11.7 g/dL (12.0-18.0); LYMPH # 0.7 K/uL (1.0-4.3); LYMPH % 6.2 % (20.0-40.0); MEAN CELL VOLUME 90.6 fL (80.0-94.0); MEAN CORPUSCULAR HEMOGLOBIN 31.3 pg (27.0-31.0); MEAN CORPUSCULAR HGB CONC 34.6 g/dL (33.0-37.0); MEAN PLATELET VOLUME 8.8 fL (7.2-11.7); MONO # 0.5 K/uL (0.0-0.8); MONO % 4.9 % (0.0-10.0); NEUT % 88.8 % (50.0-75.0); PLATELET COUNT 299 K/uL (130-400); RBC 3.72 Mil/uL (4.40-5.90); RED CELL DISTRIBUTION WIDTH 13.8 % (11.5-14.5); WHITE BLOOD COUNT 11.3 K/uL (4.8-10.8)
[2019-01-14 07:25] LABS: ALB/GLOB RATIO 1.6 (1.0-2.1); ALBUMIN 3.8 g/dL (3.5-5.0); ALT/SGPT 38 U/L (21-72); AST/SGOT 20 U/L (17-59); BLOOD UREA NITROGEN 16 mg/dL (9-20); CALCIUM 9.5 mg/dl (8.6-10.4); GFR NON-AFRICAN AMERICAN > 60
[2019-01-14] MEDS: Arformoterol 15 mcg/2 ml Inh Sol INH SCH ×2 (08:49→19:39)
[2019-01-14] MEDS: Budesonide 0.5 mg/2 ml Inhal Susp UD INH SCH ×2 (08:50→19:39)
[2019-01-14 09:30] LABS: BANDS 1 % (0-2); LYMPHOCYTE 6 % (20-40); MONOCYTE 5 % (0-10); NEUTROPHIL 88 % (50-75); TOTAL CELLS COUNTED 100
[2019-01-14 09:31] LABS: ANISOCYTOSIS SLIGHT; HYPOCHROMIC SLIGHT; PLATELET ESTIMATE NORMAL (NORMAL); POLYCHROMIC SLIGHT
[2019-01-14 09:32] LABS: LARGE PLATELETS PRESENT
[2019-01-14] MEDS: guaiFENesin 600 mg ER Tab PO SCH ×2 (09:59→17:09)
[2019-01-14] MEDS: Azithromycin 500 MG in Sodium Chloride 0.9% 250 ML IVPB SCH (17:09)
--- NOTE | 2019-01-14 20:15 | CP.PCM.PN ---
Subjective - Date & Time of Evaluation Date of Evaluation: 01/14/19 Time of Evaluation: 19:40 - Subjective Subjective: Patient seen and examined Still complaining of shortness of breath, wheezing and cough which is mostly dry On BiPAP as needed Awake and responsive Objective - Vital Signs/Intake and Output Vital Signs (last 24 hours): Temp Pulse Resp BP Pulse Ox 98.2 F 97 H 20 119/71 98 01/14/19 15:00 01/14/19 15:00 01/14/19 15:00 01/14/19 15:00 01/14/19 15:00 - Medications Medications: Current Medications Albuterol/Ipratropium (Duoneb 3 Mg/0.5 Mg (3 Ml) Ud) 3 ml INH RQ6 LUL Last Admin: 01/14/19 19:39 Dose: 3 ml Amlodipine Besylate (Norvasc) 5 mg PO DAILY [facility] Last Admin: 01/14/19 09:59 Dose: 5 mg Arformoterol Tartrate (Brovana) 15 mcg INH RQ12 LUL Last Admin: 01/14/19 19:39 Dose: 15 mcg Aspirin (Ecotrin) 81 mg PO DAILY LUL Last Admin: 01/14/19 10:00 Dose: 81 mg Budesonide (Pulmicort Respules) 0.5 mg INH RQ12 LUL Last Admin: 01/14/19 19:39 Dose: 0.5 mg Guaifenesin (Mucinex La) 600 mg PO BID [facility] Stop: 01/16/19 18:01 Last Admin: 01/14/19 17:09 Dose: 600 mg Heparin Sodium (Porcine) (Heparin) 5,000 units SC Q8 LUL Last Admin: 01/14/19 13:42 Dose: 5,000 units Azithromycin 500 mg/ Sodium (Chloride) 250 mls @ 250 mls/hr IVPB Q24H LUL; Protocol Last Admin: 01/14/19 17:09 Dose: 250 mls/hr Ceftriaxone Sodium 1 gm/ (Sodium Chloride) 100 mls @ 100 mls/hr IVPB Q12H LUL; Protocol Last Admin: 01/14/19 17:00 Dose: 100 mls/hr Losartan Potassium (Cozaar) 100 mg PO DAILY [facility] Last Admin: 01/14/19 10:00 Dose: 100 mg Methylprednisolone (Solu-Medrol) 40 mg IVP Q12H LUL Last Admin: 01/14/19 13:42 Dose: 40 mg Pneumococcal Polyvalent Vaccine (Pneumovax 23 Vaccine) 0.5 ml IM .ONCE ONE Stop: 01/15/19 14:01 - Labs Labs: 01/14/19 07:02 01/14/19 07:02 - Head Exam Head Exam: ATRAUMATIC, NORMOCEPHALIC - ENT Exam ENT Exam: Mucous Membranes Moist - Neck Exam Neck Exam: Normal Inspection - Respiratory Exam Respiratory Exam: Rhonchi, Wheezes - Cardiovascular Exam Cardiovascular Exam: REGULAR RHYTHM - GI/Abdominal Exam GI & Abdominal Exam: Soft, Normal Bowel Sounds - Extremities Exam Extremities Exam: Normal Inspection - Neurological Exam Neurological Exam: Awake Assessment and Plan (1) COPD exacerbation Assessment & Plan: Continue nebulizer treatment, IV steroids BiPAP at night and as needed Continue antibiotics Will benefit from trilogy Status: Acute
[2019-01-15] MEDS: MethylPREDNISolone 40 mg Vial IVP SCH ×3 (00:08→23:55)
[2019-01-15] MEDS: Albuterol-Ipratrop 3 mg / 0.5 (3 ml) UD INH SCH ×4 (01:13→19:36)
--- NOTE | 2019-01-15 05:23 | CP.PCM.PN ---
<Zack Martínez - Last Filed: 01/15/19 06:11> Subjective - Date & Time of Evaluation Date of Evaluation: 01/15/19 Time of Evaluation: 05:20 - Subjective Subjective: medicine progress note for hospitalist Dr. Meeks. Pt seen and examined at bedside. Patient lying in bed comfortably on NC. Pt reports he still has persistent dry cough. Denies fevers,chills, headaches, chest pain, nausea, vomiting, abdominal pain, diarrhea, constipation. Overnight pt using BIPAP. Objective - Vital Signs/Intake and Output Vital Signs (last 24 hours): Temp Pulse Resp BP Pulse Ox 98.0 F 86 20 117/71 90 L 01/14/19 23:10 01/15/19 01:00 01/14/19 23:10 01/14/19 23:10 01/14/19 23:10 - Medications Medications: Current Medications Albuterol/Ipratropium (Duoneb 3 Mg/0.5 Mg (3 Ml) Ud) 3 ml INH RQ6 [facility] Last Admin: 01/15/19 01:13 Dose: 3 ml Amlodipine Besylate (Norvasc) 5 mg PO DAILY [facility] Last Admin: 01/14/19 09:59 Dose: 5 mg Arformoterol Tartrate (Brovana) 15 mcg INH RQ12 [facility] Last Admin: 01/14/19 19:39 Dose: 15 mcg Aspirin (Ecotrin) 81 mg PO DAILY [facility] Last Admin: 01/14/19 10:00 Dose: 81 mg Budesonide (Pulmicort Respules) 0.5 mg INH RQ12 [facility] Last Admin: 01/14/19 19:39 Dose: 0.5 mg Guaifenesin (Mucinex La) 600 mg PO BID [facility] Stop: 01/16/19 18:01 Last Admin: 01/14/19 17:09 Dose: 600 mg Heparin Sodium (Porcine) (Heparin) 5,000 units SC Q8 [facility] Last Admin: 01/15/19 05:02 Dose: 5,000 units Azithromycin 500 mg/ Sodium (Chloride) 250 mls @ 250 mls/hr IVPB Q24H [facility]; Protocol Last Admin: 01/14/19 17:09 Dose: 250 mls/hr Ceftriaxone Sodium 1 gm/ (Sodium Chloride) 100 mls @ 100 mls/hr IVPB Q12H [facility]; Protocol Last Admin: 01/15/19 05:02 Dose: 100 mls/hr Losartan Potassium (Cozaar) 100 mg PO DAILY [facility] Last Admin: 01/14/19 10:00 Dose: 100 mg Methylprednisolone (Solu-Medrol) 40 mg IVP Q12H [facility] Last Admin: 01/15/19 00:08 Dose: 40 mg Pneumococcal Polyvalent Vaccine (Pneumovax 23 Vaccine) 0.5 ml IM .ONCE ONE Stop: 01/15/19 14:01 - Labs Labs: 01/14/19 07:02 01/14/19 07:02 - Constitutional Appears: Non-toxic, No Acute Distress - Head Exam Head Exam: NORMAL INSPECTION - Eye Exam Eye Exam: EOMI, Normal appearance - ENT Exam ENT Exam: Mucous Membranes Moist - Respiratory Exam Respiratory Exam: Decreased Breath Sounds, Rales, Wheezes, NORMAL BREATHING PATTERN. absent: Rhonchi - Cardiovascular Exam Cardiovascular Exam: +S1, +S2 - GI/Abdominal Exam GI & Abdominal Exam: Soft, Normal Bowel Sounds. absent: Firm, Guarding, Rigid - Extremities Exam Extremities Exam: Full ROM, Normal Inspection. absent: Calf Tenderness, Pedal Edema - Back Exam Back Exam: absent: CVA tenderness (L), CVA tenderness (R) - Neurological Exam Neurological Exam: Alert, Awake, Oriented x3 - Psychiatric Exam Psychiatric exam: Normal Affect, Normal Mood - Skin Skin Exam: Dry, Intact, Normal Color, Warm Assessment and Plan - Assessment and Plan (Free Text) Assessment: 74M pmhx of emphysema, HTN, Osteoarthritis admitted for shortness of breath Plan: Hypercapnic Respiratory Distress- COPD exacerbation Acute on chronic - CXR: No active dz - pH on ABG 7.41 - CO2 elevated, HCO3 elevated: pt is compensating - given Duoneb x5, Decadron 10mg x1 in ED - Duonebs 3mL INH rQ4 [facility] - Brovana inh Daily - Solumedrol 40mg IVP q12H - Azithro 500mg IVPB daily - Rocephin 1g q12 IVPB - mucinex 600 mg BID total 6 doses - Pulmonology Consulted: Dr Day * DELISA as neded, continue abx, continue nebulizer treatment, will benefit from trilogy - f/u cultures and serologies Hypertension chronic - ASA 81mg po daily - Losartan 100mg po daily PPx - DVT: Heparin 5000u SC q8, SCDs - Diet: HHD Dispo: Case managment to contact patient's home oxygen company to replace patie jessica's malfunctioning oxygen machine. Will d/c with Dr. Meeks. <Denzel Meeks H - Last Filed: 01/15/19 10:39> Objective - Vital Signs/Intake and Output Vital Signs (last 24 hours): Temp Pulse Resp BP Pulse Ox 98.4 F 77 20 148/80 97 01/15/19 08:24 01/15/19 08:24 01/15/19 08:24 01/15/19 08:24 01/15/19 08:24 - Medications Medications: Current Medications Albuterol/Ipratropium (Duoneb 3 Mg/0.5 Mg (3 Ml) Ud) 3 ml INH RQ6 [facility] Last Admin: 01/15/19 08:11 Dose: 3 ml Amlodipine Besylate (Norvasc) 5 mg PO DAILY [facility] Last Admin: 01/15/19 09:23 Dose: 5 mg Arformoterol Tartrate (Brovana) 15 mcg INH RQ12 [facility] Last Admin: 01/15/19 08:11 Dose: 15 mcg Aspirin (Ecotrin) 81 mg PO DAILY [facility] Last Admin: 01/15/19 09:23 Dose: 81 mg Budesonide (Pulmicort Respules) 0.5 mg INH RQ12 [facility] Last Admin: 01/15/19 08:11 Dose: 0.5 mg Guaifenesin (Mucinex La) 600 mg PO BID [facility] Stop: 01/16/19 18:01 Last Admin: 01/15/19 09:23 Dose: 600 mg Heparin Sodium (Porcine) (Heparin) 5,000 units SC Q8 [facility] Last Admin: 01/15/19 05:02 Dose: 5,000 units Azithromycin 500 mg/ Sodium (Chloride) 250 mls @ 250 mls/hr IVPB Q24H [facility]; Protocol Last Admin: 01/14/19 17:09 Dose: 250 mls/hr Ceftriaxone Sodium 1 gm/ (Sodium Chloride) 100 mls @ 100 mls/hr IVPB Q12H [facility]; Protocol Last Admin: 01/15/19 05:02 Dose: 100 mls/hr Losartan Potassium (Cozaar) 100 mg PO DAILY [facility] Last Admin: 01/15/19 09:23 Dose: 100 mg Methylprednisolone (Solu-Medrol) 40 mg IVP Q12H [facility] Last Admin: 01/15/19 00:08 Dose: 40 mg Pneumococcal Polyvalent Vaccine (Pneumovax 23 Vaccine) 0.5 ml IM .ONCE ONE Stop: 01/15/19 14:01 - Labs Labs: 01/15/19 08:52 01/15/19 08:52 Attending/Attestation - Attestation I have personally seen and examined this patient.: Yes I have fully participated in the care of the patient.: Yes I have reviewed all pertinent clinical information, including history, physical exam and plan: Yes Notes (Text): Medical attending: Patient was seen and examined by me. Agree with the above note by the resident Today he reported less coughing than previous He remains on the IV solumedrol and breathing medication at this time. At night he is on Bipap Pulmonology is advising a triology system for home. Hopefully this can help with the hypercapnia/CO2 retnetion when the patient is at home Denzel Meeks
[2019-01-15] MEDS: Budesonide 0.5 mg/2 ml Inhal Susp UD INH SCH ×2 (08:11→19:35)
[2019-01-15] MEDS: Arformoterol 15 mcg/2 ml Inh Sol INH SCH ×2 (08:11→19:35)
[2019-01-15 09:03] LABS: BASO % 0.2 % (0.0-2.0); HEMOGLOBIN 11.6 g/dL (12.0-18.0); LYMPH # 0.6 K/uL (1.0-4.3); LYMPH % 4.5 % (20.0-40.0); MEAN CELL VOLUME 91.1 fL (80.0-94.0); MEAN CORPUSCULAR HEMOGLOBIN 31.2 pg (27.0-31.0); MEAN CORPUSCULAR HGB CONC 34.2 g/dL (33.0-37.0); MEAN PLATELET VOLUME 8.7 fL (7.2-11.7); MONO # 0.8 K/uL (0.0-0.8); MONO % 6.2 % (0.0-10.0); NEUT # 11.6 K/uL (1.8-7.0); NEUT % 89.1 % (50.0-75.0); PLATELET COUNT 301 K/uL (130-400); RBC 3.71 Mil/uL (4.40-5.90)
[2019-01-15] MEDS: guaiFENesin 600 mg ER Tab PO SCH ×2 (09:23→17:32)
[2019-01-15 09:26] LABS: ALB/GLOB RATIO 1.6 (1.0-2.1); ALBUMIN 3.7 g/dL (3.5-5.0); ALT/SGPT 47 U/L (21-72); AST/SGOT 24 U/L (17-59); BLOOD UREA NITROGEN 14 mg/dL (9-20); CALCIUM 9.2 mg/dl (8.6-10.4); GFR NON-AFRICAN AMERICAN > 60
[2019-01-15 10:07] LABS: ANISOCYTOSIS SLIGHT; BANDS 4 % (0-2); LARGE PLATELETS PRESENT; LYMPHOCYTE 6 % (20-40); MONOCYTE 7 % (0-10); NEUTROPHIL 83 % (50-75); PLATELET ESTIMATE NORMAL (NORMAL); TOTAL CELLS COUNTED 100
[2019-01-15 10:09] LABS: GIANT PLATELETS PRESENT; POLYCHROMIC SLIGHT
[2019-01-15] MEDS ORDERED: Pneumococcal 23-Valent Vaccine IM ONE (14:00)
--- NOTE | 2019-01-15 14:10 | CP.PCM.PN ---
Subjective - Date & Time of Evaluation Date of Evaluation: 01/15/19 Time of Evaluation: 14:10 - Subjective Subjective: Pulmonary follow up, Covering Dr Day The Patient was seen and examined at the bedside, Medical records reviewed, and management issues were discussed and formulated with the house staff. Events reviewed Objective - Vital Signs/Intake and Output Vital Signs (last 24 hours): Temp Pulse Resp BP Pulse Ox 98.4 F 77 20 148/80 97 01/15/19 08:24 01/15/19 08:24 01/15/19 08:24 01/15/19 08:24 01/15/19 08:24 - Medications Medications: Current Medications Albuterol/Ipratropium (Duoneb 3 Mg/0.5 Mg (3 Ml) Ud) 3 ml INH RQ6 [facility] Last Admin: 01/15/19 13:51 Dose: 3 ml Amlodipine Besylate (Norvasc) 5 mg PO DAILY [facility] Last Admin: 01/15/19 09:23 Dose: 5 mg Arformoterol Tartrate (Brovana) 15 mcg INH RQ12 [facility] Last Admin: 01/15/19 08:11 Dose: 15 mcg Aspirin (Ecotrin) 81 mg PO DAILY [facility] Last Admin: 01/15/19 09:23 Dose: 81 mg Budesonide (Pulmicort Respules) 0.5 mg INH RQ12 [facility] Last Admin: 01/15/19 08:11 Dose: 0.5 mg Guaifenesin (Mucinex La) 600 mg PO BID [facility] Stop: 01/16/19 18:01 Last Admin: 01/15/19 09:23 Dose: 600 mg Heparin Sodium (Porcine) (Heparin) 5,000 units SC Q8 [facility] Last Admin: 01/15/19 13:10 Dose: 5,000 units Azithromycin 500 mg/ Sodium (Chloride) 250 mls @ 250 mls/hr IVPB Q24H [facility]; Protocol Last Admin: 01/14/19 17:09 Dose: 250 mls/hr Ceftriaxone Sodium 1 gm/ (Sodium Chloride) 100 mls @ 100 mls/hr IVPB Q12H [facility]; Protocol Last Admin: 01/15/19 05:02 Dose: 100 mls/hr Losartan Potassium (Cozaar) 100 mg PO DAILY [facility] Last Admin: 01/15/19 09:23 Dose: 100 mg Methylprednisolone (Solu-Medrol) 40 mg IVP Q12H [facility] Last Admin: 01/15/19 13:11 Dose: 40 mg - Labs Labs: 01/15/19 08:52 01/15/19 08:52
[2019-01-15] MEDS: Azithromycin 500 MG in Sodium Chloride 0.9% 250 ML IVPB SCH (17:33)
[2019-01-16] MEDS: Albuterol-Ipratrop 3 mg / 0.5 (3 ml) UD INH SCH ×3 (01:29→13:05)
--- NOTE | 2019-01-16 06:54 | CP.PCM.PN ---
<Zack Martínez M - Last Filed: 01/16/19 13:34> Subjective - Date & Time of Evaluation Date of Evaluation: 01/16/19 Time of Evaluation: 07:10 - Subjective Subjective: Medicine progress note for hospitalist Dr. Spears. Pt seen and examined at bedside. Pt lying in bed comfortably on NC. Pt reports breathing is much more improved & uses bipap at night. Pt reports couch is more improved as well, still non productive. Denies fevers, chill, nausea, vomiting, chest pain, constipation, diarrhea, abdominal pain. Objective - Vital Signs/Intake and Output Vital Signs (last 24 hours): Temp Pulse Resp BP Pulse Ox 98.7 F 95 H 20 149/81 96 01/15/19 23:35 01/16/19 03:39 01/15/19 23:35 01/15/19 23:35 01/15/19 23:35 Intake and Output: 01/15/19 01/16/19 18:59 06:59 Intake Total 400 Output Total 500 Balance -100 - Medications Medications: Current Medications Albuterol/Ipratropium (Duoneb 3 Mg/0.5 Mg (3 Ml) Ud) 3 ml INH RQ6 [facility] Last Admin: 01/16/19 01:29 Dose: 3 ml Amlodipine Besylate (Norvasc) 5 mg PO DAILY [facility] Last Admin: 01/15/19 09:23 Dose: 5 mg Arformoterol Tartrate (Brovana) 15 mcg INH RQ12 [facility] Last Admin: 01/15/19 19:35 Dose: 15 mcg Aspirin (Ecotrin) 81 mg PO DAILY [facility] Last Admin: 01/15/19 09:23 Dose: 81 mg Budesonide (Pulmicort Respules) 0.5 mg INH RQ12 [facility] Last Admin: 01/15/19 19:35 Dose: 0.5 mg Guaifenesin (Mucinex La) 600 mg PO BID [facility] Stop: 01/16/19 18:01 Last Admin: 01/15/19 17:32 Dose: 600 mg Losartan Potassium (Cozaar) 100 mg PO DAILY [facility] Last Admin: 01/15/19 09:23 Dose: 100 mg Methylprednisolone (Solu-Medrol) 40 mg IVP Q12H [facility] Last Admin: 01/15/19 23:55 Dose: 40 mg - Labs Labs: 01/15/19 08:52 01/15/19 08:52 - Constitutional Appears: Non-toxic, No Acute Distress - Head Exam Head Exam: NORMAL INSPECTION - Eye Exam Eye Exam: EOMI, Normal appearance - ENT Exam ENT Exam: Mucous Membranes Moist - Respiratory Exam Respiratory Exam: Decreased Breath Sounds, Wheezes, NORMAL BREATHING PATTERN - Cardiovascular Exam Cardiovascular Exam: +S1, +S2. absent: Murmur - GI/Abdominal Exam GI & Abdominal Exam: Soft, Normal Bowel Sounds - Extremities Exam Extremities Exam: Full ROM, Normal Inspection. absent: Calf Tenderness, Pedal Edema - Back Exam Back Exam: absent: CVA tenderness (L), CVA tenderness (R) - Neurological Exam Neurological Exam: Alert, Awake, Oriented x3 - Psychiatric Exam Psychiatric exam: Normal Affect, Normal Mood - Skin Skin Exam: Dry, Intact, Normal Color, Warm Assessment and Plan - Assessment and Plan (Free Text) Assessment: 74M pmhx of emphysema, HTN, Osteoarthritis admitted for shortness of breath Plan: Hypercapnic Respiratory Distress- COPD exacerbation Acute on chronic - CXR: No active dz - pH on ABG 7.41 - CO2 elevated, HCO3 elevated: pt is compensating - given Duoneb x5, Decadron 10mg x1 in ED - Duonebs 3mL INH rQ4 [facility] - Brovana inh Daily - Solumedrol 40mg IVP q12H - mucinex 600 mg BID total 6 doses - Pulmonology Consulted: Dr Day * DELISA as neded, continue nebulizer treatment, will benefit from trilogy - f/u cultures; atypical, legionella, mycoplasma, strep pneumo Hypertension chronic - ASA 81mg po daily - Losartan 100mg po daily PPx - DVT: Heparin 5000u SC q8, SCDs - Diet: HHD Dispo: Case managment to contact patient's home oxygen company to replace patient's malfunctioning oxygen machine & triology <Christiano Spears - Last Filed: 01/16/19 14:12> Objective - Vital Signs/Intake and Output Vital Signs (last 24 hours): Temp Pulse Resp BP Pulse Ox 98.0 F 102 H 18 149/88 97 01/16/19 07:00 01/16/19 11:23 01/16/19 07:00 01/16/19 07:00 01/16/19 07:00 Intake and Output: 01/16/19 01/16/19 06:59 18:59 Intake Total 400 Output Total 500 Balance -100 - Medications Medications: Current Medications Albuterol/Ipratropium (Duoneb 3 Mg/0.5 Mg (3 Ml) Ud) 3 ml INH RQ6 [facility] Last Admin: 01/16/19 13:05 Dose: 3 ml Amlodipine Besylate (Norvasc) 5 mg PO DAILY [facility] Last Admin: 01/16/19 09:19 Dose: 5 mg Arformoterol Tartrate (Brovana) 15 mcg INH RQ12 [facility] Last Admin: 01/16/19 07:40 Dose: 15 mcg Aspirin (Ecotrin) 81 mg PO DAILY [facility] Last Admin: 01/16/19 09:19 Dose: 81 mg Budesonide (Pulmicort Respules) 0.5 mg INH RQ12 [facility] Last Admin: 01/16/19 07:40 Dose: 0.5 mg Guaifenesin (Mucinex La) 600 mg PO BID [facility] Stop: 01/16/19 18:01 Last Admin: 01/16/19 09:19 Dose: 600 mg Losartan Potassium (Cozaar) 100 mg PO DAILY [facility] Last Admin: 01/16/19 09:19 Dose: 100 mg Methylprednisolone (Solu-Medrol) 40 mg IVP Q12H [facility] Last Admin: 01/16/19 13:00 Dose: 40 mg - Labs Labs: 01/16/19 06:54 01/16/19 06:54 Attending/Attestation - Attestation I have personally seen and examined this patient.: Yes I have fully participated in the care of the patient.: Yes I have reviewed all pertinent clinical information, including history, physical exam and plan: Yes Notes (Text): seen and examined,lying on bed off BIPAP,Has bilateral wheezing continue BIPAP at night.Hypercapneic respiratory failure Pending triology and home oxygen arrangement
[2019-01-16 07:04] LABS: BASO % 0.1 % (0.0-2.0); HEMOGLOBIN 12.1 g/dL (12.0-18.0); LYMPH # 0.8 K/uL (1.0-4.3); LYMPH % 4.4 % (20.0-40.0); MEAN CELL VOLUME 91.2 fL (80.0-94.0); MEAN CORPUSCULAR HEMOGLOBIN 30.6 pg (27.0-31.0); MEAN CORPUSCULAR HGB CONC 33.6 g/dL (33.0-37.0); MEAN PLATELET VOLUME 8.6 fL (7.2-11.7); MONO # 1.3 K/uL (0.0-0.8); MONO % 7.8 % (0.0-10.0); NEUT % 87.7 % (50.0-75.0); NRBC % 0.1 % (0.0-2.0); PLATELET COUNT 299 K/uL (130-400); RBC 3.96 Mil/uL (4.40-5.90); RED CELL DISTRIBUTION WIDTH 13.7 % (11.5-14.5); WHITE BLOOD COUNT 17.1 K/uL (4.8-10.8)
[2019-01-16] MEDS: Budesonide 0.5 mg/2 ml Inhal Susp UD INH SCH ×2 (07:40→19:35)
[2019-01-16] MEDS: Arformoterol 15 mcg/2 ml Inh Sol INH SCH ×2 (07:40→19:35)
[2019-01-16 07:47] LABS: ALB/GLOB RATIO 1.6 (1.0-2.1); ALBUMIN 3.8 g/dL (3.5-5.0); ALT/SGPT 64 U/L (21-72); AST/SGOT 30 U/L (17-59); BLOOD UREA NITROGEN 14 mg/dL (9-20); CALCIUM 9.3 mg/dl (8.6-10.4); GFR NON-AFRICAN AMERICAN > 60
[2019-01-16 09:07] LABS: BANDS 4 % (0-2); LYMPHOCYTE 4 % (20-40); MONOCYTE 8 % (0-10); NEUTROPHIL 84 % (50-75); PLATELET ESTIMATE NORMAL (NORMAL); TOTAL CELLS COUNTED 100
[2019-01-16] MEDS: guaiFENesin 600 mg ER Tab PO SCH ×2 (09:19→17:25)
[2019-01-16] MEDS: MethylPREDNISolone 40 mg Vial IVP SCH ×2 (13:00→23:38)
--- NOTE | 2019-01-16 18:23 | CP.PCM.PN ---
Subjective - Date & Time of Evaluation Date of Evaluation: 01/16/19 Time of Evaluation: 10:00 - Subjective Subjective: Patient seen and examined at bedside. Patient is clinically improving. He complains of SOB, wheezing and cough. He enies cp, fever, nausea, vomiting, diarrhea, and constipation. O: General: mild distress, non-toxic, AAox3 HEENT: atraumatic, normocephalic, moist mucus membranes Cardio: RRR S1 and S2 present Pulm: decreasd breath sounds, + wheezing, - rhonchi, or rales. Using accessory muscle to help breathe. GI: + bowel sound, no guarding, no rebound Extremities: A: 74 year old male with a PMH of COPD, HTN, and OA who was admitted for SOB. Pulmonary was consulted for COPD exacerbation. P: Continue duoneb, pulmicort, mucinex, solumedrol, brovana, BiPAP PRN consider trilogy as pt failed BIPAP antibiotics d/c repeat ABG and CXR further management as per primary team Objective - Vital Signs/Intake and Output Vital Signs (last 24 hours): Temp Pulse Resp BP Pulse Ox 98.2 F 103 H 18 132/82 96 01/16/19 15:52 01/16/19 15:52 01/16/19 15:52 01/16/19 15:52 01/16/19 15:52 Intake and Output: 01/16/19 01/16/19 06:59 18:59 Intake Total 400 500 Output Total 500 Balance -100 500 - Medications Medications: Current Medications Albuterol/Ipratropium (Duoneb 3 Mg/0.5 Mg (3 Ml) Ud) 3 ml INH RQ6 [facility] Last Admin: 01/16/19 13:05 Dose: 3 ml Amlodipine Besylate (Norvasc) 5 mg PO DAILY [facility] Last Admin: 01/16/19 09:19 Dose: 5 mg Arformoterol Tartrate (Brovana) 15 mcg INH RQ12 [facility] Last Admin: 01/16/19 07:40 Dose: 15 mcg Aspirin (Ecotrin) 81 mg PO DAILY [facility] Last Admin: 01/16/19 09:19 Dose: 81 mg Budesonide (Pulmicort Respules) 0.5 mg INH RQ12 [facility] Last Admin: 01/16/19 07:40 Dose: 0.5 mg Losartan Potassium (Cozaar) 100 mg PO DAILY [facility] Last Admin: 01/16/19 09:19 Dose: 100 mg Methylprednisolone (Solu-Medrol) 40 mg IVP Q12H [facility] Last Admin: 01/16/19 13:00 Dose: 40 mg - Labs Labs: 01/16/19 06:54 01/16/19 06:54 Assessment and Plan (1) COPD exacerbation Status: Acute
[2019-01-17] MEDS: Albuterol-Ipratrop 3 mg / 0.5 (3 ml) UD INH SCH ×3 (01:19→19:46)
--- NOTE | 2019-01-17 07:05 | CP.PCM.PN ---
Subjective - Date & Time of Evaluation Date of Evaluation: 01/17/19 Time of Evaluation: 07:50 - Subjective Subjective: Progress note for Dr. Spears. Pt seen and examined at bedside. Pt reports feeling much better, minimal cough, SOB. Pt reports using BIPAP overnight. Denies fevers, chills. Pt reports intermittent chest pain overnight that is now resolved. PT described as left sided chest pain with radiation to left arm. Pt denied nausea, vomitting with the pain. Pt reports normal bowel movements and denies abdominal pain. Objective - Vital Signs/Intake and Output Vital Signs (last 24 hours): Temp Pulse Resp BP Pulse Ox 97.9 F 94 H 20 165/96 H 97 01/16/19 23:35 01/17/19 03:47 01/16/19 23:35 01/16/19 23:35 01/16/19 23:35 Intake and Output: 01/17/19 01/17/19 06:59 18:59 Output Total 900 Balance -900 - Medications Medications: Current Medications Albuterol/Ipratropium (Duoneb 3 Mg/0.5 Mg (3 Ml) Ud) 3 ml INH RQ6 [facility] Last Admin: 01/17/19 01:19 Dose: Not Given Amlodipine Besylate (Norvasc) 5 mg PO DAILY [facility] Last Admin: 01/16/19 09:19 Dose: 5 mg Arformoterol Tartrate (Brovana) 15 mcg INH RQ12 [facility] Last Admin: 01/16/19 19:35 Dose: 15 mcg Aspirin (Ecotrin) 81 mg PO DAILY [facility] Last Admin: 01/16/19 09:19 Dose: 81 mg Budesonide (Pulmicort Respules) 0.5 mg INH RQ12 [facility] Last Admin: 01/16/19 19:35 Dose: 0.5 mg Losartan Potassium (Cozaar) 100 mg PO DAILY [facility] Last Admin: 01/16/19 09:19 Dose: 100 mg Methylprednisolone (Solu-Medrol) 40 mg IVP Q12H [facility] Last Admin: 01/16/19 23:38 Dose: 40 mg - Labs Labs: 01/16/19 06:54 01/16/19 06:54 - Constitutional Appears: Non-toxic, No Acute Distress - Head Exam Head Exam: NORMAL INSPECTION - Eye Exam Eye Exam: Normal appearance - ENT Exam ENT Exam: Mucous Membranes Moist - Neck Exam Neck Exam: Full ROM - Respiratory Exam Respiratory Exam: Decreased Breath Sounds, Rales, Wheezes - Cardiovascular Exam Cardiovascular Exam: +S1, +S2. absent: Murmur - GI/Abdominal Exam GI & Abdominal Exam: Soft, Normal Bowel Sounds - Extremities Exam Extremities Exam: Full ROM, Normal Inspection. absent: Calf Tenderness, Pedal Edema - Back Exam Back Exam: absent: CVA tenderness (L), CVA tenderness (R) - Neurological Exam Neurological Exam: Alert, Awake, Oriented x3 - Psychiatric Exam Psychiatric exam: Normal Affect, Normal Mood - Skin Skin Exam: Dry, Intact, Normal Color, Warm Assessment and Plan - Assessment and Plan (Free Text) Assessment: 74M pmhx of emphysema, HTN, Osteoarthritis admitted for shortness of breath; awaiting triology. Overnight 1x episode of non producible chest pain Plan: Plan: Hypercapnic Respiratory Distress- COPD exacerbation Acute on chronic - CXR: No active dz - pH on ABG 7.41 - CO2 elevated, HCO3 elevated: pt is compensating - given Duoneb x5, Decadron 10mg x1 in ED - Duonebs 3mL INH rQ4 [facility] - Brovana inh Daily - Solumedrol 40mg IVP q12H redueced to q24H on 01/17 - mucinex 600 mg BID total 6 doses - Pulmonology Consulted: Dr Day * DELISA as neded, continue nebulizer treatment, will benefit from trilogy - f/u cultures; atypical, legionella, mycoplasma, strep pneumo negative Chest pain - R/o ACS vs MSK - F/u 1 x GEORGI - F/u EKG - further work up pending results Hypertension chronic - ASA 81mg po daily - Losartan 100mg po daily PPx - DVT: Heparin 5000u SC q8, SCDs - Diet: HHD Dispo: Case managment to contact patient's home oxygen company to replace patient's malfunctioning oxygen machine & triology
[2019-01-17 07:51] LABS: BASO % 0.1 % (0.0-2.0); HEMOGLOBIN 13.3 g/dL (12.0-18.0); LYMPH % 3.9 % (20.0-40.0); MEAN CELL VOLUME 90.7 fL (80.0-94.0); MEAN CORPUSCULAR HEMOGLOBIN 31.3 pg (27.0-31.0); MEAN CORPUSCULAR HGB CONC 34.5 g/dL (33.0-37.0); MEAN PLATELET VOLUME 8.8 fL (7.2-11.7); MONO % 7.8 % (0.0-10.0); NEUT # 22.6 K/uL (1.8-7.0); NEUT % 88.2 % (50.0-75.0); NRBC % 0.2 % (0.0-2.0); PLATELET COUNT 358 K/uL (130-400); RBC 4.25 Mil/uL (4.40-5.90)
[2019-01-17 07:52] LABS: ALB/GLOB RATIO 1.8 (1.0-2.1); ALBUMIN 4.1 g/dL (3.5-5.0); ALT/SGPT 64 U/L (21-72); AST/SGOT 22 U/L (17-59); BLOOD UREA NITROGEN 18 mg/dL (9-20); CALCIUM 9.6 mg/dl (8.6-10.4); GFR NON-AFRICAN AMERICAN > 60
[2019-01-17 07:55] LABS: WHITE BLOOD COUNT 25.7 K/uL (4.8-10.8)
[2019-01-17] MEDS: Budesonide 0.5 mg/2 ml Inhal Susp UD INH SCH ×2 (08:31→19:44)
[2019-01-17] MEDS: Arformoterol 15 mcg/2 ml Inh Sol INH SCH ×2 (08:32→19:44)
[2019-01-17 10:04] LABS: BANDS 2 % (0-2); LYMPHOCYTE 5 % (20-40); TOTAL CELLS COUNTED 100
[2019-01-17 10:05] LABS: MONOCYTE 9 % (0-10); NEUTROPHIL 84 % (50-75); PLATELET ESTIMATE NORMAL (NORMAL)
[2019-01-17] MEDS: MethylPREDNISolone 40 mg Vial IVP SCH (11:51)
--- NOTE | 2019-01-17 15:24 | CP.PCM.PN ---
Subjective - Date & Time of Evaluation Date of Evaluation: 01/17/19 Time of Evaluation: 11:20 - Subjective Subjective: Patient seen and examined at bedside. Patient is clinically improving. He complains of clear productive cough, sob, and muscular pain secondary to coughing. He denies cp, fever, nausea, vomiting, diarrhea, and constipation. O: General: NAD, non-toxic, AAox3 HEENT: atraumatic, normocephalic, moist mucus membranes Cardio: RRR S1 and S2 present Pulm: decreasd breath sounds, + mild wheezing, - rhonchi, or rales. GI: + bowel sound, no guarding, no rebound Extremities: no pedal edema A: 74 year old male with a PMH of COPD, HTN, and OA who was admitted for SOB. Pulmonary was consulted for COPD exacerbation. Patient is clinically improving. P: Continue duoneb, pulmicort, solumedrol, brovana, BiPAP PRN recommend trilogy Objective - Vital Signs/Intake and Output Vital Signs (last 24 hours): Temp Pulse Resp BP Pulse Ox 98.6 F 118 H 18 148/84 97 01/17/19 07:00 01/17/19 14:00 01/17/19 07:00 01/17/19 09:54 01/17/19 07:00 Intake and Output: 01/17/19 01/17/19 06:59 18:59 Intake Total 240 Output Total 900 Balance -900 240 - Medications Medications: Current Medications Albuterol/Ipratropium (Duoneb 3 Mg/0.5 Mg (3 Ml) Ud) 3 ml INH RQ6 [facility] Last Admin: 01/17/19 08:32 Dose: 3 ml Amlodipine Besylate (Norvasc) 5 mg PO DAILY [facility] Last Admin: 01/17/19 09:13 Dose: 5 mg Arformoterol Tartrate (Brovana) 15 mcg INH RQ12 [facility] Last Admin: 01/17/19 08:32 Dose: 15 mcg Aspirin (Ecotrin) 81 mg PO DAILY [facility] Last Admin: 01/17/19 09:13 Dose: 81 mg Budesonide (Pulmicort Respules) 0.5 mg INH RQ12 [facility] Last Admin: 01/17/19 08:31 Dose: 0.5 mg Losartan Potassium (Cozaar) 100 mg PO DAILY [facility] Last Admin: 01/17/19 09:13 Dose: 100 mg Methylprednisolone (Solu-Medrol) 40 mg IVP DAILY [facility] Last Admin: 01/17/19 11:51 Dose: 40 mg - Labs Labs: 01/17/19 07:12 01/17/19 07:12 Assessment and Plan (1) COPD exacerbation Status: Acute
[2019-01-17 18:38] LABS: CK-MB 1.09 ng/mL (0.0-3.38)
[2019-01-18] MEDS: Albuterol-Ipratrop 3 mg / 0.5 (3 ml) UD INH SCH ×4 (01:42→19:54)
[2019-01-18 06:45] LABS: BASO % 0.2 % (0.0-2.0); HEMOGLOBIN 12.7 g/dL (12.0-18.0); LYMPH # 1.3 K/uL (1.0-4.3); LYMPH % 4.9 % (20.0-40.0); MEAN CORPUSCULAR HEMOGLOBIN 30.4 pg (27.0-31.0); MEAN CORPUSCULAR HGB CONC 33.1 g/dL (33.0-37.0); MEAN PLATELET VOLUME 8.8 fL (7.2-11.7); MONO # 2.4 K/uL (0.0-0.8); MONO % 9.4 % (0.0-10.0); NEUT % 85.5 % (50.0-75.0); NRBC % 0.1 % (0.0-2.0); PLATELET COUNT 334 K/uL (130-400); RBC 4.17 Mil/uL (4.40-5.90); WHITE BLOOD COUNT 25.8 K/uL (4.8-10.8)
--- NOTE | 2019-01-18 06:57 | CP.PCM.PN ---
Subjective - Date & Time of Evaluation Date of Evaluation: 01/18/19 Time of Evaluation: 07:45 - Subjective Subjective: Medicine progress note for hospitalist Dr. Spears. Patient seen and examined at bedside. Pt reports chest pain is now completely r esolved. Pt reports overnight he had a minor dry, non productive cough. Denies fevers, chills, SOB, abdominal pain, nausea, vomiting, chest pain, dysuria, hematuria, constipation. Objective - Vital Signs/Intake and Output Vital Signs (last 24 hours): Temp Pulse Resp BP Pulse Ox 98.1 F 105 H 20 151/88 H 97 01/17/19 23:30 01/18/19 03:55 01/17/19 23:30 01/17/19 23:30 01/17/19 23:30 Intake and Output: 01/17/19 01/18/19 18:59 06:59 Intake Total 240 Balance 240 - Medications Medications: Current Medications Albuterol/Ipratropium (Duoneb 3 Mg/0.5 Mg (3 Ml) Ud) 3 ml INH RQ6 [facility] Last Admin: 01/18/19 01:42 Dose: Not Given Amlodipine Besylate (Norvasc) 5 mg PO DAILY [facility] Last Admin: 01/17/19 09:13 Dose: 5 mg Arformoterol Tartrate (Brovana) 15 mcg INH RQ12 [facility] Last Admin: 01/17/19 19:44 Dose: 15 mcg Aspirin (Ecotrin) 81 mg PO DAILY [facility] Last Admin: 01/17/19 09:13 Dose: 81 mg Budesonide (Pulmicort Respules) 0.5 mg INH RQ12 [facility] Last Admin: 01/17/19 19:44 Dose: 0.5 mg Losartan Potassium (Cozaar) 100 mg PO DAILY [facility] Last Admin: 01/17/19 09:13 Dose: 100 mg Methylprednisolone (Solu-Medrol) 40 mg IVP DAILY [facility] Last Admin: 01/17/19 11:51 Dose: 40 mg - Labs Labs: 01/18/19 06:36 01/17/19 07:12 - Constitutional Appears: Non-toxic, No Acute Distress - Head Exam Head Exam: NORMAL INSPECTION - Eye Exam Eye Exam: Normal appearance - ENT Exam ENT Exam: Mucous Membranes Moist - Respiratory Exam Respiratory Exam: Decreased Breath Sounds, Wheezes. absent: Rales, Rhonchi - Cardiovascular Exam Cardiovascular Exam: +S1, +S2. absent: Murmur - GI/Abdominal Exam GI & Abdominal Exam: Soft, Normal Bowel Sounds. absent: Firm, Guarding, Rigid - Extremities Exam Extremities Exam: Full ROM, Normal Inspection. absent: Calf Tenderness, Pedal Edema - Back Exam Back Exam: absent: CVA tenderness (L), CVA tenderness (R) - Neurological Exam Neurological Exam: Alert, Awake, Oriented x3 - Psychiatric Exam Psychiatric exam: Normal Affect, Normal Mood - Skin Skin Exam: Dry, Intact, Normal Color, Warm Assessment and Plan - Assessment and Plan (Free Text) Assessment: 74M pmhx of emphysema, HTN, Osteoarthritis admitted for shortness of breath; awaiting triology & at home oxygen to be functional Plan: Hypercapnic Respiratory Distress- COPD exacerbation Acute on chronic - CXR: No active dz - pH on ABG 7.41 - CO2 elevated, HCO3 elevated: pt is compensating - given Duoneb x5, Decadron 10mg x1 in ED - Duonebs 3mL INH rQ4 [facility] - Brovana inh Daily - Solumedrol 40mg IVP q12H redueced to q24H on 01/17 - Pulmonology Consulted: Dr Day * DELISA as neded, continue nebulizer treatment, will benefit from trilogy * pt safe to be discharged, triology will require 48-72 insurance authorization and will be provided to patient at home if approved. - blood cultures, atypical, legionella, mycoplasma, strep pneumo negative Hypertension chronic - ASA 81mg po daily - Losartan 100mg po daily Chest pain - Resolved - R/o ACS vs MSK - GEORGI X 1 negative - EKG X1: sinus tachycardia, T wave inversion in lead AVL, unchanged from previous EKG - further work up pending results PPx - DVT: Heparin 5000u SC q8, SCDs - Diet: HHD Dispo: Case management to contact patient's home oxygen company to replace patient's malfunctioning oxygen machine & triology. Provided oxygen replaced, pt is stable for discharge with medrol dosepak. Continue remaining home medication.
[2019-01-18 07:11] LABS: ALB/GLOB RATIO 1.7 (1.0-2.1); ALBUMIN 3.7 g/dL (3.5-5.0); ALT/SGPT 50 U/L (21-72); AST/SGOT 17 U/L (17-59); BLOOD UREA NITROGEN 21 mg/dL (9-20); CALCIUM 8.7 mg/dl (8.6-10.4); GFR NON-AFRICAN AMERICAN > 60
[2019-01-18] MEDS: Budesonide 0.5 mg/2 ml Inhal Susp UD INH SCH ×2 (07:38→19:53)
[2019-01-18] MEDS: Arformoterol 15 mcg/2 ml Inh Sol INH SCH ×2 (07:39→19:53)
[2019-01-18] MEDS: MethylPREDNISolone 40 mg Vial IVP SCH (09:29)
[2019-01-18 09:49] LABS: BANDS 2 % (0-2); LYMPHOCYTE 5 % (20-40); METAMYELOCYTE 1 % (0-0); MONOCYTE 11 % (0-10); MYELOCYTE 1 % (0-0); NEUTROPHIL 80 % (50-75); PLATELET ESTIMATE NORMAL (NORMAL); TOTAL CELLS COUNTED 100
--- NOTE | 2019-01-18 15:53 | CP.PCM.PN ---
Subjective - Date & Time of Evaluation Date of Evaluation: 01/18/19 Time of Evaluation: 12:10 - Subjective Subjective: Patient seen and examined at bedside. Patient is clinically improving. He still complains of cough and wheezing. He denies cp, fever, nausea, vomiting, diarrhea, and constipation. O: General: NAD, non-toxic, AAox3 HEENT: atraumatic, normocephalic, moist mucus membranes Cardio: RRR S1 and S2 present Pulm: decreasd breath sounds, + mild wheezing, - rhonchi, or rales. GI: + bowel sound, no guarding, no rebound Extremities: no pedal edema A: 74 year old male with a PMH of COPD, HTN, and OA who was admitted for SOB. Pulmonary was consulted for COPD exacerbation. Patient is clinically improving. P: Continue duoneb, pulmicort, solumedrol, brovana, BiPAP PRN Awaiting trilogy Patient can be d/c repeat ABG and CXR Objective - Vital Signs/Intake and Output Vital Signs (last 24 hours): Temp Pulse Resp BP Pulse Ox 98.0 F 77 18 138/84 97 01/18/19 07:00 01/18/19 07:00 01/18/19 07:00 01/18/19 07:00 01/18/19 07:00 Intake and Output: 01/18/19 01/18/19 06:59 18:59 Intake Total 420 Output Total 480 Balance -60 - Medications Medications: Current Medications Albuterol/Ipratropium (Duoneb 3 Mg/0.5 Mg (3 Ml) Ud) 3 ml INH RQ6 [facility] Last Admin: 01/18/19 13:39 Dose: 3 ml Amlodipine Besylate (Norvasc) 5 mg PO DAILY [facility] Last Admin: 01/18/19 09:28 Dose: 5 mg Arformoterol Tartrate (Brovana) 15 mcg INH RQ12 [facility] Last Admin: 01/18/19 07:39 Dose: 15 mcg Aspirin (Ecotrin) 81 mg PO DAILY [facility] Last Admin: 01/18/19 09:28 Dose: 81 mg Budesonide (Pulmicort Respules) 0.5 mg INH RQ12 [facility] Last Admin: 01/18/19 07:38 Dose: 0.5 mg Losartan Potassium (Cozaar) 100 mg PO DAILY [facility] Last Admin: 01/18/19 09:29 Dose: 100 mg Methylprednisolone (Solu-Medrol) 40 mg IVP DAILY [facility] Last Admin: 01/18/19 09:29 Dose: 40 mg - Labs Labs: 01/18/19 06:36 01/18/19 06:36 Assessment and Plan (1) COPD exacerbation Status: Acute
--- NOTE | 2019-01-18 18:34 | CARD ---
APPROVED REPORT Date of service: 01/17/2019 EKG Measurement Heart [id number] <Conclusion> Sinus tachycardia Otherwise normal ECG
[2019-01-19] MEDS: Albuterol-Ipratrop 3 mg / 0.5 (3 ml) UD INH SCH ×3 (01:17→13:20)
--- NOTE | 2019-01-19 07:02 | CP.PCM.PN ---
Subjective - Date & Time of Evaluation Date of Evaluation: 01/19/19 Time of Evaluation: 07:02 - Subjective Subjective: PGY-1 Medicine Progress Note for Dr. Spears Objective - Vital Signs/Intake and Output Vital Signs (last 24 hours): Temp Pulse Resp BP Pulse Ox 98.5 F 88 20 132/75 99 01/19/19 04:20 01/19/19 04:20 01/19/19 04:20 01/19/19 04:20 01/19/19 04:20 Intake and Output: 01/19/19 01/19/19 06:59 18:59 Intake Total 400 Output Total 300 Balance 100 - Medications Medications: Current Medications Albuterol/Ipratropium (Duoneb 3 Mg/0.5 Mg (3 Ml) Ud) 3 ml INH RQ6 [facility] Last Admin: 01/19/19 01:17 Dose: 3 ml Amlodipine Besylate (Norvasc) 5 mg PO DAILY [facility] Last Admin: 01/18/19 09:28 Dose: 5 mg Arformoterol Tartrate (Brovana) 15 mcg INH RQ12 [facility] Last Admin: 01/18/19 19:53 Dose: 15 mcg Aspirin (Ecotrin) 81 mg PO DAILY [facility] Last Admin: 01/18/19 09:28 Dose: 81 mg Budesonide (Pulmicort Respules) 0.5 mg INH RQ12 [facility] Last Admin: 01/18/19 19:53 Dose: 0.5 mg Losartan Potassium (Cozaar) 100 mg PO DAILY [facility] Last Admin: 01/18/19 09:29 Dose: 100 mg Methylprednisolone (Solu-Medrol) 40 mg IVP DAILY [facility] Last Admin: 01/18/19 09:29 Dose: 40 mg - Labs Labs: 01/18/19 06:36 01/18/19 06:36
[2019-01-19] MEDS: Budesonide 0.5 mg/2 ml Inhal Susp UD INH SCH (07:40)
[2019-01-19] MEDS: Arformoterol 15 mcg/2 ml Inh Sol INH SCH (07:40)
[2019-01-19 08:13] LABS: BASO # 0.1 K/uL (0.0-0.2); BASO % 0.3 % (0.0-2.0); EOS % 0.1 % (0.0-4.0); HEMOGLOBIN 14.2 g/dL (12.0-18.0); LYMPH # 1.8 K/uL (1.0-4.3); LYMPH % 6.8 % (20.0-40.0); MEAN CELL VOLUME 91.4 fL (80.0-94.0); MEAN CORPUSCULAR HEMOGLOBIN 31.2 pg (27.0-31.0); MEAN CORPUSCULAR HGB CONC 34.1 g/dL (33.0-37.0); MEAN PLATELET VOLUME 8.8 fL (7.2-11.7); MONO # 2.3 K/uL (0.0-0.8); MONO % 8.7 % (0.0-10.0); NEUT # 22.2 K/uL (1.8-7.0); NEUT % 84.1 % (50.0-75.0); NRBC % 0.1 % (0.0-2.0); PLATELET COUNT 381 K/uL (130-400); RBC 4.55 Mil/uL (4.40-5.90); WHITE BLOOD COUNT 26.3 K/uL (4.8-10.8)
[2019-01-19 08:33] LABS: ALB/GLOB RATIO 1.7 (1.0-2.1); ALT/SGPT 51 U/L (21-72); AST/SGOT 18 U/L (17-59); BLOOD UREA NITROGEN 22 mg/dL (9-20); CALCIUM 9.3 mg/dl (8.6-10.4); GFR NON-AFRICAN AMERICAN > 60
[2019-01-19 09:07] LABS: BANDS 5 % (0-2); LYMPHOCYTE 8 % (20-40); MONOCYTE 6 % (0-10); NEUTROPHIL 77 % (50-75); NUCLEATED RED BLOOD CELL 1 % (0-0); PLATELET ESTIMATE NORMAL (NORMAL); REACTIVE LYMPHOCYTES 4 % (0-0); TOTAL CELLS COUNTED 100
[2019-01-19] MEDS: MethylPREDNISolone 40 mg Vial IVP SCH (09:40)
--- NOTE | 2019-01-19 11:58 | CP.PCM.DIS ---
Provider - Provider Date of Admission: 01/12/19 14:22 Attending physician: Christiano Spears MD Consults: 01/12/19 15:51 Pulmonology Consult Stat Comment: Consulting Provider: Andre Day Consulting Physician: Andre Day Reason for Consult: SOB, emphysema, hypercapnic resp distress, 01/13/19 00:44 Inpatient [facility] Core Measures Referral Routine Comment: Physician Instructions: Reason For Exam: COPD Time Spent in preparation of Discharge (in minutes): 40 Diagnosis - Discharge Diagnosis (1) COPD exacerbation Status: Acute (2) Respiratory distress Status: Resolved Hospital Course - Lab Results Lab Results: Micro Results 01/13/19 14:52 Sputum Gram Stain - Final 01/13/19 14:52 Sputum Sputum Culture - Final NORMAL ORAL JEANNE Most Recent Lab Values WBC 26.3 K/uL (4.8-10.8) H 01/19/19 07:57 RBC 4.55 Mil/uL (4.40-5.90) 01/19/19 07:57 Hgb 14.2 g/dL (12.0-18.0) 01/19/19 07:57 Hct 41.6 % (35.0-51.0) 01/19/19 07:57 MCV 91.4 fL (80.0-94.0) 01/19/19 07:57 MCH 31.2 pg (27.0-31.0) H 01/19/19 07:57 MCHC 34.1 g/dL (33.0-37.0) 01/19/19 07:57 RDW 14.0 % (11.5-14.5) 01/19/19 07:57 Plt Count 381 K/uL (130-400) 01/19/19 07:57 MPV 8.8 fL (7.2-11.7) 01/19/19 07:57 Neut % (Auto) 84.1 % (50.0-75.0) H 01/19/19 07:57 Lymph % (Auto) 6.8 % (20.0-40.0) L 01/19/19 07:57 [place] % (Auto) 8.7 % (0.0-10.0) 01/19/19 07:57 Eos % (Auto) 0.1 % (0.0-4.0) 01/19/19 07:57 Baso % (Auto) 0.3 % (0.0-2.0) 01/19/19 07:57 Neut # (Auto) 22.2 K/uL (1.8-7.0) H 01/19/19 07:57 Lymph # (Auto) 1.8 K/uL (1.0-4.3) 01/19/19 07:57 [place] # (Auto) 2.3 K/uL (0.0-0.8) H 01/19/19 07:57 Eos # (Auto) 0.0 K/uL (0.0-0.7) 01/19/19 07:57 Baso # (Auto) 0.1 K/uL (0.0-0.2) 01/19/19 07:57 Neutrophils % (Manual) 77 % (50-75) H 01/19/19 07:57 Band Neutrophils % 5 % (0-2) H 01/19/19 07:57 Lymphocytes % (Manual) 8 % (20-40) L 01/19/19 07:57 Reactive Lymphs % 4 % (0-0) H 01/19/19 07:57 Monocytes % (Manual) 6 % (0-10) 01/19/19 07:57 Metamyelocytes % 1 % (0-0) H 01/18/19 06:36 Myelocytes % 1 % (0-0) H 01/18/19 06:36 Nucleated RBC % 1 % (0-0) H 01/19/19 07:57 Platelet Estimate Normal (NORMAL) 01/19/19 07:57 Large Platelets Present 01/15/19 08:52 Giant Platelets Present 01/15/19 08:52 Polychromasia Slight 01/15/19 08:52 Hypochromasia (manual) Slight 01/14/19 07:02 Basophilic Stippling Slight 01/15/19 08:52 Anisocytosis (manual) Slight 01/15/19 08:52 Puncture Site Rra 01/12/19 13:35 pCO2 59 mm/Hg (35-45) H 01/12/19 13:35 pO2 82 mm/Hg (80-100) 01/12/19 13:35 HCO3 33.0 mmol/L (21-28) H 01/12/19 13:35 ABG pH 7.41 (7.35-7.45) 01/12/19 13:35 ABG Total CO2 39.2 mmol/L (22-28) H 01/12/19 13:35 ABG O2 Saturation 97.1 % (95-98) 01/12/19 13:35 ABG Base Excess 10.4 mmol/L (-2.0-3.0) H 01/12/19 13:35 Medardo Test Pos 01/12/19 13:35 ABG Potassium 3.4 mmol/L (3.6-5.2) L 01/12/19 13:35 A-a O2 Difference 94.0 mm/Hg 01/12/19 13:35 Respiratory Index 1.1 01/12/19 13:35 Sodium 134.0 mmol/l (132-148) 01/12/19 13:35 Chloride 99.0 mmol/L (98-107) 01/12/19 13:35 Glucose 108 mg/dl (75-110) 01/12/19 13:35 Lactate 0.7 mmol/L (0.7-2.1) 01/12/19 13:35 Vent Mode Bipap 01/12/19 13:35 FiO2 35.0 % 01/12/19 13:35 Inspiratory BiPAP 14 01/12/19 13:35 Expiratory BiPAP 6 01/12/19 13:35 Sodium 132 mmol/L (132-148) 01/19/19 07:57 Potassium 4.5 mmol/L (3.6-5.2) 01/19/19 07:57 Chloride 89 mmol/L (98-107) L 01/19/19 07:57 Carbon Dioxide 35 mmol/L (22-30) H 01/19/19 07:57 Anion Gap 13 (10-20) 01/19/19 07:57 BUN 22 mg/dL (9-20) H 01/19/19 07:57 Creatinine 0.7 mg/dL (0.8-1.5) L 01/19/19 07:57 Est GFR ( Amer) > 60 01/19/19 07:57 Est GFR (Non-Af Amer) > 60 01/19/19 07:57 POC Glucose (mg/dL) 227 mg/dL (65-110) H 01/17/19 21:27 Random Glucose 91 mg/dL (75-110) D 01/19/19 07:57 Calcium 9.3 mg/dl (8.6-10.4) 01/19/19 07:57 Phosphorus 4.2 mg/dL (2.5-4.5) 01/19/19 07:57 Magnesium 2.3 mg/dL (1.6-2.3) 01/19/19 07:57 Total Bilirubin 0.5 mg/dL (0.2-1.3) 01/19/19 07:57 AST 18 U/L (17-59) 01/19/19 07:57 ALT 51 U/L (21-72) 01/19/19 07:57 Alkaline Phosphatase 70 U/L (38-126) 01/19/19 07:57 Total Creatine Kinase < 20 U/L (55-170) L 01/17/19 17:30 CK-MB (Mass) 1.09 ng/mL (0.0-3.38) 01/17/19 17:30 Troponin I < 0.0120 ng/mL (0.00-0.120) 01/17/19 17:30 NT-Pro-B Natriuret Pep 98.0 pg/mL (0-900) 01/12/19 12:27 Total Protein 6.4 g/dL (6.3-8.3) 01/19/19 07:57 Albumin 4.0 g/dL (3.5-5.0) 01/19/19 07:57 Globulin 2.4 gm/dL (2.2-3.9) 01/19/19 07:57 Albumin/Globulin Ratio 1.7 (1.0-2.1) 01/19/19 07:57 Arterial Blood Potassium 3.4 mmol/L (3.6-5.2) L 01/12/19 13:35 Influenza Typ A,B (EIA) Negative for flu a/b (NEGATIVE) 01/12/19 14:13 Ur L.pneumophila Ag Negative (NEGATIVE) 01/12/19 16:23 Mycoplasma pneumon IgM Negative (NEGATIVE) 01/12/19 16:23 S. pneumoniae Antigen Negative (NEGATIVE) 01/12/19 16:23 - Hospital Course Hospital Course: HPI: Patient is a 74 year old male with past medical history of COPD/emphysema, asthma, bronchitis who presented to the ED due to shortness of breath for the last 7 days with productive cough and yellow sputum which is worse at night. He was accompanied at bedside by his daughter. He decided to come to the hospital today because he could not breathe. He states that he feels this way when required to get up and walk around. Patient uses home oxygen but states that the tank is not small enough for him to bring with him anywhere and his condition improves with oxygen use. He additionally complains of pain in his lateral rib cage bilaterally when he breathes deeply. Patient admits shortness of breath, cough with productive yellow sputum, orthopnea (uses 2 pillows at night to sleep), dizziness, easy bruising, . He denies fever, chills, weight loss, headache, abdominal pain, N/V/D/C, dysuria, hematuria, recent travel, sick contacts or any other associated symptoms. The following is a summary hospital course. For full detail, please refer to EMR: Hypercapnic Respiratory Distress COPD exacerbation, acute on chronic - CXR: No active dz - pH on ABG 7.41 - CO2 elevated, HCO3 elevated: pt is compensating - given Duoneb x5, Decadron 10mg x1 in ED - Duonebs 3mL INH rQ4 [facility] - Brovana inh Daily - Solumedrol 40mg IVP q12H redueced to q24H on 01/17 - Pulmonology Consulted: Dr Day * DELISA as neded, continue nebulizer treatment, will benefit from trilogy * pt safe to be discharged, triology will require 48-72 insurance authorization and will be provided to patient at home if approved. - blood cultures, atypical, legionella, mycoplasma, strep pneumo negative Hypertension, chronic - ASA 81mg po daily - Losartan 100mg po daily Chest pain - Resolved - R/o ACS vs MSK - GEORGI X 1 negative - EKG X1: sinus tachycardia, T wave inversion in lead AVL, unchanged from previous EKG - further work up pending results PPx, Diet, Disposition - DVT: Heparin 5000u SC q8, SCDs - Diet: HHD Dispo: Case management contacted patient's home oxygen company to replace patient's malfunctioning oxygen machine. Trilogy machine was also set up for patient home use. Patient is stable for discharge with medrol dosepak. Continue remaining home medication. On discharge: Patient is stable for discharge, as per Dr. Spears. Please follow up with your primary doctor, Dr. Matta within 1 week for repeat blood work. Please follow up with vocational guidance counselor Dr. Day within 1 week. Please take medrol dose pack as instructed. Please continue taking all medications as prescribed by your primary doctor. Please return to nearest emergency facility if symptoms return or worsen. - Date & Time of H&P Date of H&P: 01/19/19 Time of H&P: 11:56 Discharge Exam - Head Exam Head Exam: ATRAUMATIC, NORMAL INSPECTION, NORMOCEPHALIC - Eye Exam Eye Exam: EOMI, Normal appearance, PERRL Pupil Exam: NORMAL ACCOMODATION - ENT Exam ENT Exam: Mucous Membranes Moist, Normal Exam - Neck Exam Neck exam: Full Rom, Normal Inspection - Respiratory Exam Respiratory Exam: Clear to PA & Lateral, NORMAL BREATHING PATTERN, UNREMARKABLE. absent: Accessory Muscle Use, Respiratory Distress - Cardiovascular Exam Cardiovascular Exam: REGULAR RHYTHM, +S1, +S2 - GI/Abdominal Exam GI & Abdominal Exam: Normal Bowel Sounds, Soft, Unremarkable. absent: Distended, Firm, Guarding, Rebound, Rigid, Tenderness - Extremities Exam Extremities exam: full ROM, normal capillary refill, normal inspection, pedal pulses present - Back Exam Back exam: NORMAL INSPECTION - Neurological Exam Neurological exam: Alert, CN II-XII Intact, Normal Gait, Oriented x3 - Psychiatric Exam Psychiatric exam: Normal Affect, Normal Mood - Skin Skin Exam: Dry, Intact, Normal Color, Warm Discharge Plan - Discharge Medications Prescriptions: Methylprednisolone [Medrol Dose Pack (21 tabs)] 4 mg PO DAILY #21 mg - Follow Up Plan Condition: GUARDED Disposition: HOME/ ROUTINE Instructions: COPD Including Emphysema (DC), Risk Factors for COPD Additional Instructions: Patient is stable for discharge, as per Dr. Spears. Please follow up with your primary doctor, Dr. Matta within 1 week for repeat blood work. Please follow up with vocational guidance counselor Dr. Day within 1 week. Please take medrol dose pack as instructed. Please continue taking all medications as prescribed by your primary doctor. Please return to nearest emergency facility if symptoms return or worsen. Referrals: Andre Day MD [Staff Provider] -
[2019-01-19 12:29] LABS: ABG ALLEN TEST POS; ARTERIAL BLOOD GAS HCO3 29.9 mmol/L (21-28); ARTERIAL BLOOD GAS HEMOGLOBIN 12.8 g/dL (11.7-17.4); ARTERIAL BLOOD GAS O2 SAT 93.4 % (95-98); ARTERIAL BLOOD GAS PCO2 44 mm/Hg (35-45); ARTERIAL BLOOD GAS PH 7.46 (7.35-7.45); ARTERIAL BLOOD GAS PO2 57 mm/Hg (80-100); ARTERIAL BLOOD GAS TCO2 32.7 mmol/L (22-28)
[2019-01-19 16:49] VITALS: BP 124/72; PULSE 95; RESP 20; TEMP 98.4; O2SAT 95
[2019-01-19] MEDS ORDERED: Arformoterol 15 mcg/2 ml Inh Sol INH SCH (22:00)
== END 2019-01-19 18:07 | disposition home or self-care (01) | DRG 191 ==
LOC: C.ER 11:41 → C.9E 14:22 → C.6T 21:16
PROVIDERS: ADMIT Hospitalist; ATTEND Internal Medicine
DX: J43.9 Emphysema, unspecified (principal); E87.1 Hypo-osmolality and hyponatremia; R06.03 Acute respiratory distress; E11.9 Type 2 diabetes mellitus without complications; I10 Essential (primary) hypertension; I25.10 Atherosclerotic heart disease of native coronary artery without angina pectoris; R06.01 Orthopnea; R07.89 Other chest pain; R79.1 Abnormal coagulation profile; M19.90 Unspecified osteoarthritis, unspecified site; D72.829 Elevated white blood cell count, unspecified; T38.0X5A Adverse effect of glucocorticoids and synthetic analogues, initial encounter; Z99.81 Dependence on supplemental oxygen; Z87.891 Personal history of nicotine dependence; Z79.84 Long term (current) use of oral hypoglycemic drugs; Z79.82 Long term (current) use of aspirin; Z79.899 Other long term (current) drug therapy; Z82.49 Family history of ischemic heart disease and other diseases of the circulatory system